=== PATIENT | female | born 1985 | race American Indian/Alaskan Native ===

== ENCOUNTER 2017-06-24 08:49 | Emergency (ER) | payer MEDICARE, MEDICAID ==
[2017-06-24 08:53] VITALS: TEMP 98; BMI 29.2
[2017-06-24] MEDS ORDERED: Labetalol 5 mg/ml Inj 20ML IVP STA (09:21)
--- NOTE | 2017-06-24 09:26 | ED PDOC ---
HPI: Hypertension/Hypotension Time Seen by Provider: 06/24/17 09:12 Chief Complaint (Nursing): Headache History Per: Patient History/Exam Limitations: no limitations Onset/Duration Of Symptoms: Gradual Current Symptoms Are (Timing): Still Present Associated Symptoms: Chest Pain Severity: Mild Exacerbating Factor(s): Pos: None Additional History Per: Patient Additional Complaint(s): referred by dialysis center pt for high blood pressure . was given clonidine 0.1mg po BP was 200/130. hx of htn,dm,chf ,crf/ pt has npo sx did not ytake medications today. had full dialysis Past Medical History Reviewed: Historical Data, Nursing Documentation Vital Signs: Last Vital Signs Temp 98.0 F 06/24/17 08:52 Pulse 98 H 06/24/17 08:52 Resp 16 06/24/17 08:52 BP 200/119 H 06/24/17 08:52 Pulse Ox 98 06/24/17 08:55 - Medical History PMH: Anemia, Anxiety, Asthma, Bronchitis, CHF, COPD, Depression, Diabetes (type I), HTN, Hypercholesterolemia, Kidney Stones, Pneumonia, End Stage Renal Disease , Chronic Kidney Disease (CRF HD T-TH-,ESRD) Denies: HIV, Sickle Cell Disease - Family History Family History: States: Unknown Family Hx - Living Arrangements Living Arrangements: With Family - Social History Current smoker - smoking cessation education provided: No - Home Medications Home Medications: Ambulatory Orders Medication Instructions Recorded ARIPiprazole [Abilify] 5 mg PO HS #0 tab 01/16/16 Aspirin [Aspirin EC] 81 mg PO DAILY #0 tablet. 01/16/16 Atorvastatin [Lipitor] 10 mg PO HS 07/01/16 Carvedilol [Coreg] 3.125 mg PO Q12H 07/01/16 Furosemide [Lasix] 20 mg PO DAILY 07/01/16 Insulin Human NPH/Reg [HumuLIN 10 unit SC BID 07/01/16 70/30 (NPH/Reg)] Lisinopril [Zestril] 2.5 mg PO DAILY 07/01/16 Sevelamer Carbonate [Renvela] 800 mg PO TID 07/01/16 - Allergies Allergies/Adverse Reactions: Allergies Allergy/AdvReac Type Severity Reaction Status Date / Time FISH Allergy SWELLING Verified 06/24/17 08:55 Fish Containing Products Allergy SWELLING Verified 06/24/17 08:55 seafood Allergy Mild SWELLING Uncoded 06/24/17 08:55 Review of Systems ROS Statement: Except As Marked, All Systems Reviewed And Found Negative Constitutional: Negative for: Fever, Chills Cardiovascular: Negative for: Chest Pain, Palpitations Respiratory: Negative for: Cough, Shortness of Breath Gastrointestinal: Negative for: Nausea, Vomiting, Abdominal Pain Neurological: Positive for: Dizziness. Negative for: Weakness, Numbness, Headache Physical Exam - Reviewed Nursing Documentation Reviewed: Yes Vital Signs Reviewed: Yes - Physical Exam Appears: Positive for: No Acute Distress, Uncomfortable Head Exam: Positive for: ATRAUMATIC, NORMAL INSPECTION, NORMOCEPHALIC Eye Exam: Positive for: Normal appearance, EOMI, PERRL Neck: Positive for: Normal, Painless ROM, Supple Cardiovascular/Chest: Positive for: Regular Rate, Rhythm. Negative for: Edema Respiratory: Positive for: Normal Breath Sounds Gastrointestinal/Abdominal: Positive for: Normal Exam, Bowel Sounds, Soft. Negative for: Tenderness Back: Positive for: Normal Inspection. Negative for: L CVA Tenderness, R CVA Tenderness Extremity: Positive for: Normal ROM. Negative for: Tenderness, Pedal Edema Neurologic/Psych: Positive for: Alert, wheelman II-XII, Oriented, Mood/Affect ( anxious). Negative for: Motor/Sensory Deficits, Aphasia, Facial Droop - Laboratory Results Result Diagrams: 06/24/17 09:55 06/24/17 09:55 - ECG ECG: Positive for: Interpreted By Id ECG Rhythm: Positive for: Normal QRS, Normal ST Segment, Sinus Rhythm (rate of 90). Negative for: ST/T Changes O2 Sat by Pulse Oximetry: 98 Pulse Ox Interpretation: Normal - Radiology X-Ray: Interpreted by Id X-Ray Interpretation: No Acute Disease - Progress Re-evaluation Time: 10:30 Condition: Improved Disposition - Clinical Impression Clinical Impression: Hypertensive emergency - Patient ED Disposition Is Patient to be Admitted: No Counseled Patient/Family Regarding: Studies Performed, Diagnosis, Need For Followup - Disposition Referrals: [facility] [Outside] (or pmd in 2 days) Disposition: Routine/Home Disposition Time: 10:30 Condition: FAIR Additional Instructions: continue your medications. Instructions: Hypertensive Crisis (ED) Forms: [facility] ([place])
[2017-06-24 10:21] LABS: BASO # 0.1 K/uL (0.0-0.2); BASO % 0.8 % (0.0-2.0); EOS # 0.2 K/uL (0.0-0.7); EOS % 2.5 % (0.0-4.0); HEMATOCRIT 38.3 % (34.0-47.0); LYMPH # 0.9 K/uL (1.0-4.3); MEAN CELL VOLUME 90.1 fl (81.0-99.0); MEAN CORPUSCULAR HEMOGLOBIN 28.5 pg (27.0-31.0); MEAN CORPUSCULAR HGB CONC 31.6 g/dL (33.0-37.0); MEAN PLATELET VOLUME 7.9 fl (7.2-11.7); MONO # 0.4 K/uL (0.0-0.8); NEUT # 6.3 K/uL (1.8-7.0); NEUT % 79.7 % (50.0-75.0); NRBC % 0.1 % (0.0-0.0); RED CELL DISTRIBUTION WIDTH 20.4 % (11.5-14.5); WHITE BLOOD COUNT 7.9 K/uL (4.8-10.8)
[2017-06-24 10:23] LABS: ALB/GLOB RATIO 1.2 (1.0-2.1); BILIRUBIN,TOTAL 0.6 mg/dl (0.2-1.3); CALCIUM 8.3 mg/dL (8.4-10.2); MAGNESIUM 1.9 MG/DL (1.6-2.3); POTASSIUM 3.7 MMOL/L (3.6-5.0); TOTAL PROTEIN 7.3 G/DL (6.3-8.2)
[2017-06-24 10:31] LABS: PARTIAL THROMBOPLASTIN TIME 31.4 Seconds (25.6-37.1)
--- NOTE | 2017-06-24 10:33 | RAD ---
PROCEDURE: CHEST RADIOGRAPH, 1 VIEW HISTORY: Hypertension COMPARISON: None available. FINDINGS: LUNGS: The lungs are well inflated and clear. PLEURA: No pneumothorax or pleural fluid seen. CARDIOVASCULAR: Normal. OSSEOUS STRUCTURES: No significant abnormalities. VISUALIZED UPPER ABDOMEN: Normal. OTHER FINDINGS: None. IMPRESSION: No active pulmonary disease.
[2017-06-24 10:35] LABS: TROPONIN I 0.021 ng/mL (0.00-0.120)
[2017-06-24 10:51] VITALS: RESP 15
[2017-06-24 11:00] VITALS: BP 163/92; PULSE 82
[2017-06-24 11:18] VITALS: O2SAT 98
--- NOTE | 2017-06-25 16:43 | CARD ---
APPROVED REPORT EKG Measurement Heart [id number] <Conclusion> Normal sinus rhythm Possible Left atrial enlargement Prolonged QT Abnormal ECG
== END 2017-06-24 12:01 | disposition home or self-care (01) ==
LOC: H.ER 08:49
DX: I12.0 Hypertensive chronic kidney disease with stage 5 chronic kidney disease or end stage renal disease (principal); Z79.4 Long term (current) use of insulin; J44.9 Chronic obstructive pulmonary disease, unspecified; F41.9 Anxiety disorder, unspecified; F32.9 Major depressive disorder, single episode, unspecified; E78.00 Pure hypercholesterolemia, unspecified; Z79.82 Long term (current) use of aspirin; Z87.442 Personal history of urinary calculi

== ENCOUNTER 2017-08-08 11:40 | Emergency (ER) | payer MEDICARE, MEDICAID ==
[2017-08-08 11:40] VITALS: BMI 29.2
[2017-08-08 14:28] LABS: BASO # 0.1 K/uL (0.0-0.2); BASO % 0.9 % (0.0-2.0); EOS % 0.4 % (0.0-4.0); HEMOGLOBIN 9.5 g/dL (12.0-16.0); LYMPH # 1.3 K/uL (1.0-4.3); LYMPH % 13.8 % (20.0-40.0); MEAN CELL VOLUME 89.8 fl (81.0-99.0); MEAN CORPUSCULAR HEMOGLOBIN 28.5 pg (27.0-31.0); MEAN CORPUSCULAR HGB CONC 31.7 g/dL (33.0-37.0); MEAN PLATELET VOLUME 9.1 fl (7.2-11.7); MONO # 0.7 K/uL (0.0-0.8); MONO % 6.9 % (0.0-10.0); NEUT # 7.4 K/uL (1.8-7.0); NRBC % 0.1 % (0.0-0.0); RBC 3.33 Mil/uL (3.80-5.20); RED CELL DISTRIBUTION WIDTH 20.7 % (11.5-14.5); WHITE BLOOD COUNT 9.5 K/uL (4.8-10.8)
[2017-08-08 14:49] LABS: ALB/GLOB RATIO 1.1 (1.0-2.1); ALBUMIN 3.6 g/dL (3.5-5.0)
[2017-08-08] MEDS ORDERED: Dextrose 50% SYRINGE Inj (50 ml) IVP ONE (14:55)
[2017-08-08] MEDS ORDERED: Sod Polystyrene Sulf 15 gm/60 ml Susp PO STA (14:56)
[2017-08-08] MEDS ORDERED: Insulin Regular 100 units/ml IV STA (14:56)
[2017-08-08] MEDS ORDERED: Albuterol 0.083% Inhal Sol (2.5 mg/3 mL) UD INH STA (14:56)
[2017-08-08] MEDS ORDERED: Albuterol 0.083% Inhal Sol (2.5 mg/3 mL) UD ONE (15:17)
[2017-08-08] MEDS ORDERED: Insulin Regular 100 units/ml ONE (15:18)
[2017-08-08] MEDS ORDERED: Dextrose 50% SYRINGE Inj (50 ml) ONE (15:18)
[2017-08-08] MEDS ORDERED: Sod Polystyrene Sulf 15 gm/60 ml Susp ONE (15:19)
--- NOTE | 2017-08-08 16:31 | ED PDOC ---
HPI: General Adult Time Seen by Provider: 08/08/17 12:00 Chief Complaint (Nursing): Dizziness/Lightheaded Chief Complaint (Provider): Generalized weakness, missed dialysis x 1 week History Per: Patient History/Exam Limitations: no limitations Onset/Duration Of Symptoms: Days Have you had recent travel within the past 21 days to any of the following countries: [place], [place], [place] or [place]?: No Current Symptoms Are (Timing): Still Present Additional Complaint(s): 32 yo female with HTN, DM and CKD presents with generalized weakness. Pt states she was on vacation and did not go to dialysis for 8 days. Pt denies fever/ chills. Reports still producing some urine. Past Medical History Reviewed: Historical Data, Nursing Documentation, Vital Signs Vital Signs: Last Vital Signs Temp 97.9 F 08/08/17 21:00 Pulse 98 H 08/08/17 21:00 Resp 17 08/08/17 21:00 BP 145/81 08/08/17 21:00 Pulse Ox 98 08/26/17 14:49 - Medical History PMH: Anemia, Anxiety, Asthma, Bronchitis, CHF, COPD, Depression, Diabetes (type I), HTN, Hypercholesterolemia, Kidney Stones, Pneumonia, End Stage Renal Disease , Chronic Kidney Disease (CRF HD T-TH-S,ESRD) Denies: HIV, Sickle Cell Disease - Surgical History Surgical History: No Surg Hx - Family History Family History: States: Unknown Family Hx - Living Arrangements Living Arrangements: With Family - Social History Current smoker - smoking cessation education provided: No Alcohol: None Drugs: Denies - Home Medications Home Medications: Ambulatory Orders Medication Instructions Recorded Aspirin [Aspirin EC] 81 mg PO DAILY #0 rachel. 01/16/16 Atorvastatin [Lipitor] 10 mg PO DAILY 07/01/16 Furosemide [Lasix] 20 mg PO DAILY 07/01/16 Insulin Human (NPH)/Regular 15 unit SC BID 07/06/17 [Novolin 70/30 (70/30 units/ml) 10 ml] Carvedilol [Coreg] 6.25 mg PO Q12 #60 tab 07/07/17 Lisinopril [Zestril] 10 mg PO DAILY #30 tab 07/07/17 - Allergies Allergies/Adverse Reactions: Allergies Allergy/AdvReac Type Severity Reaction Status Date / Time FISH Allergy SWELLING Verified 06/24/17 08:55 Fish Containing Products Allergy SWELLING Verified 06/24/17 08:55 seafood Allergy Mild SWELLING Uncoded 06/24/17 08:55 Review of Systems ROS Statement: Except As Marked, All Systems Reviewed And Found Negative Constitutional: Positive for: Weakness. Negative for: Fever, Chills Cardiovascular: Negative for: Chest Pain Respiratory: Negative for: Shortness of Breath Gastrointestinal: Positive for: Nausea (Intermittent, none now ) Skin: Negative for: Rash Physical Exam - Reviewed Nursing Documentation Reviewed: Yes Vital Signs Reviewed: Yes - Physical Exam Appears: Positive for: Well, Non-toxic, No Acute Distress Head Exam: Positive for: ATRAUMATIC, NORMAL INSPECTION, NORMOCEPHALIC Skin: Positive for: Normal Color, Warm, DRY Eye Exam: Positive for: Normal appearance ENT: Positive for: Normal ENT Inspection Neck: Positive for: Normal, Painless ROM Cardiovascular/Chest: Positive for: Regular Rate, Rhythm Respiratory: Positive for: CNT, Normal Breath Sounds Gastrointestinal/Abdominal: Positive for: Normal Exam, Bowel Sounds, Soft. Negative for: Tenderness Back: Positive for: Normal Inspection Extremity: Positive for: Normal ROM Neurologic/Psych: Positive for: Alert, Oriented - Laboratory Results Result Diagrams: 08/08/17 14:19 08/08/17 14:19 - ECG O2 Sat by Pulse Oximetry: 98 Medical Decision Making Medical Decision Making: Time: 1347 Initial impression: Initial plan: Time: 1643 --Admit to hospital routine: As inpatient in telemetry for renal failure and hyperkalemia under the care of Dr. Thaddeus Rangel MD Scribe Attestation: Documented by Mckenzie Luna, acting as a scribe for Annalisa Senior PA-C Provider Scribe Attestation: All medical record entries made by the Scribe were at my direction and personally dictated by me. I have reviewed the chart and agree that the record accurately reflects my personal performance of the history, physical exam, medical decision making, and the department course for this patient. I have also personally directed, reviewed, and agree with the discharge instructions and disposition. Disposition - Clinical Impression Clinical Impression: Renal failure, Hyperkalemia - Patient ED Disposition Is Patient to be Admitted: Yes (As inpatient in telemetry) - Disposition Disposition Time: 16:43 Condition: FAIR
[2017-08-08 21:44] VITALS: BP 145/81; PULSE 98; RESP 17; TEMP 97.9
--- NOTE | 2017-08-10 19:33 | CARD ---
APPROVED REPORT EKG Measurement Heart [id number] <Conclusion> Sinus tachycardia Septal infarct, age undetermined Abnormal ECG
[2017-08-26 14:49] VITALS: O2SAT 98
== END 2017-08-08 22:17 | disposition home or self-care (01) ==
LOC: H.ER 11:40 → UNDOADMIN 16:43 → H.ERHOLD 16:43 → UNDODISIN 22:17
DX: I13.2 Hypertensive heart and chronic kidney disease with heart failure and with stage 5 chronic kidney disease, or end stage renal disease (principal); E10.22 Type 1 diabetes mellitus with diabetic chronic kidney disease; N18.6 End stage renal disease; I50.9 Heart failure, unspecified; Z99.2 Dependence on renal dialysis; E87.5 Hyperkalemia; E78.00 Pure hypercholesterolemia, unspecified

== ENCOUNTER 2017-08-28 03:47 | Inpatient (IN) | payer MEDICARE, MEDICAID ==
[2017-08-28 03:47] VITALS: BMI 29.2
[2017-08-28 04:15] LABS: BASO # 0.1 K/uL (0.0-0.2); BASO % 1.2 % (0.0-2.0); EOS # 0.1 K/uL (0.0-0.7); EOS % 1.4 % (0.0-4.0); HEMOGLOBIN 7.3 g/dL (12.0-16.0); LYMPH # 0.8 K/uL (1.0-4.3); LYMPH % 10.4 % (20.0-40.0); MEAN CELL VOLUME 89.9 fl (81.0-99.0); MEAN CORPUSCULAR HEMOGLOBIN 28.7 pg (27.0-31.0); MEAN CORPUSCULAR HGB CONC 31.9 g/dL (33.0-37.0); MEAN PLATELET VOLUME 9.4 fl (7.2-11.7); MONO # 0.4 K/uL (0.0-0.8); MONO % 4.9 % (0.0-10.0); NEUT # 6.6 K/uL (1.8-7.0); NEUT % 82.1 % (50.0-75.0); NRBC % 0.1 % (0.0-0.0); RBC 2.56 Mil/uL (3.80-5.20); RED CELL DISTRIBUTION WIDTH 18.2 % (11.5-14.5); WHITE BLOOD COUNT 8.1 K/uL (4.8-10.8)
[2017-08-28 04:59] LABS: ALBUMIN 3.8 g/dL (3.5-5.0)
[2017-08-28] MEDS ORDERED: Insulin Regular 100 units/ml SC STA (05:06)
[2017-08-28] MEDS ORDERED: Dextrose 50% SYRINGE Inj (50 ml) IVP ONE ×2 (05:07→16:15)
[2017-08-28] MEDS ORDERED: Sodium Bicarbonate 4.2% Inj (Infant) IVP ONE (05:07)
--- NOTE | 2017-08-28 05:19 | ED PDOC ---
HPI:Nausea, Vomiting, Diarrhea Time Seen by Provider: 08/28/17 03:50 Chief Complaint (Nursing): Abdominal Pain Chief Complaint (Provider): weakness History Per: Patient History/Exam Limitations: no limitations Additional Complaint(s): 32 yo f with history of ESRD (and see full list below of full med history) here for generalized weakness, has not gotten dialysis for 3 weeks. no fever. did vomit athome. no abd or chest pain or short of breath. Past Medical History Vital Signs: Last Vital Signs Temp 97.9 F 08/28/17 03:48 Pulse 84 08/28/17 03:48 Resp 16 08/28/17 03:48 BP 148/81 08/28/17 03:48 Pulse Ox 100 08/28/17 03:48 - Medical History PMH: Anemia, Anxiety, Asthma, Bronchitis, CHF, COPD, Depression, Diabetes (type I), HTN, Hypercholesterolemia, Kidney Stones, Pneumonia, End Stage Renal Disease , Chronic Kidney Disease (CRF HD T-TH-S,ESRD) Denies: HIV, Sickle Cell Disease - Surgical History Surgical History: No Surg Hx - Family History Family History: States: Unknown Family Hx - Social History Current smoker - smoking cessation education provided: No Ex-Smoker (has not smoked in the last 12 months): No Alcohol: None - Home Medications Home Medications: Ambulatory Orders Medication Instructions Recorded Aspirin [Aspirin EC] 81 mg PO DAILY #0 tablet. 01/16/16 Atorvastatin [Lipitor] 10 mg PO DAILY 07/01/16 Furosemide [Lasix] 20 mg PO DAILY 07/01/16 Insulin Human (NPH)/Regular 15 unit SC BID 07/06/17 [Novolin 70/30 (70/30 units/ml) 10 ml] Carvedilol [Coreg] 6.25 mg PO Q12 #60 tab 07/07/17 Lisinopril [Zestril] 10 mg PO DAILY #30 tab 07/07/17 - Allergies Allergies/Adverse Reactions: Allergies Allergy/AdvReac Type Severity Reaction Status Date / Time FISH Allergy SWELLING Verified 08/28/17 06:06 Fish Containing Products Allergy SWELLING Verified 08/28/17 06:06 seafood Allergy Mild SWELLING Uncoded 06/24/17 08:55 Physical Exam - Reviewed Nursing Documentation Reviewed: Yes - Physical Exam Appears: Positive for: Well, Non-toxic, No Acute Distress Head Exam: Positive for: ATRAUMATIC, NORMAL INSPECTION Skin: Positive for: Normal Color, Warm, Dry Neck: Positive for: Normal Cardiovascular/Chest: Positive for: Regular Rate, Rhythm Respiratory: Positive for: Normal Breath Sounds Gastrointestinal/Abdominal: Positive for: Normal Exam Extremity: Positive for: Normal ROM Neurologic/Psych: Positive for: Alert, Oriented. Negative for: Motor/Sensory Deficits - Laboratory Results Result Diagrams: 08/28/17 04:05 08/28/17 04:05 - ECG O2 Sat by Pulse Oximetry: 100 Medical Decision Making Medical Decision Makin yo F with ESRD off dialysis for 3 weeks rule out hyperkalemia rule out infection vs dehydration labs ,imaging K elevated BUN CR elevated will hold off on iv fluids given lack of recent dialysis rule out infection pt will need admission hospitalist aware Dr Garnett aware Disposition - Clinical Impression Clinical Impression: CKD (chronic kidney disease) - Patient ED Disposition Is Patient to be Admitted: Yes - Disposition Disposition Time: 05:00 Condition: STABLE
--- NOTE | 2017-08-28 05:20 | CP.PCM.HP ---
History of Present Illness - History of Present Illness History of Present Illness: CC: Malaise, SOB HPI: This is a 32 y/o female with MHx significant for ESRD on / HD, CHF ( EF 30% on echo 03/11), valvular heart disease, HTN, and DM1 (?unclear), who has had multiple admissions for non-compliance with her HD; She comes in today, again symptomatic, after skipping HD for past 3 weeks (??). She has had SOB and malaise. Unclear exactly why she has been non-compliant with HD, she states because she was 'not feeling well'. Electric Power Machine Operator: Dr. Garnett, will be arranging for hemodialysis. ROS: 14 point ROS, negative other than HPI MHx: ESRD on HD as above, CHF/Cardiomyopathy EF 30%, valvular heart disease, HTN , DM1 (?) SHx: Toe amputation, HD graft placement in RUE Allergies: Fish/Seafood Medications: As per med rec Family Hx: Reviewed, no relevant findings Social Hx: Lives with family, no EtOH, no current tobacco, but smoked for 1 year in past/1 ppd Present on Admission - Present on Admission Any Indicators Present on Admission: No Past Patient History - Infectious Disease Hx of Infectious Diseases: None - Tetanus Immunizations Tetanus Immunization: Unknown - Past Medical History & Family History Past Medical History?: Yes - Past Social History Smoking Status: Former Smoker - CARDIAC Hx Congestive Heart Failure: Yes Hx Hypercholesterolemia: Yes Hx Hypertension: Yes - PULMONARY Hx Asthma: Yes Hx Bronchitis: Yes Hx Chronic Obstructive Pulmonary Disease (COPD): Yes Hx Pneumonia: Yes - NEUROLOGICAL Hx Neurological Disorder: No - HEENT Hx HEENT Problems: Yes - RENAL Hx Chronic Kidney Disease: Yes (CRF HD ,ESRD) Hx Kidney Stones: Yes - ENDOCRINE/METABOLIC Hx Endocrine Disorders: Yes (DM1) Hx Diabetes Mellitus Type 1: Yes - HEMATOLOGICAL/ONCOLOGICAL Hx Anemia: Yes Hx Human Immunodeficiency Virus (HIV): No Hx Sickle Cell Disease: No - INTEGUMENTARY Hx Dermatological Problems: No - MUSCULOSKELETAL/RHEUMATOLOGICAL Hx Musculoskeletal Disorders: Yes (BACKPAIN) Hx Falls: No - GASTROINTESTINAL Hx Gastrointestinal Disorders: No - GENITOURINARY/GYNECOLOGICAL Hx Genitourinary Disorders: Yes (KIDNEY STONES) - PSYCHIATRIC Hx Anxiety: Yes Hx Depression: Yes - SURGICAL HISTORY Hx Surgeries: Yes Hx Amputation: Yes (left 5th toe) Hx Vascular Access Device: Yes (AV fistula R arm) - ANESTHESIA Hx Anesthesia: Yes Hx Anesthesia Reactions: No Meds Allergies/Adverse Reactions: Allergies Allergy/AdvReac Type Severity Reaction Status Date / Time FISH Allergy SWELLING Verified 08/28/17 06:06 Fish Containing Products Allergy SWELLING Verified 08/28/17 06:06 seafood Allergy Mild SWELLING Uncoded 06/24/17 08:55 Physical Exam - Constitutional Appears: No Acute Distress, Chronically Ill - Head Exam Head Exam: ATRAUMATIC, NORMOCEPHALIC - Eye Exam Eye Exam: EOMI, PERRL - ENT Exam ENT Exam: Mucous Membranes Dry - Neck Exam Neck exam: Positive for: Full Rom - Respiratory Exam Respiratory Exam: Clear to Auscultation Bilateral, NORMAL BREATHING PATTERN - Cardiovascular Exam Cardiovascular Exam: REGULAR RHYTHM, +S1, +S2 - GI/Abdominal Exam GI & Abdominal Exam: Normal Bowel Sounds, Soft - Extremities Exam Extremities exam: Positive for: full ROM, normal inspection Additional comments: RUE graft in place - Neurological Exam Neurological exam: Alert, CN II-XII Intact, Oriented x3 - Psychiatric Exam Psychiatric exam: Normal Affect, Normal Mood - Skin Skin Exam: Dry, Warm Results - Vital Signs Recent Vital Signs: Last Vital Signs Temp 97.9 F 08/28/17 03:48 Pulse 84 08/28/17 03:48 Resp 16 08/28/17 03:48 BP 148/81 08/28/17 03:48 Pulse Ox 100 08/28/17 05:19 - Labs Result Diagrams: 08/28/17 04:05 08/28/17 04:05 Labs: Laboratory Results - last 24 hr 08/28/17 08/28/17 04:05 04:05 WBC 8.1 RBC 2.56 L Hgb 7.3 L D Hct 23.0 L MCV 89.9 MCH 28.7 MCHC 31.9 L RDW 18.2 H Plt Count 111 L D MPV 9.4 Neut % (Auto) 82.1 H Lymph % (Auto) 10.4 L [place] % (Auto) 4.9 Eos % (Auto) 1.4 Baso % (Auto) 1.2 Neut # 6.6 Lymph # 0.8 L [place] # 0.4 Eos # 0.1 Baso # 0.1 Sodium 144 Potassium 5.9 H Chloride 111 H Carbon Dioxide 9 L* D Anion Gap 30 H BUN 131 H* D Creatinine 17.8 H* D Est GFR ( Amer) 3 Est GFR (Non-Af Amer) 2 Random Glucose 101 Calcium 7.0 L Total Bilirubin 0.5 AST 16 ALT 41 Alkaline Phosphatase 48 Total Protein 7.1 Albumin 3.8 Globulin 3.3 Albumin/Globulin Ratio 1.2 - Imaging and Cardiology Chest x-ray Status: Pending Assessment & Plan (1) ESRD on hemodialysis Assessment and Plan: 32 y/o female with generalize symptoms and volume o/l and electrolyte derangement in setting of non-compliance with ESRD. 1) ESRD on HD, vol o/l, elec derangement -admit to tele -Garnett on consult for HD -Continue ESRD medications -Possibly vol depleted and may need some IVF, but will wait for HD -Zofran IV for nausea 2) DM1 -DM/Renal diet -ACHS accucheck -Home dose LA insulint with SSI 3) HTN -- continue home medications 4) DVT PPx -- SCDs for now Status: Acute (2) CHF exacerbation Status: Acute (3) Diabetes mellitus type 2 with complications, uncontrolled Status: Acute (4) HTN (hypertension) Status: Chronic (5) DVT prophylaxis Status: Acute
[2017-08-28] MEDS ORDERED: Insulin Regular 100 units/ml ONE (05:46)
[2017-08-28] MEDS ORDERED: Sod Polystyrene Sulf 15 gm/60 ml Susp ONE (05:46)
[2017-08-28] MEDS ORDERED: Dextrose 50% SYRINGE Inj (50 ml) ONE (05:46)
[2017-08-28] MEDS: Sod Polystyrene Sulf 15 gm/60 ml Susp PO ONE ×2 (06:01→06:30)
[2017-08-28 06:07] LABS: ALB/GLOB RATIO 1.1 (1.0-2.1)
--- NOTE | 2017-08-28 08:09 | RAD ---
HISTORY: chest COMPARISON: Chest x-ray performed 07/06/17 TECHNIQUE: Chest, one view. FINDINGS: Spinal artifact obscures evaluation of the underlying right LUNGS: Mild pulmonary venous congestion. Please note that chest x-ray has limited sensitivity for the detection of pulmonary masses. PLEURA: No significant pleural effusion identified. No definite pneumothorax . CARDIOVASCULAR: Heart size appears top normal. OSSEOUS STRUCTURES: No acute osseous abnormality identified. VISUALIZED UPPER ABDOMEN: Unremarkable. OTHER FINDINGS: None. IMPRESSION: Mild pulmonary venous congestion.
[2017-08-28] MEDS ORDERED: Epoetin Alfa 20000 UNIT/ML (RENAL DOSE) SC SCH (09:00)
[2017-08-28] MEDS ORDERED: Insulin Lispro Mix 75/25 100 units/ml (HumaLog) 10ml SC SCH (09:00)
[2017-08-28] MEDS: Insulin Lispro (humaLOG) 100 Units/ml Inj SC SCH ×2 (09:40→11:48)
--- NOTE | 2017-08-28 10:15 | CARD ---
APPROVED REPORT EKG Measurement Heart [id number] <Conclusion> Normal sinus rhythm Low voltage QRS Septal infarct, age undetermined Abnormal ECG
--- NOTE | 2017-08-28 14:40 | CP.PCM.CON ---
History of Present Illness - History of Present Illness History of Present Illness: Nephrology Consult Consult for ESRD 32 y/o female with pmh of ESRD, CHF, htn, dm that presented w/ multiple missed hd. She was unable to tell me how many dialysis treatments she missed nor when her last hd treatment was. Per chart has missed last 2-3 weeks. SHe endorses sob. SHe denies any fever or chills. She endorses some naussea. She denies vomitting. She feels generalized weakness. She could not tell me why she is skipping her dialysis treatments. ROS: a ful detailed ros is negative except as in my hpi pmh: esrd, chf, htn, dm Allergies: Fish/Seafood Medications: As per med rec Family Hx: + htn in family Social Hx: denies active smoking, etoh, ivdu pe: vs reviewed gen: nad sclera anicteric op: poor dentition neck supple cv: +s1+s2 lungs dec bs at bases abd soft ext: 1+ edema neuro: a+ox3 psych: flat skin no rash Past Patient History - Infectious Disease Hx of Infectious Diseases: None - Tetanus Immunizations Tetanus Immunization: Unknown - Past Medical History & Family History Past Medical History?: Yes - Past Social History Smoking Status: Former Smoker - CARDIAC Hx Congestive Heart Failure: Yes Hx Hypercholesterolemia: Yes Hx Hypertension: Yes - PULMONARY Hx Asthma: Yes Hx Bronchitis: Yes Hx Chronic Obstructive Pulmonary Disease (COPD): Yes Hx Pneumonia: Yes - NEUROLOGICAL Hx Neurological Disorder: No - HEENT Hx HEENT Problems: Yes - RENAL Hx Chronic Kidney Disease: Yes (CRF HD T--,ESRD) - ENDOCRINE/METABOLIC Hx Endocrine Disorders: Yes (DM1) - HEMATOLOGICAL/ONCOLOGICAL Hx Anemia: Yes Hx Human Immunodeficiency Virus (HIV): No Hx Sickle Cell Disease: No - INTEGUMENTARY Hx Dermatological Problems: No - MUSCULOSKELETAL/RHEUMATOLOGICAL Hx Musculoskeletal Disorders: Yes (BACKPAIN) - GASTROINTESTINAL Hx Gastrointestinal Disorders: No - GENITOURINARY/GYNECOLOGICAL Hx Genitourinary Disorders: Yes (KIDNEY STONES) - PSYCHIATRIC Hx Anxiety: Yes Hx Depression: Yes - SURGICAL HISTORY Hx Surgeries: Yes Hx Amputation: Yes (left 5th toe) Hx Vascular Access Device: Yes (AV fistula R arm) - ANESTHESIA Hx Anesthesia: Yes Hx Anesthesia Reactions: No Meds Allergies/Adverse Reactions: Allergies Allergy/AdvReac Type Severity Reaction Status Date / Time FISH Allergy SWELLING Verified 08/28/17 06:06 Fish Containing Products Allergy SWELLING Verified 08/28/17 06:06 seafood Allergy Mild SWELLING Uncoded 06/24/17 08:55 - Medications Medications: Current Medications Acetaminophen (Tylenol 325mg Tab) 650 mg PO Q6 PRN PRN Reason: Pain, Mild (1-3) Aspirin (Ecotrin) 81 mg PO DAILY [facility] Last Admin: 08/28/17 13:47 Dose: 81 mg Atorvastatin Calcium (Lipitor) 10 mg PO DAILY [facility] Last Admin: 08/28/17 13:47 Dose: 10 mg Carvedilol (Coreg) 6.25 mg PO Q12 [facility] Last Admin: 08/28/17 13:46 Dose: 6.25 mg Epoetin Jose (Procrit) 20,000 unit SC MWF [facility] Last Admin: 08/28/17 13:23 Dose: 20,000 unit Insulin Human Lispro (Humalog) 0 units SC ACHS [facility] PRN Reason: Protocol Last Admin: 08/28/17 11:48 Dose: Not Given Insulin Lispro Protam/Lispro Human (Humalog Mix 75/25) 15 units SC BID [facility] Last Admin: 08/28/17 09:41 Dose: Not Given Ondansetron HCl (Zofran Inj) 4 mg IVP Q6 PRN PRN Reason: Nausea/Vomiting Results - Vital Signs Recent Vital Signs: Last Vital Signs Temp 98.6 F 08/28/17 12:00 Pulse 88 08/28/17 13:46 Resp 20 08/28/17 12:00 BP 170/100 H 08/28/17 13:46 Pulse Ox 95 08/28/17 12:00 - Labs Result Diagrams: 08/28/17 04:05 08/28/17 04:05 Labs: Laboratory Results - last 24 hr 08/28/17 08/28/17 08/28/17 04:05 04:05 08:42 WBC 8.1 RBC 2.56 L Hgb 7.3 L D Hct 23.0 L MCV 89.9 MCH 28.7 MCHC 31.9 L RDW 18.2 H Plt Count 111 L D MPV 9.4 Neut % (Auto) 82.1 H Lymph % (Auto) 10.4 L [place] % (Auto) 4.9 Eos % (Auto) 1.4 Baso % (Auto) 1.2 Neut # 6.6 Lymph # 0.8 L [place] # 0.4 Eos # 0.1 Baso # 0.1 Sodium 144 Potassium 5.9 H Chloride 111 H Carbon Dioxide 9 L* D Anion Gap 30 H BUN 131 H* D Creatinine 17.8 H* D Est GFR ( Amer) 3 Est GFR (Non-Af Amer) 2 Random Glucose 101 Calcium 7.0 L Total Bilirubin 0.5 AST 16 ALT 41 Alkaline Phosphatase 48 Total Protein 7.1 Albumin 3.8 Globulin 3.3 Albumin/Globulin Ratio 1.1 Blood Type A POSITIVE Antibody Screen Negative Crossmatch See Detail BBK History Checked Patient has bt Assessment & Plan - Assessment and Plan (Free Text) Assessment: ESRD / Acidosis/ Hyperkalemia / CHF / Secondary hyperparathyroidism / Hypertensive kidney disease/ Anemia of renal disease plan: seen on hd acidosis should improve w/ hd k should improve p hd volume status should be improved will check phos and ipth level resume home bp medications, can add norvasc to regimen will start nephrocap started on procrit. check iron profile and ferritin plan on hd again tomorrow consider psych eval not clear how much insight she has on her disease processes
--- NOTE | 2017-08-28 14:44 | CP.PCM.PN ---
Subjective - Date & Time of Evaluation Date of Evaluation: 08/28/17 Time of Evaluation: 13:30 - Subjective Subjective: DIALYSIS NOTE seen on dialysis uf goal 2 kg 2 k bath tolerating tx Objective - Vital Signs/Intake and Output Vital Signs (last 24 hours): Temp Pulse Resp BP Pulse Ox 98.6 F 88 20 170/100 H 95 08/28/17 12:00 08/28/17 13:46 08/28/17 12:00 08/28/17 13:46 08/28/17 12:00 - Medications Medications: Current Medications Acetaminophen (Tylenol 325mg Tab) 650 mg PO Q6 PRN PRN Reason: Pain, Mild (1-3) Aspirin (Ecotrin) 81 mg PO DAILY [facility] Last Admin: 08/28/17 13:47 Dose: 81 mg Atorvastatin Calcium (Lipitor) 10 mg PO DAILY [facility] Last Admin: 08/28/17 13:47 Dose: 10 mg Carvedilol (Coreg) 6.25 mg PO Q12 [facility] Last Admin: 08/28/17 13:46 Dose: 6.25 mg Epoetin Jose (Procrit) 20,000 unit SC MWF [facility] Last Admin: 08/28/17 13:23 Dose: 20,000 unit Insulin Human Lispro (Humalog) 0 units SC ACHS [facility] PRN Reason: Protocol Last Admin: 08/28/17 11:48 Dose: Not Given Insulin Lispro Protam/Lispro Human (Humalog Mix 75/25) 15 units SC BID [facility] Last Admin: 08/28/17 09:41 Dose: Not Given Ondansetron HCl (Zofran Inj) 4 mg IVP Q6 PRN PRN Reason: Nausea/Vomiting Vitamin B Complex/Vit C/Folic Acid (Nephro-Shae) 1 tab PO DAILY [facility] - Labs Labs: 08/28/17 04:05 08/28/17 04:05
[2017-08-29 05:13] VITALS: O2SAT 95
[2017-08-29 05:43] LABS: BASO # 0.1 K/uL (0.0-0.2); EOS # 0.1 K/uL (0.0-0.7); EOS % 1.9 % (0.0-4.0); HEMOGLOBIN 8.3 g/dL (12.0-16.0); LYMPH # 1.1 K/uL (1.0-4.3); LYMPH % 14.8 % (20.0-40.0); MEAN CELL VOLUME 84.1 fl (81.0-99.0); MEAN CORPUSCULAR HEMOGLOBIN 28.1 pg (27.0-31.0); MEAN CORPUSCULAR HGB CONC 33.4 g/dL (33.0-37.0); MEAN PLATELET VOLUME 9.2 fl (7.2-11.7); MONO # 0.5 K/uL (0.0-0.8); MONO % 6.8 % (0.0-10.0); NEUT # 5.6 K/uL (1.8-7.0); NEUT % 75.5 % (50.0-75.0); NRBC % 0.1 % (0.0-0.0); RBC 2.95 Mil/uL (3.80-5.20); RED CELL DISTRIBUTION WIDTH 19.2 % (11.5-14.5); WHITE BLOOD COUNT 7.4 K/uL (4.8-10.8)
[2017-08-29 06:26] LABS: IRON 128 ug/dL (37-170)
[2017-08-29 06:35] LABS: TOTAL IRON BINDING CAPACITY 172 ug/dL (250-450)
[2017-08-29 06:37] LABS: CALCIUM 6.9 mg/dL (8.4-10.2)
[2017-08-29 06:39] LABS: % IRON SATURATION 74 % (20-55)
[2017-08-29 08:13] VITALS: RESP 20
[2017-08-29] MEDS ORDERED: Multivitamin Vitamin B Complex (Nephro-Vite) Tab PO SCH (09:00)
[2017-08-29 09:44] LABS: IRON 134 ug/dL (37-170)
[2017-08-29 09:53] LABS: TOTAL IRON BINDING CAPACITY 168 ug/dL (250-450)
--- NOTE | 2017-08-29 09:53 | PQF GENQUE ---
This form is a permanent part of the medical record 08/29/17 Dr. Taylor, After workup would you please clarify if the patient has DM I or DM II. H&P with the following documentation: DM I (? unclear) and DM II with complications uncontrolled. Addendum to H&P: Hypoglycemia in DM. [email or web address] [id number]. Clarification of your documentation is requested to better reflect the severity of illness and intensity of treatment of your patient. Indicators present [] Specify: [] [] Specify: [] [] Specify: [] [] Specify: [] Location in the medical record that reflects the above clinical findings: [] Treatment Provided: [] PHYSICIAN'S RESPONSE DM Type II with hypoglycemia Based on your medical judgment of the clinical indicators outlined above please clarify the following: [] Practitioner response [] If unable to determine, please check the box, sign and date. Present On Admission (POA) Indicator: [] Present at the time of admission [] Not present at the time of admission [] Clinically Undetermined In responding to this query, please exercise your independent professional judgment. The fact that a question is asked does not imply that any particular answer is desired or expected. Thank you for your clarification on this documentation. If you have any questions please call:extension [phone] * Thank you, Bonnie Cameron RN [facility]
[2017-08-29 09:56] LABS: % IRON SATURATION 80 % (20-55)
--- NOTE | 2017-08-29 09:58 | PQF GENQUE ---
This form is a permanent part of the medical record 08/29/17 Dr. Taylor, Please specify the type and acuity of heart failure in your progress notes after workup. Admitted with SOB and malaise. Has been non compliant with hemodialysis. History of CHF EF 30%, cardiomyopathy. H&P: ESRD on HD, vol o/l, elec derangement , CHF exacerbation. Clarification of your documentation is requested to better reflect the severity of illness and intensity of treatment of your patient. Indicators present [] Specify: [] [] Specify: [] [] Specify: [] [] Specify: [] Location in the medical record that reflects the above clinical findings: [] Treatment Provided: [] PHYSICIAN'S RESPONSE Based on your medical judgment of the clinical indicators outlined above please clarify the following: [] Practitioner response [] If unable to determine, please check the box, sign and date. Present On Admission (POA) Indicator: [] Present at the time of admission [] Not present at the time of admission [] Clinically Undetermined In responding to this query, please exercise your independent professional judgment. The fact that a question is asked does not imply that any particular answer is desired or expected. Thank you for your clarification on this documentation. If you have any questions please call:ext [phone] * Thank you, Bonnie Cameron RN [facility]
--- NOTE | 2017-08-29 11:03 | CP.PCM.PN ---
Subjective - Date & Time of Evaluation Date of Evaluation: 08/29/17 Time of Evaluation: 11:00 - Subjective Subjective: Patient and bed completed hemodialysis yesterday. No vomiting reported this morning No chest pain Objective - Vital Signs/Intake and Output Vital Signs (last 24 hours): Temp Pulse Resp BP Pulse Ox 98.9 F 95 H 20 137/75 95 08/29/17 08:00 08/29/17 09:55 08/29/17 08:00 08/29/17 09:55 08/29/17 08:00 - Medications Medications: Current Medications Acetaminophen (Tylenol 325mg Tab) 650 mg PO Q6 PRN PRN Reason: Pain, Mild (1-3) Amlodipine Besylate (Norvasc) 10 mg PO DAILY [facility] Last Admin: 08/29/17 09:54 Dose: 10 mg Aspirin (Ecotrin) 81 mg PO DAILY [facility] Last Admin: 08/29/17 09:55 Dose: 81 mg Atorvastatin Calcium (Lipitor) 10 mg PO DAILY [facility] Last Admin: 08/29/17 09:54 Dose: 10 mg Carvedilol (Coreg) 6.25 mg PO Q12 [facility] Last Admin: 08/29/17 09:54 Dose: 6.25 mg Epoetin Jose (Procrit) 20,000 unit SC MWF [facility] Last Admin: 08/28/17 13:23 Dose: 20,000 unit Hydralazine HCl (Apresoline) 10 mg PO Q8 [facility] Last Admin: 08/29/17 09:55 Dose: 10 mg Ondansetron HCl (Zofran Inj) 4 mg IVP Q6 PRN PRN Reason: Nausea/Vomiting Last Admin: 08/28/17 18:45 Dose: 4 mg Tramadol HCl (Ultram) 50 mg PO Q12 PRN PRN Reason: Pain, moderate (4-7) Last Admin: 08/29/17 02:27 Dose: 50 mg Vitamin B Complex/Vit C/Folic Acid (Nephro-Shae) 1 tab PO DAILY [facility] Last Admin: 08/29/17 09:55 Dose: 1 tab - Labs Labs: 08/29/17 04:20 08/29/17 04:20 - Constitutional Appears: No Acute Distress - ENT Exam ENT Exam: Mucous Membranes Moist - Respiratory Exam Respiratory Exam: Rhonchi, NORMAL BREATHING PATTERN. absent: Chest Wall Tenderness - Cardiovascular Exam Cardiovascular Exam: REGULAR RHYTHM. absent: Gallop, Rubs - GI/Abdominal Exam GI & Abdominal Exam: Soft, Normal Bowel Sounds - Extremities Exam Extremities Exam: absent: Calf Tenderness - Back Exam Back Exam: absent: CVA tenderness (L), CVA tenderness (R) - Neurological Exam Neurological Exam: Altered - Psychiatric Exam Psychiatric exam: Depressed - Skin Skin Exam: absent: Cyanosis Assessment and Plan (1) ESRD (end stage renal disease) on dialysis Assessment & Plan: End stage renal disease. Patient keep missing dialysis she did not show up for dialysis for the past almost 3 weeks Patient had dialysis yesterday and scheduled to have one shortly Patient remains somewhat uremic Anemia patient to receive EPO on dialysis Hyperphosphatemia patient to receive binders Secondary hyperparathyroidism Patient is depressed , suggest psych evaluation. Patient has not compliance with treatment and medication and dialysis Status: Acute
--- NOTE | 2017-08-29 19:12 | CP.PCM.DIS ---
Provider - Provider Date of Admission: 08/28/17 05:15 Attending physician: Carolyn Avendaño MD Primary care physician: Dr Cody Wiley Consults: Nephrology : Dr Garnett Time Spent in preparation of Discharge (in minutes): 45 Diagnosis - Discharge Diagnosis (1) Noncompliance of patient with renal dialysis Status: Acute (2) ESRD (end stage renal disease) on dialysis Status: Chronic (3) Hyperkalemia Status: Acute Priority: Low (4) Type 2 diabetes mellitus with hypoglycemia Status: Chronic (5) Anemia in end-stage renal disease Status: Chronic (6) Cardiomyopathy due to hypertension, with heart failure Status: Chronic Hospital Course - Lab Results Lab Results: Most Recent Lab Values WBC 7.4 K/uL (4.8-10.8) 08/29/17 04:20 RBC 2.95 Mil/uL (3.80-5.20) L 08/29/17 04:20 Hgb 8.3 g/dL (12.0-16.0) L 08/29/17 04:20 Hct 24.8 % (34.0-47.0) L 08/29/17 04:20 MCV 84.1 fl (81.0-99.0) D 08/29/17 04:20 MCH 28.1 pg (27.0-31.0) 08/29/17 04:20 MCHC 33.4 g/dL (33.0-37.0) 08/29/17 04:20 RDW 19.2 % (11.5-14.5) H 08/29/17 04:20 Plt Count 118 K/uL (130-400) L 08/29/17 04:20 MPV 9.2 fl (7.2-11.7) 08/29/17 04:20 Neut % (Auto) 75.5 % (50.0-75.0) H 08/29/17 04:20 Lymph % (Auto) 14.8 % (20.0-40.0) L 08/29/17 04:20 [place] % (Auto) 6.8 % (0.0-10.0) 08/29/17 04:20 Eos % (Auto) 1.9 % (0.0-4.0) 08/29/17 04:20 Baso % (Auto) 1.0 % (0.0-2.0) 08/29/17 04:20 Neut # 5.6 K/uL (1.8-7.0) 08/29/17 04:20 Lymph # 1.1 K/uL (1.0-4.3) 08/29/17 04:20 [place] # 0.5 K/uL (0.0-0.8) 08/29/17 04:20 Eos # 0.1 K/uL (0.0-0.7) 08/29/17 04:20 Baso # 0.1 K/uL (0.0-0.2) 08/29/17 04:20 Sodium 137 mmol/l (132-148) 08/29/17 04:20 Potassium 3.7 MMOL/L (3.6-5.0) 08/29/17 04:20 Chloride 99 mmol/L (98-107) 08/29/17 04:20 Carbon Dioxide 24 mmol/L (22-30) 08/29/17 04:20 Anion Gap 18 (10-20) 08/29/17 04:20 BUN 64 mg/dl (7-17) H 08/29/17 04:20 Creatinine 10.5 mg/dl (0.7-1.2) H* D 08/29/17 04:20 Est GFR ( Amer) 5 08/29/17 04:20 Est GFR (Non-Af Amer) 4 08/29/17 04:20 POC Glucose (mg/dL) 97 mg/dL (65-110) 08/29/17 11:22 Random Glucose 101 mg/dL (65-105) 08/29/17 04:20 Hemoglobin A1c 7.1 % (4.2-6.5) H D 08/29/17 04:20 Calcium 6.9 mg/dL (8.4-10.2) L 08/29/17 04:20 Phosphorus 6.6 mg/dl (2.5-4.5) H 08/29/17 04:20 Iron 134 ug/dL (37-170) 08/29/17 09:02 TIBC 168 ug/dL (250-450) L 08/29/17 09:02 % Saturation 80 % (20-55) H 08/29/17 09:02 Ferritin 484.0 ng/Ml (6.24-137.0) H 08/28/17 17:39 Total Bilirubin 0.5 mg/dl (0.2-1.3) 08/28/17 04:05 AST 16 U/L (14-36) 08/28/17 04:05 ALT 41 U/L (9-52) 08/28/17 04:05 Alkaline Phosphatase 48 U/L (38-126) 08/28/17 04:05 Total Protein 7.1 G/DL (6.3-8.2) 08/28/17 04:05 Albumin 3.8 g/dL (3.5-5.0) 08/28/17 04:05 Globulin 3.3 gm/dL (2.2-3.9) 08/28/17 04:05 Albumin/Globulin Ratio 1.1 (1.0-2.1) 08/28/17 04:05 PTH Intact Whole Molec 933 pg/mL (14-64) H 08/28/17 17:30 Blood Type A POSITIVE 08/28/17 08:42 Antibody Screen Negative 08/28/17 08:42 Crossmatch See Detail 08/28/17 08:42 BBK History Checked Patient has bt 08/28/17 08:42 - Hospital Course Hospital Course: 32 y/o lady with hx of ESRD on hemodialysis, DM Type II, HTN, CHF, Hx of Noncompliance with meds , dialysis and ff up came because of SOB , generalized weakness and not feeling well. 1. Hyperkalemia sec to ESRD - received Bicarb -refused kayexalate - Emergent HD 2. Noncompliance -t not compliant with her meds and dialysis skipped HD x 3 wks also not taking insulin for weeks and her BP meds (3) ESRD on hemodialysis - Hemodialysis restarted pt had HD x 2 days back to back -Garnett on consult for HD -Continue ESRD medications (4) CHF exacerbation systolic and diastolic dysfunction Hemodialysis done 2 days in a row cont Lasix , Hydralazine, Coreg no MOO due to hyperkalemia (5) Diabetes mellitus type 2 with complications, hypoglycemia Status: Acute pt states she was diadgnosed to have DM 10 yrs ago, no history of DKA, has been off Insulin for weeks had episodes of hypoglycemia while in the hospital will hols off on any meds for now (6) HTN (hypertension) uncontrolled Status: Chronic cont Coreg , Lasix, add Hydralazine and Norvasc 7. Anemia chronic due to ESRD transfuse 1 unit PRBC started Epogen (8) DVT prophylaxis Status: Acute SCD Patient's condition unexpectedly improved after 2 days of back to back Hemodialysis . Patient wants to go home refused to stay to be further monitored overnight . BP and glucose needs further monitoring however pt insistent on being discharged after HD despite explanation of benefits/risk. Pt is alert, oriented x 3 and has capacity to make her own decision . Discharge Exam - Head Exam Head Exam: ATRAUMATIC, NORMAL INSPECTION - Eye Exam Eye Exam: EOMI, Normal appearance Pupil Exam: NORMAL ACCOMODATION - ENT Exam ENT Exam: Mucous Membranes Moist, Normal External Ear Exam - Neck Exam Neck exam: Full Rom - Respiratory Exam Respiratory Exam: Rales, NORMAL BREATHING PATTERN. absent: Respiratory Distress - Cardiovascular Exam Cardiovascular Exam: REGULAR RHYTHM, +S1, +S2 - GI/Abdominal Exam GI & Abdominal Exam: Normal Bowel Sounds, Soft. absent: Tenderness - Extremities Exam Extremities exam: full ROM, normal capillary refill, pedal pulses present Additional comments: no edema - Back Exam Back exam: FULL ROM. absent: CVA tenderness (L), CVA tenderness (R) - Neurological Exam Neurological exam: Alert, CN II-XII Intact, Oriented x3, Reflexes Normal - Psychiatric Exam Psychiatric exam: Flat Affect, Normal Mood - Skin Skin Exam: Dry, Normal Color, Warm Discharge Plan - Discharge Medications Prescriptions: amLODIPine [Norvasc] 10 mg PO DAILY #30 tab hydrALAZINE [Apresoline] 10 mg PO Q8 #90 tab Vitamin B Complex/Vit C/Folic [Nephro-Shae] 1 tab PO DAILY #30 tab - Follow Up Plan Condition: IMPROVED Disposition: HOME/ ROUTINE Additional Instructions: stressed need for HD and med compliance ff up with PMD micky Referrals: Cody Wiley [Family Provider] -
--- NOTE | 2017-08-29 19:12 | CP.PCM.PN ---
Objective - Vital Signs/Intake and Output Vital Signs (last 24 hours): Temp Pulse Resp BP Pulse Ox 98.6 F 90 20 124/73 95 08/29/17 16:00 08/29/17 17:18 08/29/17 16:00 08/29/17 17:18 08/29/17 16:00 - Medications Medications: Current Medications Acetaminophen (Tylenol 325mg Tab) 650 mg PO Q6 PRN PRN Reason: Pain, Mild (1-3) Amlodipine Besylate (Norvasc) 10 mg PO DAILY [facility] Last Admin: 08/29/17 09:54 Dose: 10 mg Aspirin (Ecotrin) 81 mg PO DAILY [facility] Last Admin: 08/29/17 09:55 Dose: 81 mg Atorvastatin Calcium (Lipitor) 10 mg PO DAILY [facility] Last Admin: 08/29/17 09:54 Dose: 10 mg Carvedilol (Coreg) 6.25 mg PO Q12 [facility] Last Admin: 08/29/17 09:54 Dose: 6.25 mg Epoetin Jose (Procrit) 20,000 unit SC MWF [facility] Last Admin: 08/28/17 13:23 Dose: 20,000 unit Hydralazine HCl (Apresoline) 10 mg PO Q8 [facility] Last Admin: 08/29/17 17:18 Dose: Not Given Ondansetron HCl (Zofran Inj) 4 mg IVP Q6 PRN PRN Reason: Nausea/Vomiting Last Admin: 08/29/17 11:56 Dose: 4 mg Tramadol HCl (Ultram) 50 mg PO Q12 PRN PRN Reason: Pain, moderate (4-7) Last Admin: 08/29/17 02:27 Dose: 50 mg Vitamin B Complex/Vit C/Folic Acid (Nephro-Shae) 1 tab PO DAILY [facility] Last Admin: 08/29/17 09:55 Dose: 1 tab - Labs Labs: 08/29/17 04:20 08/29/17 04:20
[2017-08-29 20:11] VITALS: TEMP 98.2
[2017-08-29 20:48] VITALS: BP 145/82
[2017-08-29 20:54] VITALS: PULSE 91
== END 2017-08-29 22:15 | disposition home or self-care (01) | DRG 640 ==
LOC: H.ER 03:47 → H.ERHOLD 05:15 → H.TEL 07:09
PROVIDERS: ADMIT Internal Medicine; ATTEND Internal Medicine
PROC: 5A1D70Z Performance of Urinary Filtration, Intermittent, Less than 6 Hours Per Day (ICD-10-PCS; principal; 2017-08-28)
PROC: 30233N1 Transfusion of Nonautologous Red Blood Cells into Peripheral Vein, Percutaneous Approach (ICD-10-PCS; 2017-08-28)
DX: E87.5 Hyperkalemia (principal); N18.6 End stage renal disease; I13.2 Hypertensive heart and chronic kidney disease with heart failure and with stage 5 chronic kidney disease, or end stage renal disease; E11.22 Type 2 diabetes mellitus with diabetic chronic kidney disease; E11.649 Type 2 diabetes mellitus with hypoglycemia without coma; I50.43 Acute on chronic combined systolic (congestive) and diastolic (congestive) heart failure; N25.81 Secondary hyperparathyroidism of renal origin; E11.65 Type 2 diabetes mellitus with hyperglycemia; E83.39 Other disorders of phosphorus metabolism; D63.1 Anemia in chronic kidney disease; Z91.15 Patient's noncompliance with renal dialysis; Z91.19 Patient's noncompliance with other medical treatment and regimen; Z91.14 Patient's other noncompliance with medication regimen; Z99.2 Dependence on renal dialysis; Z91.013 Allergy to seafood; J45.909 Unspecified asthma, uncomplicated; J44.9 Chronic obstructive pulmonary disease, unspecified; F32.9 Major depressive disorder, single episode, unspecified; E78.00 Pure hypercholesterolemia, unspecified

== ENCOUNTER 2017-11-04 09:46 | Inpatient (IN) | payer MEDICARE, MEDICAID ==
[2017-11-04 09:46] VITALS: BMI 29.2
--- NOTE | 2017-11-04 10:01 | ED PDOC ---
HPI: Chest Pain Time Seen by Provider: 11/04/17 09:47 Chief Complaint (Nursing): Chest Pain Chief Complaint (Provider): Chest Pain, Shortness of Breath and Cough History Per: Patient History/Exam Limitations: no limitations Onset/Duration Of Symptoms: Days (x2) Current Symptoms Are (Timing): Still Present Severity: None Pain Scale Rating Of: 5 Quality: "Pain" Modifying Factors: None Exacerbating Factors: None Alleviating Factors: None Additional Complaint(s): 32 year old female with a past medical history of end stae renal disease, congestive heart failure and hypertension presents to the emergency department complaining of chest pain, shortness of breath and cough. As per patient, her last dialysis treatment was on Monday. Denies leg swelling, fever and palpitations. Of note: Patient states that she is still urinating PMD: Cody Wiley - Risk Factors PE Risk Factors: Pos: CHF TAD Risk Factors: Pos: Hypertension Past Medical History Reviewed: Historical Data, Nursing Documentation, Vital Signs Vital Signs: Last Vital Signs Temp 98.3 F 11/04/17 09:50 Pulse 91 H 11/04/17 09:50 Resp 16 11/04/17 09:50 BP 171/102 H 11/04/17 11:54 Pulse Ox 98 11/04/17 11:51 - Medical History PMH: Anemia, Anxiety, Asthma, Bronchitis, CHF, COPD, Depression, Diabetes (type I), HTN, Hypercholesterolemia, Kidney Stones, Pneumonia, End Stage Renal Disease , Chronic Kidney Disease (CRF HD T-TH-S,ESRD) Denies: HIV, Sickle Cell Disease - Surgical History Surgical History: No Surg Hx - Family History Family History: States: Unknown Family Hx - Social History Current smoker - smoking cessation education provided: No (formr smoker) Ex-Smoker (has not smoked in the last 12 months): No Alcohol: None Drugs: Denies - Home Medications Home Medications: Ambulatory Orders Medication Instructions Recorded Aspirin [Aspirin EC] 81 mg PO DAILY #0 tablet. 01/16/16 Atorvastatin [Lipitor] 10 mg PO DAILY 07/01/16 Epoetin Jose [Procrit] 20,000 unit SC MWF ml 08/29/17 amLODIPine [Norvasc] 10 mg PO DAILY #30 tab 08/29/17 hydrALAZINE [Apresoline] 10 mg PO Q8 #90 tab 08/29/17 Carvedilol [Coreg] 12.5 mg PO BID 11/04/17 - Allergies Allergies/Adverse Reactions: Allergies Allergy/AdvReac Type Severity Reaction Status Date / Time FISH Allergy SWELLING Verified 08/28/17 06:06 Fish Containing Products Allergy SWELLING Verified 08/28/17 06:06 seafood Allergy Mild SWELLING Uncoded 06/24/17 08:55 Review of Systems ROS Statement: Except As Marked, All Systems Reviewed And Found Negative Constitutional: Negative for: Fever Cardiovascular: Positive for: Chest Pain. Negative for: Palpitations Respiratory: Positive for: Cough, Shortness of Breath Musculoskeletal: Positive for: Other (Denies leg swelling) Physical Exam - Reviewed Nursing Documentation Reviewed: Yes Vital Signs Reviewed: Yes - Physical Exam Appears: Positive for: Non-toxic, No Acute Distress Head Exam: Positive for: ATRAUMATIC, NORMAL INSPECTION, NORMOCEPHALIC Skin: Positive for: Normal Color, Warm, Dry. Negative for: Rash Eye Exam: Positive for: Normal appearance, EOMI, PERRL. Negative for: Nystagmus ENT: Positive for: Normal ENT Inspection. Negative for: Nasal Congestion, Tonsillar Exudate, Tonsillar Swelling Neck: Positive for: Normal, Painless ROM, Supple Cardiovascular/Chest: Positive for: Regular Rate, Rhythm, Chest Non Tender. Negative for: Tachycardia Respiratory: Positive for: Crackles (fine bibasalar crackles). Negative for: Rales, Rhonchi, Stridor, Wheezing, Respiratory Distress Gastrointestinal/Abdominal: Positive for: Normal Exam, Bowel Sounds, Soft. Negative for: Tenderness, Mass, Guarding, Rebound Back: Negative for: L CVA Tenderness, R CVA Tenderness Extremity: Positive for: Normal ROM, Other (no pitting edema). Negative for: Tenderness, Calf Tenderness, Deformity, Swelling Neurologic/Psych: Positive for: Alert, Oriented, Gait - Laboratory Results Result Diagrams: 11/04/17 10:29 11/04/17 10:29 - ECG Interpretation Of ECG: NS @ 92, prolonged QT. O2 Sat by Pulse Oximetry: 98 (RA) Pulse Ox Interpretation: Normal Medical Decision Making Medical Decision Makin Initial Impression 32 year old female presenting with missed dialysis, chest pain and congestive heart failure Initial Plan: * EKG * CMP * Troponin * Upreg * Udip * CBC * PTT * Prothrombin Time * CXR * Blood Culture * Accucheck * Urinalysis * Revaluation Accession No. : [id number] Patient Name / ID : LORE VALENCIA / [id number] Exam Date : 11/04/2017 10:49:32 ( Approved ) Study Comment : Sex / Age : F / 32Y Creator : Aristeo Rosas MD Dictator : Aristeo Rosas MD Billet Checker : Policy Writer Sales : Aristeo Rosas MD Approver2 : Report Date : 11/04/2017 11:46:28 My Comment : HISTORY: SOB COMPARISON: 08/28/2017. FINDINGS: LUNGS: Pulmonary vascular congestion/ pulmonary edema. PLEURA: No significant pleural effusion identified, no pneumothorax apparent. CARDIOVASCULAR: No radiographic findings to suggest acute or significant cardiovascular disease. OSSEOUS STRUCTURES: No significant abnormalities. VISUALIZED UPPER ABDOMEN: Normal. OTHER FINDINGS: None. IMPRESSION: Mild, presumed noncardiogenic pulmonary edema. 12:00PM Case discussed with Dr. Wagner (covering for Dr. Garnett), advises Mobile Dialysis Unit, will give verbal orders. Documented by Trice Luther acting as a scribe for Dorys Lozoya MD. All medical record entries made by the Scribe were at my direction and personally dictated by me. I have reviewed the chart and agree that the record accurately reflects my personal performance of the history, physical exam, medical decision making, and the department course for this patient. I have also personally directed, reviewed, and agree with the discharge instructions and disposition. Disposition - Clinical Impression Clinical Impression: Missed dialysis, Chest pain, Uremia - Patient ED Disposition Is Patient to be Admitted: Yes - Disposition Disposition Time: 12:10 Condition: STABLE Forms: [employer] ([place]) - Pt Status Changed To: Hospital Disposition Of: Inpatient - Admit Certification Admit to Inpatient:: After my assessment, the patient will require hospitalization for at least two midnights. This is because of the severity of symptoms shown, intensity of services needed, and/or the medical risk in this patient being treated as an outpatient. - POA Present On Arrival: Poor Glycemic Control
[2017-11-04 10:39] LABS: BASO # 0.1 K/uL (0.0-0.2); BASO % 0.6 % (0.0-2.0); EOS # 0.2 K/uL (0.0-0.7); EOS % 1.7 % (0.0-4.0); HEMOGLOBIN 8.5 g/dL (12.0-16.0); LYMPH # 1.1 K/uL (1.0-4.3); LYMPH % 10.4 % (20.0-40.0); MEAN CELL VOLUME 90.1 fl (81.0-99.0); MEAN CORPUSCULAR HEMOGLOBIN 28.3 pg (27.0-31.0); MEAN CORPUSCULAR HGB CONC 31.4 g/dL (33.0-37.0); MEAN PLATELET VOLUME 8.7 fl (7.2-11.7); MONO # 0.3 K/uL (0.0-0.8); MONO % 2.9 % (0.0-10.0); NEUT # 9.2 K/uL (1.8-7.0); NEUT % 84.4 % (50.0-75.0); RBC 3.02 Mil/uL (3.80-5.20); RED CELL DISTRIBUTION WIDTH 21.5 % (11.5-14.5); WHITE BLOOD COUNT 10.9 K/uL (4.8-10.8)
[2017-11-04 11:08] LABS: TROPONIN I 0.013 ng/mL (0.00-0.120)
[2017-11-04 11:09] LABS: ALB/GLOB RATIO 1.1 (1.0-2.1); ALBUMIN 3.5 g/dL (3.5-5.0); CALCIUM 8.4 mg/dL (8.4-10.2)
[2017-11-04 11:23] LABS: INR 1.1 (0.9-1.2); PARTIAL THROMBOPLASTIN TIME 32.9 Seconds (25.6-37.1); PROTHROMBIN TIME 12.3 Seconds (9.8-13.1)
[2017-11-04] MEDS ORDERED: Albuterol 0.083% Inhal Sol (2.5 mg/3 mL) UD INH STA (11:38)
--- NOTE | 2017-11-04 11:48 | RAD ---
HISTORY: SOB COMPARISON: 08/28/2017. FINDINGS: LUNGS: Pulmonary vascular congestion/ pulmonary edema. PLEURA: No significant pleural effusion identified, no pneumothorax apparent. CARDIOVASCULAR: No radiographic findings to suggest acute or significant cardiovascular disease. OSSEOUS STRUCTURES: No significant abnormalities. VISUALIZED UPPER ABDOMEN: Normal. OTHER FINDINGS: None. IMPRESSION: Mild, presumed noncardiogenic pulmonary edema.
[2017-11-04] MEDS ORDERED: Insulin Regular 100 units/ml IV STA (11:50)
[2017-11-04] MEDS ORDERED: Albuterol 0.083% Inhal Sol (2.5 mg/3 mL) UD ONE (11:52)
[2017-11-04] MEDS ORDERED: Sod Polystyrene Sulf 15 gm/60 ml Susp ONE (11:53)
[2017-11-04] MEDS: Sod Polystyrene Sulf 15 gm/60 ml Susp PO STA ×2 (11:54→12:10)
[2017-11-04] MEDS ORDERED: Insulin Regular 100 units/ml ONE (12:02)
[2017-11-04] MEDS ORDERED: Epoetin Alfa 4000 UNIT/ML Inj IV SCH (16:00)
--- NOTE | 2017-11-04 16:26 | CARD ---
APPROVED REPORT EKG Measurement Heart [id number] <Conclusion> Normal sinus rhythm Prolonged QT Abnormal ECG
[2017-11-04] MEDS: Insulin Lispro (humaLOG) 100 Units/ml Inj SC SCH ×2 (16:55→19:10)
[2017-11-04] MEDS: Sevelamer Carb 0.8 gm/Packet PO SCH (16:56)
--- NOTE | 2017-11-04 17:33 | CP.PCM.CON ---
History of Present Illness - History of Present Illness History of Present Illness: Nephrology Consultation Note: Assessment: Stable Missed dialysis and fluid overload, hyperkalemia Diabetic chronic Kidney Disease (E11.22) Hypertensive Chronic Kidney Disease (I12.0) End stage renal disease (N18.6) dependence on hemodialysis (Z99.2) (TTS) via AVF Anemia (D64.9), Hyperphosphatemia (E83.39), Secondary Hyperparathyroidism (E21.1 ), HTN (I12.0) Plan: Will plan for HD today as ordered. Continue with Nephrovite 1 tab/day. PRBC as needed for anemia. On MAYELIN as Epogen with dialysis last Hb 8.5 Continue with phos binders home dose BP control with meds as ordered. Patient not on RAAS airam, Consider if blood pressure stays high Glycemic control, Dialysis consistent diet Further work up/management as per primary team Dose meds/antibiotics (if needed) for ESRD status. Avoid fleets enema/magnesium based laxatives. Thanks for allowing me to participate in care of your patient. Will follow patient with you. Please call if any Qs Dr Dannie Chung Office: [phone] Chief Complaint;Shortness of breath HPI: Pt is a 32 Female with hx of ESRD on hemodialysis (TTS) via AVF, last dialysis Mon, chronic anemia, hyperphosphatemia, secondary hyperparathyroidism, Diabetes Mellitus, hypertension presented with complaints of SOB x 1 day. Patient states she missed dialysis because of Storm on . She felt shortness of breath today hence she came to the emergency room for further evaluation. Denies leg swelling. Denies cough or phlegm. Says make urine Patient dialysis for many years. ROS: Cardiovascular: No chest pain. Pulmonary: c/o shortness of breath Gastrointestinal: denies abdominal pain No nausea. No vomiting. Genitourinary: No pain while urinating. Denies blood in urine. All other negative except as mentioned in HPI Physical Examination: General Appearance: Comfortable, in no acute respiratory distress, co-operative . Vitals reviewed and noted as below Head; Atraumatic, normocephalic ENT: no ulcers no thrush. Tongue is midline. Oropharynx: no rash or ulcers. EYES: Pupils are equal, round and reactive to light accommodation. Eye muscles and extraocular movement intact. Sclera is anicteric. Neck; supple no lymphadenopathy, no thyromegaly or bruit Lungs: Normal respiratory rate/effort. Breath sounds bilateral equal and few basal rales Heart: Normal rate. s1s2 normal. No rub or gallop. Extremities: no edema. No varicose veins Neurological: Patient is alert, awake and oriented to person, place and time. No focal deficit. Strength bilateral appropriate and equal Skin: Warm and dry. Normal turgor. No rash. Palpitation: Normal elasticity for age Abdomen: Abdomen is soft. Bowel sounds +. There is no abdominal tenderness, no guarding/rigidity or organomegaly Psych: normal insight and normal affect/mood MSK: no joint tenderness or swelling. Digits and nails normal, no deformity : kidney or bladder not palpable Access: AVF Labs/imaging reviewed. Past medical history, past surgical history, family history, social history, allergy reviewed and noted as below Family Hx: no hx of CKD. Non contributory Chest x-ray showing moderate pulmonary congestion Past Patient History - Infectious Disease Hx of Infectious Diseases: None - Tetanus Immunizations Tetanus Immunization: Unknown - Past Medical History & Family History Past Medical History?: Yes - Past Social History Smoking Status: Former Smoker - CARDIAC Hx Cardiac Disorders: Yes (HTN, CHF, HTN,) - PULMONARY Hx Respiratory Disorders: Yes (COPD, PNEUMONIA, ASTHMA, BRONCHITIS) - NEUROLOGICAL Hx Neurological Disorder: No - HEENT Hx HEENT Problems: Yes - RENAL Hx Chronic Kidney Disease: Yes (CRF HD T--,ESRD) - ENDOCRINE/METABOLIC Hx Endocrine Disorders: Yes (DM) - HEMATOLOGICAL/ONCOLOGICAL Hx Blood Disorders: Yes (ANEMIA) - INTEGUMENTARY Hx Dermatological Problems: No - MUSCULOSKELETAL/RHEUMATOLOGICAL Hx Musculoskeletal Disorders: Yes (BACKPAIN) Hx Falls: No - GASTROINTESTINAL Hx Gastrointestinal Disorders: No - GENITOURINARY/GYNECOLOGICAL Hx Genitourinary Disorders: Yes (KIDNEY STONES) - PSYCHIATRIC Hx Psychophysiologic Disorder: Yes (DEPRESSION, ANXIETY) Hx Substance Use: No - SURGICAL HISTORY Hx Surgeries: Yes Hx Amputation: Yes (left 5th toe) Hx Vascular Access Device: Yes (AV fistula R arm) - ANESTHESIA Hx Anesthesia: Yes Hx Anesthesia Reactions: No Hx Malignant Hyperthermia: No Has any member of the family had a problem w/ anesthesia?: No Meds Allergies/Adverse Reactions: Allergies Allergy/AdvReac Type Severity Reaction Status Date / Time FISH Allergy SWELLING Verified 08/28/17 06:06 Fish Containing Products Allergy SWELLING Verified 08/28/17 06:06 seafood Allergy Mild SWELLING Uncoded 06/24/17 08:55 - Medications Medications: Current Medications Acetaminophen (Tylenol 325mg Tab) 650 mg PO Q6 PRN PRN Reason: Pain, Mild (1-3) Amlodipine Besylate (Norvasc) 10 mg PO DAILY [facility] Last Admin: 11/04/17 16:56 Dose: 10 mg Aspirin (Ecotrin) 81 mg PO DAILY [facility] Carvedilol (Coreg) 12.5 mg PO Q12 [facility] Epoetin Jose (Procrit) 4,000 unit IV TTS [facility] Hydralazine HCl (Apresoline) 10 mg PO Q8 [facility] Last Admin: 11/04/17 16:54 Dose: 10 mg Insulin Human Lispro (Humalog) 15 units SC BIDWM [facility] Last Admin: 11/04/17 16:55 Dose: 15 units Lidocaine (Lidoderm) 1 ea TD DAILY [facility] Sevelamer Carbonate (Renvela) 0.8 gm PO TIDWM [facility] Last Admin: 11/04/17 16:56 Dose: 0.8 gm Tramadol HCl (Ultram) 50 mg PO Q12 PRN PRN Reason: Pain, moderate (4-7) Last Admin: 11/04/17 17:02 Dose: 50 mg Vitamin B Complex/Vit C/Folic Acid (Nephro-Shae) 1 tab PO DAILY [facility] Results - Vital Signs Recent Vital Signs: Last Vital Signs Temp 97.5 F L 11/04/17 16:04 Pulse 90 11/04/17 16:04 Resp 18 11/04/17 16:04 BP 179/123 H 11/04/17 16:54 Pulse Ox 100 11/04/17 16:04 - Labs Result Diagrams: 11/04/17 10:29 11/04/17 10:29 Labs: Laboratory Results - last 24 hr 11/04/17 11/04/17 11/04/17 10:11 10:29 10:29 WBC 10.9 H RBC 3.02 L Hgb 8.5 L Hct 27.2 L MCV 90.1 D MCH 28.3 MCHC 31.4 L RDW 21.5 H Plt Count 195 MPV 8.7 Neut % (Auto) 84.4 H Lymph % (Auto) 10.4 L [place] % (Auto) 2.9 Eos % (Auto) 1.7 Baso % (Auto) 0.6 Neut # (Auto) 9.2 H Lymph # (Auto) 1.1 [place] # (Auto) 0.3 Eos # (Auto) 0.2 Baso # (Auto) 0.1 PT INR APTT Sodium 139 Potassium 5.9 H Chloride 98 Carbon Dioxide 22 Anion Gap 25 H BUN 77 H Creatinine 12.3 H* Est GFR ( Amer) 4 Est GFR (Non-Af Amer) 4 POC Glucose (mg/dL) 227 H Random Glucose 211 H Calcium 8.4 Total Bilirubin 0.7 AST 17 ALT 30 Alkaline Phosphatase 49 Troponin I 0.0130 Total Protein 6.8 Albumin 3.5 Globulin 3.3 Albumin/Globulin Ratio 1.1 Serum HCG, Qual 11/04/17 11/04/17 10:29 10:35 WBC RBC Hgb Hct MCV MCH MCHC RDW Plt Count MPV Neut % (Auto) Lymph % (Auto) [place] % (Auto) Eos % (Auto) Baso % (Auto) Neut # (Auto) Lymph # (Auto) [place] # (Auto) Eos # (Auto) Baso # (Auto) PT 12.3 INR 1.1 APTT 32.9 Sodium Potassium Chloride Carbon Dioxide Anion Gap BUN Creatinine Est GFR ( Amer) Est GFR (Non-Af Amer) POC Glucose (mg/dL) Random Glucose Calcium Total Bilirubin AST ALT Alkaline Phosphatase Troponin I Total Protein Albumin Globulin Albumin/Globulin Ratio Serum HCG, Qual Negative
[2017-11-04 19:51] LABS: SQUAMOUS EPITHIAL < 1 /hpf (0-5); URINE BILIRUBIN NEGATIVE (NEGATIVE); URINE BLOOD NEGATIVE (NEGATIVE); URINE CLARITY CLEAR (Clear); URINE COLOR STRAW (YELLOW); URINE GLUCOSE (UA) 150 mg/dL (Normal); URINE LEUKOCYTE ESTERASE NEG Leu/uL (Negative); URINE PROTEIN >=500 mg/dL (NEGATIVE); URINE UROBILINOGEN 0.2-1.0 mg/dL (0.2-1.0)
[2017-11-05] MEDS ORDERED: Lidocaine 5% Patch TD SCH (09:00)
[2017-11-05] MEDS ORDERED: Multivitamin Vitamin B Complex (Nephro-Vite) Tab PO SCH (09:00)
[2017-11-05] MEDS: Insulin Lispro (humaLOG) 100 Units/ml Inj SC SCH (09:26)
[2017-11-05] MEDS: Sevelamer Carb 0.8 gm/Packet PO SCH ×3 (09:27→12:31)
[2017-11-05 16:02] VITALS: BP 139/87; PULSE 84; RESP 18; TEMP 98.2; O2SAT 95
--- NOTE | 2017-11-05 23:14 | CP.PCM.HP ---
History of Present Illness - History of Present Illness History of Present Illness: This is a 32 y/o female with hx of CKD had missed her dialysis and has been feeling congested and complained of chest pain hence [facility] Er eval and admitted. Past Patient History - Infectious Disease Hx of Infectious Diseases: None - Tetanus Immunizations Tetanus Immunization: Unknown - Past Medical History & Family History Past Medical History?: Yes - Past Social History Smoking Status: Former Smoker - CARDIAC Hx Cardiac Disorders: Yes (HTN, CHF, HTN,) - PULMONARY Hx Respiratory Disorders: Yes (COPD, PNEUMONIA, ASTHMA, BRONCHITIS) - NEUROLOGICAL Hx Neurological Disorder: No - HEENT Hx HEENT Problems: Yes - RENAL Hx Chronic Kidney Disease: Yes (CRF HD T-TH-S,ESRD) - ENDOCRINE/METABOLIC Hx Endocrine Disorders: Yes (DM) - HEMATOLOGICAL/ONCOLOGICAL Hx Blood Disorders: Yes (ANEMIA) - INTEGUMENTARY Hx Dermatological Problems: No - MUSCULOSKELETAL/RHEUMATOLOGICAL Hx Musculoskeletal Disorders: Yes (BACKPAIN) Hx Falls: No - GASTROINTESTINAL Hx Gastrointestinal Disorders: No - GENITOURINARY/GYNECOLOGICAL Hx Genitourinary Disorders: Yes (KIDNEY STONES) - PSYCHIATRIC Hx Psychophysiologic Disorder: Yes (DEPRESSION, ANXIETY) Hx Substance Use: No - SURGICAL HISTORY Hx Surgeries: Yes Hx Amputation: Yes (left 5th toe) Hx Vascular Access Device: Yes (AV fistula R arm) - ANESTHESIA Hx Anesthesia: Yes Hx Anesthesia Reactions: No Hx Malignant Hyperthermia: No Has any member of the family had a problem w/ anesthesia?: No Meds Allergies/Adverse Reactions: Allergies Allergy/AdvReac Type Severity Reaction Status Date / Time FISH Allergy SWELLING Verified 08/28/17 06:06 Fish Containing Products Allergy SWELLING Verified 08/28/17 06:06 seafood Allergy Mild SWELLING Uncoded 06/24/17 08:55 Results - Vital Signs Recent Vital Signs: Last Vital Signs Temp 98.2 F 11/05/17 16:00 Pulse 84 11/05/17 16:00 Resp 18 11/05/17 16:00 BP 139/87 11/05/17 16:00 Pulse Ox 95 11/05/17 16:00 - Labs Result Diagrams: 11/04/17 10:29 11/04/17 10:29 Labs: Laboratory Results - last 24 hr 11/05/17 11/05/17 11/05/17 05:59 11:39 13:19 POC Glucose (mg/dL) 106 110 Troponin I 0.0140
--- NOTE | 2017-11-06 09:12 | PQF GENQUE ---
Dr. Rangel, Please specify the type and acuity of heart failure in your progress notes:if known 1. TYPE: Combined systolic and diastolic Heart failure with reduced ejection fraction and diastolic dysfunction Diastolic HFpEF Systolic HFrEF Left heart failure Right heart failure Right heart failure due to left heart failure High Output failure End stage heart failure Other (please specify) Clinically unable to determine Unknown 2. ACUITY: Acute Chronic Acute on chronic Other (please specify) Clinically unable to determine Unknown 3. CAUSE: Due to presence of cardiac prosthesis Following cardiac surgery Following non cardiac surgery Hypertensive Other cause (please specify) Clinically unable to determine Unknown CXR: Impression: Mild, presumed noncardiogenic pulmonary edema. ER, H and P and Renal design consultant documentation includes: hx. CHF ER note: Clinical Impression : Missed dialysis, Chest pain, Uremia POA:Poor Glycemic Control ER, H and P,and Renal design consultant: hx. CHF :coreg daily, Lasix IV stat in ER H and P; hx. of CKD had missed her dialysis and has been feeling congested and complained of chest pain [facility]. Renal consult : Missed dialysis and fluid overload, hyperkalemia Diabetic chronic Kidney Disease (E11.22) Hypertensive Chronic Kidney Disease (I12.0) End stage renal disease (N18.6) dependence on hemodialysis (Z99.2) (TTS) via AVF Anemia (D64.9), Hyperphosphatemia (E83.39), Secondary Hyperparathyroidism (E21.1 ), HTN (I12.0) -PRBC as needed for anemia. On MAYELIN as Epogen with dialysis last Hb 8.5 ; Patient states she missed dialysis because of Storm on Lasix IV stat in ER, coreg indra This form is a permanent part of the medical record Clarification of your documentation is requested to better reflect the severity of illness and intensity of treatment of your patient. Indicators present [] Specify: [] [] Specify: [] [] Specify: [] [] Specify: [] Location in the medical record that reflects the above clinical findings: [] Treatment Provided: [] PHYSICIAN'S RESPONSE Based on your medical judgment of the clinical indicators outlined above please clarify the following: [] Practitioner response [] If unable to determine, please check the box, sign and date. Present On Admission (POA) Indicator: [] Present at the time of admission [] Not present at the time of admission [] Clinically Undetermined In responding to this query, please exercise your independent professional judgment. The fact that a question is asked does not imply that any particular answer is desired or expected. Thank you for your clarification on this documentation. If you have any questions please call. * Thank you, Holly Murguia RN ext. #[phone] MTDD
--- NOTE | 2017-11-06 09:26 | PQF GENQUE ---
Dr. Rangel, Please provide the underlying diagnosis causing the patient's documented symptom.Patient admitted with Chest Pain. ER; Clinical Impression: Missed dialysis, Chest pain, Uremia ;POA:Poor Glycemic Control H and P; hx of CKD had missed her dialysis and has been feeling congested and complained of chest pain hence [facility] Er eval and admitted. Renal:HPI: chronic anemia Imp.: Missed dialysis and fluid overload, hyperkalemia Diabetic chronic Kidney Disease (E11.22) Hypertensive Chronic Kidney Disease (I12.0) End stage renal disease (N18.6) dependence on hemodialysis (Z99.2) (TTS) via AVF Anemia (D64.9), Hyperphosphatemia (E83.39), Secondary Hyperparathyroidism (E21.1 ), HTN (I12.0) -PRBC as needed for anemia. On MAYELIN as Epogen with dialysis last Hb 8.5 ; Patient states she missed dialysis because of Storm on This form is a permanent part of the medical record Clarification of your documentation is requested to better reflect the severity of illness and intensity of treatment of your patient. Indicators present [] Specify: [] [] Specify: [] [] Specify: [] [] Specify: [] Location in the medical record that reflects the above clinical findings: [] Treatment Provided: [] PHYSICIAN'S RESPONSE Based on your medical judgment of the clinical indicators outlined above please clarify the following: [] Practitioner response [] If unable to determine, please check the box, sign and date. Present On Admission (POA) Indicator: [] Present at the time of admission [] Not present at the time of admission [] Clinically Undetermined In responding to this query, please exercise your independent professional judgment. The fact that a question is asked does not imply that any particular answer is desired or expected. Thank you for your clarification on this documentation. If you have any questions please call. * Thank you, Holly Murguia RN ext. #[phone] MTDD
== END 2017-11-05 16:30 | disposition home or self-care (01) | DRG 640 ==
LOC: H.ER 09:46 → H.ERHOLD 12:08 → H.TEL 13:52
PROVIDERS: ADMIT Family Medicine; ATTEND Family Medicine
PROC: 5A1D70Z Performance of Urinary Filtration, Intermittent, Less than 6 Hours Per Day (ICD-10-PCS; principal; 2017-11-04)
DX: E87.5 Hyperkalemia (principal); N18.6 End stage renal disease; I13.2 Hypertensive heart and chronic kidney disease with heart failure and with stage 5 chronic kidney disease, or end stage renal disease; E11.22 Type 2 diabetes mellitus with diabetic chronic kidney disease; N25.81 Secondary hyperparathyroidism of renal origin; I50.9 Heart failure, unspecified; Z99.2 Dependence on renal dialysis; E78.00 Pure hypercholesterolemia, unspecified; Z91.013 Allergy to seafood; F41.9 Anxiety disorder, unspecified; J44.9 Chronic obstructive pulmonary disease, unspecified; F32.9 Major depressive disorder, single episode, unspecified; E87.70 Fluid overload, unspecified; D64.9 Anemia, unspecified; Z91.15 Patient's noncompliance with renal dialysis

== ENCOUNTER 2018-01-26 14:30 | Emergency (ER) | payer MEDICARE, MEDICAID ==
[2018-01-26 14:31] VITALS: BMI 29.2
[2018-01-26 15:13] VITALS: TEMP 100; O2SAT 100
--- NOTE | 2018-01-26 15:39 | ED PDOC ---
Upper Extremity Pain/Injury Time Seen by Provider: 01/26/18 15:33 Chief Complaint (Nursing): Weakness/Neurological Deficit Chief Complaint (Provider): Upper Extremity Pain History Per: Patient History/Exam Limitations: no limitations Onset/Duration Of Symptoms: Days (x1) Current Symptoms Are (Timing): Still Present Quality: "Pain" Additional Complaint(s): 32 y/o female with a history of insulin dependent diabetes and HTN presents to the ED for right upper extremity pain. Patient reports having pain to the right side of her neck, shoulder, and arm. She states the pain woke her up while she was sleeping last night. Patient complains that the pain worsens with movement. Denies any recent trauma, chest pain, or focal motor weakness. Of note, patient has chronic renal failure and receives dialysis on Monday, , and Monday weekly. PMD: none provided Past Medical History Reviewed: Historical Data, Nursing Documentation, Vital Signs Vital Signs: Last Vital Signs Temp 100 F H 01/26/18 14:31 Pulse 98 H 01/26/18 14:31 Resp 16 01/26/18 14:31 BP 191/103 H 01/26/18 14:31 Pulse Ox 100 01/26/18 14:31 - Medical History PMH: Anemia, Anxiety, Asthma, Bronchitis, CHF, COPD, Depression, Diabetes (type I), HTN, Hypercholesterolemia, Kidney Stones, Pneumonia, End Stage Renal Disease , Chronic Kidney Disease (CRF HD -,ESRD) Denies: HIV, Sickle Cell Disease - Surgical History Surgical History: No Surg Hx - Family History Family History: States: Unknown Family Hx - Social History Current smoker - smoking cessation education provided: No Ex-Smoker (has not smoked in the last 12 months): No Alcohol: None Drugs: Denies - Home Medications Home Medications: Ambulatory Orders Medication Instructions Recorded Aspirin [Aspirin EC] 81 mg PO DAILY #0 tablet. 01/16/16 amLODIPine [Norvasc] 10 mg PO DAILY #30 tab 08/29/17 Carvedilol [Coreg] 12.5 mg PO Q12 11/04/17 Sevelamer Carbonate [Renvela] 2,400 mg PO TID 11/04/17 Diazepam [Valium] 2 mg PO TID PRN #12 tablet 01/26/18 Insulin Human (NPH)/Regular 15 unit SC BID 01/26/18 [Novolin 70/30 (70/30 units/ml) 10 ml] Lisinopril [Zestril] 10 mg PO DAILY 01/26/18 hydrALAZINE [Apresoline] 10 mg PO Q12 01/26/18 - Allergies Allergies/Adverse Reactions: Allergies Allergy/AdvReac Type Severity Reaction Status Date / Time FISH Allergy SWELLING Verified 08/28/17 06:06 Fish Containing Products Allergy SWELLING Verified 08/28/17 06:06 seafood Allergy Mild SWELLING Uncoded 06/24/17 08:55 Review of Systems ROS Statement: Except As Marked, All Systems Reviewed And Found Negative Constitutional: Negative for: Other (recent trauma) Cardiovascular: Negative for: Chest Pain Musculoskeletal: Positive for: Neck Pain (localized to right side), Shoulder Pain (right), Arm Pain (right) Neurological: Negative for: Weakness (focal motor) Physical Exam - Reviewed Nursing Documentation Reviewed: Yes Vital Signs Reviewed: Yes - Physical Exam Appears: Positive for: Non-toxic, No Acute Distress Head Exam: Positive for: ATRAUMATIC, NORMAL INSPECTION, NORMOCEPHALIC Skin: Positive for: Normal Color, Warm, DRY Eye Exam: Positive for: EOMI, Normal appearance, PERRL Neck: Positive for: Normal, Painless ROM, Supple Cardiovascular/Chest: Positive for: Murmur (diastolic murmur in the mitral area) . Negative for: Regular Rate, Rhythm Respiratory: Positive for: Normal Breath Sounds. Negative for: Respiratory Distress Gastrointestinal/Abdominal: Positive for: Normal Exam, Soft. Negative for: Tenderness Back: Positive for: Normal Inspection Extremity: Positive for: Other (AV fistula right arm upper arm with thrill, palpitation paracervical muscular reproduces the pain, marked pain over right trapezius muscle produces pain in the right hand of her right index finger ) Neurologic/Psych: Positive for: Alert, guide II-XII (intact), Oriented, Motor/ Sensory Deficits (gross), Other (5/5 motor strength) - ECG O2 Sat by Pulse Oximetry: 100 (RA) Pulse Ox Interpretation: Normal Medical Decision Making Medical Decision Making: Time: 14:31 Impression: cervical radiculopathy Initial Plan: * Valium 5 mg PO once * Toradol 30 mg IM once Patient was seen by provider at 15:20. Scribe Attestation: Documented by Romero Rausch acting as a scribe for Swapnil Bernarod MD. Scribe Attestation: All medical record entries made by the Scribe were at my direction and personally dictated by me. I have reviewed the chart and agree that the record accurately reflects my personal performance of the history, physical exam, medical decision making, and the department course for this patient. I have also personally directed, reviewed, and agree with the discharge instructions and disposition. Disposition - Clinical Impression Clinical Impression: Cervical radiculopathy - Disposition Referrals: [facility] [Outside] Disposition: Discharged to Home Care Disposition Time: 20:11 Condition: IMPROVED Prescriptions: Diazepam [Valium] 2 mg PO TID PRN #12 tablet PRN Reason: Pain, Severe (8-10) Instructions: Radiculopathy Forms: [employer] (Chinese)
[2018-01-26 17:08] VITALS: RESP 18
[2018-01-26 17:38] VITALS: BP 175/85; PULSE 87
== END 2018-01-26 17:41 | disposition home or self-care (01) ==
LOC: H.ER 14:30
DX: M54.12 Radiculopathy, cervical region (principal); N18.6 End stage renal disease; Z79.4 Long term (current) use of insulin; Z79.82 Long term (current) use of aspirin; E78.00 Pure hypercholesterolemia, unspecified; I13.2 Hypertensive heart and chronic kidney disease with heart failure and with stage 5 chronic kidney disease, or end stage renal disease
CPT/HCPCS: 96372; 99284; J1885

== ENCOUNTER 2018-01-31 15:53 | Emergency (ER) | payer MEDICARE, MEDICAID ==
[2018-01-31 15:53] VITALS: BMI 29.2
--- NOTE | 2018-01-31 16:07 | ED PDOC ---
Upper Extremity Pain/Injury Time Seen by Provider: 01/31/18 16:01 Chief Complaint (Nursing): Upper Extremity Problem/Injury Chief Complaint (Provider): right shoulder pain History Per: Patient Additional Complaint(s): 32-year-old female presents with persistent pain to right shoulder. Patient was seen last week for same symptoms and was given prescription for Valium which has not helped the pain. Patient states right shoulder pain has been going on for several weeks. She presents today via ambulance for further evaluation secondary to persistent pain. Patient took Valium at 1:00 today but this did not help. No other medications were taken for pain relief. Patient denies any chest pain, SOB or CARTER. Past Medical History Reviewed: Historical Data, Nursing Documentation, Vital Signs Vital Signs: Last Vital Signs Temp 99.7 F H 01/31/18 15:58 Pulse 103 H 01/31/18 15:58 Resp 16 01/31/18 15:58 BP 165/105 H 01/31/18 15:58 Pulse Ox 96 01/31/18 15:58 - Medical History PMH: Anemia, Anxiety, Asthma, Bronchitis, CHF, COPD, Depression, Diabetes (type I), HTN, Hypercholesterolemia, Kidney Stones, Pneumonia, End Stage Renal Disease , Chronic Kidney Disease (CRF HD T-TH-S,ESRD) - Family History Family History: States: No Known Family Hx - Living Arrangements Living Arrangements: With Family - Social History Current smoker - smoking cessation education provided: No Alcohol: None Drugs: Denies - Home Medications Home Medications: Ambulatory Orders Medication Instructions Recorded Aspirin [Aspirin EC] 81 mg PO DAILY #0 tablet. 01/16/16 amLODIPine [Norvasc] 10 mg PO DAILY #30 tab 08/29/17 Carvedilol [Coreg] 12.5 mg PO Q12 11/04/17 Sevelamer Carbonate [Renvela] 2,400 mg PO TID 11/04/17 Diazepam [Valium] 2 mg PO TID PRN #12 tablet 01/26/18 Insulin Human (NPH)/Regular 15 unit SC BID 01/26/18 [Novolin 70/30 (70/30 units/ml) 10 ml] Lisinopril [Zestril] 10 mg PO DAILY 01/26/18 hydrALAZINE [Apresoline] 10 mg PO Q12 01/26/18 Cyclobenzaprine [Cyclobenzaprine 10 mg PO TID PRN #20 tab 01/31/18 HCl] Lidocaine 5% [Lidoderm] 1 ea TD DAILY #30 patch 01/31/18 - Allergies Allergies/Adverse Reactions: Allergies Allergy/AdvReac Type Severity Reaction Status Date / Time FISH Allergy SWELLING Verified 01/31/18 15:57 Fish Containing Products Allergy SWELLING Verified 01/31/18 15:57 seafood Allergy Mild SWELLING Uncoded 01/31/18 15:57 Review of Systems ROS Statement: Except As Marked, All Systems Reviewed And Found Negative Musculoskeletal: Positive for: Shoulder Pain (right) Physical Exam - Reviewed Nursing Documentation Reviewed: Yes Vital Signs Reviewed: Yes - Physical Exam Appears: Positive for: Well, Non-toxic, No Acute Distress Skin: Positive for: Normal Color. Negative for: Rash Eye Exam: Positive for: Normal appearance Neck: Positive for: Painless ROM Cardiovascular/Chest: Positive for: Regular Rate, Rhythm Respiratory: Positive for: Normal Breath Sounds. Negative for: Wheezing, Respiratory Distress Extremity: Positive for: Other (Diffuse tenderness to right shoulder region with decreased range of motion, no obvious bony deformity, strong right handgrip ) Neurologic/Psych: Positive for: Alert, Oriented - ECG O2 Sat by Pulse Oximetry: 96 Pulse Ox Interpretation: Normal - Other Rad Right shoulder x-ray X-Ray: Interpreted by Me, Viewed By Me X-Ray Interpretation: no fx, no dis Medical Decision Making Medical Decision Makin32 y/o F with ongoing right shoulder pain Plan: X-ray right shoulder PO tylenol IM toradol Patient reports improvement to pain after meds given. Sling declined. Rx for lidoderm patch and flexeril given. Advised PMD follow up in 2-3 days. Repeat vitals prior to d/c are improved. Disposition - Clinical Impression Clinical Impression: Shoulder pain - Patient ED Disposition Is Patient to be Admitted: No Counseled Patient/Family Regarding: Studies Performed, Diagnosis, Need For Followup, Rx Given - Disposition Referrals: [facility] [Outside] Disposition: Routine/Home Disposition Time: 17:12 Condition: STABLE Additional Instructions: Take rx meds as directed. Follow up with primary care doctor. Prescriptions: Cyclobenzaprine [Cyclobenzaprine HCl] 10 mg PO TID PRN #20 tab PRN Reason: Muscle Spasm Lidocaine 5% [Lidoderm] 1 ea TD DAILY #30 patch Instructions: Shoulder Pain (DC) Forms: [employer] (Syri[place])
[2018-01-31 17:38] VITALS: BP 138/82; PULSE 89; RESP 15; TEMP 98.5
[2018-01-31 17:39] VITALS: O2SAT 96
--- NOTE | 2018-02-01 09:05 | RAD ---
PROCEDURE: Radiographs of the Right Shoulder HISTORY: pain COMPARISON: No prior. FINDINGS: BONES: No acute fracture. JOINTS: Unremarkable. SOFT TISSUES: Normal. OTHER FINDINGS: None. IMPRESSION: No demonstrated fracture or dislocation.
== END 2018-01-31 17:38 | disposition home or self-care (01) ==
LOC: H.ER 15:53
DX: E78.00 Pure hypercholesterolemia, unspecified (principal); I13.2 Hypertensive heart and chronic kidney disease with heart failure and with stage 5 chronic kidney disease, or end stage renal disease; N18.6 End stage renal disease; E11.9 Type 2 diabetes mellitus without complications; Z79.4 Long term (current) use of insulin; Z87.442 Personal history of urinary calculi; J44.9 Chronic obstructive pulmonary disease, unspecified

== ENCOUNTER 2018-02-01 04:12 | Inpatient (IN) | payer MEDICARE, MEDICAID ==
[2018-02-01 04:13] VITALS: BMI 29.2
--- NOTE | 2018-02-01 04:54 | ED PDOC ---
Upper Extremity Pain/Injury Chief Complaint (Provider): right shoulder pain History Per: Patient History/Exam Limitations: no limitations Onset/Duration Of Symptoms: Days (5) Current Symptoms Are (Timing): Still Present Exacerbating Factor(s): Movement Additional Complaint(s): 32 y/o female brought in by EMS for evaluation of right shoulder pain x 5 days. Patient states she was seen twice in ED for same, had normal xray's and was prescribed valium and pain patch without improvement. Pain worse with movement. Denies injury, numbness/weakness of upper extremities. Patient is ESRD on HS Tues, Th, Sat; states she missed Tu session because she had to work <Rosalie Hancock - Last Filed: 02/01/18 05:47> <Jorge Geronimo - Last Filed: 02/01/18 06:03> Time Seen by Provider: 02/01/18 04:24 Chief Complaint (Nursing): Upper Extremity Problem/Injury Past Medical History Reviewed: Historical Data, Nursing Documentation, Vital Signs Vital Signs: Last Vital Signs Temp 103 F H 02/01/18 04:51 Pulse 100 H 02/01/18 04:17 Resp 02/01/18 04:17 BP 173/98 H 02/01/18 04:17 Pulse Ox 98 02/01/18 04:17 - Medical History PMH: Anemia, Anxiety, Asthma, Bronchitis, CHF, COPD, Depression, Diabetes (type I), HTN, Hypercholesterolemia, Kidney Stones, Pneumonia, End Stage Renal Disease , Chronic Kidney Disease (CRF HD T--,ESRD) Denies: HIV, Sickle Cell Disease - Family History Family History: States: Unknown Family Hx <Rosalie Hancock - Last Filed: 02/01/18 05:47> Vital Signs: Last Vital Signs Temp 103 F H 02/01/18 04:51 Pulse 100 H 02/01/18 04:17 Resp 02/01/18 04:17 BP 173/98 H 02/01/18 04:17 Pulse Ox 98 02/01/18 05:53 <Jorge Geronimo - Last Filed: 02/01/18 06:03> - Home Medications Home Medications: Ambulatory Orders Medication Instructions Recorded Aspirin [Aspirin EC] 81 mg PO DAILY #0 tablet. 01/16/16 amLODIPine [Norvasc] 10 mg PO DAILY #30 tab 08/29/17 Carvedilol [Coreg] 12.5 mg PO Q12 11/04/17 Sevelamer Carbonate [Renvela] 2,400 mg PO TID 11/04/17 Diazepam [Valium] 2 mg PO TID PRN #12 tablet 01/26/18 Insulin Human (NPH)/Regular 15 unit SC BID 01/26/18 [Novolin 70/30 (70/30 units/ml) 10 ml] Lisinopril [Zestril] 10 mg PO DAILY 01/26/18 hydrALAZINE [Apresoline] 10 mg PO Q12 01/26/18 Cyclobenzaprine [Cyclobenzaprine 10 mg PO TID PRN #20 tab 01/31/18 HCl] Lidocaine 5% [Lidoderm] 1 ea TD DAILY #30 patch 01/31/18 - Allergies Allergies/Adverse Reactions: Allergies Allergy/AdvReac Type Severity Reaction Status Date / Time FISH Allergy SWELLING Verified 01/31/18 15:57 Fish Containing Products Allergy SWELLING Verified 01/31/18 15:57 seafood Allergy Mild SWELLING Uncoded 01/31/18 15:57 Review of Systems ROS Statement: Except As Marked, All Systems Reviewed And Found Negative Musculoskeletal: Positive for: Shoulder Pain <Rosalie Hancock - Last Filed: 02/01/18 05:47> Physical Exam - Reviewed Nursing Documentation Reviewed: Yes Vital Signs Reviewed: Yes - Physical Exam Appears: Positive for: Well, Non-toxic, Uncomfortable Head Exam: Positive for: ATRAUMATIC, NORMAL INSPECTION, NORMOCEPHALIC Skin: Positive for: Normal Color Eye Exam: Positive for: Normal appearance ENT: Positive for: Normal ENT Inspection Cardiovascular/Chest: Positive for: Regular Rate, Rhythm Respiratory: Positive for: Normal Breath Sounds Back: Positive for: Muscle Spasm (right cspine paraspinal, right trapezius) Extremity: Positive for: Tenderness (diffuse right shoulder with limited range of motion secondary to pain), Capillary Refill (<2 sec b/l UE). Negative for: Normal ROM Neurologic/Psych: Positive for: Alert, Oriented <Rosalie Hancock - Last Filed: 02/01/18 05:47> - Laboratory Results Result Diagrams: 02/01/18 05:10 - ECG ECG: Positive for: Viewed By Me (reviewed by ED attending) ECG Rhythm: Positive for: Sinus Tachycardia O2 Sat by Pulse Oximetry: 98 - Progress ED Course And Treament: Patient febrile upon arrival; labs, urine, chest xray, venous duplex RUE, IV morphine, PO tylenol, cxr, flu ordered <Rosalie Hancock - Last Filed: 02/01/18 05:47> - Laboratory Results Result Diagrams: 02/01/18 05:10 02/01/18 05:10 <Jorge Geronimo - Last Filed: 02/01/18 06:03> Medical Decision Making Medical Decision Making: Time: 7:00 --Patient signed over to Dr. Lozoya by this provider, pending US and reevaluation. Scribe Attestation: Documented by Nannette Jensen, acting as a scribe for Jorge Geronimo MD Provider Scribe Attestation: All medical record entries made by the Scribe were at my direction and personally dictated by me. I have reviewed the chart and agree that the record accurately reflects my personal performance of the history, physical exam, medical decision making, and the department course for this patient. I have also personally directed, reviewed, and agree with the discharge instructions and disposition. <Jorge Geronimo - Last Filed: 02/01/18 06:03> Disposition - Disposition Disposition Time: 06:00 Patient Signed Over To: Jorge Geronimo Handoff Comments: pending labs, u/s, xray, re-eval <Rosalie Hancock - Last Filed: 02/01/18 05:47> <Jorge Geronimo - Last Filed: 02/01/18 06:03> - Clinical Impression Clinical Impression: Shoulder pain, Fever - Disposition Condition: FAIR Forms: esolidar ([place])
[2018-02-01 05:32] LABS: BASO # 0.1 K/uL (0.0-0.2); BASO % 0.4 % (0.0-2.0); EOS # 0.1 K/uL (0.0-0.7); EOS % 0.7 % (0.0-4.0); HEMOGLOBIN 9.6 g/dL (12.0-16.0); LYMPH # 0.7 K/uL (1.0-4.3); LYMPH % 4.8 % (20.0-40.0); MEAN CELL VOLUME 90.5 fl (81.0-99.0); MEAN CORPUSCULAR HEMOGLOBIN 28.4 pg (27.0-31.0); MEAN CORPUSCULAR HGB CONC 31.4 g/dL (33.0-37.0); MEAN PLATELET VOLUME 8.7 fl (7.2-11.7); MONO # 0.8 K/uL (0.0-0.8); MONO % 5.7 % (0.0-10.0); NEUT # 12.5 K/uL (1.8-7.0); NEUT % 88.4 % (50.0-75.0); PLATELET COUNT 208 K/uL (130-400); RBC 3.39 Mil/uL (3.80-5.20); RED CELL DISTRIBUTION WIDTH 19.6 % (11.5-14.5); WHITE BLOOD COUNT 14.1 K/uL (4.8-10.8)
[2018-02-01 05:52] LABS: ALBUMIN 3.7 g/dL (3.5-5.0); ALT/SGPT < 6 U/L (9-52); AST/SGOT 13 U/L (14-36); BLOOD UREA NITROGEN 57 mg/dl (7-17); CALCIUM 8.9 mg/dL (8.4-10.2); GFR AFRICAN-AMERICAN 5; GFR NON-AFRICAN AMERICAN 4
--- NOTE | 2018-02-01 07:09 | ED PDOC ---
- Laboratory Results Result Diagrams: 02/02/18 14:52 02/02/18 04:30 - ECG O2 Sat by Pulse Oximetry: 95 Medical Decision Making Medical Decision Makin:00 Patient endorsed to me from Dr. Geronimo. Pending ultrasound, labs, and reevaluation. 12:[address] Caro Garnett. Will set up emergent dialysis. Scribe Attestation: Documented by Asa Jensen acting as a scribe for Dorys Lozoya MD. Provider Scribe Attestation: All medical record entries made by the Scribe were at my direction and personally dictated by me. I have reviewed the chart and agree that the record accurately reflects my personal performance of the history, physical exam, medical decision making, and the department course for this patient. I have also personally directed, reviewed, and agree with the discharge instructions and disposition. Disposition - Clinical Impression Clinical Impression: Fever, ESRD (end stage renal disease), Shoulder pain - POA Present On Arrival: None - Disposition Disposition: Admitted as In-Patient Disposition Time: 12:13 Condition: STABLE
[2018-02-01 07:15] LABS: ANISOCYTOSIS SLIGHT; EOSINOPHIL 1 % (0-7); LYMPHOCYTE 6 % (20-50); MONOCYTE 1 % (0-10); NEUTROPHIL 92 % (42-75); PLATELET ESTIMATE NORMAL (NORMAL); TOTAL CELLS COUNTED 100
[2018-02-01 07:21] LABS: HYPOCHROMIC MODERATE
--- NOTE | 2018-02-01 09:41 | RAD ---
HISTORY: fever COMPARISON: Chest radiograph dated 11/04/2017 FINDINGS: LUNGS: Pulmonary vascular congestion. No focal consolidation. PLEURA: No significant pleural effusion identified, no pneumothorax apparent. CARDIOVASCULAR: Cardiomediastinal silhouette appears stably prominent. OSSEOUS STRUCTURES: No significant abnormalities. VISUALIZED UPPER ABDOMEN: Normal. OTHER FINDINGS: None. IMPRESSION: Pulmonary vascular congestion. No focal consolidation or pleural effusion.
--- NOTE | 2018-02-01 11:13 | US ---
PROCEDURE: Right upper extremity av shunt evaluation HISTORY: Right shoulder pain. History of right AV graft COMPARISON: None. TECHNIQUE: Grayscale, color Doppler and spectral evaluation of the right upper extremity arteries and veins FINDINGS: Patent brachial artery with normal velocities. Patent arterial anastomosis with normal velocity. Varying degrees of intragraft stenosis with severe stenosis noted within the portion of the graft closest to shoulder. IMPRESSION: Right upper extremity AV graft. Varying degrees of intra graft stenosis with severe stenosis noted within the portion of the graft closest to the shoulder.
[2018-02-01] MEDS ORDERED: Glucagon Recombinant 1 mg Inj IM PRN (14:47)
[2018-02-01] MEDS ORDERED: Dextrose 50% SYRINGE Inj (50 ml) IV PRN (14:47)
--- NOTE | 2018-02-01 14:56 | CP.PCM.HP ---
History of Present Illness - History of Present Illness History of Present Illness: CC: Right arm pain HPI: 32 y/o woman w/ pmh of ESRD on HD //Mon, CHF (EF 30% on echo 03/11) , valvular heart disease, HTN, and IDDM2, who has had multiple admissions for non-compliance with her HD presents to the ED w/ right upper arm pain. Patient denies traum, injury, or fall. Patient missed HD 2 days ago because of work. Patient reports fever, poor PO intake as well as nausea and vomiting. Patient denies headaches, chest pain, SOB, diarrhea, or dysuria. PMD: none Terminal Superintendent: Dr. Garnett PMH: ESRD on HD as above, CHF/Cardiomyopathy EF 30%, valvular heart disease, HTN , IDDM2 meds: see med list allergies: fish, and fish products PSH: Left Toe amputation, HD graft placement in RUE Fam: HTN and DM2 on mother's father's side of the family SCO: Lives with family, no EtOH, no current tobacco, but smoked for 1 year in past/1 ppd ROS: 12 points assessed and negative unless otherwise reported in HPI Present on Admission - Present on Admission Any Indicators Present on Admission: No History of DVT/PE: No History of Uncontrolled Diabetes: Yes Urinary Catheter: No Decubitus Ulcer Present: No Review of Systems - Review of Systems All systems: reviewed and no additional remarkable complaints except - Constitutional Constitutional: Fever, Malaise. absent: Headache - EENT Eyes: absent: Change in Vision - Cardiovascular Cardiovascular: absent: Chest Pain - Respiratory Respiratory: absent: Dyspnea - Gastrointestinal Gastrointestinal: Nausea, Vomiting. absent: Abdominal Pain - Genitourinary Genitourinary: absent: Dysuria - Integumentary Integumentary: absent: Rash - Neurological Neurological: absent: Dizziness, Headaches Past Patient History - Infectious Disease Hx of Infectious Diseases: None - Tetanus Immunizations Tetanus Immunization: Unknown - Past Medical History & Family History Past Medical History?: Yes - Past Social History Smoking Status: Former Smoker - CARDIAC Hx Congestive Heart Failure: Yes Hx Hypercholesterolemia: Yes Hx Hypertension: Yes - PULMONARY Hx Asthma: Yes Hx Bronchitis: Yes Hx Chronic Obstructive Pulmonary Disease (COPD): Yes Hx Pneumonia: Yes - NEUROLOGICAL Hx Neurological Disorder: No - HEENT Hx HEENT Problems: Yes - RENAL Hx Chronic Kidney Disease: Yes (CRF HD --S,ESRD) - ENDOCRINE/METABOLIC Hx Endocrine Disorders: Yes (DM) Hx Diabetes Mellitus Type 2: Yes - HEMATOLOGICAL/ONCOLOGICAL Hx Anemia: Yes Hx Human Immunodeficiency Virus (HIV): No Hx Sickle Cell Disease: No - INTEGUMENTARY Hx Dermatological Problems: No - MUSCULOSKELETAL/RHEUMATOLOGICAL Hx Musculoskeletal Disorders: Yes (BACKPAIN) Hx Falls: No - GASTROINTESTINAL Hx Gastrointestinal Disorders: No - GENITOURINARY/GYNECOLOGICAL Hx Genitourinary Disorders: Yes (KIDNEY STONES) - PSYCHIATRIC Hx Anxiety: Yes Hx Depression: Yes - SURGICAL HISTORY Hx Surgeries: Yes Hx Amputation: Yes (left 5th toe) Hx Vascular Access Device: Yes (AV fistula R arm) - ANESTHESIA Hx Anesthesia: Yes Hx Anesthesia Reactions: No Hx Malignant Hyperthermia: No Meds Allergies/Adverse Reactions: Allergies Allergy/AdvReac Type Severity Reaction Status Date / Time FISH Allergy SWELLING Verified 01/31/18 15:57 Fish Containing Products Allergy SWELLING Verified 01/31/18 15:57 seafood Allergy Mild SWELLING Uncoded 01/31/18 15:57 Physical Exam - Constitutional Appears: Non-toxic, No Acute Distress - Head Exam Head Exam: ATRAUMATIC, NORMAL INSPECTION, NORMOCEPHALIC - Eye Exam Eye Exam: Normal appearance - ENT Exam ENT Exam: Mucous Membranes Moist - Respiratory Exam Respiratory Exam: Clear to Auscultation Bilateral. absent: Accessory Muscle Use , Decreased Breath Sounds, Rales, Rhonchi, Wheezes, Respiratory Distress - Cardiovascular Exam Cardiovascular Exam: REGULAR RHYTHM. absent: Tachycardia - GI/Abdominal Exam GI & Abdominal Exam: Normal Bowel Sounds, Soft. absent: Distended, Tenderness - Extremities Exam Extremities exam: Positive for: tenderness (at RUE as well as fistula site). Negative for: calf tenderness - Neurological Exam Neurological exam: Alert, Oriented x3 - Skin Skin Exam: Dry, Intact, Normal Color, Warm Results - Vital Signs Recent Vital Signs: Last Vital Signs Temp 102.4 F H 02/01/18 13:15 Pulse 98 H 02/01/18 12:55 Resp 17 02/01/18 12:55 BP 178/94 H 02/01/18 13:15 Pulse Ox 97 02/01/18 12:55 - Labs Result Diagrams: 02/01/18 05:10 02/01/18 05:10 Labs: Laboratory Results - last 24 hr 02/01/18 02/01/1802/01/18 05:09 05:10 05:10 WBC 14.1 H RBC 3.39 L Hgb 9.6 L Hct 30.7 L MCV 90.5 MCH 28.4 MCHC 31.4 L RDW 19.6 H Plt Count 208 MPV 8.7 Neut % (Auto) 88.4 H Lymph % (Auto) 4.8 L [place] % (Auto) 5.7 Eos % (Auto) 0.7 Baso % (Auto) 0.4 Neut # (Auto) 12.5 H Lymph # (Auto) 0.7 L [place] # (Auto) 0.8 Eos # (Auto) 0.1 Baso # (Auto) 0.1 Neutrophils % (Manual) 92 H Lymphocytes % (Manual) 6 L Monocytes % (Manual) 1 Eosinophils % (Manual) 1 Platelet Estimate Normal Hypochromasia (manual) Moderate Anisocytosis (manual) Slight Sodium 135 Potassium 4.6 Chloride 96 L Carbon Dioxide 20 L Anion Gap 24 H BUN 57 H Creatinine 11.8 H* Est GFR ( Amer) 5 Est GFR (Non-Af Amer) 4 POC Glucose (mg/dL) 278 H Random Glucose 305 H Lactic Acid Calcium 8.9 Total Bilirubin 0.9 AST 13 L D ALT < 6 L D Alkaline Phosphatase 48 Total Protein 7.4 Albumin 3.7 Globulin 3.8 Albumin/Globulin Ratio 1.0 Serum HCG, Qual Influenza Typ A,B (EIA) 02/01/18 02/01/18 02/01/18 05:10 05:35 05:53 WBC RBC Hgb Hct MCV MCH MCHC RDW Plt Count MPV Neut % (Auto) Lymph % (Auto) [place] % (Auto) Eos % (Auto) Baso % (Auto) Neut # (Auto) Lymph # (Auto) [place] # (Auto) Eos # (Auto) Baso # (Auto) Neutrophils % (Manual) Lymphocytes % (Manual) Monocytes % (Manual) Eosinophils % (Manual) Platelet Estimate Hypochromasia (manual) Anisocytosis (manual) Sodium Potassium Chloride Carbon Dioxide Anion Gap BUN Creatinine Est GFR ( Amer) Est GFR (Non-Af Amer) POC Glucose (mg/dL) Random Glucose Lactic Acid 1.0 Calcium Total Bilirubin AST ALT Alkaline Phosphatase Total Protein Albumin Globulin Albumin/Globulin Ratio Serum HCG, Qual Negative Influenza Typ A,B (EIA) Negative for flu a/b Assessment & Plan (1) Missed dialysis Status: Acute (2) Shoulder pain Status: Acute (3) Chronic kidney disease with end stage renal failure on dialysis Status: Chronic (4) Diabetes mellitus type 2 with complications, uncontrolled Status: Chronic (5) HTN (hypertension) Status: Chronic - Assessment and Plan (Free Text) Plan: febrile, non-tachycardic, BP elevated Nephrology consult ordered Infectious Disease consult ordered XR shoulder: no fracture or dislocation US upper extremity: right graft stenosis towards shoulder CXR: pulmonary vascular congestion but no pleural effusion EKG: sinus tachycardia, no ST segment elevation/depression given vancomycin and zosyn in ED c/w home medication HD today f/u CBC, CMP, and HbA1c in AM prophylactic measures: Heparin 5,000 units SC Q12h monitor for acute changes admit to Telemetry
--- NOTE | 2018-02-01 15:59 | CP.PCM.CON ---
History of Present Illness - History of Present Illness History of Present Illness: patient is a 32 years of age female known to me with end stage renal disease on Maintenance hemodialysis 3 times a week. Patient keep missing hemodialysis . And she came to the emergency room complaining of feve and pain in shunt area. Patient known to be noncompliance. 32 y/o woman w/ pmh of ESRD on HD //Mon, CHF (EF 30% on echo 03/11), valvular heart disease, HTN, and IDDM2, who has had multiple admissions for non- compliance with her HD presents to the ED w/ right upper arm pain. PMH: ESRD on HD as above, CHF/Cardiomyopathy EF 30%, valvular heart disease, HTN , IDDM2 meds: see med list allergies: fish, and fish products PSH: Left Toe amputation, HD graft placement in RUE Fam: HTN and DM2 on mother's father's side of the family SCO: Lives with family, no EtOH, no current tobacco, but smoked for 1 year in past/1 ppd Review of Systems - Review of Systems Systems not reviewed;Unavailable: Respiratory Distress - EENT Eyes: As Per HPI - Cardiovascular Cardiovascular: Dyspnea, Leg Edema, Orthopnea, Pedal Edema. absent: Chest Pain - Respiratory Respiratory: Cough, Dyspnea. absent: Hemoptysis - Musculoskeletal Musculoskeletal: Back Pain, Muscle Weakness - Integumentary Integumentary: Dry Skin - Neurological Neurological: absent: Confusion, Dizziness, Focal Weakness - Psychiatric Psychiatric: Mood Swings - Endocrine Endocrine: Fatigue - Hematologic/Lymphatic Hematologic: absent: Easy Bleeding Past Patient History - Infectious Disease Hx of Infectious Diseases: None - Tetanus Immunizations Tetanus Immunization: Unknown - Past Medical History & Family History Past Medical History?: Yes - Past Social History Smoking Status: Former Smoker - CARDIAC Hx Congestive Heart Failure: Yes Hx Hypercholesterolemia: Yes Hx Hypertension: Yes - PULMONARY Hx Asthma: Yes Hx Bronchitis: Yes Hx Chronic Obstructive Pulmonary Disease (COPD): Yes Hx Pneumonia: Yes - NEUROLOGICAL Hx Neurological Disorder: No - HEENT Hx HEENT Problems: Yes - RENAL Hx Chronic Kidney Disease: Yes (CRF HD -,ESRD) - ENDOCRINE/METABOLIC Hx Endocrine Disorders: Yes (DM) Hx Diabetes Mellitus Type 2: Yes - HEMATOLOGICAL/ONCOLOGICAL Hx Anemia: Yes Hx Human Immunodeficiency Virus (HIV): No Hx Sickle Cell Disease: No - INTEGUMENTARY Hx Dermatological Problems: No - MUSCULOSKELETAL/RHEUMATOLOGICAL Hx Musculoskeletal Disorders: Yes (BACKPAIN) Hx Falls: No - GASTROINTESTINAL Hx Gastrointestinal Disorders: No - GENITOURINARY/GYNECOLOGICAL Hx Genitourinary Disorders: Yes (KIDNEY STONES) - PSYCHIATRIC Hx Anxiety: Yes Hx Depression: Yes - SURGICAL HISTORY Hx Surgeries: Yes Hx Amputation: Yes (left 5th toe) Hx Vascular Access Device: Yes (AV fistula R arm) - ANESTHESIA Hx Anesthesia: Yes Hx Anesthesia Reactions: No Hx Malignant Hyperthermia: No Meds Allergies/Adverse Reactions: Allergies Allergy/AdvReac Type Severity Reaction Status Date / Time FISH Allergy SWELLING Verified 01/31/18 15:57 Fish Containing Products Allergy SWELLING Verified 01/31/18 15:57 seafood Allergy Mild SWELLING Uncoded 01/31/18 15:57 - Medications Medications: Current Medications Amlodipine Besylate (Norvasc) 10 mg PO DAILY [facility] Last Admin: 02/01/18 15:01 Dose: 10 mg Aspirin (Ecotrin) 81 mg PO DAILY [facility] Last Admin: 02/01/18 15:01 Dose: 81 mg Carvedilol (Coreg) 12.5 mg PO Q12 [facility] Dextrose (Dextrose 50% Inj) 0 ml IV STAT PRN; Protocol PRN Reason: Hypoglycemia Protocol Dextrose (Glutose 15) 0 gm PO ONCE PRN; Protocol PRN Reason: Hypoglycemia Protocol Glucagon (Glucagen Diagnostic Kit) 0 mg IM STAT PRN; Protocol PRN Reason: Hypoglycemia Protocol Heparin Sodium (Porcine) (Heparin) 5,000 units SC Q12 [facility] PRN Reason: Protocol Hydralazine HCl (Apresoline) 10 mg PO Q12 [facility] Insulin Human Lispro (Humalog) 0 units SC ACHS [facility] PRN Reason: Protocol Insulin Lispro Protam/Lispro Human (Humalog Mix 75/25) 15 units SC BID [facility] Lidocaine (Lidoderm) 1 ea TD DAILY [facility] Lisinopril (Zestril) 10 mg PO DAILY [facility] Last Admin: 02/01/18 15:02 Dose: 10 mg Ondansetron HCl (Zofran Inj) 4 mg IVP Q4 PRN PRN Reason: Nausea/Vomiting Sevelamer HCl (Renagel) 2,400 mg PO TID [facility] Physical Exam - Constitutional Appears: In Acute Distress - ENT Exam ENT Exam: Mucous Membranes Moist - Neck Exam Neck exam: Negative for: Lymphadenopathy - Respiratory Exam Respiratory Exam: Rales, Rhonchi, Wheezes, NORMAL BREATHING PATTERN. absent: Chest Wall Tenderness - Cardiovascular Exam Cardiovascular Exam: REGULAR RHYTHM, JVD. absent: Gallop, Rubs - GI/Abdominal Exam GI & Abdominal Exam: Normal Bowel Sounds. absent: Guarding - Extremities Exam Extremities exam: Positive for: pedal edema. Negative for: calf tenderness - Back Exam Back exam: absent: CVA tenderness (L), CVA tenderness (R) - Neurological Exam Neurological exam: Alert - Psychiatric Exam Psychiatric exam: Normal Affect Results - Vital Signs Recent Vital Signs: Last Vital Signs Temp 102.4 F H 02/01/18 13:15 Pulse 114 H 02/01/18 15:02 Resp 12 02/01/18 14:47 BP 160/96 H 02/01/18 15:02 Pulse Ox 97 02/01/18 12:55 - Labs Result Diagrams: 02/02/18 04:40 02/02/18 04:30 Labs: Laboratory Results - last 24 hr 02/01/18 02/01/18 02/01/18 05:09 05:10 05:10 WBC 14.1 H RBC 3.39 L Hgb 9.6 L Hct 30.7 L MCV 90.5 MCH 28.4 MCHC 31.4 L RDW 19.6 H Plt Count 208 MPV 8.7 Neut % (Auto) 88.4 H Lymph % (Auto) 4.8 L [place] % (Auto) 5.7 Eos % (Auto) 0.7 Baso % (Auto) 0.4 Neut # (Auto) 12.5 H Lymph # (Auto) 0.7 L [place] # (Auto) 0.8 Eos # (Auto) 0.1 Baso # (Auto) 0.1 Neutrophils % (Manual) 92 H Lymphocytes % (Manual) 6 L Monocytes % (Manual) 1 Eosinophils % (Manual) 1 Platelet Estimate Normal Hypochromasia (manual) Moderate Anisocytosis (manual) Slight Sodium 135 Potassium 4.6 Chloride 96 L Carbon Dioxide 20 L Anion Gap 24 H BUN 57 H Creatinine 11.8 H* Est GFR ( Amer) 5 Est GFR (Non-Af Amer) 4 POC Glucose (mg/dL) 278 H Random Glucose 305 H Lactic Acid Calcium 8.9 Total Bilirubin 0.9 AST 13 L D ALT < 6 L D Alkaline Phosphatase 48 Total Protein 7.4 Albumin 3.7 Globulin 3.8 Albumin/Globulin Ratio 1.0 Serum HCG, Qual Influenza Typ A,B (EIA) 02/01/18 02/01/18 02/01/18 05:10 05:35 05:53 WBC RBC Hgb Hct MCV MCH MCHC RDW Plt Count MPV Neut % (Auto) Lymph % (Auto) [place] % (Auto) Eos % (Auto) Baso % (Auto) Neut # (Auto) Lymph # (Auto) [place] # (Auto) Eos # (Auto) Baso # (Auto) Neutrophils % (Manual) Lymphocytes % (Manual) Monocytes % (Manual) Eosinophils % (Manual) Platelet Estimate Hypochromasia (manual) Anisocytosis (manual) Sodium Potassium Chloride Carbon Dioxide Anion Gap BUN Creatinine Est GFR ( Amer) Est GFR (Non-Af Amer) POC Glucose (mg/dL) Random Glucose Lactic Acid 1.0 Calcium Total Bilirubin AST ALT Alkaline Phosphatase Total Protein Albumin Globulin Albumin/Globulin Ratio Serum HCG, Qual Negative Influenza Typ A,B (EIA) Negative for flu a/b Assessment & Plan (1) End stage renal disease Assessment and Plan: End stage renal disease Patient admitted with fever she missed her dialysis and volume overloaded and leg edema. Rule out sepsis as well as pain in the right upper arm. Emergency hemodialysis called in Patient noncompliance and she keep missing dialysis days. Other medical problem In addition to end stage renal disease Hyperphosphatemia Secondary hyperparathyroidism Rule out sepsis Depression Noncompliance Status: Acute (2) Fever Status: Acute
[2018-02-01] MEDS ORDERED: Epoetin Alfa 4000 UNIT/ML Inj IV ONE (16:02)
--- NOTE | 2018-02-01 17:07 | CARD ---
APPROVED REPORT EKG Measurement Heart [id number] <Conclusion> Sinus tachycardia Septal infarct, age undetermined Abnormal ECG
[2018-02-01] MEDS: Insulin Lispro Mix 75/25 100 units/ml (HumaLog) 10ml SC SCH (20:30)
[2018-02-01 21:36] LABS: HEPATITIS B SURFACE AG Negative (NEGATIVE)
[2018-02-01 21:41] LABS: HEPATITIS B CORE AB NEGATIVE (NEGATIVE)
[2018-02-01] MEDS: Insulin Lispro (humaLOG) 100 Units/ml Inj SC SCH (21:53)
[2018-02-01] MEDS: Sevelamer Carb 0.8 gm/Packet PO SCH ×2 (21:56→22:00)
[2018-02-02 05:14] LABS: BASO % 0.2 % (0.0-2.0); EOS # 0.2 K/uL (0.0-0.7); HEMOGLOBIN 8.9 g/dL (12.0-16.0); LYMPH # 0.6 K/uL (1.0-4.3); LYMPH % 3.3 % (20.0-40.0); MEAN CELL VOLUME 89.7 fl (81.0-99.0); MEAN CORPUSCULAR HEMOGLOBIN 28.5 pg (27.0-31.0); MEAN CORPUSCULAR HGB CONC 31.7 g/dL (33.0-37.0); MEAN PLATELET VOLUME 8.8 fl (7.2-11.7); MONO % 5.7 % (0.0-10.0); NEUT # 15.6 K/uL (1.8-7.0); NEUT % 89.8 % (50.0-75.0); RBC 3.13 Mil/uL (3.80-5.20); RED CELL DISTRIBUTION WIDTH 19.3 % (11.5-14.5); WHITE BLOOD COUNT 17.4 K/uL (4.8-10.8)
[2018-02-02 05:44] LABS: ALB/GLOB RATIO 0.9 (1.0-2.1); ALBUMIN 3.1 g/dL (3.5-5.0); CALCIUM 8.6 mg/dL (8.4-10.2)
[2018-02-02] MEDS: Insulin Lispro (humaLOG) 100 Units/ml Inj SC SCH ×4 (06:37→22:30)
--- NOTE | 2018-02-02 08:10 | PQF GENQUE ---
This form is a permanent part of the medical record 02/02/18 Dr. Sears, Documentation of a history of CHF ( EF 30% on echo 03/11) and ESRD on Hemodialysis. Medication includes: Coreg and Zestril. Please clarify the acuity of CHF: Acute Chronic Acute on chronic Other (please specify) Clinically unable to determine Unknown Clarification of your documentation is requested to better reflect the severity of illness and intensity of treatment of your patient. Indicators present PHYSICIAN'S RESPONSE Based on your medical judgment of the clinical indicators outlined above please clarify the following: [] Practitioner response [] If unable to determine, please check the box, sign and date. Present On Admission (POA) Indicator: [] Present at the time of admission [] Not present at the time of admission [] Clinically Undetermined In responding to this query, please exercise your independent professional judgment. The fact that a question is asked does not imply that any particular answer is desired or expected. Thank you for your clarification on this documentation. If you have any questions please call:[phone] * Thank you, Bonnie Cameron RN CDMP MTDD
[2018-02-02] MEDS: Insulin Lispro Mix 75/25 100 units/ml (HumaLog) 10ml SC SCH ×2 (08:41→19:23)
[2018-02-02] MEDS: Lidocaine 5% Patch TD SCH (08:42)
[2018-02-02] MEDS: Sevelamer Carb 0.8 gm/Packet PO SCH ×3 (08:43→18:34)
--- NOTE | 2018-02-02 10:41 | CP.PCM.PN ---
Subjective - Date & Time of Evaluation Date of Evaluation: 02/02/18 Time of Evaluation: 09:00 - Subjective Subjective: Patient seen and examined this morning at bedside. There are no acute events overnight, NAD. Patient tolerated HD yesterday. Patient reports feeling a little better. Patient denies arm pain but reports RUQ pain w/ nausea but no vomit. Patient denies headaches, chest pain, SOB, diarrhea, dysuria, or fever. Objective - Vital Signs/Intake and Output Vital Signs (last 24 hours): Temp Pulse Resp BP Pulse Ox 98.5 F 97 H 16 135/75 100 02/02/18 08:00 02/02/18 09:00 02/02/18 09:00 02/02/18 09:00 02/02/18 09:00 Intake and Output: 02/02/18 02/02/18 06:59 18:59 Intake Total 550 Output Total 3150 Balance -2600 - Medications Medications: Current Medications Acetaminophen (Tylenol 325mg Tab) 650 mg PO Q6 PRN PRN Reason: Pain, moderate (4-7) Last Admin: 02/01/18 17:50 Dose: 650 mg Acetaminophen (Tylenol 325mg Tab) 650 mg PO Q4 PRN PRN Reason: Fever >100.4 F Last Admin: 02/01/18 23:40 Dose: 650 mg Amlodipine Besylate (Norvasc) 10 mg PO DAILY [facility] Last Admin: 02/02/18 08:43 Dose: 10 mg Aspirin (Ecotrin) 81 mg PO DAILY [facility] Last Admin: 02/02/18 08:40 Dose: 81 mg Carvedilol (Coreg) 12.5 mg PO Q12 [facility] Last Admin: 02/01/18 21:51 Dose: 12.5 mg Dextrose (Dextrose 50% Inj) 0 ml IV STAT PRN; Protocol PRN Reason: Hypoglycemia Protocol Dextrose (Glutose 15) 0 gm PO ONCE PRN; Protocol PRN Reason: Hypoglycemia Protocol Epoetin Jose (Procrit) 4,000 unit IV TTS ONE Stop: 02/03/18 09:01 Glucagon (Glucagen Diagnostic Kit) 0 mg IM STAT PRN; Protocol PRN Reason: Hypoglycemia Protocol Heparin Sodium (Porcine) (Heparin) 5,000 units SC Q12 [facility] PRN Reason: Protocol Last Admin: 02/02/18 08:40 Dose: 5,000 units Hydralazine HCl (Apresoline) 10 mg PO Q12 [facility] Last Admin: 02/02/18 08:39 Dose: 10 mg Piperacillin Sod/Tazobactam (Sod 2.25 gm/ Sodium Chloride) 100 mls @ 100 mls/ hr IVPB Q8 [facility] PRN Reason: Protocol Last Admin: 02/02/18 08:45 Dose: 100 mls/hr Vancomycin HCl 1 gm/ Sodium (Chloride) 250 mls @ 166.667 mls/hr IVPB TUTHSA [facility] PRN Reason: Protocol Last Admin: 02/01/18 22:08 Dose: 166.667 mls/hr Insulin Human Lispro (Humalog) 0 units SC ACHS [facility] PRN Reason: Protocol Last Admin: 02/02/18 06:37 Dose: 3 units Insulin Lispro Protam/Lispro Human (Humalog Mix 75/25) 15 units SC BID [facility] Last Admin: 02/02/18 08:41 Dose: 15 units Lidocaine (Lidoderm) 1 ea TD DAILY [facility] Last Admin: 02/02/18 08:42 Dose: 1 ea Lisinopril (Zestril) 10 mg PO DAILY [facility] Last Admin: 02/01/18 15:02 Dose: 10 mg Ondansetron HCl (Zofran Inj) 4 mg IVP Q4 PRN PRN Reason: Nausea/Vomiting Last Admin: 02/02/18 06:15 Dose: 4 mg Sevelamer Carbonate (Renvela) 2.4 gm PO TIDWM [facility] Last Admin: 02/02/18 09:04 Dose: Not Given Tramadol HCl (Ultram) 50 mg PO Q6 PRN PRN Reason: Pain, severe (8-10) Last Admin: 02/02/18 08:34 Dose: 50 mg - Labs Labs: 02/02/18 04:40 02/02/18 04:30 - Constitutional Appears: Non-toxic, No Acute Distress - Head Exam Head Exam: ATRAUMATIC, NORMAL INSPECTION, NORMOCEPHALIC - Eye Exam Eye Exam: Normal appearance - ENT Exam ENT Exam: Mucous Membranes Moist - Neck Exam Neck Exam: Full ROM. absent: Tenderness - Respiratory Exam Respiratory Exam: absent: Accessory Muscle Use, Decreased Breath Sounds, Rales, Rhonchi, Wheezes, Respiratory Distress - Cardiovascular Exam Cardiovascular Exam: REGULAR RHYTHM, RRR. absent: Tachycardia - GI/Abdominal Exam GI & Abdominal Exam: Soft, Tenderness (RUQ, Sandhu's negative), Normal Bowel Sounds. 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 Status: Chronic (4) Diabetes mellitus type 2 with complications, uncontrolled Status: Chronic (5) HTN (hypertension) Status: Chronic - Assessment and Plan (Free Text) Plan: febrile, non-tachycardic, BP elevated Nephrology consult ordered Infectious Disease recommendations appreciated XR shoulder: no fracture or dislocation US upper extremity: right graft stenosis towards shoulder CXR: pulmonary vascular congestion but no pleural effusion EKG: sinus tachycardia, no ST segment elevation/depression zosyn 2.25 gm IV Q8h day 2 vancomycin 1 gm IV Tues/Thurs/Sat c/w home medication f/u U/S abdomen prophylactic measures: Heparin 5,000 units SC Q12h monitor for acute changes
--- NOTE | 2018-02-02 12:41 | CP.PCM.CON ---
History of Present Illness - History of Present Illness History of Present Illness: 32 y/o woman w/ pmh of ESRD on HD //Mon, CHF (EF 30% on echo 03/11), valvular heart disease, HTN, and IDDM2, who has had multiple admissions for non- compliance with her HD presents to the ED with fever Patient denies traum , injury, or fall. Patient missed HD 2 days ago because of work. Patient reports fever, poor PO intake as well as nausea and vomiting. RUQ TEND AND ARM PAIN Patient denies headaches, chest pain, SOB, diarrhea, or dysuria. PMH: ESRD on HD as above, CHF/Cardiomyopathy EF 30%, valvular heart disease, HTN , IDDM2 meds: see med list allergies: fish, and fish products PSH: Left Toe amputation, HD graft placement in RUE Fam: HTN and DM2 on mother's father's side of the family SCO: Lives with family, no EtOH, no current tobacco, but smoked for 1 year in past/1 ppd ROS: 12 points assessed and negative unless otherwise reported in HPI Review of Systems - Review of Systems All systems: reviewed and no additional remarkable complaints except - Constitutional Constitutional: As Per HPI, Anorexia, Malaise - EENT Eyes: absent: As Per HPI, Blind Spots, Blurred Vision, Change in Vision, Decreased Night Vision, Diplopia, Discharge, Dry Eye, Exophthalmos, Floaters, Irritation, Itchy Eyes, Loss of Peripheral Vision, Pain, Photophobia, Requires Corrective Lenses, Sees Flashes, Spots in Vision, Tunnel Vision, Other Visual Disturbances, Loss of Vision, Other Ears: absent: As Per HPI, Decreased Hearing, Ear Discharge, Ear Pain, Tinnitus, Abnormal Hearing, Disequilibrium, Dizziness, Other Nose/Mouth/Throat: absent: As Per HPI, Epistaxis, Nasal Congestion, Nasal Discharge, Nasal Obstruction, Nasal Trauma, Nose Pain, Post Nasal Drip, Sinus Pain, Sinus Pressure, Bleeding Gums, Change in Voice, Dental Pain, Dry Mouth, Dysphagia, Halitosis, Hoarsness, Lip Swelling, Mouth Lesions, Mouth Pain, Odynophagia, Sore Throat, Throat Swelling, Tongue Swelling, Facial Pain, Neck Pain, Neck Mass, Other - Breasts Breasts: absent: As Per HPI, Change in Shape, Mass, Pain, Nipple Discharge, Nipple Inversion, Skin Changes, Swelling, Other - Cardiovascular Cardiovascular: absent: As Per HPI, Acrocyanosis, Chest Pain, Chest Pain at Rest , Chest Pain with Activity, Claudication, Diaphoresis, Dyspnea, Dyspnea on Exertion, Edema, Irregular Heart Rhythm, Pain Radiating to Arm/Neck/Jaw, Leg Edema, Leg Ulcers, Lightheadedness, Orthopnea, Palpitations, Paroxysmal Nocturnal Dyspnea, Pedal Edema, Radiating Pain, Rapid Heart Rate, Slow Heart Rate, Syncope, Other - Respiratory Respiratory: absent: As Per HPI, Cough, Dyspnea, Hemoptysis, Dyspnea on Exertion , Wheezing, Snoring, Stridor, Pain on Inspiration, Chest Congestion, Excessive Mucous Production, Change in Mucous Color, Pain with Coughing, Other - Gastrointestinal Gastrointestinal: As Per HPI - Genitourinary Genitourinary: absent: As Per HPI, Change in Urinary Stream, Difficulty Urinating, Dysuria, Flank Pain, Hematuria, Pyuria, Nocturia, Urinary Incontinence, Urinary Frequency, Urinary Hesitance, Urinary Urgency, Voiding Freq/Small Amts, Freq UTI, Hx Renal/Bladder Calculi, Hx /Renal Surgery, Bladder Distension, Other - Reproductive: Female Reproductive:Female: absent: As Per HPI, Amenorrhea, Amenorrhea/ Control, Currently Menstual, Cycle <21 Days, Cycle >35 Days, Cycle Variable, Menses 1-7 Days, Menses >/= 8 Days, Menses Variable, Cycle > 4 Weeks Between, No Menses for 6 Months, Heavy Menses, Light Menses, Normal Menses, Spotting Between Cycles , S/P Hysterectomy, Menopausal, Post Menopausal, Premenarche, Abnormal Vaginal Bleeding, Dysmenorrhea, Dyspareunia, Genital Lesions, Genital Pruritis, Pelvic Pain, Prolapse Symptoms, Sexual Dysfunction, Vaginal Discharge, Vaginal Dryness , Vaginal Odor, Vaginal Pruritis, Other - Menstruation Menstruation: absent: As Per HPI, Amenorrhea, Amenorrhea/ Control, Currently Menstual, Cycle <21 Days, Cycle >35 Days, Cycle Variable, Menses 1-7 Days, Menses >/= 8 Days, Menses Variable, Cycle > 4 Weeks Between, No Menses for 6 Months, Heavy Menses, Light Menses, Normal Menses, Spotting Between Cycles , S/P Hysterectomy, Menopausal, Post Menopausal, Premenarche, Abnormal Vaginal Bleeding, Dysmenorrhea, Other - Musculoskeletal Musculoskeletal: absent: As Per HPI, Abnormal Gait, Arthralgias, Atrophy, Back Pain, Deformity, Joint Swelling, Limited Range of Motion, Loss of Height, Muscle Cramps, Muscle Weakness, Myalgias, Neck Pain, Numbness, Radiating Pain into Limb, Stiffness, Tingling, Other - Integumentary Integumentary: absent: As Per HPI, Acne, Alopecia, Bleeding Lesions, Change in Hair, Change in Nails, Change in Pigmentation, Changing Lesions, Dry Skin, Erythema, Furuncle, Hirsutism, Lesions, New Lesions, Non-Healing Lesions, Photosensitivity, Pruritus, Rash, Skin Pain, Skin Ulcer, Sores, Striae, Swelling , Unusual Bruising, Wounds, Jaundice, Other - Neurological Neurological: absent: As Per HPI, Abnormal Gait, Abnormal Hearing, Abnormal Movements, Abnormal Speech, Behavioral Changes, Burning Sensations, Confusion, Convulsions, Disequilibrium, Dizziness, Numbness, Focal Weakness, Frequent Falls , Headaches, Lack of Coordination, Loss of Vision, Memory Loss, Paresthesias, Radicular Pain, Restless Legs, Sensory Deficit, Syncope, Tingling, Tremor, Vertigo, Weakness, Other Visual Disturbances, Other - Psychiatric Psychiatric: absent: As Per HPI, Abnormal Sleep Pattern, Anhedonia, Anxiety, Auditory Hallucinations, Behavioral Changes, Change in Appetite, Change in Libido, Confusion, Depression, Difficulty Concentrating, Hallucinations, Homicidal Ideation, Hopelessness, Irritability, Memory Loss, Mood Swings, Panic Attacks, Paranoia, Suicidal Ideation, Visual Hallucinations, Tactile Hallucinations, Other - Endocrine Endocrine: absent: As Per HPI, Change in Body Appearance, Change in Libido, Cold Intolorance, Deepening of Voice, Excessive Sweating, Fatigue, Flushing, Heat Intolorance, Increase in Ring/Shoe/Hat Size, Palpitations, Polydipsia, Polyphagia, Polyuria, Other - Hematologic/Lymphatic Hematologic: absent: As Per HPI, Easy Bleeding, Easy Bruising, Lymphadenopathy, Other Past Patient History - Infectious Disease Hx of Infectious Diseases: None - Tetanus Immunizations Tetanus Immunization: Unknown - Past Medical History & Family History Past Medical History?: Yes - Past Social History Smoking Status: Former Smoker - CARDIAC Hx Congestive Heart Failure: Yes Hx Hypercholesterolemia: Yes Hx Hypertension: Yes - PULMONARY Hx Asthma: Yes Hx Bronchitis: Yes Hx Chronic Obstructive Pulmonary Disease (COPD): Yes Hx Pneumonia: Yes - NEUROLOGICAL Hx Neurological Disorder: No - HEENT Hx HEENT Problems: Yes - RENAL Hx Chronic Kidney Disease: Yes (CRF HD T-TH-S,ESRD) - ENDOCRINE/METABOLIC Hx Endocrine Disorders: Yes (DM) Hx Diabetes Mellitus Type 2: Yes - HEMATOLOGICAL/ONCOLOGICAL Hx Anemia: Yes Hx Human Immunodeficiency Virus (HIV): No Hx Sickle Cell Disease: No - INTEGUMENTARY Hx Dermatological Problems: No - MUSCULOSKELETAL/RHEUMATOLOGICAL Hx Musculoskeletal Disorders: Yes (BACKPAIN) Hx Falls: No - GASTROINTESTINAL Hx Gastrointestinal Disorders: No - GENITOURINARY/GYNECOLOGICAL Hx Genitourinary Disorders: Yes (KIDNEY STONES) - PSYCHIATRIC Hx Anxiety: Yes Hx Depression: Yes - SURGICAL HISTORY Hx Surgeries: Yes Hx Amputation: Yes (left 5th toe) Hx Vascular Access Device: Yes (AV fistula R arm) - ANESTHESIA Hx Anesthesia: Yes Hx Anesthesia Reactions: No Hx Malignant Hyperthermia: No Meds Allergies/Adverse Reactions: Allergies Allergy/AdvReac Type Severity Reaction Status Date / Time FISH Allergy SWELLING Verified 01/31/18 15:57 Fish Containing Products Allergy SWELLING Verified 01/31/18 15:57 seafood Allergy Mild SWELLING Uncoded 01/31/18 15:57 - Medications Medications: Current Medications Acetaminophen (Tylenol 325mg Tab) 650 mg PO Q6 PRN PRN Reason: Pain, moderate (4-7) Last Admin: 02/01/18 17:50 Dose: 650 mg Acetaminophen (Tylenol 325mg Tab) 650 mg PO Q4 PRN PRN Reason: Fever >100.4 F Last Admin: 02/01/18 23:40 Dose: 650 mg Amlodipine Besylate (Norvasc) 10 mg PO DAILY [facility] Last Admin: 02/02/18 08:43 Dose: 10 mg Aspirin (Ecotrin) 81 mg PO DAILY [facility] Last Admin: 02/02/18 08:40 Dose: 81 mg Carvedilol (Coreg) 12.5 mg PO Q12 [facility] Last Admin: 02/02/18 10:53 Dose: 12.5 mg Dextrose (Dextrose 50% Inj) 0 ml IV STAT PRN; Protocol PRN Reason: Hypoglycemia Protocol Dextrose (Glutose 15) 0 gm PO ONCE PRN; Protocol PRN Reason: Hypoglycemia Protocol Epoetin Jose (Procrit) 4,000 unit IV TTS ONE Stop: 02/03/18 09:01 Glucagon (Glucagen Diagnostic Kit) 0 mg IM STAT PRN; Protocol PRN Reason: Hypoglycemia Protocol Heparin Sodium (Porcine) (Heparin) 5,000 units SC Q12 [facility] PRN Reason: Protocol Last Admin: 02/02/18 08:40 Dose: 5,000 units Hydralazine HCl (Apresoline) 10 mg PO Q12 [facility] Last Admin: 02/02/18 08:39 Dose: 10 mg Piperacillin Sod/Tazobactam (Sod 2.25 gm/ Sodium Chloride) 100 mls @ 100 mls/ hr IVPB Q8 [facility] PRN Reason: Protocol Last Admin: 02/02/18 08:45 Dose: 100 mls/hr Vancomycin HCl 1 gm/ Sodium (Chloride) 250 mls @ 166.667 mls/hr IVPB TUTHSA [facility] PRN Reason: Protocol Last Admin: 02/01/18 22:08 Dose: 166.667 mls/hr Insulin Human Lispro (Humalog) 0 units SC ACHS [facility] PRN Reason: Protocol Last Admin: 02/02/18 11:53 Dose: Not Given Insulin Lispro Protam/Lispro Human (Humalog Mix 75/25) 15 units SC BID [facility] Last Admin: 02/02/18 08:41 Dose: 15 units Lidocaine (Lidoderm) 1 ea TD DAILY [facility] Last Admin: 02/02/18 08:42 Dose: 1 ea Lisinopril (Zestril) 10 mg PO DAILY [facility] Last Admin: 02/02/18 10:55 Dose: 10 mg Ondansetron HCl (Zofran Inj) 4 mg IVP Q4 PRN PRN Reason: Nausea/Vomiting Last Admin: 02/02/18 10:52 Dose: 4 mg Sevelamer Carbonate (Renvela) 2.4 gm PO TIDWM [facility] Last Admin: 02/02/18 09:04 Dose: Not Given Tramadol HCl (Ultram) 50 mg PO Q6 PRN PRN Reason: Pain, severe (8-10) Last Admin: 02/02/18 08:34 Dose: 50 mg Physical Exam - Constitutional Appears: Non-toxic, Chronically Ill - Head Exam Head Exam: NORMOCEPHALIC - Eye Exam Eye Exam: PERRL. absent: Scleral icterus - ENT Exam ENT Exam: Mucous Membranes Dry, Normal External Ear Exam - Neck Exam Neck exam: Negative for: Lymphadenopathy - Respiratory Exam Respiratory Exam: Decreased Breath Sounds, Clear to Auscultation Bilateral - Cardiovascular Exam Cardiovascular Exam: REGULAR RHYTHM, +S1, +S2 - GI/Abdominal Exam GI & Abdominal Exam: Diminished Bowel Sounds, Distended, Guarding, Soft, Tenderness. absent: Rebound, Rigid - Rectal Exam Rectal Exam: Deferred - Exam Exam: NORMAL INSPECTION - Extremities Exam Extremities exam: Positive for: pedal pulses present. Negative for: calf tenderness, pedal edema, tenderness - Back Exam Back exam: absent: CVA tenderness (L), CVA tenderness (R), paraspinal tenderness - Neurological Exam Neurological exam: Alert, CN II-XII Intact, Oriented x3, Reflexes Normal - Psychiatric Exam Psychiatric exam: Normal Mood - Skin Skin Exam: Dry Results - Vital Signs Recent Vital Signs: Last Vital Signs Temp 99.5 F 02/02/18 12:00 Pulse 93 H 02/02/18 12:00 Resp 10 L 02/02/18 12:00 BP 110/56 L 02/02/18 12:00 Pulse Ox 100 02/02/18 12:00 - Labs Result Diagrams: 02/02/18 04:40 02/02/18 04:30 Labs: Laboratory Results - last 24 hr 02/01/18 02/01/18 02/01/18 16:23 16:42 17:20 WBC RBC Hgb Hct MCV MCH MCHC RDW Plt Count MPV Neut % (Auto) Lymph % (Auto) [place] % (Auto) Eos % (Auto) Baso % (Auto) Neut # (Auto) Lymph # (Auto) [place] # (Auto) Eos # (Auto) Baso # (Auto) Sodium Potassium Chloride Carbon Dioxide Anion Gap BUN Creatinine Est GFR ( Amer) Est GFR (Non-Af Amer) POC Glucose (mg/dL) 261 H Random Glucose Hemoglobin A1c Calcium Phosphorus 7.3 H Total Bilirubin AST ALT Alkaline Phosphatase Total Protein Albumin Globulin Albumin/Globulin Ratio Hep Bs Antigen Negative Hep Bs Antibody Hep B Core IgM Ab Negative 02/01/18 02/01/18 02/01/18 17:20 20:21 23:18 WBC RBC Hgb Hct MCV MCH MCHC RDW Plt Count MPV Neut % (Auto) Lymph % (Auto) [place] % (Auto) Eos % (Auto) Baso % (Auto) Neut # (Auto) Lymph # (Auto) [place] # (Auto) Eos # (Auto) Baso # (Auto) Sodium Potassium Chloride Carbon Dioxide Anion Gap BUN Creatinine Est GFR ( Amer) Est GFR (Non-Af Amer) POC Glucose (mg/dL) 179 H 188 H Random Glucose Hemoglobin A1c Calcium Phosphorus Total Bilirubin AST ALT Alkaline Phosphatase Total Protein Albumin Globulin Albumin/Globulin Ratio Hep Bs Antigen Hep Bs Antibody Positive Hep B Core IgM Ab 02/02/18 02/02/18 02/02/18 04:30 04:30 04:40 WBC 17.4 H RBC 3.13 L Hgb 8.9 L Hct 28.0 L MCV 89.7 MCH 28.5 MCHC 31.7 L RDW 19.3 H Plt Count 183 MPV 8.8 Neut % (Auto) 89.8 H Lymph % (Auto) 3.3 L [place] % (Auto) 5.7 Eos % (Auto) 1.0 Baso % (Auto) 0.2 Neut # (Auto) 15.6 H Lymph # (Auto) 0.6 L [place] # (Auto) 1.0 H Eos # (Auto) 0.2 Baso # (Auto) 0.0 Sodium 137 Potassium 4.1 Chloride 96 L Carbon Dioxide 30 Anion Gap 15 BUN 30 H Creatinine 7.7 H* D Est GFR ( Amer) 7 Est GFR (Non-Af Amer) 6 POC Glucose (mg/dL) Random Glucose 229 H Hemoglobin A1c 8.4 H Calcium 8.6 Phosphorus Total Bilirubin 0.9 AST 8 L D ALT 14 Alkaline Phosphatase 48 Total Protein 6.6 Albumin 3.1 L Globulin 3.5 Albumin/Globulin Ratio 0.9 L Hep Bs Antigen Hep Bs Antibody Hep B Core IgM Ab 02/02/18 02/02/18 05:27 11:39 WBC RBC Hgb Hct MCV MCH MCHC RDW Plt Count MPV Neut % (Auto) Lymph % (Auto) [place] % (Auto) Eos % (Auto) Baso % (Auto) Neut # (Auto) Lymph # (Auto) [place] # (Auto) Eos # (Auto) Baso # (Auto) Sodium Potassium Chloride Carbon Dioxide Anion Gap BUN Creatinine Est GFR ( Amer) Est GFR (Non-Af Amer) POC Glucose (mg/dL) 223 H 174 H Random Glucose Hemoglobin A1c Calcium Phosphorus Total Bilirubin AST ALT Alkaline Phosphatase Total Protein Albumin Globulin Albumin/Globulin Ratio Hep Bs Antigen Hep Bs Antibody Hep B Core IgM Ab Assessment & Plan (1) Abdominal pain Status: Acute (2) End stage renal disease Status: Acute (3) Fever Status: Acute - Assessment and Plan (Free Text) Assessment: R/O CHOLECYSTITIS R/O SEPSIS AWAIT CULTURES CONSIDER CT ABD
--- NOTE | 2018-02-02 13:05 | CP.PCM.PN ---
Subjective - Date & Time of Evaluation Date of Evaluation: 02/02/18 Time of Evaluation: 13:02 - Subjective Subjective: Patient and bed awake and conscious. Complain also less shortness of breath Complaining of weakness No nausea or vomiting Also complaining heavy bleeding from the vagina Objective - Vital Signs/Intake and Output Vital Signs (last 24 hours): Temp Pulse Resp BP Pulse Ox 99.5 F 93 H 10 L 110/56 L 100 02/02/18 12:00 02/02/18 12:00 02/02/18 12:00 02/02/18 12:00 02/02/18 12:00 Intake and Output: 02/02/18 02/02/18 06:59 18:59 Intake Total 550 Output Total 3150 Balance -2600 - Medications Medications: Current Medications Acetaminophen (Tylenol 325mg Tab) 650 mg PO Q6 PRN PRN Reason: Pain, moderate (4-7) Last Admin: 02/01/18 17:50 Dose: 650 mg Acetaminophen (Tylenol 325mg Tab) 650 mg PO Q4 PRN PRN Reason: Fever >100.4 F Last Admin: 02/01/18 23:40 Dose: 650 mg Amlodipine Besylate (Norvasc) 10 mg PO DAILY [facility] Last Admin: 02/02/18 08:43 Dose: 10 mg Aspirin (Ecotrin) 81 mg PO DAILY [facility] Last Admin: 02/02/18 08:40 Dose: 81 mg Carvedilol (Coreg) 12.5 mg PO Q12 [facility] Last Admin: 02/02/18 10:53 Dose: 12.5 mg Dextrose (Dextrose 50% Inj) 0 ml IV STAT PRN; Protocol PRN Reason: Hypoglycemia Protocol Dextrose (Glutose 15) 0 gm PO ONCE PRN; Protocol PRN Reason: Hypoglycemia Protocol Epoetin Jose (Procrit) 4,000 unit IV TTS ONE Stop: 02/03/18 09:01 Glucagon (Glucagen Diagnostic Kit) 0 mg IM STAT PRN; Protocol PRN Reason: Hypoglycemia Protocol Heparin Sodium (Porcine) (Heparin) 5,000 units SC Q12 [facility] PRN Reason: Protocol Last Admin: 02/02/18 08:40 Dose: 5,000 units Hydralazine HCl (Apresoline) 10 mg PO Q12 [facility] Last Admin: 02/02/18 08:39 Dose: 10 mg Piperacillin Sod/Tazobactam (Sod 2.25 gm/ Sodium Chloride) 100 mls @ 100 mls/ hr IVPB Q8 [facility] PRN Reason: Protocol Last Admin: 02/02/18 08:45 Dose: 100 mls/hr Vancomycin HCl 1 gm/ Sodium (Chloride) 250 mls @ 166.667 mls/hr IVPB TUTHSA [facility] PRN Reason: Protocol Last Admin: 02/01/18 22:08 Dose: 166.667 mls/hr Insulin Human Lispro (Humalog) 0 units SC ACHS [facility] PRN Reason: Protocol Last Admin: 02/02/18 11:53 Dose: Not Given Insulin Lispro Protam/Lispro Human (Humalog Mix 75/25) 15 units SC BID [facility] Last Admin: 02/02/18 08:41 Dose: 15 units Lidocaine (Lidoderm) 1 ea TD DAILY [facility] Last Admin: 02/02/18 08:42 Dose: 1 ea Lisinopril (Zestril) 10 mg PO DAILY [facility] Last Admin: 02/02/18 10:55 Dose: 10 mg Ondansetron HCl (Zofran Inj) 4 mg IVP Q4 PRN PRN Reason: Nausea/Vomiting Last Admin: 02/02/18 10:52 Dose: 4 mg Sevelamer Carbonate (Renvela) 2.4 gm PO TIDWM [facility] Last Admin: 02/02/18 09:04 Dose: Not Given Tramadol HCl (Ultram) 50 mg PO Q6 PRN PRN Reason: Pain, severe (8-10) Last Admin: 02/02/18 08:34 Dose: 50 mg - Labs Labs: 02/02/18 04:40 02/02/18 04:30 - Constitutional Appears: No Acute Distress - Eye Exam Eye Exam: Conjunctival injection - ENT Exam ENT Exam: Mucous Membranes Moist - Neck Exam Neck Exam: absent: Lymphadenopathy - Respiratory Exam Respiratory Exam: Rhonchi, NORMAL BREATHING PATTERN. absent: Chest Wall Tenderness - Cardiovascular Exam Cardiovascular Exam: JVD. absent: Gallop, Rubs - GI/Abdominal Exam GI & Abdominal Exam: Soft, Normal Bowel Sounds - Extremities Exam Extremities Exam: absent: Calf Tenderness - Back Exam Back Exam: absent: CVA tenderness (L), CVA tenderness (R) - Neurological Exam Neurological Exam: Alert - Psychiatric Exam Psychiatric exam: Normal Affect - Skin Skin Exam: absent: Cyanosis Assessment and Plan (1) End stage renal disease Assessment & Plan: ESRD volume overloaded legs edema congestion Plan extra HD now, because she missed dialysis Monday., Hemodialysis about to start shortly. I discussed the dialysis order with the dialysis nurse Anemia Hbg 8.9 increase EPO to 6000 unit monitoring vaginal bleeding fever with leukocytosis rule out sepsis. Although blood culture negative so far urine culture pending Hyperphosphatemia patient receiving binders Secondary hyperparathyroidism patient was taken Sensipar waiting to get PTH. Status: Acute (2) Fever Status: Acute
[2018-02-02 14:43] LABS: SQUAMOUS EPITHIAL 7 /hpf (0-5); URINE BACTERIA RARE (<OCC); URINE BILIRUBIN NEGATIVE (NEGATIVE); URINE BLOOD LARGE (NEGATIVE); URINE CLARITY CLOUDY (Clear); URINE COLOR YELLOW (YELLOW); URINE GLUCOSE (UA) >=500 mg/dL (Normal); URINE LEUKOCYTE ESTERASE NEG Leu/uL (Negative); URINE PROTEIN >=500 mg/dL (NEGATIVE); URINE UROBILINOGEN 0.2-1.0 mg/dL (0.2-1.0)
[2018-02-02 14:58] LABS: HEMOGLOBIN 8.4 g/dL (12.0-16.0); MEAN CELL VOLUME 89.7 fl (81.0-99.0); MEAN CORPUSCULAR HEMOGLOBIN 28.8 pg (27.0-31.0); RBC 2.92 Mil/uL (3.80-5.20); RED CELL DISTRIBUTION WIDTH 19.9 % (11.5-14.5); WHITE BLOOD COUNT 19.9 K/uL (4.8-10.8)
[2018-02-02 17:46] LABS: INR 1.4 (0.9-1.2); PARTIAL THROMBOPLASTIN TIME 28.6 Seconds (25.6-37.1); PROTHROMBIN TIME 15.7 Seconds (9.8-13.1)
[2018-02-02] MEDS: Oxycodone/Acetaminophen 5/325 mg Tab PO PRN (21:16)
[2018-02-03 06:20] LABS: HEMOGLOBIN 8.5 g/dL (12.0-16.0); MEAN CELL VOLUME 89.5 fl (81.0-99.0); MEAN CORPUSCULAR HEMOGLOBIN 28.7 pg (27.0-31.0); RBC 2.98 Mil/uL (3.80-5.20); RED CELL DISTRIBUTION WIDTH 19.9 % (11.5-14.5); WHITE BLOOD COUNT 18.5 K/uL (4.8-10.8)
[2018-02-03 06:32] LABS: CALCIUM 8.7 mg/dL (8.4-10.2)
[2018-02-03] MEDS: Insulin Lispro (humaLOG) 100 Units/ml Inj SC SCH ×4 (08:45→22:01)
[2018-02-03] MEDS: Insulin Lispro Mix 75/25 100 units/ml (HumaLog) 10ml SC SCH ×2 (08:46→19:02)
[2018-02-03] MEDS: Lidocaine 5% Patch TD SCH (08:46)
[2018-02-03] MEDS: Sevelamer Carb 0.8 gm/Packet PO SCH ×4 (08:49→19:05)
[2018-02-03] MEDS ORDERED: Epoetin Alfa 4000 UNIT/ML Inj IV ONE (09:00)
--- NOTE | 2018-02-03 09:13 | CP.PCM.CON ---
History of Present Illness - History of Present Illness History of Present Illness: Surgery Consult note- Dr. Avila Reason for Consult: Right upper back pain 32F w/ pmhx significant for ESRD on HD (TTS), CHF, valvular heart disease, presents to [facility] with decreased oral intake, nausea, non-bloody, nonbilious vomiting for 2 days. Of note she has been non-complaint with her HD. Surgery was consulted for Right scapular pain and generalized abdominal pain with leukocytosis, to rule out Cholecystitis. Currently states nausea, no vomiting this morning, fevers Tm 100.7, limited range of motion of right shoulder Denies: diarrhea, sudden changes in vision, rashes or skin changes, joint or bone pain. PMH: stated above PSH: left toe amputation, HD graft in RUE at [facility] ALL: Fish SocialHx: denies tobacco, etoh, recreational drug use FH: non-contributory 12 pt ROS conducted, negative otherwise stated above Review of Systems - Review of Systems All systems: reviewed and no additional remarkable complaints except - Constitutional Constitutional: As Per HPI Past Patient History - Infectious Disease Hx of Infectious Diseases: None - Tetanus Immunizations Tetanus Immunization: Unknown - Past Medical History & Family History Past Medical History?: Yes - Past Social History Smoking Status: Former Smoker - CARDIAC Hx Congestive Heart Failure: Yes Hx Hypercholesterolemia: Yes Hx Hypertension: Yes - PULMONARY Hx Asthma: Yes Hx Bronchitis: Yes Hx Chronic Obstructive Pulmonary Disease (COPD): Yes Hx Pneumonia: Yes - NEUROLOGICAL Hx Neurological Disorder: No - HEENT Hx HEENT Problems: Yes - RENAL Hx Chronic Kidney Disease: Yes (CRF HD -,ESRD) - ENDOCRINE/METABOLIC Hx Endocrine Disorders: Yes (DM) Hx Diabetes Mellitus Type 2: Yes - HEMATOLOGICAL/ONCOLOGICAL Hx Anemia: Yes Hx Human Immunodeficiency Virus (HIV): No Hx Sickle Cell Disease: No - INTEGUMENTARY Hx Dermatological Problems: No - MUSCULOSKELETAL/RHEUMATOLOGICAL Hx Musculoskeletal Disorders: Yes (BACKPAIN) Hx Falls: No - GASTROINTESTINAL Hx Gastrointestinal Disorders: No - GENITOURINARY/GYNECOLOGICAL Hx Genitourinary Disorders: Yes (KIDNEY STONES) - PSYCHIATRIC Hx Anxiety: Yes Hx Depression: Yes - SURGICAL HISTORY Hx Surgeries: Yes Hx Amputation: Yes (left 5th toe) Hx Vascular Access Device: Yes (AV fistula R arm) - ANESTHESIA Hx Anesthesia: Yes Hx Anesthesia Reactions: No Hx Malignant Hyperthermia: No Meds Allergies/Adverse Reactions: Allergies Allergy/AdvReac Type Severity Reaction Status Date / Time FISH Allergy SWELLING Verified 01/31/18 15:57 Fish Containing Products Allergy SWELLING Verified 01/31/18 15:57 seafood Allergy Mild SWELLING Uncoded 01/31/18 15:57 - Medications Medications: Current Medications Acetaminophen (Tylenol 325mg Tab) 650 mg PO Q6 PRN PRN Reason: Pain, moderate (4-7) Last Admin: 02/01/18 17:50 Dose: 650 mg Acetaminophen (Tylenol 325mg Tab) 650 mg PO Q4 PRN PRN Reason: Fever >100.4 F Last Admin: 02/02/18 20:43 Dose: 650 mg Amlodipine Besylate (Norvasc) 10 mg PO DAILY [facility] Last Admin: 02/03/18 08:48 Dose: 10 mg Aspirin (Ecotrin) 81 mg PO DAILY [facility] Last Admin: 02/03/18 08:42 Dose: 81 mg Carvedilol (Coreg) 12.5 mg PO Q12 [facility] Last Admin: 02/03/18 08:41 Dose: 12.5 mg Dextrose (Dextrose 50% Inj) 0 ml IV STAT PRN; Protocol PRN Reason: Hypoglycemia Protocol Dextrose (Glutose 15) 0 gm PO ONCE PRN; Protocol PRN Reason: Hypoglycemia Protocol Glucagon (Glucagen Diagnostic Kit) 0 mg IM STAT PRN; Protocol PRN Reason: Hypoglycemia Protocol Heparin Sodium (Porcine) (Heparin) 5,000 units SC Q12 [facility] PRN Reason: Protocol Last Admin: 02/03/18 08:42 Dose: 5,000 units Hydralazine HCl (Apresoline) 10 mg PO Q12 [facility] Last Admin: 02/03/18 08:40 Dose: 10 mg Vancomycin HCl 1 gm/ Sodium (Chloride) 250 mls @ 166.667 mls/hr IVPB TUTHSA [facility] PRN Reason: Protocol Last Admin: 02/01/18 22:08 Dose: 166.667 mls/hr Piperacillin Sod/Tazobactam (Sod 2.25 gm/ Sodium Chloride) 100 mls @ 100 mls/ hr IVPB Q8H [facility] PRN Reason: Protocol Insulin Human Lispro (Humalog) 0 units SC ACHS [facility] PRN Reason: Protocol Last Admin: 02/03/18 08:45 Dose: Not Given Insulin Lispro Protam/Lispro Human (Humalog Mix 75/25) 15 units SC BID [facility] Last Admin: 02/03/18 08:46 Dose: Not Given Lidocaine (Lidoderm) 1 ea TD DAILY [facility] Last Admin: 02/03/18 08:46 Dose: 1 ea Lisinopril (Zestril) 10 mg PO DAILY [facility] Last Admin: 02/03/18 08:50 Dose: 10 mg Ondansetron HCl (Zofran Inj) 4 mg IVP Q4 PRN PRN Reason: Nausea/Vomiting Last Admin: 02/02/18 10:52 Dose: 4 mg Oxycodone/Acetaminophen (Percocet 5/325 Mg Tab) 1 tab PO Q6 PRN PRN Reason: Pain, severe (8-10) Stop: 02/05/18 21:10 Last Admin: 02/02/18 21:16 Dose: 1 tab Sevelamer Carbonate (Renvela) 2.4 gm PO TIDWM [facility] Last Admin: 02/03/18 08:49 Dose: 2.4 gm Tramadol HCl (Ultram) 50 mg PO Q6 PRN PRN Reason: Pain, severe (8-10) Last Admin: 02/02/18 08:34 Dose: 50 mg Physical Exam - Constitutional Appears: Non-toxic, No Acute Distress - Head Exam Head Exam: ATRAUMATIC - Eye Exam Eye Exam: EOMI. absent: Scleral icterus - ENT Exam ENT Exam: Mucous Membranes Moist - Respiratory Exam Respiratory Exam: NORMAL BREATHING PATTERN. absent: Accessory Muscle Use, Respiratory Distress - Cardiovascular Exam Cardiovascular Exam: Tachycardia, +S1, +S2. absent: Bradycardia - GI/Abdominal Exam GI & Abdominal Exam: Soft, Tenderness (diffuse tenderness, not localized anywhere). absent: Distended, Firm, Guarding, Hernia, Pulsatile Mass, Rebound - Extremities Exam Additional comments: Tenderness to palpation medial scapula. limited range of motion tight paraspinal muscles Hand strength 5/5 no signs of fracture - Back Exam Back exam: paraspinal tenderness. absent: FULL ROM - Neurological Exam Neurological exam: Alert, Oriented x3 - Psychiatric Exam Psychiatric exam: Normal Affect - Skin Skin Exam: Intact, Warm Results - Vital Signs Recent Vital Signs: Last Vital Signs Temp 100.7 F H 02/03/18 08:00 Pulse 102 H 02/03/18 08:50 Resp 16 02/03/18 08:00 BP 129/66 02/03/18 08:50 Pulse Ox 98 02/03/18 08:00 - Labs Result Diagrams: 02/03/18 05:30 02/03/18 05:30 Labs: Laboratory Results - last 24 hr 02/01/18 02/01/18 02/02/18 04:31 16:23 04:30 WBC RBC Hgb Hct MCV MCH MCHC RDW Plt Count PT INR APTT Sodium Potassium Chloride Carbon Dioxide Anion Gap BUN Creatinine Est GFR ( Amer) Est GFR (Non-Af Amer) POC Glucose (mg/dL) Random Glucose Hemoglobin A1c 8.4 H Calcium PTH Intact Whole Molec 254 H Urine Color Yellow Urine Clarity Cloudy Urine pH 7.0 Ur Specific [place] 1.013 Urine Protein >=500 Urine Glucose (UA) >=500 Urine Ketones Negative Urine Blood Large Urine Nitrate Negative Urine Bilirubin Negative Urine Urobilinogen 0.2-1.0 Ur Leukocyte Esterase Neg Urine RBC (Auto) 482 H Urine Microscopic WBC 34 H Ur Squamous Epith Cells 7 H Urine Bacteria Rare Hyaline Casts 3-5 H 02/02/18 02/02/18 02/02/18 11:39 14:52 16:36 WBC 19.9 H RBC 2.92 L Hgb 8.4 L Hct 26.2 L MCV 89.7 MCH 28.8 MCHC 32.0 L RDW 19.9 H Plt Count 212 PT INR APTT Sodium Potassium Chloride Carbon Dioxide Anion Gap BUN Creatinine Est GFR ( Amer) Est GFR (Non-Af Amer) POC Glucose (mg/dL) 174 H 88 Random Glucose Hemoglobin A1c Calcium PTH Intact Whole Molec Urine Color Urine Clarity Urine pH Ur Specific [place] Urine Protein Urine Glucose (UA) Urine Ketones Urine Blood Urine Nitrate Urine Bilirubin Urine Urobilinogen Ur Leukocyte Esterase Urine RBC (Auto) Urine Microscopic WBC Ur Squamous Epith Cells Urine Bacteria Hyaline Casts 02/02/18 02/02/18 02/03/18 17:03 22:48 04:57 WBC RBC Hgb Hct MCV MCH MCHC RDW Plt Count PT 15.7 H INR 1.4 H APTT 28.6 Sodium Potassium Chloride Carbon Dioxide Anion Gap BUN Creatinine Est GFR ( Amer) Est GFR (Non-Af Amer) POC Glucose (mg/dL) 157 H 152 H Random Glucose Hemoglobin A1c Calcium PTH Intact Whole Molec Urine Color Urine Clarity Urine pH Ur Specific [place] Urine Protein Urine Glucose (UA) Urine Ketones Urine Blood Urine Nitrate Urine Bilirubin Urine Urobilinogen Ur Leukocyte Esterase Urine RBC (Auto) Urine Microscopic WBC Ur Squamous Epith Cells Urine Bacteria Hyaline Casts 02/03/18 02/03/18 05:30 05:30 WBC 18.5 H RBC 2.98 L Hgb 8.5 L Hct 26.7 L MCV 89.5 MCH 28.7 MCHC 32.0 L RDW 19.9 H Plt Count 244 PT INR APTT Sodium 137 Potassium 4.2 Chloride 95 L Carbon Dioxide 33 H Anion Gap 13 BUN 23 H Creatinine 5.9 H Est GFR ( Amer) 10 Est GFR (Non-Af Amer) 8 POC Glucose (mg/dL) Random Glucose 137 H Hemoglobin A1c Calcium 8.7 PTH Intact Whole Molec Urine Color Urine Clarity Urine pH Ur Specific [place] Urine Protein Urine Glucose (UA) Urine Ketones Urine Blood Urine Nitrate Urine Bilirubin Urine Urobilinogen Ur Leukocyte Esterase Urine RBC (Auto) Urine Microscopic WBC Ur Squamous Epith Cells Urine Bacteria Hyaline Casts Assessment & Plan - Assessment and Plan (Free Text) Assessment: 32F w/ fevers, leukocytosis, Right sided back pain; no evidence of cholecystitis US reviewed: no stones in GB. No GBW thickening, pericholecystic fluid, CBD 4mm T.bili normal at 0.9 Plan: - no evidence of cholecystitis - cannot rule out pyleonephritis - recommend further work up by primary team - no acute surgical intervention indicated at this time - thank you for allowing us to partake in this patients care - reconsult as needed discussed w/ Dr. Avila surgical attending PGY1
--- NOTE | 2018-02-03 12:43 | US ---
HISTORY: RUQ pain COMPARISON: Noncontrast abdomen and pelvis CT 06/01/2015. TECHNIQUE: Sonographic evaluation of the abdomen. FINDINGS: LIVER: Measures 15.8 cm. Normal echogenicity of the liver parenchyma. A Mg's lobe is seen extending below the lower pole right kidney off the right lobe liver with remainder liver appearing unremarkable. GALLBLADDER: Unremarkable. No gallstones. COMMON BILE DUCT: Measures 4.0 mm. No stones. No dilatation. PANCREAS: Unremarkable as visualized. No mass. No ductal dilatation. RIGHT KIDNEY: Measures 8.5cm. The renal cortex appears somewhat echogenic which may indicate an element of intrinsic medical renal disease. No obstructive uropathy, urolithiasis or cystic or solid mass appreciated. No perinephric fluid collection identified. LEFT KIDNEY: Measures 9.9cm. The renal cortex appears somewhat echogenic which may indicate an element of intrinsic medical renal disease. No obstructive uropathy, urolithiasis or cystic or solid mass appreciated. No perinephric fluid collection identified. SPLEEN: Normal in size and contour, measuring 10.9 cm. No mass. AORTA: No aneurysmal dilatation. IVC: Unremarkable. OTHER FINDINGS: None. IMPRESSION: Potential intrinsic medical disease based on increased cortical echogenicity bilaterally. No obstructive uropathy, urolithiasis or cyst or solid renal parenchymal mass bilaterally. The remainder the examination appears unremarkable.
[2018-02-03] MEDS ORDERED: Iohexol 240 (50 ml) PO ONE (12:55)
[2018-02-03] MEDS ORDERED: Sodium Chloride 0.9% 50 ML IV ONE (15:37)
[2018-02-03] MEDS ORDERED: Iodixanol 320 MG/ML 100 ML BOTTLE IV ONE (15:37)
[2018-02-03] MEDS: Oxycodone/Acetaminophen 5/325 mg Tab PO PRN (16:25)
--- NOTE | 2018-02-03 17:07 | CP.PCM.PN ---
Subjective - Date & Time of Evaluation Date of Evaluation: 02/03/18 Time of Evaluation: 17:05 - Subjective Subjective: renal follow up note complains of weakness vitals reviewed awake, lethargic heent normal op moist no jvd [id number] resent no resp distress abd soft, tender all ovre skin normal cooperative no fnd A&P: esrd/htn/ams/anemia/volume overload hd today again to remove fluid bp stable anemia monitor epo with hd as needed lytes reviewed monitor phos levels Objective - Vital Signs/Intake and Output Vital Signs (last 24 hours): Temp Pulse Resp BP Pulse Ox 102.1 F H 90 16 109/55 L 98 02/03/18 14:16 02/03/18 12:24 02/03/18 12:24 02/03/18 12:24 02/03/18 12:24 Intake and Output: 02/03/18 02/03/18 06:59 18:59 Intake Total 250 270 Balance 250 270 - Medications Medications: Current Medications Acetaminophen (Tylenol 325mg Tab) 650 mg PO Q6 PRN PRN Reason: Pain, moderate (4-7) Last Admin: 02/03/18 14:16 Dose: 650 mg Acetaminophen (Tylenol 325mg Tab) 650 mg PO Q4 PRN PRN Reason: Fever >100.4 F Last Admin: 02/03/18 09:22 Dose: 650 mg Amlodipine Besylate (Norvasc) 10 mg PO DAILY [facility] Last Admin: 02/03/18 08:48 Dose: 10 mg Aspirin (Ecotrin) 81 mg PO DAILY [facility] Last Admin: 02/03/18 08:42 Dose: 81 mg Carvedilol (Coreg) 12.5 mg PO Q12 [facility] Last Admin: 02/03/18 08:41 Dose: 12.5 mg Dextrose (Dextrose 50% Inj) 0 ml IV STAT PRN; Protocol PRN Reason: Hypoglycemia Protocol Dextrose (Glutose 15) 0 gm PO ONCE PRN; Protocol PRN Reason: Hypoglycemia Protocol Glucagon (Glucagen Diagnostic Kit) 0 mg IM STAT PRN; Protocol PRN Reason: Hypoglycemia Protocol Heparin Sodium (Porcine) (Heparin) 5,000 units SC Q12 [facility] PRN Reason: Protocol Last Admin: 02/03/18 08:42 Dose: 5,000 units Hydralazine HCl (Apresoline) 10 mg PO Q12 [facility] Last Admin: 02/03/18 08:40 Dose: 10 mg Vancomycin HCl 1 gm/ Sodium (Chloride) 250 mls @ 166.667 mls/hr IVPB TUTHSA [facility] PRN Reason: Protocol Last Admin: 02/01/18 22:08 Dose: 166.667 mls/hr Piperacillin Sod/Tazobactam (Sod 2.25 gm/ Sodium Chloride) 100 mls @ 100 mls/ hr IVPB Q8H [facility] PRN Reason: Protocol Last Admin: 02/03/18 14:16 Dose: 100 mls/hr Insulin Human Lispro (Humalog) 0 units SC ACHS [facility] PRN Reason: Protocol Last Admin: 02/03/18 11:49 Dose: Not Given Insulin Lispro Protam/Lispro Human (Humalog Mix 75/25) 15 units SC BID [facility] Last Admin: 02/03/18 08:46 Dose: Not Given Lidocaine (Lidoderm) 1 ea TD DAILY [facility] Last Admin: 02/03/18 08:46 Dose: 1 ea Lisinopril (Zestril) 10 mg PO DAILY [facility] Last Admin: 02/03/18 08:50 Dose: 10 mg Ondansetron HCl (Zofran Inj) 4 mg IVP Q4 PRN PRN Reason: Nausea/Vomiting Last Admin: 02/02/18 10:52 Dose: 4 mg Oxycodone/Acetaminophen (Percocet 5/325 Mg Tab) 1 tab PO Q6 PRN PRN Reason: Pain, severe (8-10) Stop: 02/05/18 21:10 Last Admin: 02/03/18 16:25 Dose: 1 tab Sevelamer Carbonate (Renvela) 0.8 gm PO TIDWM [facility] Last Admin: 02/03/18 14:21 Dose: Not Given Tramadol HCl (Ultram) 50 mg PO Q6 PRN PRN Reason: Pain, severe (8-10) Last Admin: 02/02/18 08:34 Dose: 50 mg - Labs Labs: 02/03/18 05:30 02/03/18 05:30 PT 15.7 Seconds (9.8-13.1) H 02/02/18 17:03 INR 1.4 (0.9-1.2) H 02/02/18 17:03 APTT 28.6 Seconds (25.6-37.1) 02/02/18 17:03
--- NOTE | 2018-02-03 17:13 | RAD ---
HISTORY: fever COMPARISON: Frontal chest radiograph 02/01/2018. FINDINGS: LUNGS: Interval mild right pleural effusion is appreciate with fluid in the minor fissure. No pneumothorax bilaterally. Underlying airspace disease not excluded the right middle or lower lobes. PLEURA: As above. CARDIOVASCULAR: Cardiomegaly is suggested with increased pulmonary vascular congestion. OSSEOUS STRUCTURES: No significant abnormalities. VISUALIZED UPPER ABDOMEN: Normal. OTHER FINDINGS: None. IMPRESSION: Increased pulmonary vascular congestion. Right pleural effusions identified in the interval. Underlying airspace disease not excluded at the right base.
--- NOTE | 2018-02-03 17:34 | CT ---
PROCEDURE: CT Abdomen and Pelvis with contrast HISTORY: right shoulder pain, fever COMPARISON: Abdomen pelvis CT 06/01/2015 and abdomen ultrasound 02/02/2018. TECHNIQUE: Following oral and intravenous contrast administration, a CT examination of the abdomen and pelvis performed from the domes of the diaphragms to the symphysis pubis with reformatted datasets provided not only axial but also sagittal and coronal series. Patient is apparently getting hemodialysis immediately following this CT examination Contrast dose: Visipaque 320, 90 cc Radiation dose: Total exam DLP = 1095.99 mGy-cm. This CT exam was performed using one or more of the following dose reduction techniques: Automated exposure control, adjustment of the mA and/or kV according to patient size, and/or use of iterative reconstruction technique. FINDINGS: LOWER THORAX: Cardiac size appears prominent but without definite pulmonary vascular congestion. There is a moderate, loculated right pleural effusion exerting compression atelectasis in the right lower lobe. Infiltrate is not excluded the right middle and lower lobe bases with linear atelectasis identified at left lower lobe. LIVER: Liver appears upper limits normal size. . No gross lesion or ductal dilatation. GALLBLADDER AND BILE DUCTS: Unremarkable. PANCREAS: Unremarkable. No gross lesion or ductal dilatation. SPLEEN: Unremarkable. ADRENALS: Unremarkable. No mass. KIDNEYS AND URETERS: Unremarkable. No hydronephrosis. No solid mass. VASCULATURE: Unremarkable. No aortic aneurysm. BOWEL: Stomach appears unremarkable. There is no bowel obstruction appreciated. Moderate fecal loading is seen throughout the majority colon. The small bowel is unremarkable, largely collapsed. APPENDIX: Normal appendix. PERITONEUM: No free intraperitoneal gas. Trace fluid is seen in the right pelvis inferiorly potentially from adnexal cyst rupture. Etiology is ultimately on clear. LYMPH NODES: Unremarkable. No enlarged lymph nodes. BLADDER: Bladder is poorly evaluated due to decompression but not simply changed in the interval. Mural thickening not completely excluded. REPRODUCTIVE: Unremarkable. BONES: No acute fracture. OTHER FINDINGS: None. IMPRESSION: Prior left adnexal cyst has resolved with trace fluid in the right adnexal compartment potentially from recent cyst rupture. Etiology of fluid otherwise unclear. Liver appears upper limits normal size. Mild but loculated right pleural effusion with compression atelectasis in the right lower lobe. Limited evaluation of the urinary bladder due to decompression.
[2018-02-04 06:46] LABS: HEMOGLOBIN 8.1 g/dL (12.0-16.0); MEAN CELL VOLUME 89.2 fl (81.0-99.0); MEAN CORPUSCULAR HEMOGLOBIN 28.2 pg (27.0-31.0); MEAN CORPUSCULAR HGB CONC 31.6 g/dL (33.0-37.0); RBC 2.88 Mil/uL (3.80-5.20); RED CELL DISTRIBUTION WIDTH 20.5 % (11.5-14.5); WHITE BLOOD COUNT 17.9 K/uL (4.8-10.8)
[2018-02-04] MEDS: Insulin Lispro (humaLOG) 100 Units/ml Inj SC SCH ×4 (06:47→22:00)
[2018-02-04 06:54] LABS: ALB/GLOB RATIO 0.8 (1.0-2.1); ALBUMIN 3.2 g/dL (3.5-5.0); CALCIUM 8.5 mg/dL (8.4-10.2)
[2018-02-04] MEDS: Lidocaine 5% Patch TD SCH (09:39)
[2018-02-04] MEDS: Insulin Lispro Mix 75/25 100 units/ml (HumaLog) 10ml SC SCH ×2 (09:39→17:30)
[2018-02-04] MEDS: Sevelamer Carb 0.8 gm/Packet PO SCH ×3 (09:42→17:30)
--- NOTE | 2018-02-04 12:27 | PN ---
DATE: 02/04/2018 SUBJECTIVE: The patient is seen and examined. Interim events noted. Consults noted and appreciated. Surgical followup and interventions noted and appreciated. The patient remains in physical intensive care unit and telemetry also. The patient still complains of right upper quadrant pain. No chest pain. No shortness of breath. PHYSICAL EXAMINATION: GENERAL: The patient is no acute distress. VITAL SIGNS: Stable. HEART EXAM: S1 and S2, normal and regular. LUNGS: Good bilateral air exchange. ABDOMEN: Soft and nontender. EXTREMITIES EXAM: No edema. No calf swelling. No tenderness. No acute ischemia. HR DIRECTOR: Exam is essentially unchanged. DIAGNOSTIC DATA: Available diagnostic data reviewed. Telemetry monitoring does not reveal significant arrhythmia. Abdominal sonogram is not consistent with nephrolithiasis or cholecystitis as it was suspected. CAT scan of the abdomen reveals right lower lobe pneumonia and right pleural effusion with fluid infusion. The patient did have most likely from pneumonia and has . Discussed the situation. The patient is medically and hemodynamically stable. Romeo Sears MD
--- NOTE | 2018-02-04 12:52 | CP.PCM.CON ---
History of Present Illness - History of Present Illness History of Present Illness: 32YR OLD FEMALE WHO IS WELL KNOWN TO ME FROM PREVIOUS ADMISSIONS.SHE IS REFERRED BY DR ARREAGA FOR PULMONARY EVALUATION BECAUSE OF R PLEURAL EFFUSION AND SHORTNESS OF BREATH X SEVERAL DAYS.SHE INDICATES THAT SHE WAS ADMITTED WITH ABDOMINAL PAINS AND FEVER ORIGINALLY AND HX OF END STAGE RENAL DISEASE. THE PT UNDERSTANDS HER ILLNESS AND PRESENTLY REFUSES THORACENTESE OR CHEST TUBE PLACEMENT FOR DRAINAGE OF PLEURAL FLUID--DIAGNOSTIC AND THERAPEUTIC Past Patient History - Infectious Disease Hx of Infectious Diseases: None - Tetanus Immunizations Tetanus Immunization: Unknown - Past Medical History & Family History Past Medical History?: Yes - Past Social History Smoking Status: Former Smoker - CARDIAC Hx Congestive Heart Failure: Yes Hx Hypercholesterolemia: Yes Hx Hypertension: Yes - PULMONARY Hx Asthma: Yes Hx Bronchitis: Yes Hx Chronic Obstructive Pulmonary Disease (COPD): Yes Hx Pneumonia: Yes - NEUROLOGICAL Hx Neurological Disorder: No - HEENT Hx HEENT Problems: Yes - RENAL Hx Chronic Kidney Disease: Yes (CRF HD T-TH-[id number],ESRD) - ENDOCRINE/METABOLIC Hx Endocrine Disorders: Yes (DM) Hx Diabetes Mellitus Type 2: Yes - HEMATOLOGICAL/ONCOLOGICAL Hx Anemia: Yes Hx Human Immunodeficiency Virus (HIV): No Hx Sickle Cell Disease: No - INTEGUMENTARY Hx Dermatological Problems: No - MUSCULOSKELETAL/RHEUMATOLOGICAL Hx Musculoskeletal Disorders: Yes (BACKPAIN) Hx Falls: No - GASTROINTESTINAL Hx Gastrointestinal Disorders: No - GENITOURINARY/GYNECOLOGICAL Hx Genitourinary Disorders: Yes (KIDNEY STONES) - PSYCHIATRIC Hx Anxiety: Yes Hx Depression: Yes - SURGICAL HISTORY Hx Surgeries: Yes Hx Amputation: Yes (left 5th toe) Hx Vascular Access Device: Yes (AV fistula R arm) - ANESTHESIA Hx Anesthesia: Yes Hx Anesthesia Reactions: No Hx Malignant Hyperthermia: No Meds Allergies/Adverse Reactions: Allergies Allergy/AdvReac Type Severity Reaction Status Date / Time FISH Allergy SWELLING Verified 01/31/18 15:57 Fish Containing Products Allergy SWELLING Verified 01/31/18 15:57 seafood Allergy Mild SWELLING Uncoded 01/31/18 15:57 - Medications Medications: Current Medications Acetaminophen (Tylenol 325mg Tab) 650 mg PO Q6 PRN PRN Reason: Pain, moderate (4-7) Last Admin: 02/03/18 14:16 Dose: 650 mg Acetaminophen (Tylenol 325mg Tab) 650 mg PO Q4 PRN PRN Reason: Fever >100.4 F Last Admin: 02/03/18 23:10 Dose: 650 mg Amlodipine Besylate (Norvasc) 10 mg PO DAILY [facility] Last Admin: 02/04/18 09:41 Dose: 10 mg Aspirin (Ecotrin) 81 mg PO DAILY [facility] Last Admin: 02/04/18 09:44 Dose: 81 mg Carvedilol (Coreg) 12.5 mg PO Q12 [facility] Last Admin: 02/04/18 09:07 Dose: 12.5 mg Dextrose (Dextrose 50% Inj) 0 ml IV STAT PRN; Protocol PRN Reason: Hypoglycemia Protocol Dextrose (Glutose 15) 0 gm PO ONCE PRN; Protocol PRN Reason: Hypoglycemia Protocol Glucagon (Glucagen Diagnostic Kit) 0 mg IM STAT PRN; Protocol PRN Reason: Hypoglycemia Protocol Heparin Sodium (Porcine) (Heparin) 5,000 units SC Q12 [facility] PRN Reason: Protocol Last Admin: 02/04/18 09:37 Dose: 5,000 units Hydralazine HCl (Apresoline) 10 mg PO Q12 [facility] Last Admin: 02/04/18 09:07 Dose: 10 mg Vancomycin HCl 1 gm/ Sodium (Chloride) 250 mls @ 166.667 mls/hr IVPB TUTHSA [facility] PRN Reason: Protocol Last Admin: 02/03/18 17:30 Dose: 166.667 mls/hr Piperacillin Sod/Tazobactam (Sod 2.25 gm/ Sodium Chloride) 100 mls @ 100 mls/ hr IVPB Q8H [facility] PRN Reason: Protocol Last Admin: 02/04/18 05:25 Dose: 100 mls/hr Insulin Human Lispro (Humalog) 0 units SC ACHS [facility] PRN Reason: Protocol Last Admin: 02/04/18 12:02 Dose: 3 units Insulin Lispro Protam/Lispro Human (Humalog Mix 75/25) 15 units SC BID [facility] Last Admin: 02/04/18 09:39 Dose: Not Given Lidocaine (Lidoderm) 1 ea TD DAILY [facility] Last Admin: 02/04/18 09:39 Dose: 1 ea Lisinopril (Zestril) 10 mg PO DAILY [facility] Last Admin: 02/04/18 09:43 Dose: 10 mg Ondansetron HCl (Zofran Inj) 4 mg IVP Q4 PRN PRN Reason: Nausea/Vomiting Last Admin: 02/02/18 10:52 Dose: 4 mg Oxycodone/Acetaminophen (Percocet 5/325 Mg Tab) 1 tab PO Q6 PRN PRN Reason: Pain, severe (8-10) Stop: 02/05/18 21:10 Last Admin: 02/03/18 16:25 Dose: 1 tab Sevelamer Carbonate (Renvela) 0.8 gm PO TIDWM [facility] Last Admin: 02/04/18 12:03 Dose: Not Given Tramadol HCl (Ultram) 50 mg PO Q6 PRN PRN Reason: Pain, severe (8-10) Last Admin: 02/04/18 00:13 Dose: 50 mg Physical Exam - Constitutional Appears: Cachectic, Chronically Ill - Head Exam Head Exam: ATRAUMATIC, NORMAL INSPECTION, NORMOCEPHALIC - Eye Exam Eye Exam: EOMI, Normal appearance, PERRL Pupil Exam: NORMAL ACCOMODATION, PERRL - ENT Exam ENT Exam: Mucous Membranes Moist, Normal Exam - Neck Exam Neck exam: Positive for: Normal Inspection - Respiratory Exam Respiratory Exam: Decreased Breath Sounds, Prolonged Expiratory Phase, Rales, NORMAL BREATHING PATTERN - Cardiovascular Exam Cardiovascular Exam: REGULAR RHYTHM - GI/Abdominal Exam GI & Abdominal Exam: Normal Bowel Sounds, Soft, Tenderness - Rectal Exam Rectal Exam: NORMAL INSPECTION - Back Exam Back exam: NORMAL INSPECTION - Neurological Exam Neurological exam: Alert, CN II-XII Intact, Oriented x3, Reflexes Normal - Psychiatric Exam Psychiatric exam: Normal Affect, Normal Mood - Skin Skin Exam: Dry, Intact, Normal Color, Warm Results - Vital Signs Recent Vital Signs: Last Vital Signs Temp 100.6 F H 02/04/18 12:00 Pulse 96 H 02/04/18 12:00 Resp 16 02/04/18 12:00 BP 120/70 02/04/18 12:00 Pulse Ox 96 02/04/18 12:00 - Labs Result Diagrams: 02/04/18 05:30 02/04/18 05:30 Labs: Laboratory Results - last 24 hr 02/03/18 02/03/18 02/03/18 17:20 19:00 21:49 WBC RBC Hgb Hct MCV MCH MCHC RDW Plt Count Sodium Potassium Chloride Carbon Dioxide Anion Gap BUN Creatinine Est GFR ( Amer) Est GFR (Non-Af Amer) POC Glucose (mg/dL) 120 H 185 H Random Glucose Calcium Total Bilirubin AST ALT Alkaline Phosphatase Total Protein Albumin Globulin Albumin/Globulin Ratio Influenza Typ A,B (EIA) Negative for flu a/b 02/04/18 02/04/18 02/04/18 05:30 05:30 06:06 WBC 17.9 H RBC 2.88 L Hgb 8.1 L Hct 25.7 L MCV 89.2 MCH 28.2 MCHC 31.6 L RDW 20.5 H Plt Count 270 Sodium 135 Potassium 4.2 Chloride 94 L Carbon Dioxide 29 Anion Gap 16 BUN 19 H Creatinine 4.8 H Est GFR ( Amer) 13 Est GFR (Non-Af Amer) 11 POC Glucose (mg/dL) 163 H Random Glucose 163 H Calcium 8.5 Total Bilirubin 1.0 AST 15 ALT 21 Alkaline Phosphatase 82 Total Protein 7.1 Albumin 3.2 L Globulin 3.9 Albumin/Globulin Ratio 0.8 L Influenza Typ A,B (EIA) 02/04/18 11:25 WBC RBC Hgb Hct MCV MCH MCHC RDW Plt Count Sodium Potassium Chloride Carbon Dioxide Anion Gap BUN Creatinine Est GFR ( Amer) Est GFR (Non-Af Amer) POC Glucose (mg/dL) 210 H Random Glucose Calcium Total Bilirubin AST ALT Alkaline Phosphatase Total Protein Albumin Globulin Albumin/Globulin Ratio Influenza Typ A,B (EIA) Assessment & Plan - Assessment and Plan (Free Text) Assessment: R PLEURAL EFFUSION[LOCULATED]--?PARAPNEUMONIC/RENAL FAILURE RELATED ESRD ABDOMINAL PAIN CARDIOMEGALY R/O PERICARDIAL EFFUSION Plan: REPEAT CXR IN AM SUGGEST THORACENTESES/CHEST TUBE DRAINAGE VIA THORACIC SURGERY IF LOCULATED EFFUSION WORSENS/PERSIST MAY NEED ECHO/CARDIOLOGY EVAL TO R/O PERICARDIAL EFFUSION AGREE WITH ANTIBIOTIC AND O2 RX WILL FOLLOW WITH YOU - Date & Time Date: 02/04/18 Time: 12:58
--- NOTE | 2018-02-04 13:16 | CP.PCM.PN ---
Subjective - Date & Time of Evaluation Date of Evaluation: 02/04/18 Time of Evaluation: 07:00 - Subjective Subjective: fever persists refusing thoracentesis/ chest tube Objective - Vital Signs/Intake and Output Vital Signs (last 24 hours): Temp Pulse Resp BP Pulse Ox 100.6 F H 96 H 16 120/70 96 02/04/18 12:00 02/04/18 12:00 02/04/18 12:00 02/04/18 12:00 02/04/18 12:00 Intake and Output: 02/04/18 02/04/18 06:59 18:59 Intake Total 500 240 Balance 500 240 - Medications Medications: Current Medications Acetaminophen (Tylenol 325mg Tab) 650 mg PO Q6 PRN PRN Reason: Pain, moderate (4-7) Last Admin: 02/03/18 14:16 Dose: 650 mg Acetaminophen (Tylenol 325mg Tab) 650 mg PO Q4 PRN PRN Reason: Fever >100.4 F Last Admin: 02/03/18 23:10 Dose: 650 mg Amlodipine Besylate (Norvasc) 10 mg PO DAILY [facility] Last Admin: 02/04/18 09:41 Dose: 10 mg Aspirin (Ecotrin) 81 mg PO DAILY [facility] Last Admin: 02/04/18 09:44 Dose: 81 mg Carvedilol (Coreg) 12.5 mg PO Q12 [facility] Last Admin: 02/04/18 09:07 Dose: 12.5 mg Dextrose (Dextrose 50% Inj) 0 ml IV STAT PRN; Protocol PRN Reason: Hypoglycemia Protocol Dextrose (Glutose 15) 0 gm PO ONCE PRN; Protocol PRN Reason: Hypoglycemia Protocol Glucagon (Glucagen Diagnostic Kit) 0 mg IM STAT PRN; Protocol PRN Reason: Hypoglycemia Protocol Heparin Sodium (Porcine) (Heparin) 5,000 units SC Q12 [facility] PRN Reason: Protocol Last Admin: 02/04/18 09:37 Dose: 5,000 units Hydralazine HCl (Apresoline) 10 mg PO Q12 [facility] Last Admin: 02/04/18 09:07 Dose: 10 mg Vancomycin HCl 1 gm/ Sodium (Chloride) 250 mls @ 166.667 mls/hr IVPB TUTHSA [facility] PRN Reason: Protocol Last Admin: 02/03/18 17:30 Dose: 166.667 mls/hr Piperacillin Sod/Tazobactam (Sod 2.25 gm/ Sodium Chloride) 100 mls @ 100 mls/ hr IVPB Q8H [facility] PRN Reason: Protocol Last Admin: 02/04/18 05:25 Dose: 100 mls/hr Insulin Human Lispro (Humalog) 0 units SC ACHS [facility] PRN Reason: Protocol Last Admin: 02/04/18 12:02 Dose: 3 units Insulin Lispro Protam/Lispro Human (Humalog Mix 75/25) 15 units SC BID [facility] Last Admin: 02/04/18 09:39 Dose: Not Given Lidocaine (Lidoderm) 1 ea TD DAILY [facility] Last Admin: 02/04/18 09:39 Dose: 1 ea Lisinopril (Zestril) 10 mg PO DAILY [facility] Last Admin: 02/04/18 09:43 Dose: 10 mg Ondansetron HCl (Zofran Inj) 4 mg IVP Q4 PRN PRN Reason: Nausea/Vomiting Last Admin: 02/02/18 10:52 Dose: 4 mg Oxycodone/Acetaminophen (Percocet 5/325 Mg Tab) 1 tab PO Q6 PRN PRN Reason: Pain, severe (8-10) Stop: 02/05/18 21:10 Last Admin: 02/03/18 16:25 Dose: 1 tab Sevelamer Carbonate (Renvela) 0.8 gm PO TIDWM [facility] Last Admin: 02/04/18 12:03 Dose: Not Given Tramadol HCl (Ultram) 50 mg PO Q6 PRN PRN Reason: Pain, severe (8-10) Last Admin: 02/04/18 00:13 Dose: 50 mg - Labs Labs: 02/04/18 05:30 02/04/18 05:30 PT 15.7 Seconds (9.8-13.1) H 02/02/18 17:03 INR 1.4 (0.9-1.2) H 02/02/18 17:03 APTT 28.6 Seconds (25.6-37.1) 02/02/18 17:03 - Constitutional Appears: Non-toxic, Chronically Ill - Head Exam Head Exam: NORMOCEPHALIC - Eye Exam Eye Exam: PERRL - ENT Exam ENT Exam: Mucous Membranes Dry - Neck Exam Neck Exam: absent: Lymphadenopathy - Respiratory Exam Respiratory Exam: Decreased Breath Sounds - GI/Abdominal Exam GI & Abdominal Exam: Distended - Rectal Exam Rectal Exam: Deferred - Exam Exam: NORMAL INSPECTION - Extremities Exam Extremities Exam: absent: Pedal Edema - Back Exam Back Exam: absent: CVA tenderness (L), CVA tenderness (R) - Neurological Exam Neurological Exam: Alert, Awake, Oriented x3 - Psychiatric Exam Psychiatric exam: Normal Mood - Skin Skin Exam: Dry Assessment and Plan (1) Abdominal pain Status: Acute (2) End stage renal disease Status: Acute (3) Fever Status: Acute - Assessment and Plan (Free Text) Assessment: agree with echo may need YUSRA needs thoracentesis - refusing cont iv rx
[2018-02-04] MEDS: Oxycodone/Acetaminophen 5/325 mg Tab PO PRN (22:42)
[2018-02-05 06:02] LABS: HEMOGLOBIN 8.2 g/dL (12.0-16.0); MEAN CELL VOLUME 90.1 fl (81.0-99.0); MEAN CORPUSCULAR HEMOGLOBIN 28.3 pg (27.0-31.0); MEAN CORPUSCULAR HGB CONC 31.4 g/dL (33.0-37.0); RBC 2.9 Mil/uL (3.80-5.20); RED CELL DISTRIBUTION WIDTH 21.2 % (11.5-14.5); WHITE BLOOD COUNT 15.9 K/uL (4.8-10.8)
[2018-02-05 06:17] LABS: ALB/GLOB RATIO 0.8 (1.0-2.1); ALBUMIN 3.2 g/dL (3.5-5.0); CALCIUM 8.7 mg/dL (8.4-10.2)
[2018-02-05] MEDS: Insulin Lispro (humaLOG) 100 Units/ml Inj SC SCH ×3 (06:40→18:58)
--- NOTE | 2018-02-05 07:08 | PQF GENQUE ---
This form is a permanent part of the medical record 02/02/18 Dr. Sears, Would you please clarify if there is an associated diagnosis or not to go along with the following findings: Admitted with R arm pain and missed hemodialysis. + Fistula R arm. + Fever. Culture spending. Treated with dual IVAB. TEMP 103 X2, 101.3, 100.7, 102.6, 102.4 X3, 101.6, 99.3, 101, 99 HR: 100, 110, 98, 114, 114, 113, 105, 111 x3, 93, 97 BP:173/98, 155/86, 178/94, 160/96, 153/100, 132/89, 110/60, 133/70 R: 17-29 WBC 14.1-> 17.4 L shift . Lactic acid 1.0, Clarification of your documentation is requested to better reflect the severity of illness and intensity of treatment of your patient. Indicators present PHYSICIAN'S RESPONSE Based on your medical judgment of the clinical indicators outlined above please clarify the following: [] Practitioner response [] If unable to determine, please check the box, sign and date. Present On Admission (POA) Indicator: [] Present at the time of admission [] Not present at the time of admission [] Clinically Undetermined In responding to this query, please exercise your independent professional judgment. The fact that a question is asked does not imply that any particular answer is desired or expected. Thank you for your clarification on this documentation. If you have any questions please call:ext [phone] * Thank you, Bonnie Cameron RN [facility]
--- NOTE | 2018-02-05 07:14 | PQF GENQUE ---
This form is a permanent part of the medical record 02/04/18 Dr. Sears, Please provide the underlying diagnosis causing the patient's documented symptom. Patient admitted with Right Upper Arm Pain(symptom). Admitted with right upper arm pain. Patient has AV fistula in the R arm. Duplex Right Upper Extremity: Varying degrees of intra graft stenosis with severe stenosis noted within the portion of the graft closest to the shoulder. Clarification of your documentation is requested to better reflect the severity of illness and intensity of treatment of your patient. Indicators present PHYSICIAN'S RESPONSE Based on your medical judgment of the clinical indicators outlined above please clarify the following: [] Practitioner response [] If unable to determine, please check the box, sign and date. Present On Admission (POA) Indicator: [] Present at the time of admission [] Not present at the time of admission [] Clinically Undetermined In responding to this query, please exercise your independent professional judgment. The fact that a question is asked does not imply that any particular answer is desired or expected. Thank you for your clarification on this documentation. If you have any questions please call:ext [phone] * Thank you, Bonnie Cameron RN [facility]
--- NOTE | 2018-02-05 08:05 | CP.PCM.PN ---
Subjective - Date & Time of Evaluation Date of Evaluation: 02/05/18 Time of Evaluation: 08:05 - Subjective Subjective: Patient in bed. Not in acute distress. Complaining of some pain in the right lower lung and right upper quadrant. Vital sign noted Lab reviewed Objective - Vital Signs/Intake and Output Vital Signs (last 24 hours): Temp Pulse Resp BP Pulse Ox 99.5 F 87 14 127/62 100 02/05/18 05:00 02/05/18 05:00 02/05/18 05:00 02/05/18 05:00 02/05/18 05:00 Intake and Output: 02/05/18 02/05/18 06:59 18:59 Intake Total 250 Balance 250 - Medications Medications: Current Medications Acetaminophen (Tylenol 325mg Tab) 650 mg PO Q6 PRN PRN Reason: Pain, moderate (4-7) Last Admin: 02/03/18 14:16 Dose: 650 mg Acetaminophen (Tylenol 325mg Tab) 650 mg PO Q4 PRN PRN Reason: Fever >100.4 F Last Admin: 02/04/18 13:49 Dose: 650 mg Amlodipine Besylate (Norvasc) 10 mg PO DAILY [facility] Last Admin: 02/04/18 09:41 Dose: 10 mg Aspirin (Ecotrin) 81 mg PO DAILY [facility] Last Admin: 02/04/18 09:44 Dose: 81 mg Carvedilol (Coreg) 12.5 mg PO Q12 [facility] Last Admin: 02/04/18 21:05 Dose: 12.5 mg Dextrose (Dextrose 50% Inj) 0 ml IV STAT PRN; Protocol PRN Reason: Hypoglycemia Protocol Dextrose (Glutose 15) 0 gm PO ONCE PRN; Protocol PRN Reason: Hypoglycemia Protocol Glucagon (Glucagen Diagnostic Kit) 0 mg IM STAT PRN; Protocol PRN Reason: Hypoglycemia Protocol Heparin Sodium (Porcine) (Heparin) 5,000 units SC Q12 [facility] PRN Reason: Protocol Last Admin: 02/04/18 09:37 Dose: 5,000 units Hydralazine HCl (Apresoline) 10 mg PO Q12 [facility] Last Admin: 02/04/18 21:05 Dose: 10 mg Vancomycin HCl 1 gm/ Sodium (Chloride) 250 mls @ 166.667 mls/hr IVPB TUTHSA [facility] PRN Reason: Protocol Last Admin: 02/03/18 17:30 Dose: 166.667 mls/hr Piperacillin Sod/Tazobactam (Sod 2.25 gm/ Sodium Chloride) 100 mls @ 100 mls/ hr IVPB Q8H [facility] PRN Reason: Protocol Last Admin: 02/05/18 06:10 Dose: 100 mls/hr Insulin Human Lispro (Humalog) 0 units SC ACHS [facility] PRN Reason: Protocol Last Admin: 02/05/18 06:40 Dose: Not Given Insulin Lispro Protam/Lispro Human (Humalog Mix 75/25) 15 units SC BID [facility] Last Admin: 02/04/18 17:30 Dose: Not Given Lidocaine (Lidoderm) 1 ea TD DAILY [facility] Last Admin: 02/04/18 09:39 Dose: 1 ea Lisinopril (Zestril) 10 mg PO DAILY [facility] Last Admin: 02/04/18 09:43 Dose: 10 mg Ondansetron HCl (Zofran Inj) 4 mg IVP Q4 PRN PRN Reason: Nausea/Vomiting Last Admin: 02/02/18 10:52 Dose: 4 mg Oxycodone/Acetaminophen (Percocet 5/325 Mg Tab) 1 tab PO Q6 PRN PRN Reason: Pain, severe (8-10) Stop: 02/05/18 21:10 Last Admin: 02/04/18 22:42 Dose: 1 tab Sevelamer Carbonate (Renvela) 0.8 gm PO TIDWM [facility] Last Admin: 02/04/18 17:30 Dose: Not Given - Labs Labs: 02/05/18 04:40 02/05/18 04:40 PT 15.7 Seconds (9.8-13.1) H 02/02/18 17:03 INR 1.4 (0.9-1.2) H 02/02/18 17:03 APTT 28.6 Seconds (25.6-37.1) 02/02/18 17:03 - Constitutional Appears: No Acute Distress - ENT Exam ENT Exam: Mucous Membranes Moist - Neck Exam Neck Exam: absent: Lymphadenopathy - Respiratory Exam Respiratory Exam: Rhonchi, NORMAL BREATHING PATTERN. absent: Chest Wall Tenderness - Cardiovascular Exam Cardiovascular Exam: absent: Gallop, JVD, Rubs - GI/Abdominal Exam GI & Abdominal Exam: Soft, Normal Bowel Sounds - Extremities Exam Extremities Exam: absent: Calf Tenderness - Back Exam Back Exam: absent: CVA tenderness (L), CVA tenderness (R) - Neurological Exam Neurological Exam: Alert - Psychiatric Exam Psychiatric exam: Normal Affect - Skin Skin Exam: absent: Cyanosis Assessment and Plan (1) End stage renal disease Assessment & Plan: ESRD volume overloaded legs edema right pleural effusionconsolidation congestion Plan hemodialysis as scheduled TTS Anemia Hbg 8.2 increase EPO to 6000 unit monitoring vaginal bleeding as noted per pulmonary . fever with leukocytosis rule out sepsis. Although blood culture negative so far urine culture pending Patient is still having low-grade fever 99.5 as per infectious disease with antibiotics and the pulmonary recommendation. suggest to do echocardiogram to rule out pericardial effusion as well. Hyperphosphatemia patient receiving binders Secondary hyperparathyroidism patient was taken Sensipar waiting to get PTH. Status: Acute (2) Fever Status: Acute
--- NOTE | 2018-02-05 08:55 | CP.PCM.PN ---
Subjective - Date & Time of Evaluation Date of Evaluation: 02/05/18 Time of Evaluation: 08:58 - Subjective Subjective: AWAKE/ALERT AMND ORIENTED STATES THAT SHE FEELS BETTER AND LESS SHORT OF BREATH TODAY CASE DISCUSSED WITH PT'S MOTHER PT STILL REFUSES THORACENTESES/CHEST TUBE DRAINAGE OF PLEURAL EFFUSION Objective - Vital Signs/Intake and Output Vital Signs (last 24 hours): Temp Pulse Resp BP Pulse Ox 99.5 F 87 14 127/62 100 02/05/18 05:00 02/05/18 05:00 02/05/18 05:00 02/05/18 05:00 02/05/18 05:00 Intake and Output: 02/05/18 02/05/18 06:59 18:59 Intake Total 250 Balance 250 - Medications Medications: Current Medications Acetaminophen (Tylenol 325mg Tab) 650 mg PO Q6 PRN PRN Reason: Pain, moderate (4-7) Last Admin: 02/03/18 14:16 Dose: 650 mg Acetaminophen (Tylenol 325mg Tab) 650 mg PO Q4 PRN PRN Reason: Fever >100.4 F Last Admin: 02/04/18 13:49 Dose: 650 mg Amlodipine Besylate (Norvasc) 10 mg PO DAILY [facility] Last Admin: 02/04/18 09:41 Dose: 10 mg Aspirin (Ecotrin) 81 mg PO DAILY [facility] Last Admin: 02/04/18 09:44 Dose: 81 mg Carvedilol (Coreg) 12.5 mg PO Q12 [facility] Last Admin: 02/04/18 21:05 Dose: 12.5 mg Dextrose (Dextrose 50% Inj) 0 ml IV STAT PRN; Protocol PRN Reason: Hypoglycemia Protocol Dextrose (Glutose 15) 0 gm PO ONCE PRN; Protocol PRN Reason: Hypoglycemia Protocol Epoetin Jose (Procrit) 10,000 unit IV TTS [facility] Glucagon (Glucagen Diagnostic Kit) 0 mg IM STAT PRN; Protocol PRN Reason: Hypoglycemia Protocol Heparin Sodium (Porcine) (Heparin) 5,000 units SC Q12 [facility] PRN Reason: Protocol Last Admin: 02/04/18 09:37 Dose: 5,000 units Hydralazine HCl (Apresoline) 10 mg PO Q12 [facility] Last Admin: 02/04/18 21:05 Dose: 10 mg Vancomycin HCl 1 gm/ Sodium (Chloride) 250 mls @ 166.667 mls/hr IVPB TUTHSA [facility] PRN Reason: Protocol Last Admin: 02/03/18 17:30 Dose: 166.667 mls/hr Piperacillin Sod/Tazobactam (Sod 2.25 gm/ Sodium Chloride) 100 mls @ 100 mls/ hr IVPB Q8H [facility] PRN Reason: Protocol Last Admin: 02/05/18 06:10 Dose: 100 mls/hr Insulin Human Lispro (Humalog) 0 units SC ACHS [facility] PRN Reason: Protocol Last Admin: 02/05/18 06:40 Dose: Not Given Insulin Lispro Protam/Lispro Human (Humalog Mix 75/25) 15 units SC BID [facility] Last Admin: 02/04/18 17:30 Dose: Not Given Lidocaine (Lidoderm) 1 ea TD DAILY [facility] Last Admin: 02/04/18 09:39 Dose: 1 ea Lisinopril (Zestril) 10 mg PO DAILY [facility] Last Admin: 02/04/18 09:43 Dose: 10 mg Ondansetron HCl (Zofran Inj) 4 mg IVP Q4 PRN PRN Reason: Nausea/Vomiting Last Admin: 02/02/18 10:52 Dose: 4 mg Oxycodone/Acetaminophen (Percocet 5/325 Mg Tab) 1 tab PO Q6 PRN PRN Reason: Pain, severe (8-10) Stop: 02/05/18 21:10 Last Admin: 02/04/18 22:42 Dose: 1 tab Sevelamer Carbonate (Renvela) 0.8 gm PO TIDWM [facility] Last Admin: 02/04/18 17:30 Dose: Not Given - Labs Labs: 02/05/18 04:40 02/05/18 04:40 PT 15.7 Seconds (9.8-13.1) H 02/02/18 17:03 INR 1.4 (0.9-1.2) H 02/02/18 17:03 APTT 28.6 Seconds (25.6-37.1) 02/02/18 17:03 - Constitutional Appears: Chronically Ill - Head Exam Head Exam: ATRAUMATIC, NORMAL INSPECTION, NORMOCEPHALIC - Eye Exam Eye Exam: EOMI, Normal appearance, PERRL Pupil Exam: NORMAL ACCOMODATION, PERRL - ENT Exam ENT Exam: Mucous Membranes Moist, Normal Exam - Neck Exam Neck Exam: Full ROM, Normal Inspection. absent: Lymphadenopathy - Respiratory Exam Respiratory Exam: Decreased Breath Sounds, Prolonged Expiratory Phase, Rales, NORMAL BREATHING PATTERN - Cardiovascular Exam Cardiovascular Exam: REGULAR RHYTHM, +S1, +S2. absent: Murmur - GI/Abdominal Exam GI & Abdominal Exam: Soft, Normal Bowel Sounds. absent: Tenderness - Rectal Exam Rectal Exam: NORMAL INSPECTION - Extremities Exam Extremities Exam: Full ROM, Normal Capillary Refill, Normal Inspection. absent : Joint Swelling, Pedal Edema - Back Exam Back Exam: NORMAL INSPECTION - Neurological Exam Neurological Exam: Alert, Awake, CN II-XII Intact, Oriented x3 - Psychiatric Exam Psychiatric exam: Normal Affect, Normal Mood - Skin Skin Exam: Dry, Intact, Normal Color, Warm Assessment and Plan - Assessment and Plan (Free Text) Assessment: PLEURAL EFFUSION PROBABLY DUE TO ESRD--R/O SUPERIMPOSED INFECTION CARDIOMEGALY-R/O PERICARDIAL EFFUSION Plan: PT REFUSES THORACENTESES SUGGEST--CONTINUE CURRENT RX
--- NOTE | 2018-02-05 08:59 | RAD ---
PROCEDURE: CHEST RADIOGRAPH, 1 VIEW HISTORY: PLEURAL EFFUSION COMPARISON: Portable chest 02/03/2018. FINDINGS: LUNGS: Diagnosis an interval change in right hemidiaphragm elevation and mild partially loculated right pleural effusion involving the lateral basilar pleural space and minimally involving the minor fissure. No left pleural effusion. Underlying airspace disease not excluded the right base with none on the left chest. No pneumothorax bilaterally. PLEURA: As above. CARDIOVASCULAR: No pulmonary vascular congestion. Cardiac silhouette appears stable. OSSEOUS STRUCTURES: No significant abnormalities. VISUALIZED UPPER ABDOMEN: Normal. OTHER FINDINGS: None. IMPRESSION: Stable partially loculated right pleural effusions remain mild with limited underlying medial basilar airspace disease not excluded. Left chest remains clear.
[2018-02-05] MEDS: Lidocaine 5% Patch TD SCH (09:30)
--- NOTE | 2018-02-05 10:22 | CP.PCM.PN ---
Subjective - Date & Time of Evaluation Date of Evaluation: 02/05/18 Time of Evaluation: 09:00 - Subjective Subjective: t max down weak less sob shuntogram awaited blood c/s neg consider YUSRA Objective - Vital Signs/Intake and Output Vital Signs (last 24 hours): Temp Pulse Resp BP Pulse Ox 98.4 F 87 14 131/82 100 02/05/18 08:00 02/05/18 09:34 02/05/18 08:00 02/05/18 09:34 02/05/18 08:00 Intake and Output: 02/05/18 02/05/18 06:59 18:59 Intake Total 250 Balance 250 - Medications Medications: Current Medications Acetaminophen (Tylenol 325mg Tab) 650 mg PO Q6 PRN PRN Reason: Pain, moderate (4-7) Last Admin: 02/03/18 14:16 Dose: 650 mg Acetaminophen (Tylenol 325mg Tab) 650 mg PO Q4 PRN PRN Reason: Fever >100.4 F Last Admin: 02/04/18 13:49 Dose: 650 mg Amlodipine Besylate (Norvasc) 10 mg PO DAILY [facility] 234 BEDS AT [facility] Last Admin: 02/05/18 09:31 Dose: 10 mg Aspirin (Ecotrin) 81 mg PO DAILY [facility]S INCLUDE 234 BEDS AT THE [facility] Last Admin: 02/05/18 09:34 Dose: Not Given Carvedilol (Coreg) 12.5 mg PO Q12 COUNTS INCLUDE 234 BEDS AT THE [facility] Last Admin: 02/05/18 09:33 Dose: 12.5 mg Dextrose (Dextrose 50% Inj) 0 ml IV STAT PRN; Protocol PRN Reason: Hypoglycemia Protocol Dextrose (Glutose 15) 0 gm PO ONCE PRN; Protocol PRN Reason: Hypoglycemia Protocol Epoetin Jose (Procrit) 10,000 unit IV TTS COUNTS INCLUDE 234 BEDS AT THE [facility] Glucagon (Glucagen Diagnostic Kit) 0 mg IM STAT PRN; Protocol PRN Reason: Hypoglycemia Protocol Heparin Sodium (Porcine) (Heparin) 5,000 units SC Q12 [facility] PRN Reason: Protocol Last Admin: 02/04/18 09:37 Dose: 5,000 units Hydralazine HCl (Apresoline) 10 mg PO Q12 [facility]S [facility]CLUDE 234 BEDS AT THE [facility] Last Admin: 02/05/18 09:32 Dose: 10 mg Vancomycin HCl 1 gm/ Sodium (Chloride) 250 mls @ 166.667 mls/hr IVPB TUTHSA COUNTS INCLUDE 234 BEDS AT THE [facility] PRN Reason: Protocol Last Admin: 02/03/18 17:30 Dose: 166.667 mls/hr Piperacillin Sod/Tazobactam (Sod 2.25 gm/ Sodium Chloride) 100 mls @ 100 mls/ hr IVPB Q8H COUNTS INCLUDE 234 BEDS AT THE [facility] PRN Reason: Protocol Last Admin: 02/05/18 06:10 Dose: 100 mls/hr Insulin Human Lispro (Humalog) 0 units SC ACHS COUNTS INCLUDE 234 BEDS AT THE [facility] PRN Reason: Protocol Last Admin: 02/05/18 06:40 Dose: Not Given Insulin Lispro Protam/Lispro Human (Humalog Mix 75/25) 15 units SC BID [facility]S INCLUDE 234 BEDS AT THE [facility] Last Admin: 02/04/18 17:30 Dose: Not Given Lidocaine (Lidoderm) 1 ea TD DAILY COUNTS INCLUDE 234 BEDS AT THE [facility] Last Admin: 02/05/18 09:30 Dose: Not Given Lisinopril (Zestril) 10 mg PO DAILY [facility]S INCLUDE 234 BEDS AT THE [facility] Last Admin: 02/05/18 09:34 Dose: 10 mg Ondansetron HCl (Zofran Inj) 4 mg IVP Q4 PRN PRN Reason: Nausea/Vomiting Last Admin: 02/02/18 10:52 Dose: 4 mg Oxycodone/Acetaminophen (Percocet 5/325 Mg Tab) 1 tab PO Q6 PRN PRN Reason: Pain, severe (8-10) Stop: 02/05/18 21:10 Last Admin: 02/04/18 22:42 Dose: 1 tab Sevelamer Carbonate (Renvela) 0.8 gm PO TIDWM COUNTS INCLUDE 234 BEDS AT THE [facility] Last Admin: 02/04/18 17:30 Dose: Not Given - Labs Labs: 02/05/18 04:40 02/05/18 04:40 PT 15.7 Seconds (9.8-13.1) H 02/02/18 17:03 INR 1.4 (0.9-1.2) H 02/02/18 17:03 APTT 28.6 Seconds (25.6-37.1) 02/02/18 17:03 - Constitutional Appears: Cachectic, Chronically Ill - Head Exam Head Exam: NORMOCEPHALIC - Eye Exam Eye Exam: PERRL - ENT Exam ENT Exam: Mucous Membranes Dry - Neck Exam Neck Exam: absent: Lymphadenopathy - Respiratory Exam Respiratory Exam: Decreased Breath Sounds - Cardiovascular Exam Cardiovascular Exam: REGULAR RHYTHM - GI/Abdominal Exam GI & Abdominal Exam: Distended, Soft - Rectal Exam Rectal Exam: Deferred - Exam Exam: NORMAL INSPECTION Assessment and Plan (1) Abdominal pain Status: Acute (2) End stage renal disease Status: Acute (3) Fever Status: Acute - Assessment and Plan (Free Text) Assessment: cont iv rx dr sauceda on board refusing thoracentesis
[2018-02-05] MEDS: Insulin Lispro Mix 75/25 100 units/ml (HumaLog) 10ml SC SCH ×2 (11:32→17:30)
[2018-02-05] MEDS: Sevelamer Carb 0.8 gm/Packet PO SCH ×3 (11:32→19:09)
[2018-02-05] MEDS ORDERED: Lidocaine 1% Inj (20ml) ONE (13:03)
[2018-02-05] MEDS ORDERED: Iodixanol 320 MG/ML 100 ML BOTTLE IV ONE (13:07)
[2018-02-05] MEDS ORDERED: Midazolam 2 MG/2 ML VIAL ONE (13:19)
--- NOTE | 2018-02-05 13:39 | PCM.SURG1 ---
Surgeon's Initial Post Op Note - Surgeon's Notes Surgeon: Helder Ruano MD Pediatric Orthodontist: NONE Type of Anesthesia: IV Sedation Pre-Operative Diagnosis: ESRD, increase bleeding at HD from AVF, severe stenosis AVF on ultrasound Operative Findings: right arm AV fistulagram showed areas of 30-40% stenosis in outflow vein, 60% stenosis of axillary vein, normal central venogram, normal arterial anastomosis. Post-Operative Diagnosis: ESRD, increase bleeding at HD from AVF, severe stenosis AVF on ultrasound Operation Performed: Right arm AV fistulagram, HAIR SPINNER outflow vein stenosis with 8 mm x 4 cm balloon. Specimen/Specimens Removed: none Estimated Blood Loss: EBL {In ML}: 3 Blood Products Given: N/A Drains Used: No Drains Post-Op Condition: Fair Date of Surgery/Procedure: 02/05/18 Time of Surgery/Procedure: 13:35
[2018-02-05] MEDS: Oxycodone/Acetaminophen 5/325 mg Tab PO PRN (19:08)
[2018-02-06] MEDS: Oxycodone/Acetaminophen 5/325 mg Tab PO PRN (03:49)
[2018-02-06] MEDS: Insulin Lispro (humaLOG) 100 Units/ml Inj SC SCH ×5 (05:02→21:47)
[2018-02-06 05:28] LABS: HEMOGLOBIN 8.7 g/dL (12.0-16.0); MEAN CELL VOLUME 89.4 fl (81.0-99.0); MEAN CORPUSCULAR HGB CONC 31.4 g/dL (33.0-37.0); RBC 3.09 Mil/uL (3.80-5.20); RED CELL DISTRIBUTION WIDTH 20.7 % (11.5-14.5); WHITE BLOOD COUNT 19.4 K/uL (4.8-10.8)
[2018-02-06 05:56] LABS: ALB/GLOB RATIO 0.8 (1.0-2.1); ALBUMIN 3.5 g/dL (3.5-5.0); CALCIUM 8.9 mg/dL (8.4-10.2)
--- NOTE | 2018-02-06 07:45 | CP.PCM.PN ---
<Beau Shah - Last Filed: 02/06/18 11:21> Subjective - Date & Time of Evaluation Date of Evaluation: 02/06/18 Time of Evaluation: 07:15 - Subjective Subjective: Patient seen and examined this morning at bedside. There are no acute events overnight, NAD. Patient reports hives on arms legs and torso. Patient voiding freely and independently. Patient denies headaches, chest pain, SOB, diarrhea, dysuria, or fever. Objective - Vital Signs/Intake and Output Vital Signs (last 24 hours): Temp Pulse Resp BP Pulse Ox 98.8 F 90 20 133/70 93 L 02/06/18 05:00 02/06/18 05:00 02/06/18 05:00 02/06/18 05:00 02/06/18 05:00 - Medications Medications: Current Medications Acetaminophen (Tylenol 325mg Tab) 650 mg PO Q6 PRN PRN Reason: Pain, moderate (4-7) Last Admin: 02/06/18 03:50 Dose: 650 mg Acetaminophen (Tylenol 325mg Tab) 650 mg PO Q4 PRN PRN Reason: Fever >100.4 F Last Admin: 02/04/18 13:49 Dose: 650 mg Acetaminophen (Tylenol 325mg Tab) 650 mg PO Q6 PRN PRN Reason: for pain Stop: 02/10/18 23:15 Amlodipine Besylate (Norvasc) 10 mg PO DAILY [facility] Last Admin: 02/05/18 09:31 Dose: 10 mg Aspirin (Ecotrin) 81 mg PO DAILY [facility] Last Admin: 02/05/18 09:34 Dose: Not Given Carvedilol (Coreg) 12.5 mg PO Q12 [facility] Last Admin: 02/05/18 21:02 Dose: 12.5 mg Dextrose (Dextrose 50% Inj) 0 ml IV STAT PRN; Protocol PRN Reason: Hypoglycemia Protocol Dextrose (Glutose 15) 0 gm PO ONCE PRN; Protocol PRN Reason: Hypoglycemia Protocol Diphenhydramine HCl (Benadryl) 25 mg PO Q6 PRN PRN Reason: Itching / Pruritus Last Admin: 02/06/18 03:50 Dose: 25 mg Epoetin Jose (Procrit) 10,000 unit IV TTS [facility] Glucagon (Glucagen Diagnostic Kit) 0 mg IM STAT PRN; Protocol PRN Reason: Hypoglycemia Protocol Heparin Sodium (Porcine) (Heparin) 5,000 units SC Q12 [facility] PRN Reason: Protocol Last Admin: 02/04/18 09:37 Dose: 5,000 units Hydralazine HCl (Apresoline) 10 mg PO Q12 [facility] Last Admin: 02/05/18 20:50 Dose: 10 mg Vancomycin HCl 1 gm/ Sodium (Chloride) 250 mls @ 166.667 mls/hr IVPB TUTHSA [facility] PRN Reason: Protocol Last Admin: 02/03/18 17:30 Dose: 166.667 mls/hr Levofloxacin/Dextrose (Levaquin 500mg) 500 mg in 100 mls @ 100 mls/hr IVPB DAILY [facility] PRN Reason: Protocol Insulin Human Lispro (Humalog) 0 units SC ACHS [facility] PRN Reason: Protocol Last Admin: 02/06/18 05:02 Dose: Not Given Insulin Lispro Protam/Lispro Human (Humalog Mix 75/25) 15 units SC BID [facility] Last Admin: 02/05/18 17:30 Dose: Not Given Lidocaine (Lidoderm) 1 ea TD DAILY [facility] Last Admin: 02/05/18 09:30 Dose: Not Given Lisinopril (Zestril) 10 mg PO DAILY [facility] Last Admin: 02/05/18 09:34 Dose: 10 mg Ondansetron HCl (Zofran Inj) 4 mg IVP Q4 PRN PRN Reason: Nausea/Vomiting Last Admin: 02/02/18 10:52 Dose: 4 mg Sevelamer Carbonate (Renvela) 0.8 gm PO TIDWM [facility] Last Admin: 02/05/18 19:09 Dose: Not Given - Labs Labs: 02/06/18 04:50 02/06/18 04:50 PT 15.7 Seconds (9.8-13.1) H 02/02/18 17:03 INR 1.4 (0.9-1.2) H 02/02/18 17:03 APTT 28.6 Seconds (25.6-37.1) 02/02/18 17:03 - Constitutional Appears: Non-toxic, No Acute Distress, Chronically Ill - Head Exam Head Exam: ATRAUMATIC, NORMAL INSPECTION, NORMOCEPHALIC - Eye Exam Eye Exam: Normal appearance - ENT Exam ENT Exam: Mucous Membranes Moist - Neck Exam Neck Exam: Full ROM. absent: Tenderness - Respiratory Exam Respiratory Exam: Decreased Breath Sounds. absent: Accessory Muscle Use, Respiratory Distress - Cardiovascular Exam Cardiovascular Exam: REGULAR RHYTHM. absent: Tachycardia - GI/Abdominal Exam GI & Abdominal Exam: Soft, Normal Bowel Sounds. absent: Distended, Tenderness - Extremities Exam Extremities Exam: absent: Calf Tenderness - Neurological Exam Neurological Exam: Alert, Awake, Normal Gait, Oriented x3 - Skin Skin Exam: Dry, Urticaria, Warm Assessment and Plan (1) Loculated pleural effusion Status: Acute (2) Chronic kidney disease with end stage renal failure on dialysis Status: Chronic (3) Diabetes mellitus type 2 with complications, uncontrolled Status: Chronic (4) HTN (hypertension) Status: Chronic (5) Shoulder pain Status: Resolved - Assessment and Plan (Free Text) Plan: afebrile, non-tachycardic, normotensive Nephrology recommendations appreciated Infectious Disease recommendations appreciated Pulmonology recommendations appreciated General surgery recommendations appreciated cardiology consult ordered for possible YUSRA CXR: stable loculated right pleural effusion, left side clear XR shoulder: no fracture or dislocation US upper extremity: right graft stenosis towards shoulder blood culture: no growth stop zosyn due to urticaria start levofloxacin 500 mg IV daily day 1 vancomycin 1 gm IV Tues/Th/Sat c/w home medication f/u echocardiogram prophylactic measures: DVT Heparin 5,000 units SC Q12h monitor for acute changes patient currently declining drainage of right pleural effusion but will talk to mother regarding drainage of pleural effusion <Carolyn Avendaño - Last Filed: 02/06/18 22:55> Subjective - Subjective Subjective: Patient had worsening of hives this evening, unclear if worse after IV LVQ; hold LVQ for now Objective - Vital Signs/Intake and Output Vital Signs (last 24 hours): Temp Pulse Resp BP Pulse Ox 98.9 F 102 H 21 122/62 95 02/06/18 16:00 02/06/18 21:46 02/06/18 16:00 02/06/18 21:46 02/06/18 12:00 Intake and Output: 02/06/18 02/07/18 18:59 06:59 Output Total 3000 Balance -3000 - Medications Medications: Current Medications Acetaminophen (Tylenol 325mg Tab) 650 mg PO Q6 PRN PRN Reason: Pain, moderate (4-7) Last Admin: 02/06/18 03:50 Dose: 650 mg Acetaminophen (Tylenol 325mg Tab) 650 mg PO Q4 PRN PRN Reason: Fever >100.4 F Last Admin: 02/04/18 13:49 Dose: 650 mg Amlodipine Besylate (Norvasc) 10 mg PO DAILY [facility] Last Admin: 02/06/18 12:23 Dose: Not Given Aspirin (Ecotrin) 81 mg PO DAILY [facility] Last Admin: 02/06/18 11:51 Dose: 81 mg Carvedilol (Coreg) 12.5 mg PO Q12 [facility] Last Admin: 02/06/18 21:46 Dose: 12.5 mg Dextrose (Dextrose 50% Inj) 0 ml IV STAT PRN; Protocol PRN Reason: Hypoglycemia Protocol Dextrose (Glutose 15) 0 gm PO ONCE PRN; Protocol PRN Reason: Hypoglycemia Protocol Diphenhydramine HCl (Benadryl) 25 mg PO Q6 PRN PRN Reason: Itching / Pruritus Last Admin: 02/06/18 21:50 Dose: 25 mg Diphenhydramine HCl (Benadryl) 25 mg IVP STAT STA Stop: 02/06/18 22:53 Epoetin Jose (Procrit) 10,000 unit IV TTS [facility] Last Admin: 02/06/18 08:24 Dose: 10,000 unit Glucagon (Glucagen Diagnostic Kit) 0 mg IM STAT PRN; Protocol PRN Reason: Hypoglycemia Protocol Heparin Sodium (Porcine) (Heparin) 5,000 units SC Q12 [facility] PRN Reason: Protocol Last Admin: 02/06/18 21:50 Dose: 5,000 units Hydralazine HCl (Apresoline) 10 mg PO Q12 [facility] Last Admin: 02/06/18 21:46 Dose: 10 mg Hydrocortisone (Cortizone 1% Cream) 1 applic TOP BID [facility] Last Admin: 02/06/18 18:11 Dose: 1 applic Hydrocortisone (Cortizone 1% Cream) 1 applic TOP Q6H PRN PRN Reason: Itching / Pruritus Vancomycin HCl 1 gm/ Sodium (Chloride) 250 mls @ 166.667 mls/hr IVPB TUTHSA [facility] PRN Reason: Protocol Last Admin: 02/06/18 18:09 Dose: 166.667 mls/hr Levofloxacin/Dextrose (Levaquin 500mg) 500 mg in 100 mls @ 100 mls/hr IVPB DAILY [facility] PRN Reason: Protocol Last Admin: 02/06/18 13:20 Dose: 100 mls/hr Insulin Human Lispro (Humalog) 0 units SC ACHS [facility] PRN Reason: Protocol Last Admin: 02/06/18 21:47 Dose: Not Given Insulin Lispro Protam/Lispro Human (Humalog Mix 75/25) 15 units SC BID [facility] Last Admin: 02/06/18 18:12 Dose: Not Given Lactic Acid (Lac-Hydrin 12% Lotion (225 G)) 1 applic TOP TID [facility] Last Admin: 02/06/18 18:11 Dose: 1 applic Lidocaine (Lidoderm) 1 ea TD DAILY [facility] Last Admin: 02/06/18 08:33 Dose: Not Given Lisinopril (Zestril) 10 mg PO DAILY [facility] Last Admin: 02/06/18 12:23 Dose: Not Given Ondansetron HCl (Zofran Inj) 4 mg IVP Q4 PRN PRN Reason: Nausea/Vomiting Last Admin: 02/02/18 10:52 Dose: 4 mg Sevelamer Carbonate (Renvela) 2.4 gm PO TIDWM [facility] Last Admin: 02/06/18 18:17 Dose: Not Given - Labs Labs: 02/06/18 04:50 02/06/18 04:50 PT 15.7 Seconds (9.8-13.1) H 02/02/18 17:03 INR 1.4 (0.9-1.2) H 02/02/18 17:03 APTT 28.6 Seconds (25.6-37.1) 02/02/18 17:03
[2018-02-06] MEDS: EPOETIN ALFA 10,000 UNIT/ML ML IV SCH (08:24)
[2018-02-06] MEDS: Insulin Lispro Mix 75/25 100 units/ml (HumaLog) 10ml SC SCH ×2 (08:31→18:12)
[2018-02-06] MEDS: Lidocaine 5% Patch TD SCH (08:33)
[2018-02-06] MEDS: Sevelamer Carb 0.8 gm/Packet PO SCH ×3 (08:33→18:17)
--- NOTE | 2018-02-06 08:54 | PN ---
DATE: 02/03/2018 SUBJECTIVE: The patient seen and examined. Interim events noted. Consults noted and appreciated. The patient remains in intensive care unit, on telemetry also. Denies any chest pain or shortness of breath but does have abdominal pain and tiredness. Medications helped. No nausea, vomiting, or diarrhea. PHYSICAL EXAMINATION: GENERAL: The patient is in no acute distress. VITAL SIGNS: Stable. HEART: S1 and S2, normal and regular. LUNGS: Good bilateral air exchange. ABDOMEN: The patient having right upper quadrant tenderness. No sign of acute abdomen, no guarding, rigidity, or rebound. Bowel sounds are plus. EXTREMITIES: No edema. No calf swelling. No tenderness. No acute ischemia. CLEANING SPECIALIST: Essentially unchanged. DIAGNOSTIC DATA: Available diagnostic data reviewed. Telemetry monitoring does not reveal significant arrhythmia. ASSESSMENT AND PLAN: Overall, the patient's general medical condition is stable. Ultrasound result is still pending. Plan as ordered. Romeo Sears MD
--- NOTE | 2018-02-06 09:32 | CP.PCM.PN ---
Subjective - Date & Time of Evaluation Date of Evaluation: 02/06/18 Time of Evaluation: 09:32 - Subjective Subjective: STATES THAT SOB HAS IMPROVED C/O DIFFUSE SKIN RASH Objective - Vital Signs/Intake and Output Vital Signs (last 24 hours): Temp Pulse Resp BP Pulse Ox 98.8 F 90 20 133/70 93 L 02/06/18 05:00 02/06/18 05:00 02/06/18 05:00 02/06/18 05:00 02/06/18 05:00 - Medications Medications: Current Medications Acetaminophen (Tylenol 325mg Tab) 650 mg PO Q6 PRN PRN Reason: Pain, moderate (4-7) Last Admin: 02/06/18 03:50 Dose: 650 mg Acetaminophen (Tylenol 325mg Tab) 650 mg PO Q4 PRN PRN Reason: Fever >100.4 F Last Admin: 02/04/18 13:49 Dose: 650 mg Amlodipine Besylate (Norvasc) 10 mg PO DAILY [facility] Last Admin: 02/05/18 09:31 Dose: 10 mg Aspirin (Ecotrin) 81 mg PO DAILY [facility] Last Admin: 02/05/18 09:34 Dose: Not Given Carvedilol (Coreg) 12.5 mg PO Q12 [facility] Last Admin: 02/05/18 21:02 Dose: 12.5 mg Dextrose (Dextrose 50% Inj) 0 ml IV STAT PRN; Protocol PRN Reason: Hypoglycemia Protocol Dextrose (Glutose 15) 0 gm PO ONCE PRN; Protocol PRN Reason: Hypoglycemia Protocol Diphenhydramine HCl (Benadryl) 25 mg PO Q6 PRN PRN Reason: Itching / Pruritus Last Admin: 02/06/18 03:50 Dose: 25 mg Epoetin Jose (Procrit) 10,000 unit IV TTS [facility] Last Admin: 02/06/18 08:24 Dose: 10,000 unit Glucagon (Glucagen Diagnostic Kit) 0 mg IM STAT PRN; Protocol PRN Reason: Hypoglycemia Protocol Heparin Sodium (Porcine) (Heparin) 5,000 units SC Q12 [facility] PRN Reason: Protocol Last Admin: 02/04/18 09:37 Dose: 5,000 units Hydralazine HCl (Apresoline) 10 mg PO Q12 [facility] Last Admin: 02/05/18 20:50 Dose: 10 mg Hydrocortisone (Cortizone 1% Cream) 1 applic TOP BID [facility] Vancomycin HCl 1 gm/ Sodium (Chloride) 250 mls @ 166.667 mls/hr IVPB TUTHSA [facility] PRN Reason: Protocol Last Admin: 02/03/18 17:30 Dose: 166.667 mls/hr Levofloxacin/Dextrose (Levaquin 500mg) 500 mg in 100 mls @ 100 mls/hr IVPB DAILY [facility] PRN Reason: Protocol Insulin Human Lispro (Humalog) 0 units SC ACHS [facility] PRN Reason: Protocol Last Admin: 02/06/18 08:30 Dose: 3 units Insulin Lispro Protam/Lispro Human (Humalog Mix 75/25) 15 units SC BID [facility] Last Admin: 02/06/18 08:31 Dose: Not Given Lactic Acid (Lac-Hydrin 12% Lotion (225 G)) 1 applic TOP TID [facility] Lidocaine (Lidoderm) 1 ea TD DAILY [facility] Last Admin: 02/06/18 08:33 Dose: Not Given Lisinopril (Zestril) 10 mg PO DAILY [facility] Last Admin: 02/05/18 09:34 Dose: 10 mg Ondansetron HCl (Zofran Inj) 4 mg IVP Q4 PRN PRN Reason: Nausea/Vomiting Last Admin: 02/02/18 10:52 Dose: 4 mg Sevelamer Carbonate (Renvela) 0.8 gm PO TIDWM [facility] Last Admin: 02/06/18 08:33 Dose: Not Given - Labs Labs: 02/06/18 04:50 02/06/18 04:50 PT 15.7 Seconds (9.8-13.1) H 02/02/18 17:03 INR 1.4 (0.9-1.2) H 02/02/18 17:03 APTT 28.6 Seconds (25.6-37.1) 02/02/18 17:03 - Constitutional Appears: Chronically Ill - Head Exam Head Exam: ATRAUMATIC, NORMAL INSPECTION, NORMOCEPHALIC - Eye Exam Eye Exam: EOMI, Normal appearance, PERRL Pupil Exam: NORMAL ACCOMODATION, PERRL - ENT Exam ENT Exam: Mucous Membranes Moist, Normal Exam - Neck Exam Neck Exam: Full ROM, Normal Inspection. absent: Lymphadenopathy - Respiratory Exam Respiratory Exam: Decreased Breath Sounds, Rales, NORMAL BREATHING PATTERN - Cardiovascular Exam Cardiovascular Exam: REGULAR RHYTHM, +S1, +S2. absent: Murmur - GI/Abdominal Exam GI & Abdominal Exam: Soft, Normal Bowel Sounds. absent: Tenderness - Rectal Exam Rectal Exam: NORMAL INSPECTION - Extremities Exam Extremities Exam: Full ROM, Normal Capillary Refill, Normal Inspection. absent : Joint Swelling, Pedal Edema - Back Exam Back Exam: NORMAL INSPECTION - Neurological Exam Neurological Exam: Alert, Awake, CN II-XII Intact, Oriented x3 - Psychiatric Exam Psychiatric exam: Normal Affect, Normal Mood - Skin Skin Exam: Dry, Intact, Normal Color, Rash, Warm Assessment and Plan - Assessment and Plan (Free Text) Assessment: PLEURAL EFFUSION ESRD SKIN RASH--?ALLERGIC Plan: CONTINUE CURRENT RX
--- NOTE | 2018-02-06 10:12 | CP.PCM.PN ---
Subjective - Date & Time of Evaluation Date of Evaluation: 02/06/18 Time of Evaluation: 10:10 - Subjective Subjective: dialysis note She was seen on hemodialysis now. I discussed the dialysis order with the dialysis nurse at the bedside. Patient appeared to be comfortable and sleepy Vital signs stable. Objective - Vital Signs/Intake and Output Vital Signs (last 24 hours): Temp Pulse Resp BP Pulse Ox 98.9 F 91 H 16 113/56 L 95 02/06/18 08:00 02/06/18 08:00 02/06/18 08:00 02/06/18 08:00 02/06/18 08:00 - Medications Medications: Current Medications Acetaminophen (Tylenol 325mg Tab) 650 mg PO Q6 PRN PRN Reason: Pain, moderate (4-7) Last Admin: 02/06/18 03:50 Dose: 650 mg Acetaminophen (Tylenol 325mg Tab) 650 mg PO Q4 PRN PRN Reason: Fever >100.4 F Last Admin: 02/04/18 13:49 Dose: 650 mg Amlodipine Besylate (Norvasc) 10 mg PO DAILY [facility] Last Admin: 02/05/18 09:31 Dose: 10 mg Aspirin (Ecotrin) 81 mg PO DAILY [facility] Last Admin: 02/05/18 09:34 Dose: Not Given Carvedilol (Coreg) 12.5 mg PO Q12 [facility] Last Admin: 02/05/18 21:02 Dose: 12.5 mg Dextrose (Dextrose 50% Inj) 0 ml IV STAT PRN; Protocol PRN Reason: Hypoglycemia Protocol Dextrose (Glutose 15) 0 gm PO ONCE PRN; Protocol PRN Reason: Hypoglycemia Protocol Diphenhydramine HCl (Benadryl) 25 mg PO Q6 PRN PRN Reason: Itching / Pruritus Last Admin: 02/06/18 03:50 Dose: 25 mg Epoetin Jose (Procrit) 10,000 unit IV TTS [facility] Last Admin: 02/06/18 08:24 Dose: 10,000 unit Glucagon (Glucagen Diagnostic Kit) 0 mg IM STAT PRN; Protocol PRN Reason: Hypoglycemia Protocol Heparin Sodium (Porcine) (Heparin) 5,000 units SC Q12 [facility] PRN Reason: Protocol Last Admin: 02/04/18 09:37 Dose: 5,000 units Hydralazine HCl (Apresoline) 10 mg PO Q12 [facility] Last Admin: 02/05/18 20:50 Dose: 10 mg Hydrocortisone (Cortizone 1% Cream) 1 applic TOP BID [facility] Vancomycin HCl 1 gm/ Sodium (Chloride) 250 mls @ 166.667 mls/hr IVPB TUTHSA [facility] PRN Reason: Protocol Last Admin: 02/03/18 17:30 Dose: 166.667 mls/hr Levofloxacin/Dextrose (Levaquin 500mg) 500 mg in 100 mls @ 100 mls/hr IVPB DAILY [facility] PRN Reason: Protocol Insulin Human Lispro (Humalog) 0 units SC ACHS [facility] PRN Reason: Protocol Last Admin: 02/06/18 08:30 Dose: 3 units Insulin Lispro Protam/Lispro Human (Humalog Mix 75/25) 15 units SC BID [facility] Last Admin: 02/06/18 08:31 Dose: Not Given Lactic Acid (Lac-Hydrin 12% Lotion (225 G)) 1 applic TOP TID [facility] Lidocaine (Lidoderm) 1 ea TD DAILY [facility] Last Admin: 02/06/18 08:33 Dose: Not Given Lisinopril (Zestril) 10 mg PO DAILY [facility] Last Admin: 02/05/18 09:34 Dose: 10 mg Ondansetron HCl (Zofran Inj) 4 mg IVP Q4 PRN PRN Reason: Nausea/Vomiting Last Admin: 02/02/18 10:52 Dose: 4 mg Sevelamer Carbonate (Renvela) 0.8 gm PO TIDWM [facility] Last Admin: 02/06/18 08:33 Dose: Not Given - Labs Labs: 02/06/18 04:50 02/06/18 04:50 PT 15.7 Seconds (9.8-13.1) H 02/02/18 17:03 INR 1.4 (0.9-1.2) H 02/02/18 17:03 APTT 28.6 Seconds (25.6-37.1) 02/02/18 17:03 - Constitutional Appears: No Acute Distress - ENT Exam ENT Exam: Mucous Membranes Moist - Neck Exam Neck Exam: absent: Lymphadenopathy - Respiratory Exam Respiratory Exam: absent: Chest Wall Tenderness - Cardiovascular Exam Cardiovascular Exam: REGULAR RHYTHM. absent: JVD, Rubs - GI/Abdominal Exam GI & Abdominal Exam: Soft, Normal Bowel Sounds - Extremities Exam Extremities Exam: absent: Calf Tenderness - Back Exam Back Exam: absent: CVA tenderness (L), CVA tenderness (R) - Neurological Exam Neurological Exam: Alert - Psychiatric Exam Psychiatric exam: Normal Affect - Skin Skin Exam: absent: Cyanosis Assessment and Plan (1) End stage renal disease Assessment & Plan: ESRD receiving hemodialysis now with ultrafiltration approximately 3000 mL as tolerated. Sodium bath 137 Bicarbonate bath 34 Sodium bath 2 mEq volume overloaded legs edema right pleural effusionconsolidation congestion Plan Anemia Hbg 8.7 increase EPO to 6000 unit monitoring vaginal bleeding as noted per pulmonary fever with leukocytosis rule out sepsis. Although blood culture negative so far urine culture pending as per infectious disease with antibiotics and the pulmonary recommendation. echocardiogram to rule out pericardial effusion as well.report pending Hyperphosphatemia patient receiving binders Secondary hyperparathyroidism patient was taken Sensipar waiting to get PTH. Status: Acute (2) Fever Status: Acute
--- NOTE | 2018-02-06 10:13 | CARD ---
APPROVED REPORT EXAM: Two-dimensional and M-mode echocardiogram with Doppler and color Doppler. Other Information Quality : GoodRhythm : NSR INDICATION Pericardial Effusion 2D DIMENSIONS IVSd1.33 (0.7-1.1cm)LVDd4.67 (3.9-5.9cm) LVOT Diameter2.30 (1.8-2.4cm)PWd1.15 (0.7-1.1cm) IVSs1.61 (0.8-1.2cm)LVDs3.46 (2.5-4.0cm) FS (%) 25.8 %PWs1.52 (0.8-1.2cm) M-Mode DIMENSIONS Left Atrium (MM)4.35 (2.5-4.0cm)IVSd0.80 (0.7-1.1cm) Aortic Root2.55 (2.2-3.7cm)LVDd5.82 (4.0-5.6cm) Aortic Cusp Exc.1.93 (1.5-2.0cm)PWd1.00 (0.7-1.1cm) IVSs1.34 cmFS (%) 35 % LVDs3.78 (2.0-3.8cm)PWs1.31 cm Mitral Valve MV E Vprosqqz719.5cm/sMV DECEL [id number] A Uxncsztg24.7cm/s MV KXH31hqI/A ratio1.4MVA (PHT)5.09cm2 TDI Lateral E' Peak V13.93cm/sMedial E' Peak V9.45cm/sE/Lateral E'7.4 E/Medial E'11.0 Pulmonary Valve PV Peak Vunwdgun382.7cm/s Tricuspid Valve TR Peak Jcikdeto033ce/sRAP [id number] Peak Gr.38mmHg [id number] LEFT VENTRICLE The left ventricle is normal size. There is mild to moderate concentric left ventricular hypertrophy. The left ventricular function is normal. The left ventricular ejection fraction is 50-55% There is normal LV segmental wall motion. Transmitral Doppler flow pattern is Grade IV-fixed restrictive diastolic dysfunction. No left ventricle thrombus noted on this study. There is no ventricular septal defect visualized. There is no left ventricular aneurysm. There is no mass noted in the left ventricle. RIGHT VENTRICLE The right ventricle is normal size. There is normal right ventricular wall thickness. The right ventricular systolic function is normal. ATRIA The left atrium is mildly dilated. The right atrium size is normal. The interatrial septum is intact with no evidence for an atrial septal defect. AORTIC VALVE The aortic valve is normal in structure. No aortic regurgitation is present. There is no aortic valvular stenosis. There is no aortic valvular vegetation. MITRAL VALVE The mitral valve is normal in structure. There is no evidence of mitral valve prolapse. There is no mitral valve stenosis. Mitral regurgitation is trace. TRICUSPID VALVE The tricuspid valve is normal in structure. There is moderate tricuspid regurgitation. Right ventricular systolic pressure is estimated at 30-40 mmHg. There is no tricuspid valve prolapse or vegetation. There is no tricuspid valve stenosis. PULMONIC VALVE The pulmonary valve is normal in structure. There is no pulmonic valvular regurgitation. There is no pulmonic valvular stenosis. GREAT VESSELS The aortic root is normal in size. The ascending aorta is normal in size. The IVC is normal in size and collapses >50% with inspiration. PERICARDIAL EFFUSION The pericardium appears normal. There is no pleural effusion. <Conclusion> Normal LV systolic function Concentric LVH Trace Mitral Regurgitation Restrictive Diastolic Filling
--- NOTE | 2018-02-06 10:19 | CP.PCM.PN ---
Subjective - Date & Time of Evaluation Date of Evaluation: 02/06/18 Time of Evaluation: 07:00 - Subjective Subjective: + rash zosyn d/c'd on Vanco/levaquin Objective - Vital Signs/Intake and Output Vital Signs (last 24 hours): Temp Pulse Resp BP Pulse Ox 98.9 F 91 H 16 113/56 L 95 02/06/18 08:00 02/06/18 08:00 02/06/18 08:00 02/06/18 08:00 02/06/18 08:00 - Medications Medications: Current Medications Acetaminophen (Tylenol 325mg Tab) 650 mg PO Q6 PRN PRN Reason: Pain, moderate (4-7) Last Admin: 02/06/18 03:50 Dose: 650 mg Acetaminophen (Tylenol 325mg Tab) 650 mg PO Q4 PRN PRN Reason: Fever >100.4 F Last Admin: 02/04/18 13:49 Dose: 650 mg Amlodipine Besylate (Norvasc) 10 mg PO DAILY [facility] Last Admin: 02/05/18 09:31 Dose: 10 mg Aspirin (Ecotrin) 81 mg PO DAILY [facility] Last Admin: 02/05/18 09:34 Dose: Not Given Carvedilol (Coreg) 12.5 mg PO Q12 [facility] Last Admin: 02/05/18 21:02 Dose: 12.5 mg Dextrose (Dextrose 50% Inj) 0 ml IV STAT PRN; Protocol PRN Reason: Hypoglycemia Protocol Dextrose (Glutose 15) 0 gm PO ONCE PRN; Protocol PRN Reason: Hypoglycemia Protocol Diphenhydramine HCl (Benadryl) 25 mg PO Q6 PRN PRN Reason: Itching / Pruritus Last Admin: 02/06/18 03:50 Dose: 25 mg Epoetin Jose (Procrit) 10,000 unit IV TTS [facility] Last Admin: 02/06/18 08:24 Dose: 10,000 unit Glucagon (Glucagen Diagnostic Kit) 0 mg IM STAT PRN; Protocol PRN Reason: Hypoglycemia Protocol Heparin Sodium (Porcine) (Heparin) 5,000 units SC Q12 [facility] PRN Reason: Protocol Last Admin: 02/04/18 09:37 Dose: 5,000 units Hydralazine HCl (Apresoline) 10 mg PO Q12 [facility] Last Admin: 02/05/18 20:50 Dose: 10 mg Hydrocortisone (Cortizone 1% Cream) 1 applic TOP BID [facility] Vancomycin HCl 1 gm/ Sodium (Chloride) 250 mls @ 166.667 mls/hr IVPB TUTHSA [facility] PRN Reason: Protocol Last Admin: 02/03/18 17:30 Dose: 166.667 mls/hr Levofloxacin/Dextrose (Levaquin 500mg) 500 mg in 100 mls @ 100 mls/hr IVPB DAILY [facility] PRN Reason: Protocol Insulin Human Lispro (Humalog) 0 units SC ACHS [facility] PRN Reason: Protocol Last Admin: 02/06/18 08:30 Dose: 3 units Insulin Lispro Protam/Lispro Human (Humalog Mix 75/25) 15 units SC BID [facility] Last Admin: 02/06/18 08:31 Dose: Not Given Lactic Acid (Lac-Hydrin 12% Lotion (225 G)) 1 applic TOP TID [facility] Lidocaine (Lidoderm) 1 ea TD DAILY [facility] Last Admin: 02/06/18 08:33 Dose: Not Given Lisinopril (Zestril) 10 mg PO DAILY [facility] Last Admin: 02/05/18 09:34 Dose: 10 mg Ondansetron HCl (Zofran Inj) 4 mg IVP Q4 PRN PRN Reason: Nausea/Vomiting Last Admin: 02/02/18 10:52 Dose: 4 mg Sevelamer Carbonate (Renvela) 0.8 gm PO TIDWM [facility] Last Admin: 02/06/18 08:33 Dose: Not Given - Labs Labs: 02/06/18 04:50 02/06/18 04:50 PT 15.7 Seconds (9.8-13.1) H 02/02/18 17:03 INR 1.4 (0.9-1.2) H 02/02/18 17:03 APTT 28.6 Seconds (25.6-37.1) 02/02/18 17:03 - Constitutional Appears: Non-toxic, Chronically Ill - Head Exam Head Exam: NORMOCEPHALIC - Eye Exam Eye Exam: PERRL - ENT Exam ENT Exam: Mucous Membranes Dry - Neck Exam Neck Exam: absent: Lymphadenopathy - Respiratory Exam Respiratory Exam: Decreased Breath Sounds - Cardiovascular Exam Cardiovascular Exam: REGULAR RHYTHM - GI/Abdominal Exam GI & Abdominal Exam: Distended, Soft - Rectal Exam Rectal Exam: Deferred - Exam Exam: NORMAL INSPECTION Assessment and Plan (1) Abdominal pain Status: Acute (2) End stage renal disease Status: Acute (3) Fever Status: Acute - Assessment and Plan (Free Text) Assessment: cont vanco / levaquin\ await fistulogram consider YUSRA refuses thoracentesis
[2018-02-06] MEDS: levoFLOXacin 500 mg in D5W 500 MG/100 ML BAG IVPB SCH (13:20)
[2018-02-06] MEDS ORDERED: Oxycodone/Acetaminophen 5/325 mg Tab PO ONE (22:35)
[2018-02-06] MEDS ORDERED: DiphenhydrAMINE 50 mg/ml Inj IVP STA (22:52)
[2018-02-07 05:23] LABS: BASO % 0.1 % (0.0-2.0); EOS # 0.1 K/uL (0.0-0.7); EOS % 0.7 % (0.0-4.0); HEMOGLOBIN 8.6 g/dL (12.0-16.0); LYMPH # 1.2 K/uL (1.0-4.3); LYMPH % 7.6 % (20.0-40.0); MEAN CELL VOLUME 89.4 fl (81.0-99.0); MEAN CORPUSCULAR HEMOGLOBIN 28.4 pg (27.0-31.0); MEAN CORPUSCULAR HGB CONC 31.8 g/dL (33.0-37.0); MEAN PLATELET VOLUME 8.9 fl (7.2-11.7); MONO # 0.6 K/uL (0.0-0.8); MONO % 3.6 % (0.0-10.0); NEUT # 13.5 K/uL (1.8-7.0); PLATELET COUNT 360 K/uL (130-400); RBC 3.04 Mil/uL (3.80-5.20); RED CELL DISTRIBUTION WIDTH 21.6 % (11.5-14.5); WHITE BLOOD COUNT 15.4 K/uL (4.8-10.8)
[2018-02-07 05:29] LABS: ALB/GLOB RATIO 0.8 (1.0-2.1); CALCIUM 8.5 mg/dL (8.4-10.2)
[2018-02-07 08:13] LABS: ANISOCYTOSIS SLIGHT; BANDS 2 % (0-2); EOSINOPHIL 1 % (0-7); GIANT PLATELETS PRESENT; HYPOCHROMIC MODERATE; LARGE PLATELETS PRESENT; LYMPHOCYTE 9 % (20-50); METAMYELOCYTE 1 % (0-0); MONOCYTE 4 % (0-10); MYELOCYTE 1 % (0-0); NEUTROPHIL 82 % (42-75); OVALOCYTES SLIGHT; PLATELET ESTIMATE NORMAL (NORMAL); POIKILOCYTOSIS SLIGHT; TOTAL CELLS COUNTED 100
--- NOTE | 2018-02-07 09:05 | PN ---
DATE: 02/05/2018 SUBJECTIVE: The patient is seen and examined. Interim events noted. Consults noted and appreciated. Infectious Diseases and Pulmonology consult and interventions noted and appreciated. Case discussed with field merchandiser. The patient remains in Progressive Care Unit on telemetry monitoring. Feels little better, but improved than yesterday. No more shortness of breath at rest. The patient has poor appetite and reported by nursing staff. PHYSICAL EXAMINATION: GENERAL: The patient is in no acute distress. VITAL SIGNS: Stable. HEART: S1 and S2, normal and regular. LUNGS: Good bilateral air exchange and crepitation on right base. ABDOMEN: Soft and nontender. No organomegaly. No fluids. Bowel sounds are plus and normal. EXTREMITIES: No edema. No calf swelling. No tenderness. No acute ischemia. CENTRAL NERVOUS SYSTEM: Exam is essentially unchanged. DIAGNOSTIC DATA: Available diagnostic data reviewed. Telemetry monitoring does not reveal significant arrhythmias. ASSESSMENT AND PLAN: Overall, the patient's general medical condition is stable. Plan as ordered. Romeo Sears MD
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
--- NOTE | 2018-02-07 09:22 | CP.PCM.PN ---
Subjective - Date & Time of Evaluation Date of Evaluation: 02/07/18 Time of Evaluation: 09:15 - Subjective Subjective: Patient seen and examined this morning at bedside w/ Dr. Rangel. There are no acute events overnight, NAD. Patient reports hives on arms legs and torso. Patient reported relief w/ IV benadryl. Patient reports right sided pain is decreased. Patient still declines thoracocentesis because of cardiac arrest [place] [facility] [place] Patient voiding freely and independently. Patient denies headaches, chest pain, SOB, diarrhea, dysuria, or fever. Objective - Vital Signs/Intake and Output Vital Signs (last 24 hours): Temp Pulse Resp BP Pulse Ox 99.5 F 90 15 90/47 L 82 L 02/07/18 08:00 02/07/18 08:00 02/07/18 08:00 02/07/18 05:00 02/07/18 08:00 - Medications Medications: Current Medications Acetaminophen (Tylenol 325mg Tab) 650 mg PO Q6 PRN PRN Reason: Pain, moderate (4-7) Last Admin: 02/06/18 03:50 Dose: 650 mg Acetaminophen (Tylenol 325mg Tab) 650 mg PO Q4 PRN PRN Reason: Fever >100.4 F Last Admin: 02/04/18 13:49 Dose: 650 mg Amlodipine Besylate (Norvasc) 10 mg PO DAILY [facility] Last Admin: 02/06/18 12:23 Dose: Not Given Aspirin (Ecotrin) 81 mg PO DAILY [facility] Last Admin: 02/06/18 11:51 Dose: 81 mg Carvedilol (Coreg) 12.5 mg PO Q12 [facility] Last Admin: 02/06/18 21:46 Dose: 12.5 mg Dextrose (Dextrose 50% Inj) 0 ml IV STAT PRN; Protocol PRN Reason: Hypoglycemia Protocol Dextrose (Glutose 15) 0 gm PO ONCE PRN; Protocol PRN Reason: Hypoglycemia Protocol Diphenhydramine HCl (Benadryl) 25 mg PO Q6 PRN PRN Reason: Itching / Pruritus Last Admin: 02/06/18 21:50 Dose: 25 mg Diphenhydramine HCl (Benadryl) 25 mg IVP Q6 PRN PRN Reason: Itching / Pruritus Epoetin Jose (Procrit) 10,000 unit IV TTS [facility] Last Admin: 02/06/18 08:24 Dose: 10,000 unit Glucagon (Glucagen Diagnostic Kit) 0 mg IM STAT PRN; Protocol PRN Reason: Hypoglycemia Protocol Heparin Sodium (Porcine) (Heparin) 5,000 units SC Q12 [facility] PRN Reason: Protocol Last Admin: 02/06/18 21:50 Dose: 5,000 units Hydralazine HCl (Apresoline) 10 mg PO Q12 [facility] Last Admin: 02/06/18 21:46 Dose: 10 mg Hydrocortisone (Cortizone 1% Cream) 1 applic TOP BID [facility] Last Admin: 02/06/18 18:11 Dose: 1 applic Hydrocortisone (Cortizone 1% Cream) 1 applic TOP Q6H PRN PRN Reason: Itching / Pruritus Last Admin: 02/06/18 23:10 Dose: 1 applic Vancomycin HCl 1 gm/ Sodium (Chloride) 250 mls @ 166.667 mls/hr IVPB TUTHSA [facility] PRN Reason: Protocol Last Admin: 02/06/18 18:09 Dose: 166.667 mls/hr Levofloxacin/Dextrose (Levaquin 500mg) 500 mg in 100 mls @ 100 mls/hr IVPB DAILY [facility] PRN Reason: Protocol Last Admin: 02/06/18 13:20 Dose: 100 mls/hr Insulin Human Lispro (Humalog) 0 units SC ACHS [facility] PRN Reason: Protocol Last Admin: 02/06/18 21:47 Dose: Not Given Insulin Lispro Protam/Lispro Human (Humalog Mix 75/25) 15 units SC BID [facility] Last Admin: 02/06/18 18:12 Dose: Not Given Lactic Acid (Lac-Hydrin 12% Lotion (225 G)) 1 applic TOP TID [facility] Last Admin: 02/06/18 18:11 Dose: 1 applic Lidocaine (Lidoderm) 1 ea TD DAILY [facility] Last Admin: 02/06/18 08:33 Dose: Not Given Lisinopril (Zestril) 10 mg PO DAILY [facility] Last Admin: 02/06/18 12:23 Dose: Not Given Ondansetron HCl (Zofran Inj) 4 mg IVP Q4 PRN PRN Reason: Nausea/Vomiting Last Admin: 02/02/18 10:52 Dose: 4 mg Sevelamer Carbonate (Renvela) 2.4 gm PO TIDWM [facility] Last Admin: 02/06/18 18:17 Dose: Not Given - Labs Labs: 02/07/18 04:35 02/07/18 04:35 PT 15.7 Seconds (9.8-13.1) H 02/02/18 17:03 INR 1.4 (0.9-1.2) H 02/02/18 17:03 APTT 28.6 Seconds (25.6-37.1) 02/02/18 17:03 - Constitutional Appears: Non-toxic, No Acute Distress - Head Exam Head Exam: ATRAUMATIC, NORMAL INSPECTION, NORMOCEPHALIC - Eye Exam Eye Exam: Normal appearance - ENT Exam ENT Exam: Mucous Membranes Moist - Neck Exam Neck Exam: Full ROM. absent: Tenderness - Respiratory Exam Respiratory Exam: Decreased Breath Sounds. absent: Accessory Muscle Use, Rales , Rhonchi, Wheezes, Respiratory Distress - Cardiovascular Exam Cardiovascular Exam: REGULAR RHYTHM, RRR. absent: Tachycardia - GI/Abdominal Exam GI & Abdominal Exam: Soft, Normal Bowel Sounds. absent: Distended, Tenderness - Extremities Exam Extremities Exam: absent: Calf Tenderness - Neurological Exam Neurological Exam: Alert, Awake, Normal Gait, Oriented x3 - Skin Skin Exam: Dry, Intact, Normal Color, Urticaria, Warm Assessment and Plan (1) Loculated pleural effusion Status: Acute (2) Arteriovenous graft stenosis Status: Acute (3) Chronic kidney disease with end stage renal failure on dialysis Status: Chronic (4) Diabetes mellitus type 2 with complications, uncontrolled Status: Chronic (5) HTN (hypertension) Status: Chronic (6) Shoulder pain Status: Resolved (7) Acute on chronic systolic CHF (congestive heart failure) Status: Acute (8) SIRS without acute organ dysfunction due to non-infectious process Status: Acute - Assessment and Plan (Free Text) Plan: afebrile, non-tachycardic, normotensive right arm pain from stenosis of right arm graft resolved acute on chronic systolic CHF improved Patient on admission had SIRS of non-infectious etiology at this time Nephrology recommendations appreciated Infectious Disease recommendations appreciated Pulmonology recommendations appreciated General surgery recommendations appreciated cardiology consult ordered for possible YUSRA Echocardiogram: EF 50-55%, LV function normal, concentric LVH, restrictive diastolic filling CXR: stable loculated right pleural effusion, left side clear XR shoulder: no fracture or dislocation US upper extremity: right graft stenosis towards shoulder blood culture: no growth stop zosyn due to urticaria levofloxacin 500 mg IV daily held vancomycin 1 gm IV //Mon c/w home medication prophylactic measures: DVT Heparin 5,000 units SC Q12h monitor for acute changes Transfer to Med/Surg
[2018-02-07] MEDS: Insulin Lispro (humaLOG) 100 Units/ml Inj SC SCH ×4 (10:00→21:46)
[2018-02-07] MEDS: Insulin Lispro Mix 75/25 100 units/ml (HumaLog) 10ml SC SCH ×2 (10:01→16:05)
[2018-02-07] MEDS: Lidocaine 5% Patch TD SCH (10:02)
[2018-02-07] MEDS: Sevelamer Carb 0.8 gm/Packet PO SCH ×3 (10:03→16:05)
[2018-02-07] MEDS: DiphenhydrAMINE 50 mg/ml Inj IVP PRN ×3 (10:10→23:27)
--- NOTE | 2018-02-07 12:22 | CP.PCM.PN ---
Subjective - Date & Time of Evaluation Date of Evaluation: 02/07/18 Time of Evaluation: 08:00 - Subjective Subjective: DENIES CHEST PAINS/SOB SHE DOES NOT WANT THORACENTESES Objective - Vital Signs/Intake and Output Vital Signs (last 24 hours): Temp Pulse Resp BP Pulse Ox 99.5 F 90 15 91/51 L 82 L 02/07/18 08:00 02/07/18 10:03 02/07/18 08:00 02/07/18 10:03 02/07/18 08:00 - Medications Medications: Current Medications Acetaminophen (Tylenol 325mg Tab) 650 mg PO Q6 PRN PRN Reason: Pain, moderate (4-7) Last Admin: 02/06/18 03:50 Dose: 650 mg Acetaminophen (Tylenol 325mg Tab) 650 mg PO Q4 PRN PRN Reason: Fever >100.4 F Last Admin: 02/04/18 13:49 Dose: 650 mg Amlodipine Besylate (Norvasc) 10 mg PO DAILY [facility] Last Admin: 02/07/18 10:03 Dose: Not Given Aspirin (Ecotrin) 81 mg PO DAILY [facility] Last Admin: 02/07/18 09:59 Dose: 81 mg Carvedilol (Coreg) 12.5 mg PO Q12 [facility] Last Admin: 02/07/18 09:58 Dose: Not Given Dextrose (Dextrose 50% Inj) 0 ml IV STAT PRN; Protocol PRN Reason: Hypoglycemia Protocol Dextrose (Glutose 15) 0 gm PO ONCE PRN; Protocol PRN Reason: Hypoglycemia Protocol Diphenhydramine HCl (Benadryl) 25 mg PO Q6 PRN PRN Reason: Itching / Pruritus Last Admin: 02/06/18 21:50 Dose: 25 mg Diphenhydramine HCl (Benadryl) 25 mg IVP Q6 PRN PRN Reason: Itching / Pruritus Last Admin: 02/07/18 10:10 Dose: 25 mg Epoetin Jose (Procrit) 10,000 unit IV TTS [facility] Last Admin: 02/06/18 08:24 Dose: 10,000 unit Glucagon (Glucagen Diagnostic Kit) 0 mg IM STAT PRN; Protocol PRN Reason: Hypoglycemia Protocol Heparin Sodium (Porcine) (Heparin) 5,000 units SC Q12 [facility] PRN Reason: Protocol Last Admin: 02/07/18 09:59 Dose: 5,000 units Hydralazine HCl (Apresoline) 10 mg PO Q12 [facility] Last Admin: 02/07/18 09:57 Dose: Not Given Hydrocortisone (Cortizone 1% Cream) 1 applic TOP BID [facility] Last Admin: 02/07/18 09:59 Dose: 1 applic Hydrocortisone (Cortizone 1% Cream) 1 applic TOP Q6H PRN PRN Reason: Itching / Pruritus Last Admin: 02/06/18 23:10 Dose: 1 applic Vancomycin HCl 1 gm/ Sodium (Chloride) 250 mls @ 166.667 mls/hr IVPB [facility] PRN Reason: Protocol Last Admin: 02/06/18 18:09 Dose: 166.667 mls/hr Levofloxacin/Dextrose (Levaquin 500mg) 500 mg in 100 mls @ 100 mls/hr IVPB DAILY [facility] PRN Reason: Protocol Last Admin: 02/06/18 13:20 Dose: 100 mls/hr Insulin Human Lispro (Humalog) 0 units SC ACHS [facility] PRN Reason: Protocol Last Admin: 02/07/18 10:00 Dose: 3 units Insulin Lispro Protam/Lispro Human (Humalog Mix 75/25) 15 units SC BID [facility] Last Admin: 02/07/18 10:01 Dose: Not Given Lactic Acid (Lac-Hydrin 12% Lotion (225 G)) 1 applic TOP TID [facility] Last Admin: 02/07/18 10:01 Dose: 1 applic Lidocaine (Lidoderm) 1 ea TD DAILY [facility] Last Admin: 02/07/18 10:02 Dose: Not Given Lisinopril (Zestril) 10 mg PO DAILY [facility] Last Admin: 02/07/18 10:03 Dose: Not Given Ondansetron HCl (Zofran Inj) 4 mg IVP Q4 PRN PRN Reason: Nausea/Vomiting Last Admin: 02/02/18 10:52 Dose: 4 mg Sevelamer Carbonate (Renvela) 2.4 gm PO TIDWM [facility] Last Admin: 02/07/18 10:03 Dose: Not Given - Labs Labs: 02/07/18 04:35 02/07/18 04:35 PT 15.7 Seconds (9.8-13.1) H 02/02/18 17:03 INR 1.4 (0.9-1.2) H 02/02/18 17:03 APTT 28.6 Seconds (25.6-37.1) 02/02/18 17:03 - Constitutional Appears: Non-toxic, Chronically Ill - Head Exam Head Exam: NORMOCEPHALIC - Eye Exam Eye Exam: PERRL - ENT Exam ENT Exam: Mucous Membranes Dry - Neck Exam Neck Exam: absent: Lymphadenopathy - Respiratory Exam Respiratory Exam: Decreased Breath Sounds - Cardiovascular Exam Cardiovascular Exam: REGULAR RHYTHM - GI/Abdominal Exam GI & Abdominal Exam: Distended - Rectal Exam Rectal Exam: Deferred Assessment and Plan (1) Abdominal pain Status: Acute (2) End stage renal disease Status: Acute (3) Fever Status: Acute - Assessment and Plan (Free Text) Assessment: DENIES CHEST PAINS/SOB SHE DOES NOT WANT THORACENTESES
--- NOTE | 2018-02-07 14:55 | VASCULAR ---
PROCEDURE: Date of procedure: 02/05/2018 Procedure: 1. Right arm AVG fistulagram 2. Balloon angioplasty outflow 60 percent stenosis axillary Vein Medications: 3 cc 2 percent lidocaine, patient sedated by the anesthesiologist along with physiologic monitoring. HISTORY: End-stage renal disease right arm AV fistula prolonged bleeding and stenosis seen on ultrasound. . TECHNIQUE: History and physical was performed prior to procedure. Informed consent was obtained. Following informed consent and procedure time-out, the patient was placed supine on the interventional table and procedure time was called. The right arm was prepped and draped in the usual sterile fashion. The right AV fistula was accessed with micropuncture technique and hemodialysis fistulogram was then performed through a 5 Tu[place] dilator. Hemodialysis fistulogram demonstrated moderate, 30 percent, throughout the outflow vein. Additional moderate 60 percent stenosis is present in the axillary vein. Central venogram showed normal subclavian vein and superior vena cava. A reflux fistulogram showed a normal arterial anastomosis. The 5 [place] dilator was exchanged over a guidewire for a 6 [place] vascular sheath. Through the sheath, 8 millimeter balloon angioplasty was performed across the stenotic axillary vein segment. A post balloon angioplasty repeat fistulogram demonstrated no residual stenosis in the outflow vein. A guidewire vascular sheath were removed and hemostasis achieved with manual compression. A great as thrill was present throughout the fistula at completion of case. IMPRESSION: Right arm brachial basilic AV fistula with moderate 60% stenosis at the axillary vein successfully treated with 8 millimeter balloon angioplasty. Normal central venogram. Normal arterial anastomosis.
--- NOTE | 2018-02-07 15:18 | CP.PCM.PN ---
Subjective - Date & Time of Evaluation Date of Evaluation: 02/07/18 Time of Evaluation: 15:18 - Subjective Subjective: patient and bed no chest pain no shortness of breath Appetite is okay patient reported she is eating no nausea no vomiting Objective - Vital Signs/Intake and Output Vital Signs (last 24 hours): Temp Pulse Resp BP Pulse Ox 99.9 F H 95 H 17 105/59 L 95 02/07/18 12:00 02/07/18 12:59 02/07/18 12:59 02/07/18 12:59 02/07/18 12:00 Intake and Output: 02/07/18 02/07/18 06:59 18:59 Intake Total 120 Balance 120 - Medications Medications: Current Medications Acetaminophen (Tylenol 325mg Tab) 650 mg PO Q6 PRN PRN Reason: Pain, moderate (4-7) Last Admin: 02/06/18 03:50 Dose: 650 mg Acetaminophen (Tylenol 325mg Tab) 650 mg PO Q4 PRN PRN Reason: Fever >100.4 F Last Admin: 02/04/18 13:49 Dose: 650 mg Amlodipine Besylate (Norvasc) 10 mg PO DAILY [facility] Last Admin: 02/07/18 10:03 Dose: Not Given Aspirin (Ecotrin) 81 mg PO DAILY [facility] Last Admin: 02/07/18 09:59 Dose: 81 mg Carvedilol (Coreg) 12.5 mg PO Q12 [facility] Last Admin: 02/07/18 09:58 Dose: Not Given Dextrose (Dextrose 50% Inj) 0 ml IV STAT PRN; Protocol PRN Reason: Hypoglycemia Protocol Dextrose (Glutose 15) 0 gm PO ONCE PRN; Protocol PRN Reason: Hypoglycemia Protocol Diphenhydramine HCl (Benadryl) 25 mg PO Q6 PRN PRN Reason: Itching / Pruritus Last Admin: 02/06/18 21:50 Dose: 25 mg Diphenhydramine HCl (Benadryl) 25 mg IVP Q6 PRN PRN Reason: Itching / Pruritus Last Admin: 02/07/18 10:10 Dose: 25 mg Epoetin Jose (Procrit) 10,000 unit IV TTS [facility] Last Admin: 02/06/18 08:24 Dose: 10,000 unit Glucagon (Glucagen Diagnostic Kit) 0 mg IM STAT PRN; Protocol PRN Reason: Hypoglycemia Protocol Heparin Sodium (Porcine) (Heparin) 5,000 units SC Q12 [facility] PRN Reason: Protocol Last Admin: 02/07/18 09:59 Dose: 5,000 units Hydralazine HCl (Apresoline) 10 mg PO Q12 [facility] Last Admin: 02/07/18 09:57 Dose: Not Given Hydrocortisone (Cortizone 1% Cream) 1 applic TOP BID [facility] Last Admin: 02/07/18 09:59 Dose: 1 applic Hydrocortisone (Cortizone 1% Cream) 1 applic TOP Q6H PRN PRN Reason: Itching / Pruritus Last Admin: 02/06/18 23:10 Dose: 1 applic Levofloxacin/Dextrose (Levaquin 500mg) 500 mg in 100 mls @ 100 mls/hr IVPB DAILY [facility] PRN Reason: Protocol Last Admin: 02/06/18 13:20 Dose: 100 mls/hr Insulin Human Lispro (Humalog) 0 units SC ACHS [facility] PRN Reason: Protocol Last Admin: 02/07/18 12:38 Dose: Not Given Insulin Lispro Protam/Lispro Human (Humalog Mix 75/25) 15 units SC BID [facility] Last Admin: 02/07/18 10:01 Dose: Not Given Lactic Acid (Lac-Hydrin 12% Lotion (225 G)) 1 applic TOP TID [facility] Last Admin: 02/07/18 12:56 Dose: 1 applic Lidocaine (Lidoderm) 1 ea TD DAILY [facility] Last Admin: 02/07/18 10:02 Dose: Not Given Lisinopril (Zestril) 10 mg PO DAILY [facility] Last Admin: 02/07/18 10:03 Dose: Not Given Ondansetron HCl (Zofran Inj) 4 mg IVP Q4 PRN PRN Reason: Nausea/Vomiting Last Admin: 02/02/18 10:52 Dose: 4 mg Sevelamer Carbonate (Renvela) 2.4 gm PO TIDWM [facility] Last Admin: 02/07/18 12:41 Dose: Not Given - Labs Labs: 02/07/18 04:35 02/07/18 04:35 PT 15.7 Seconds (9.8-13.1) H 02/02/18 17:03 INR 1.4 (0.9-1.2) H 02/02/18 17:03 APTT 28.6 Seconds (25.6-37.1) 02/02/18 17:03 - Constitutional Appears: No Acute Distress - Eye Exam Eye Exam: Conjunctival injection - ENT Exam ENT Exam: Mucous Membranes Moist - Neck Exam Neck Exam: absent: Lymphadenopathy - Respiratory Exam Respiratory Exam: NORMAL BREATHING PATTERN. absent: Chest Wall Tenderness - Cardiovascular Exam Cardiovascular Exam: absent: Gallop, JVD, Rubs - GI/Abdominal Exam GI & Abdominal Exam: Soft, Normal Bowel Sounds - Extremities Exam Extremities Exam: absent: Calf Tenderness - Back Exam Back Exam: absent: CVA tenderness (L) - Neurological Exam Neurological Exam: Alert - Psychiatric Exam Psychiatric exam: Normal Affect - Skin Skin Exam: absent: Cyanosis Assessment and Plan (1) End stage renal disease Assessment & Plan: ESR receiving hemodialysis TTS volume overloaded,resolving with dialysis legs edema,resolving on dialysis and improving right pleural effusionconsolidation,refused thoracocentesis. congestion Anemia Hbg 8.7 increase EPO to 6000 unit monitoring vaginal bleeding as noted per pulmonary fever with leukocytosis rule out sepsis. Although blood culture negative so far urine culture pending as per infectious disease with antibiotics and the pulmonary recommendation. echocardiogram to rule out pericardial effusion as well.report pending Hyperphosphatemia patient receiving binders Secondary hyperparathyroidism patient was taken Sensipar waiting to get PTH. Status: Acute (2) Fever Status: Acute
[2018-02-08] MEDS: DiphenhydrAMINE 50 mg/ml Inj IVP PRN ×3 (06:09→20:42)
--- NOTE | 2018-02-08 08:55 | PQF ANEMIA ---
This form is a permanent part of the medical record 02/08/18 Dr. Garnett, Would you please clarify the possible etiology/type of Anemia. Patient with a history of ESRD on hemodialysis and Anemia. Treated with Procrit. HGB: rangin.1-9.6 HCT: ranging : 25.7-30.7 MCV and MCH Normal. MCHC Low, RDW: High Clarification of your documentation is requested to better reflect the severity of illness and intensity of treatment of your patient. Indicators present [X] Anemia [] Drop in H&H from []___ to []___ [] Hypotension [] GI Bleed [] Transfusion(s) [] Acute bleed other sites [] Tachycardia [] Surgical Procedure Blood Loss (expected not a complication) Other:[] Location in the medical record that reflects the above clinical findings: [] Treatment Provided: [] PHYSICIAN'S RESPONSE Based on your medical judgment of the clinical indicators outlined above, are you treating this patient for a known or suspected: [ ] Acute blood loss anemia [ ] Chronic blood loss anemia [ ] Acute on Chronic blood loss anemia [ ] Anemia due to CKD [ ] Anemia due to chemotherapy or radiation therapy [ ] Anemia of Chronic Disease, please specify the disease : [] [ ] Other, please indicate type of anemia []____ [ ] If Unable to Determine, please check the box, sign and date. Present On Admission (POA) Indicator: [] Present at the time of admission [] Not present at the time of admission [] Clinically Undetermined In responding to this query, please exercise your independent professional judgment. The fact that a question is asked does not imply that any particular answer is desired or expected. Thank you for your clarification on this documentation. If you have any questions please call:ext [phone] * Thank you, Bonnie Cameron RN CDMP MTDD
[2018-02-08] MEDS ORDERED: methylPREDNISolone 40 MG in Sodium Chloride 0.9% 50 ML IVPB SCH (09:00)
[2018-02-08 09:12] LABS: MEAN CELL VOLUME 87.6 fl (81.0-99.0); MEAN CORPUSCULAR HEMOGLOBIN 28.2 pg (27.0-31.0); MEAN CORPUSCULAR HGB CONC 32.2 g/dL (33.0-37.0); RBC 2.84 Mil/uL (3.80-5.20); RED CELL DISTRIBUTION WIDTH 21.2 % (11.5-14.5); WHITE BLOOD COUNT 11.2 K/uL (4.8-10.8)
[2018-02-08] MEDS: EPOETIN ALFA 10,000 UNIT/ML ML IV SCH (09:14)
[2018-02-08] MEDS: levoFLOXacin 500 mg in D5W 500 MG/100 ML BAG IVPB SCH (09:16)
--- NOTE | 2018-02-08 09:16 | CP.PCM.CON ---
History of Present Illness - History of Present Illness History of Present Illness: Consultation for YUSRA evaluation for febrile episodes HPI: 32 year old female ESRD on HD, CHF , admitted for evaluation for febrile episode with SIRS and being evaluated for possible endocarditis. Review of Systems - Review of Systems Systems not reviewed;Unavailable: Acuity of Condition - Constitutional Constitutional: As Per HPI - EENT Eyes: As Per HPI Ears: As Per HPI Nose/Mouth/Throat: As Per HPI - Breasts Breasts: As Per HPI - Cardiovascular Cardiovascular: As Per HPI - Respiratory Respiratory: As Per HPI - Gastrointestinal Gastrointestinal: As Per HPI - Genitourinary Genitourinary: As Per HPI - Reproductive: Female Reproductive:Female: As Per HPI - Menstruation Menstruation: As Per HPI - Musculoskeletal Musculoskeletal: As Per HPI - Integumentary Integumentary: As Per HPI - Neurological Neurological: As Per HPI - Psychiatric Psychiatric: As Per HPI - Endocrine Endocrine: As Per HPI - Hematologic/Lymphatic Hematologic: As Per HPI Past Patient History - Infectious Disease Hx of Infectious Diseases: None - Tetanus Immunizations Tetanus Immunization: Unknown - Past Medical History & Family History Past Medical History?: Yes - Past Social History Smoking Status: Former Smoker - CARDIAC Hx Congestive Heart Failure: Yes Hx Hypercholesterolemia: Yes Hx Hypertension: Yes - PULMONARY Hx Asthma: Yes Hx Bronchitis: Yes Hx Chronic Obstructive Pulmonary Disease (COPD): Yes Hx Pneumonia: Yes - NEUROLOGICAL Hx Neurological Disorder: No - HEENT Hx HEENT Problems: Yes - RENAL Hx Chronic Kidney Disease: Yes (CRF HD -,ESRD) - ENDOCRINE/METABOLIC Hx Endocrine Disorders: Yes (DM) Hx Diabetes Mellitus Type 2: Yes - HEMATOLOGICAL/ONCOLOGICAL Hx Anemia: Yes Hx Human Immunodeficiency Virus (HIV): No Hx Sickle Cell Disease: No - INTEGUMENTARY Hx Dermatological Problems: No - MUSCULOSKELETAL/RHEUMATOLOGICAL Hx Musculoskeletal Disorders: Yes (BACKPAIN) Hx Falls: No - GASTROINTESTINAL Hx Gastrointestinal Disorders: No - GENITOURINARY/GYNECOLOGICAL Hx Genitourinary Disorders: Yes (KIDNEY STONES) - PSYCHIATRIC Hx Anxiety: Yes Hx Depression: Yes - SURGICAL HISTORY Hx Surgeries: Yes Hx Amputation: Yes (left 5th toe) Hx Vascular Access Device: Yes (AV fistula R arm) - ANESTHESIA Hx Anesthesia: Yes Hx Anesthesia Reactions: No Hx Malignant Hyperthermia: No Meds Allergies/Adverse Reactions: Allergies Allergy/AdvReac Type Severity Reaction Status Date / Time FISH Allergy SWELLING Verified 01/31/18 15:57 Fish Containing Products Allergy SWELLING Verified 01/31/18 15:57 seafood Allergy Mild SWELLING Uncoded 01/31/18 15:57 - Medications Medications: Current Medications Acetaminophen (Tylenol 325mg Tab) 650 mg PO Q6 PRN PRN Reason: Pain, moderate (4-7) Last Admin: 02/07/18 23:34 Dose: 650 mg Acetaminophen (Tylenol 325mg Tab) 650 mg PO Q4 PRN PRN Reason: Fever >100.4 F Last Admin: 02/04/18 13:49 Dose: 650 mg Amlodipine Besylate (Norvasc) 10 mg PO DAILY [facility] Last Admin: 02/07/18 10:03 Dose: Not Given Aspirin (Ecotrin) 81 mg PO DAILY [facility] Last Admin: 02/07/18 09:59 Dose: 81 mg Carvedilol (Coreg) 12.5 mg PO Q12 [facility] Last Admin: 02/07/18 21:48 Dose: Not Given Dextrose (Dextrose 50% Inj) 0 ml IV STAT PRN; Protocol PRN Reason: Hypoglycemia Protocol Dextrose (Glutose 15) 0 gm PO ONCE PRN; Protocol PRN Reason: Hypoglycemia Protocol Diphenhydramine HCl (Benadryl) 25 mg PO Q6 PRN PRN Reason: Itching / Pruritus Last Admin: 02/08/18 01:01 Dose: 25 mg Diphenhydramine HCl (Benadryl) 25 mg IVP Q6 PRN PRN Reason: Itching / Pruritus Last Admin: 02/08/18 06:09 Dose: 25 mg Epoetin Jose (Procrit) 10,000 unit IV TTS [facility] Last Admin: 02/06/18 08:24 Dose: 10,000 unit Glucagon (Glucagen Diagnostic Kit) 0 mg IM STAT PRN; Protocol PRN Reason: Hypoglycemia Protocol Heparin Sodium (Porcine) (Heparin) 5,000 units SC Q12 [facility] PRN Reason: Protocol Last Admin: 02/07/18 21:47 Dose: Not Given Hydralazine HCl (Apresoline) 10 mg PO Q12 [facility] Last Admin: 02/07/18 21:47 Dose: Not Given Hydrocortisone (Cortizone 1% Cream) 1 applic TOP BID [facility] Last Admin: 02/07/18 16:04 Dose: 1 applic Hydrocortisone (Cortizone 1% Cream) 1 applic TOP Q6H PRN PRN Reason: Itching / Pruritus Last Admin: 02/06/18 23:10 Dose: 1 applic Levofloxacin/Dextrose (Levaquin 500mg) 500 mg in 100 mls @ 100 mls/hr IVPB DAILY [facility] PRN Reason: Protocol Last Admin: 02/06/18 13:20 Dose: 100 mls/hr Insulin Human Lispro (Humalog) 0 units SC ACHS [facility] PRN Reason: Protocol Last Admin: 02/07/18 21:46 Dose: Not Given Insulin Lispro Protam/Lispro Human (Humalog Mix 75/25) 15 units SC BID [facility] Last Admin: 02/07/18 16:05 Dose: Not Given Lactic Acid (Lac-Hydrin 12% Lotion (225 G)) 1 applic TOP TID [facility] Last Admin: 02/07/18 16:04 Dose: 1 applic Lidocaine (Lidoderm) 1 ea TD DAILY [facility] Last Admin: 02/07/18 10:02 Dose: Not Given Lisinopril (Zestril) 10 mg PO DAILY [facility] Last Admin: 02/07/18 10:03 Dose: Not Given Loratadine (Claritin) 10 mg PO DAILY [facility] Methylprednisolone (Solu-Medrol) 40 mg IVP DAILY [facility] Ondansetron HCl (Zofran Inj) 4 mg IVP Q4 PRN PRN Reason: Nausea/Vomiting Last Admin: 02/02/18 10:52 Dose: 4 mg Sevelamer Carbonate (Renvela) 2.4 gm PO TIDWM [facility] Last Admin: 02/07/18 16:05 Dose: Not Given Physical Exam - Constitutional Appears: Well - Head Exam Head Exam: ATRAUMATIC, NORMAL INSPECTION, NORMOCEPHALIC - Eye Exam Eye Exam: EOMI, Normal appearance, PERRL Pupil Exam: NORMAL ACCOMODATION, PERRL - ENT Exam ENT Exam: Mucous Membranes Moist, Normal Exam - Neck Exam Neck exam: Positive for: Normal Inspection - Respiratory Exam Respiratory Exam: Clear to Auscultation Bilateral, NORMAL BREATHING PATTERN - Cardiovascular Exam Cardiovascular Exam: REGULAR RHYTHM, RRR, +S1, +S2, Systolic Murmur - GI/Abdominal Exam GI & Abdominal Exam: absent: Tenderness - Extremities Exam Extremities exam: Positive for: normal inspection - Back Exam Back exam: NORMAL INSPECTION - Neurological Exam Neurological exam: Alert, CN II-XII Intact, Normal Gait, Oriented x3, Reflexes Normal - Psychiatric Exam Psychiatric exam: Normal Affect, Normal Mood - Skin Skin Exam: Dry, Intact, Normal Color, Warm Results - Vital Signs Recent Vital Signs: Last Vital Signs Temp 99.4 F 02/08/18 07:47 Pulse 96 H 02/08/18 07:47 Resp 19 02/08/18 07:47 BP 123/72 02/08/18 07:47 Pulse Ox 95 02/08/18 07:47 - Labs Result Diagrams: 02/09/18 06:00 02/09/18 06:00 Labs: Laboratory Results - last 24 hr 02/07/18 02/07/18 02/07/18 11:15 17:03 21:45 POC Glucose (mg/dL) 137 H 165 H 140 H Assessment & Plan (1) Endocarditis Assessment and Plan: pt refused consenting for any invasive procedure at this time indication for YUSRA is borderline Cx -ve so far Consider treatment of HACEK induced if clinically indicated which can cause culture -ve endocarditis and repeat echo if has bouts of fevers Status: Acute (2) CHF (congestive heart failure) Assessment and Plan: restrictive diastolic 2' to increased TBW remove fluid with HD Status: Acute Priority: High (3) Anemia, chronic renal failure Status: Chronic (4) Chronic kidney disease requiring chronic dialysis Status: Chronic (5) ESRD (end stage renal disease) on dialysis Status: Chronic (6) HTN (hypertension) Status: Chronic
[2018-02-08] MEDS: Insulin Lispro (humaLOG) 100 Units/ml Inj SC SCH ×5 (09:18→22:09)
[2018-02-08] MEDS: Insulin Lispro Mix 75/25 100 units/ml (HumaLog) 10ml SC SCH ×2 (09:19→17:19)
[2018-02-08] MEDS: Lidocaine 5% Patch TD SCH (09:20)
[2018-02-08] MEDS: Sevelamer Carb 0.8 gm/Packet PO SCH ×3 (09:21→16:44)
[2018-02-08 09:29] LABS: ALB/GLOB RATIO 0.8 (1.0-2.1); ALBUMIN 2.9 g/dL (3.5-5.0); CALCIUM 8.4 mg/dL (8.4-10.2)
--- NOTE | 2018-02-08 09:55 | CP.PCM.PN ---
Subjective - Date & Time of Evaluation Date of Evaluation: 02/08/18 Time of Evaluation: 09:52 - Subjective Subjective: Dialysis note She was seen on hemodialysis now Blood pressure slightly coming down on dialysis systolic around 100 approximately. Therefore cut down ultrafiltration to about 1000 mL from 1999. I discussed the dialysis order with the dialysis nurse at the bedside. Change potassium bath from 2 mEq to 3 mEq Objective - Vital Signs/Intake and Output Vital Signs (last 24 hours): Temp Pulse Resp BP Pulse Ox 99.4 F 96 H 19 123/72 95 02/08/18 07:47 02/08/18 07:47 02/08/18 07:47 02/08/18 07:47 02/08/18 07:47 - Medications Medications: Current Medications Acetaminophen (Tylenol 325mg Tab) 650 mg PO Q6 PRN PRN Reason: Pain, moderate (4-7) Last Admin: 02/07/18 23:34 Dose: 650 mg Acetaminophen (Tylenol 325mg Tab) 650 mg PO Q4 PRN PRN Reason: Fever >100.4 F Last Admin: 02/04/18 13:49 Dose: 650 mg Amlodipine Besylate (Norvasc) 10 mg PO DAILY [facility] Last Admin: 02/08/18 09:15 Dose: Not Given Aspirin (Ecotrin) 81 mg PO DAILY [facility] Last Admin: 02/08/18 09:17 Dose: 81 mg Carvedilol (Coreg) 12.5 mg PO Q12 [facility] Last Admin: 02/08/18 09:14 Dose: Not Given Dextrose (Dextrose 50% Inj) 0 ml IV STAT PRN; Protocol PRN Reason: Hypoglycemia Protocol Dextrose (Glutose 15) 0 gm PO ONCE PRN; Protocol PRN Reason: Hypoglycemia Protocol Diphenhydramine HCl (Benadryl) 25 mg PO Q6 PRN PRN Reason: Itching / Pruritus Last Admin: 02/08/18 01:01 Dose: 25 mg Diphenhydramine HCl (Benadryl) 25 mg IVP Q6 PRN PRN Reason: Itching / Pruritus Last Admin: 02/08/18 06:09 Dose: 25 mg Epoetin Jose (Procrit) 10,000 unit IV TTS [facility] Last Admin: 02/08/18 09:14 Dose: 10,000 unit Glucagon (Glucagen Diagnostic Kit) 0 mg IM STAT PRN; Protocol PRN Reason: Hypoglycemia Protocol Heparin Sodium (Porcine) (Heparin) 5,000 units SC Q12 [facility] PRN Reason: Protocol Last Admin: 02/08/18 09:18 Dose: 5,000 units Hydralazine HCl (Apresoline) 10 mg PO Q12 [facility] Last Admin: 02/08/18 09:14 Dose: Not Given Hydrocortisone (Cortizone 1% Cream) 1 applic TOP BID [facility] Last Admin: 02/08/18 09:16 Dose: 1 applic Hydrocortisone (Cortizone 1% Cream) 1 applic TOP Q6H PRN PRN Reason: Itching / Pruritus Last Admin: 02/06/18 23:10 Dose: 1 applic Levofloxacin/Dextrose (Levaquin 500mg) 500 mg in 100 mls @ 100 mls/hr IVPB DAILY [facility] PRN Reason: Protocol Last Admin: 02/08/18 09:16 Dose: 100 mls/hr Insulin Human Lispro (Humalog) 0 units SC ACHS [facility] PRN Reason: Protocol Last Admin: 02/08/18 09:18 Dose: 2 units Insulin Lispro Protam/Lispro Human (Humalog Mix 75/25) 15 units SC BID [facility] Last Admin: 02/08/18 09:19 Dose: 15 units Lactic Acid (Lac-Hydrin 12% Lotion (225 G)) 1 applic TOP TID [facility] Last Admin: 02/07/18 16:04 Dose: 1 applic Lidocaine (Lidoderm) 1 ea TD DAILY [facility] Last Admin: 02/08/18 09:20 Dose: Not Given Lisinopril (Zestril) 10 mg PO DAILY [facility] Last Admin: 02/08/18 09:21 Dose: Not Given Loratadine (Claritin) 10 mg PO DAILY [facility] Methylprednisolone (Solu-Medrol) 40 mg IVP DAILY [facility] Ondansetron HCl (Zofran Inj) 4 mg IVP Q4 PRN PRN Reason: Nausea/Vomiting Last Admin: 02/02/18 10:52 Dose: 4 mg Sevelamer Carbonate (Renvela) 2.4 gm PO TIDWM [facility] Last Admin: 02/08/18 09:21 Dose: Not Given - Labs Labs: 02/08/18 09:02 02/08/18 09:02 PT 15.7 Seconds (9.8-13.1) H 02/02/18 17:03 INR 1.4 (0.9-1.2) H 02/02/18 17:03 APTT 28.6 Seconds (25.6-37.1) 02/02/18 17:03 - Constitutional Appears: No Acute Distress - Eye Exam Eye Exam: Conjunctival injection - ENT Exam ENT Exam: Mucous Membranes Moist - Neck Exam Neck Exam: absent: Lymphadenopathy - Respiratory Exam Respiratory Exam: NORMAL BREATHING PATTERN. absent: Chest Wall Tenderness - Cardiovascular Exam Cardiovascular Exam: absent: Gallop, JVD, Rubs - GI/Abdominal Exam GI & Abdominal Exam: Soft, Normal Bowel Sounds - Extremities Exam Extremities Exam: absent: Calf Tenderness - Back Exam Back Exam: absent: CVA tenderness (L), CVA tenderness (R) - Neurological Exam Neurological Exam: Alert - Psychiatric Exam Psychiatric exam: Normal Affect - Skin Skin Exam: absent: Cyanosis Assessment and Plan (1) End stage renal disease Assessment & Plan: End stage renal disease Patient receiving dialysis now. Cut down ultrafiltration 2000 mL because of blood pressure coming down. Leukocytosis improving Anemia of chronic kidney disease patient receiving EPO. Hyperphosphatemia continue binders And history of secondary hyperparathyroidism right pleural consolidation. As per pulmonary and infectious disease. Patient tolerating hemodialysis echocardiogram noted no pericardial effusion Status: Acute (2) Fever Status: Acute
[2018-02-08] MEDS: MethylPREDNISolone 40 mg Vial IVP SCH (10:31)
--- NOTE | 2018-02-08 11:50 | CP.PCM.PN ---
Subjective - Date & Time of Evaluation Date of Evaluation: 02/08/18 Time of Evaluation: 07:20 - Subjective Subjective: Patient seen and examined this morning at bedside w/ Dr. Sears. There are no acute events overnight, NAD. Patient reports hives on arms legs and torso. Patient reported relief w/ IV benadryl. Patient reports right sided pain is decreased. Patient still declines thoracocentesis because of cardiac arrest the last time she had one done at [facility] [place]. Patient voiding freely and independently. Patient to have HD today. Patient denies headaches, chest pain , SOB, diarrhea, dysuria, or fever. Objective - Vital Signs/Intake and Output Vital Signs (last 24 hours): Temp Pulse Resp BP Pulse Ox 99.4 F 96 H 19 123/72 95 02/08/18 07:47 02/08/18 07:47 02/08/18 07:47 02/08/18 07:47 02/08/18 07:47 - Medications Medications: Current Medications Acetaminophen (Tylenol 325mg Tab) 650 mg PO Q6 PRN PRN Reason: Pain, moderate (4-7) Last Admin: 02/07/18 23:34 Dose: 650 mg Acetaminophen (Tylenol 325mg Tab) 650 mg PO Q4 PRN PRN Reason: Fever >100.4 F Last Admin: 02/04/18 13:49 Dose: 650 mg Amlodipine Besylate (Norvasc) 10 mg PO DAILY [facility] Last Admin: 02/08/18 09:15 Dose: Not Given Aspirin (Ecotrin) 81 mg PO DAILY [facility] Last Admin: 02/08/18 09:17 Dose: 81 mg Carvedilol (Coreg) 12.5 mg PO Q12 [facility] Last Admin: 02/08/18 09:14 Dose: Not Given Dextrose (Dextrose 50% Inj) 0 ml IV STAT PRN; Protocol PRN Reason: Hypoglycemia Protocol Dextrose (Glutose 15) 0 gm PO ONCE PRN; Protocol PRN Reason: Hypoglycemia Protocol Diphenhydramine HCl (Benadryl) 25 mg PO Q6 PRN PRN Reason: Itching / Pruritus Last Admin: 02/08/18 01:01 Dose: 25 mg Diphenhydramine HCl (Benadryl) 25 mg IVP Q6 PRN PRN Reason: Itching / Pruritus Last Admin: 02/08/18 06:09 Dose: 25 mg Epoetin Jose (Procrit) 10,000 unit IV TTS [facility] Last Admin: 02/08/18 09:14 Dose: 10,000 unit Glucagon (Glucagen Diagnostic Kit) 0 mg IM STAT PRN; Protocol PRN Reason: Hypoglycemia Protocol Heparin Sodium (Porcine) (Heparin) 5,000 units SC Q12 [facility] PRN Reason: Protocol Last Admin: 02/08/18 09:18 Dose: 5,000 units Hydralazine HCl (Apresoline) 10 mg PO Q12 [facility] Last Admin: 02/08/18 09:14 Dose: Not Given Hydrocortisone (Cortizone 1% Cream) 1 applic TOP BID [facility] Last Admin: 02/08/18 09:16 Dose: 1 applic Hydrocortisone (Cortizone 1% Cream) 1 applic TOP Q6H PRN PRN Reason: Itching / Pruritus Last Admin: 02/06/18 23:10 Dose: 1 applic Vancomycin HCl 1 gm/ Sodium (Chloride) 250 mls @ 125 mls/hr IVPB TTS [facility] PRN Reason: Protocol Piperacillin Sod/Tazobactam (Sod 2.25 gm/ Sodium Chloride) 100 mls @ 100 mls/ hr IVPB Q12 [facility] PRN Reason: Protocol Insulin Human Lispro (Humalog) 0 units SC ACHS [facility] PRN Reason: Protocol Last Admin: 02/08/18 09:18 Dose: 2 units Insulin Lispro Protam/Lispro Human (Humalog Mix 75/25) 15 units SC BID [facility] Last Admin: 02/08/18 09:19 Dose: 15 units Lactic Acid (Lac-Hydrin 12% Lotion (225 G)) 1 applic TOP TID [facility] Last Admin: 02/07/18 16:04 Dose: 1 applic Lidocaine (Lidoderm) 1 ea TD DAILY [facility] Last Admin: 02/08/18 09:20 Dose: Not Given Lisinopril (Zestril) 10 mg PO DAILY [facility] Last Admin: 02/08/18 09:21 Dose: Not Given Loratadine (Claritin) 10 mg PO DAILY [facility] Methylprednisolone (Solu-Medrol) 40 mg IVP DAILY [facility] Last Admin: 02/08/18 10:31 Dose: 40 mg Ondansetron HCl (Zofran Inj) 4 mg IVP Q4 PRN PRN Reason: Nausea/Vomiting Last Admin: 02/02/18 10:52 Dose: 4 mg Sevelamer Carbonate (Renvela) 2.4 gm PO TIDWM [facility] Last Admin: 02/08/18 09:21 Dose: Not Given - Labs Labs: 02/08/18 09:02 02/08/18 09:02 PT 15.7 Seconds (9.8-13.1) H 02/02/18 17:03 INR 1.4 (0.9-1.2) H 02/02/18 17:03 APTT 28.6 Seconds (25.6-37.1) 02/02/18 17:03 - Constitutional Appears: Non-toxic, No Acute Distress - Head Exam Head Exam: ATRAUMATIC, NORMAL INSPECTION, NORMOCEPHALIC - Eye Exam Eye Exam: Normal appearance - ENT Exam ENT Exam: Mucous Membranes Moist - Neck Exam Neck Exam: Full ROM. absent: Tenderness - Respiratory Exam Respiratory Exam: Decreased Breath Sounds. absent: Accessory Muscle Use, Rales , Rhonchi, Wheezes, Respiratory Distress - Cardiovascular Exam Cardiovascular Exam: REGULAR RHYTHM. absent: Tachycardia - GI/Abdominal Exam GI & Abdominal Exam: Soft, Normal Bowel Sounds. absent: Distended, Tenderness - Extremities Exam Extremities Exam: absent: Calf Tenderness - Neurological Exam Neurological Exam: Alert, Awake, Oriented x3 - Skin Skin Exam: Dry, Intact, Urticaria (improving), Warm Assessment and Plan (1) Loculated pleural effusion Status: Acute (2) Arteriovenous graft stenosis Status: Acute (3) Chronic kidney disease with end stage renal failure on dialysis Status: Chronic (4) Diabetes mellitus type 2 with complications, uncontrolled Status: Chronic (5) HTN (hypertension) Status: Chronic (6) Shoulder pain Status: Resolved (7) Acute on chronic systolic CHF (congestive heart failure) Status: Acute (8) SIRS without acute organ dysfunction due to non-infectious process Status: Acute - Assessment and Plan (Free Text) Plan: afebrile, non-tachycardic, normotensive right arm pain from stenosis of right arm graft resolved acute on chronic systolic CHF improved Patient on admission had SIRS of non-infectious etiology at this time Nephrology recommendations appreciated Infectious Disease recommendations appreciated Pulmonology recommendations appreciated General surgery recommendations appreciated cardiology recommendations appreciated for possible YUSRA Echocardiogram: EF 50-55%, LV function normal, concentric LVH, restrictive diastolic filling CXR: stable loculated right pleural effusion, left side clear XR shoulder: no fracture or dislocation US upper extremity: right graft stenosis towards shoulder blood culture: no growth zosyn 2.25 gm IV Q12h day 1 solumedrol 40 mg IV daily claritin 10 mg PO daily vancomycin 1 m IV //Mon c/w home medication f/u CBC and BMP in AM prophylactic measures: DVT Heparin 5,000 units SC Q12h monitor for acute changes
[2018-02-09] MEDS: DiphenhydrAMINE 50 mg/ml Inj IVP PRN ×4 (02:53→21:27)
[2018-02-09 06:48] LABS: HEMOGLOBIN 7.7 g/dL (12.0-16.0); MEAN CORPUSCULAR HEMOGLOBIN 28.1 pg (27.0-31.0); MEAN CORPUSCULAR HGB CONC 31.6 g/dL (33.0-37.0); RBC 2.74 Mil/uL (3.80-5.20); RED CELL DISTRIBUTION WIDTH 21.5 % (11.5-14.5); WHITE BLOOD COUNT 14.7 K/uL (4.8-10.8)
[2018-02-09 07:27] LABS: CALCIUM 8.5 mg/dL (8.4-10.2)
[2018-02-09] MEDS: MethylPREDNISolone 40 mg Vial IVP SCH (08:04)
[2018-02-09] MEDS: Lidocaine 5% Patch TD SCH (08:04)
[2018-02-09] MEDS: Insulin Lispro (humaLOG) 100 Units/ml Inj SC SCH ×4 (08:05→21:53)
[2018-02-09] MEDS: Sevelamer Carb 0.8 gm/Packet PO SCH ×3 (08:06→16:22)
[2018-02-09] MEDS: Insulin Lispro Mix 75/25 100 units/ml (HumaLog) 10ml SC SCH ×2 (08:14→17:02)
--- NOTE | 2018-02-09 09:19 | CP.PCM.PN ---
Subjective - Date & Time of Evaluation Date of Evaluation: 02/09/18 Time of Evaluation: 07:30 - Subjective Subjective: Patient seen and examined this morning at bedside w/ Dr. Sears. There are no acute events overnight, NAD. Patient reports itching is still present but better w/ increased dose of benadryl. Patient reports right sided pain is decreased. Patient still declines thoracocentesis because of cardiac arrest the last time she had one done at [facility] [place]. However will discuss w/ mother again. Patient voiding freely and independently. Patient tolerated HD yesterday w/o issue. Patient denies headaches, chest pain, SOB, diarrhea, dysuria, or fever. Objective - Vital Signs/Intake and Output Vital Signs (last 24 hours): Temp Pulse Resp BP Pulse Ox 97.7 F 91 H 20 130/61 95 02/09/18 07:59 02/09/18 08:03 02/09/18 07:59 02/09/18 08:03 02/09/18 07:59 - Medications Medications: Current Medications Acetaminophen (Tylenol 325mg Tab) 650 mg PO Q6 PRN PRN Reason: Pain, moderate (4-7) Last Admin: 02/09/18 09:05 Dose: 650 mg Acetaminophen (Tylenol 325mg Tab) 650 mg PO Q4 PRN PRN Reason: Fever >100.4 F Last Admin: 02/04/18 13:49 Dose: 650 mg Amlodipine Besylate (Norvasc) 10 mg PO DAILY [facility] Last Admin: 02/09/18 08:03 Dose: 10 mg Aspirin (Ecotrin) 81 mg PO DAILY [facility] Last Admin: 02/09/18 08:03 Dose: 81 mg Carvedilol (Coreg) 12.5 mg PO Q12 [facility] Last Admin: 02/09/18 08:03 Dose: 12.5 mg Dextrose (Dextrose 50% Inj) 0 ml IV STAT PRN; Protocol PRN Reason: Hypoglycemia Protocol Dextrose (Glutose 15) 0 gm PO ONCE PRN; Protocol PRN Reason: Hypoglycemia Protocol Diphenhydramine HCl (Benadryl) 25 mg PO Q6 PRN PRN Reason: Itching / Pruritus Last Admin: 02/08/18 01:01 Dose: 25 mg Diphenhydramine HCl (Benadryl) 50 mg IVP Q6 PRN PRN Reason: Itching / Pruritus Last Admin: 02/09/18 08:02 Dose: 50 mg Epoetin Jose (Procrit) 10,000 unit IV TTS [facility] Last Admin: 02/08/18 09:14 Dose: 10,000 unit Glucagon (Glucagen Diagnostic Kit) 0 mg IM STAT PRN; Protocol PRN Reason: Hypoglycemia Protocol Heparin Sodium (Porcine) (Heparin) 5,000 units SC Q12 [facility] PRN Reason: Protocol Last Admin: 02/09/18 08:05 Dose: 5,000 units Hydralazine HCl (Apresoline) 10 mg PO Q12 [facility] Last Admin: 02/09/18 08:03 Dose: 10 mg Hydrocortisone (Cortizone 1% Cream) 1 applic TOP BID [facility] Last Admin: 02/09/18 08:06 Dose: 1 applic Hydrocortisone (Cortizone 1% Cream) 1 applic TOP Q6H PRN PRN Reason: Itching / Pruritus Last Admin: 02/06/18 23:10 Dose: 1 applic Vancomycin HCl 1 gm/ Sodium (Chloride) 250 mls @ 125 mls/hr IVPB TTS [facility] PRN Reason: Protocol Piperacillin Sod/Tazobactam (Sod 2.25 gm/ Sodium Chloride) 100 mls @ 100 mls/ hr IVPB Q12 [facility] PRN Reason: Protocol Last Admin: 02/09/18 08:02 Dose: 100 mls/hr Insulin Human Lispro (Humalog) 0 units SC ACHS [facility] PRN Reason: Protocol Last Admin: 02/09/18 08:05 Dose: 8 units Insulin Lispro Protam/Lispro Human (Humalog Mix 75/25) 15 units SC BID [facility] Last Admin: 02/09/18 08:14 Dose: 15 units Lactic Acid (Lac-Hydrin 12% Lotion (225 G)) 1 applic TOP TID [facility] Last Admin: 02/09/18 08:02 Dose: 1 applic Lidocaine (Lidoderm) 1 ea TD DAILY [facility] Last Admin: 02/09/18 08:04 Dose: Not Given Lisinopril (Zestril) 10 mg PO DAILY [facility] Last Admin: 02/09/18 08:03 Dose: 10 mg Loratadine (Claritin) 10 mg PO DAILY [facility] Last Admin: 02/09/18 08:03 Dose: 10 mg Methylprednisolone (Solu-Medrol) 40 mg IVP DAILY [facility] Last Admin: 06/15/18 08:04 Dose: 40 mg Ondansetron HCl (Zofran Inj) 4 mg IVP Q4 PRN PRN Reason: Nausea/Vomiting Last Admin: 02/02/18 10:52 Dose: 4 mg Sevelamer Carbonate (Renvela) 2.4 gm PO TIDWM [facility] Last Admin: 02/09/18 08:06 Dose: Not Given - Labs Labs: 02/09/18 06:00 02/09/18 06:00 PT 15.7 Seconds (9.8-13.1) H 02/02/18 17:03 INR 1.4 (0.9-1.2) H 02/02/18 17:03 APTT 28.6 Seconds (25.6-37.1) 02/02/18 17:03 - Constitutional Appears: Non-toxic, No Acute Distress - Head Exam Head Exam: ATRAUMATIC, NORMAL INSPECTION, NORMOCEPHALIC - Eye Exam Eye Exam: Normal appearance - ENT Exam ENT Exam: Mucous Membranes Moist - Neck Exam Neck Exam: Full ROM. absent: Tenderness - Respiratory Exam Respiratory Exam: Decreased Breath Sounds. absent: Accessory Muscle Use, Rales , Rhonchi, Wheezes, Respiratory Distress - Cardiovascular Exam Cardiovascular Exam: REGULAR RHYTHM. absent: Tachycardia - GI/Abdominal Exam GI & Abdominal Exam: Soft, Normal Bowel Sounds. absent: Distended, Tenderness - Extremities Exam Extremities Exam: absent: Calf Tenderness - Neurological Exam Neurological Exam: Alert, Awake, Oriented x3 - Skin Skin Exam: Dry, Normal Color, Warm Additional comments: right arm AV fistula for HD access Assessment and Plan (1) Loculated pleural effusion Status: Acute (2) Arteriovenous graft stenosis Status: Acute (3) Chronic kidney disease with end stage renal failure on dialysis Status: Chronic (4) Diabetes mellitus type 2 with complications, uncontrolled Status: Chronic (5) HTN (hypertension) Status: Chronic (6) Shoulder pain Status: Resolved (7) Acute on chronic systolic CHF (congestive heart failure) Status: Acute (8) SIRS without acute organ dysfunction due to non-infectious process Status: Acute - Assessment and Plan (Free Text) Plan: afebrile, non-tachycardic, normotensive right arm pain from stenosis of right arm graft resolved acute on chronic systolic CHF improved Patient on admission had SIRS of non-infectious etiology at this time Nephrology recommendations appreciated Infectious Disease recommendations appreciated Pulmonology recommendations appreciated General surgery recommendations appreciated cardiology recommendations appreciated for possible YUSRA Echocardiogram: EF 50-55%, LV function normal, concentric LVH, restrictive diastolic filling CXR: stable loculated right pleural effusion, left side clear XR shoulder: no fracture or dislocation US upper extremity: right graft stenosis towards shoulder blood culture: no growth zosyn 2.25 gm IV Q12h day 2 benadryl 50 mg IV Q6h prn solumedrol 40 mg IV daily claritin 10 mg PO daily vancomycin 1 m IV Tues//Sat c/w home medication f/u CBC and BMP in AM prophylactic measures: DVT Heparin 5,000 units SC Q12h monitor for acute changes
--- NOTE | 2018-02-09 11:35 | CP.PCM.PN ---
Subjective - Date & Time of Evaluation Date of Evaluation: 02/09/18 Time of Evaluation: 11:37 - Subjective Subjective: Patient complaining of weakness no shortness of breath no difficulty breathing and no significant coughing reported No chills Objective - Vital Signs/Intake and Output Vital Signs (last 24 hours): Temp Pulse Resp BP Pulse Ox 97.7 F 91 H 20 130/61 95 02/09/18 07:59 02/09/18 08:03 02/09/18 07:59 02/09/18 08:03 02/09/18 07:59 - Medications Medications: Current Medications Acetaminophen (Tylenol 325mg Tab) 650 mg PO Q6 PRN PRN Reason: Pain, moderate (4-7) Last Admin: 02/09/18 09:05 Dose: 650 mg Acetaminophen (Tylenol 325mg Tab) 650 mg PO Q4 PRN PRN Reason: Fever >100.4 F Last Admin: 02/04/18 13:49 Dose: 650 mg Amlodipine Besylate (Norvasc) 10 mg PO DAILY [facility] Last Admin: 02/09/18 08:03 Dose: 10 mg Aspirin (Ecotrin) 81 mg PO DAILY [facility] [place] Last Admin: 02/09/18 08:03 Dose: 81 mg Carvedilol (Coreg) 12.5 mg PO Q12 [facility] Last Admin: 02/09/18 08:03 Dose: 12.5 mg Dextrose (Dextrose 50% Inj) 0 ml IV STAT PRN; Protocol PRN Reason: Hypoglycemia Protocol Dextrose (Glutose 15) 0 gm PO ONCE PRN; Protocol PRN Reason: Hypoglycemia Protocol Diphenhydramine HCl (Benadryl) 25 mg PO Q6 PRN PRN Reason: Itching / Pruritus Last Admin: 02/08/18 01:01 Dose: 25 mg Diphenhydramine HCl (Benadryl) 50 mg IVP Q6 PRN PRN Reason: Itching / Pruritus Last Admin: 02/09/18 08:02 Dose: 50 mg Epoetin Jose (Procrit) 10,000 unit IV TTS [facility] Last Admin: 02/08/18 09:14 Dose: 10,000 unit Glucagon (Glucagen Diagnostic Kit) 0 mg IM STAT PRN; Protocol PRN Reason: Hypoglycemia Protocol Heparin Sodium (Porcine) (Heparin) 5,000 units SC Q12 [facility] PRN Reason: Protocol Last Admin: 02/09/18 08:05 Dose: 5,000 units Hydralazine HCl (Apresoline) 10 mg PO Q12 [facility] Last Admin: 02/09/18 08:03 Dose: 10 mg Hydrocortisone (Cortizone 1% Cream) 1 applic TOP BID [facility] Last Admin: 02/09/18 08:06 Dose: 1 applic Hydrocortisone (Cortizone 1% Cream) 1 applic TOP Q6H PRN PRN Reason: Itching / Pruritus Last Admin: 02/06/18 23:10 Dose: 1 applic Vancomycin HCl 1 gm/ Sodium (Chloride) 250 mls @ 125 mls/hr IVPB TTS [facility] PRN Reason: Protocol Piperacillin Sod/Tazobactam (Sod 2.25 gm/ Sodium Chloride) 100 mls @ 100 mls/ hr IVPB Q12 [facility] PRN Reason: Protocol Last Admin: 02/09/18 08:02 Dose: 100 mls/hr Insulin Human Lispro (Humalog) 0 units SC ACHS [facility] PRN Reason: Protocol Last Admin: 02/09/18 08:05 Dose: 8 units Insulin Lispro Protam/Lispro Human (Humalog Mix 75/25) 15 units SC BID [facility] Last Admin: 02/09/18 08:14 Dose: 15 units Lactic Acid (Lac-Hydrin 12% Lotion (225 G)) 1 applic TOP TID [facility] Last Admin: 02/09/18 08:02 Dose: 1 applic Lidocaine (Lidoderm) 1 ea TD DAILY [facility] Last Admin: 02/09/18 08:04 Dose: Not Given Lisinopril (Zestril) 10 mg PO DAILY [facility] Last Admin: 02/09/18 08:03 Dose: 10 mg Loratadine (Claritin) 10 mg PO DAILY [facility] [place] Last Admin: 02/09/18 08:03 Dose: 10 mg Methylprednisolone (Solu-Medrol) 40 mg IVP DAILY [facility] [place] Last Admin: 02/09/18 08:04 Dose: 40 mg Ondansetron HCl (Zofran Inj) 4 mg IVP Q4 PRN PRN Reason: Nausea/Vomiting Last Admin: 02/02/18 10:52 Dose: 4 mg Sevelamer Carbonate (Renvela) 2.4 gm PO TIDWM [facility] Last Admin: 02/09/18 08:06 Dose: Not Given - Labs Labs: 02/09/18 06:00 02/09/18 06:00 PT 15.7 Seconds (9.8-13.1) H 02/02/18 17:03 INR 1.4 (0.9-1.2) H 02/02/18 17:03 APTT 28.6 Seconds (25.6-37.1) 02/02/18 17:03 - Constitutional Appears: No Acute Distress - ENT Exam ENT Exam: Mucous Membranes Moist - Neck Exam Neck Exam: absent: Lymphadenopathy - Respiratory Exam Respiratory Exam: NORMAL BREATHING PATTERN. absent: Chest Wall Tenderness - Cardiovascular Exam Cardiovascular Exam: absent: Gallop, JVD, Rubs - GI/Abdominal Exam GI & Abdominal Exam: Soft, Normal Bowel Sounds - Extremities Exam Extremities Exam: absent: Calf Tenderness - Back Exam Back Exam: absent: CVA tenderness (L), CVA tenderness (R) - Neurological Exam Neurological Exam: Alert - Psychiatric Exam Psychiatric exam: Normal Affect - Skin Skin Exam: absent: Cyanosis Assessment and Plan (1) End stage renal disease Assessment & Plan: ESRd receiving hemodialysis TTS volume overloaded,resolving with dialysis legs edema,resolving on dialysis and improving right pleural effusionconsolidation,refused thoracocentesis.patient is receiving antibiotics as noted. Anemia Hbg 7.8 keep dropping again going down,GI workup anemia workup needed and to be transfused tomorrow on dialysis.increase EPO 12,000 unit TTS no vaginal bleeding fever with leukocytosis rule out sepsis. Although blood culture negative worsening leukocytosis antibiotics has been changed from Cipro to Zosyn yesterday as per infectious disease with antibiotics and the pulmonary recommendation. echocardiogram showed no pericardial effusion Hyperphosphatemia patient receiving binders Secondary hyperparathyroidism patient was taken Sensipar waiting to get PTH. Status: Acute (2) Fever Status: Acute
--- NOTE | 2018-02-09 11:38 | RAD ---
HISTORY: f/u COMPARISON: Frontal chest radiograph 02/05/2018. FINDINGS: LUNGS: No definite acute infiltrate bilaterally. Linear atelectasis is identified at the inferior right lung zone with the left chest remaining clear. PLEURA: Diminishing right pleural effusion including minor fissure. CARDIOVASCULAR: Normal. OSSEOUS STRUCTURES: No significant abnormalities. VISUALIZED UPPER ABDOMEN: Normal. OTHER FINDINGS: None. IMPRESSION: Diminishing right pleural effusion with minimal residual. Linear atelectasis identified right base. No infiltrate bilaterally.
[2018-02-09 11:41] LABS: IRON 48 ug/dL (37-170)
[2018-02-09 11:51] LABS: % IRON SATURATION 31 % (20-55); TOTAL IRON BINDING CAPACITY 153 ug/dL (250-450)
--- NOTE | 2018-02-09 12:04 | CP.PCM.PN ---
Subjective - Date & Time of Evaluation Date of Evaluation: 02/09/18 Time of Evaluation: 09:00 - Subjective Subjective: seen on rounds iv rx will need to be continued for 6 weeks as pt refuses diagnostic tests to r/o endocarditis Objective - Vital Signs/Intake and Output Vital Signs (last 24 hours): Temp Pulse Resp BP Pulse Ox 97.7 F 91 H 20 130/61 95 02/09/18 07:59 02/09/18 08:03 02/09/18 07:59 02/09/18 08:03 02/09/18 07:59 - Medications Medications: Current Medications Acetaminophen (Tylenol 325mg Tab) 650 mg PO Q6 PRN PRN Reason: Pain, moderate (4-7) Last Admin: 02/09/18 09:05 Dose: 650 mg Acetaminophen (Tylenol 325mg Tab) 650 mg PO Q4 PRN PRN Reason: Fever >100.4 F Last Admin: 02/04/18 13:49 Dose: 650 mg Amlodipine Besylate (Norvasc) 10 mg PO DAILY [facility] Last Admin: 02/09/18 08:03 Dose: 10 mg Aspirin (Ecotrin) 81 mg PO DAILY [facility] Last Admin: 02/09/18 08:03 Dose: 81 mg Carvedilol (Coreg) 12.5 mg PO Q12 [facility] Last Admin: 02/09/18 08:03 Dose: 12.5 mg Dextrose (Dextrose 50% Inj) 0 ml IV STAT PRN; Protocol PRN Reason: Hypoglycemia Protocol Dextrose (Glutose 15) 0 gm PO ONCE PRN; Protocol PRN Reason: Hypoglycemia Protocol Diphenhydramine HCl (Benadryl) 25 mg PO Q6 PRN PRN Reason: Itching / Pruritus Last Admin: 02/08/18 01:01 Dose: 25 mg Diphenhydramine HCl (Benadryl) 50 mg IVP Q6 PRN PRN Reason: Itching / Pruritus Last Admin: 02/09/18 08:02 Dose: 50 mg Epoetin Jose (Procrit) 10,000 unit IV TTS [facility] Last Admin: 02/08/18 09:14 Dose: 10,000 unit Glucagon (Glucagen Diagnostic Kit) 0 mg IM STAT PRN; Protocol PRN Reason: Hypoglycemia Protocol Heparin Sodium (Porcine) (Heparin) 5,000 units SC Q12 [facility] PRN Reason: Protocol Last Admin: 02/09/18 08:05 Dose: 5,000 units Hydralazine HCl (Apresoline) 10 mg PO Q12 [facility] Last Admin: 02/09/18 08:03 Dose: 10 mg Hydrocortisone (Cortizone 1% Cream) 1 applic TOP BID [facility] Last Admin: 02/09/18 08:06 Dose: 1 applic Hydrocortisone (Cortizone 1% Cream) 1 applic TOP Q6H PRN PRN Reason: Itching / Pruritus Last Admin: 02/06/18 23:10 Dose: 1 applic Vancomycin HCl 1 gm/ Sodium (Chloride) 250 mls @ 125 mls/hr IVPB TTS [facility] PRN Reason: Protocol Piperacillin Sod/Tazobactam (Sod 2.25 gm/ Sodium Chloride) 100 mls @ 100 mls/ hr IVPB Q12 [facility] PRN Reason: Protocol Last Admin: 02/09/18 08:02 Dose: 100 mls/hr Insulin Human Lispro (Humalog) 0 units SC ACHS [facility] PRN Reason: Protocol Last Admin: 02/09/18 08:05 Dose: 8 units Insulin Lispro Protam/Lispro Human (Humalog Mix 75/25) 15 units SC BID [facility] Last Admin: 02/09/18 08:14 Dose: 15 units Lactic Acid (Lac-Hydrin 12% Lotion (225 G)) 1 applic TOP TID [facility] Last Admin: 02/09/18 08:02 Dose: 1 applic Lidocaine (Lidoderm) 1 ea TD DAILY [facility] Last Admin: 02/09/18 08:04 Dose: Not Given Lisinopril (Zestril) 10 mg PO DAILY [facility] Last Admin: 02/09/18 08:03 Dose: 10 mg Loratadine (Claritin) 10 mg PO DAILY [facility] Last Admin: 02/09/18 08:03 Dose: 10 mg Methylprednisolone (Solu-Medrol) 40 mg IVP DAILY [facility] Last Admin: 02/09/18 08:04 Dose: 40 mg Ondansetron HCl (Zofran Inj) 4 mg IVP Q4 PRN PRN Reason: Nausea/Vomiting Last Admin: 02/02/18 10:52 Dose: 4 mg Sevelamer Carbonate (Renvela) 2.4 gm PO TIDWM [facility] Last Admin: 02/09/18 08:06 Dose: Not Given - Labs Labs: 02/09/18 06:00 02/09/18 06:00 PT 15.7 Seconds (9.8-13.1) H 02/02/18 17:03 INR 1.4 (0.9-1.2) H 02/02/18 17:03 APTT 28.6 Seconds (25.6-37.1) 02/02/18 17:03 - Constitutional Appears: Non-toxic, Chronically Ill - Head Exam Head Exam: NORMOCEPHALIC - Eye Exam Eye Exam: absent: Scleral icterus - ENT Exam ENT Exam: Mucous Membranes Dry - Neck Exam Neck Exam: absent: Lymphadenopathy - Respiratory Exam Respiratory Exam: Decreased Breath Sounds - Cardiovascular Exam Cardiovascular Exam: REGULAR RHYTHM - GI/Abdominal Exam GI & Abdominal Exam: Distended - Rectal Exam Rectal Exam: Deferred - Exam Exam: NORMAL INSPECTION - Extremities Exam Extremities Exam: absent: Pedal Edema - Back Exam Back Exam: absent: CVA tenderness (L), CVA tenderness (R) Assessment and Plan (1) Abdominal pain Status: Acute (2) End stage renal disease Status: Acute (3) Fever Status: Acute - Assessment and Plan (Free Text) Assessment: cont iv rx for 6 weeks
--- NOTE | 2018-02-09 15:35 | CP.PCM.PN ---
Subjective - Date & Time of Evaluation Date of Evaluation: 02/09/18 Time of Evaluation: 15:35 Objective - Vital Signs/Intake and Output Vital Signs (last 24 hours): Temp Pulse Resp BP Pulse Ox 97.7 F 91 H 20 130/61 95 02/09/18 07:59 02/09/18 08:03 02/09/18 07:59 02/09/18 08:03 02/09/18 07:59 - Medications Medications: Current Medications Acetaminophen (Tylenol 325mg Tab) 650 mg PO Q6 PRN PRN Reason: Pain, moderate (4-7) Last Admin: 02/09/18 09:05 Dose: 650 mg Acetaminophen (Tylenol 325mg Tab) 650 mg PO Q4 PRN PRN Reason: Fever >100.4 F Last Admin: 02/04/18 13:49 Dose: 650 mg Amlodipine Besylate (Norvasc) 10 mg PO DAILY [facility] Last Admin: 02/09/18 08:03 Dose: 10 mg Aspirin (Ecotrin) 81 mg PO DAILY [facility] Last Admin: 02/09/18 08:03 Dose: 81 mg Carvedilol (Coreg) 12.5 mg PO Q12 [facility] Last Admin: 02/09/18 08:03 Dose: 12.5 mg Dextrose (Dextrose 50% Inj) 0 ml IV STAT PRN; Protocol PRN Reason: Hypoglycemia Protocol Dextrose (Glutose 15) 0 gm PO ONCE PRN; Protocol PRN Reason: Hypoglycemia Protocol Diphenhydramine HCl (Benadryl) 25 mg PO Q6 PRN PRN Reason: Itching / Pruritus Last Admin: 02/08/18 01:01 Dose: 25 mg Diphenhydramine HCl (Benadryl) 50 mg IVP Q6 PRN PRN Reason: Itching / Pruritus Last Admin: 02/09/18 15:24 Dose: 50 mg Epoetin Jose (Procrit) 10,000 unit IV TTS [facility] Last Admin: 02/08/18 09:14 Dose: 10,000 unit Glucagon (Glucagen Diagnostic Kit) 0 mg IM STAT PRN; Protocol PRN Reason: Hypoglycemia Protocol Heparin Sodium (Porcine) (Heparin) 5,000 units SC Q12 [facility] PRN Reason: Protocol Last Admin: 02/09/18 08:05 Dose: 5,000 units Hydralazine HCl (Apresoline) 10 mg PO Q12 [facility] Last Admin: 02/09/18 08:03 Dose: 10 mg Hydrocortisone (Cortizone 1% Cream) 1 applic TOP BID [facility] Last Admin: 02/09/18 08:06 Dose: 1 applic Hydrocortisone (Cortizone 1% Cream) 1 applic TOP Q6H PRN PRN Reason: Itching / Pruritus Last Admin: 02/06/18 23:10 Dose: 1 applic Vancomycin HCl 1 gm/ Sodium (Chloride) 250 mls @ 125 mls/hr IVPB TTS [facility] PRN Reason: Protocol Piperacillin Sod/Tazobactam (Sod 2.25 gm/ Sodium Chloride) 100 mls @ 100 mls/ hr IVPB Q12 [facility] PRN Reason: Protocol Last Admin: 02/09/18 08:02 Dose: 100 mls/hr Insulin Human Lispro (Humalog) 0 units SC ACHS [facility] PRN Reason: Protocol Last Admin: 02/09/18 13:20 Dose: Not Given Insulin Lispro Protam/Lispro Human (Humalog Mix 75/25) 15 units SC BID [facility] Last Admin: 02/09/18 08:14 Dose: 15 units Lactic Acid (Lac-Hydrin 12% Lotion (225 G)) 1 applic TOP TID [facility] Last Admin: 02/09/18 13:20 Dose: 1 applic Lidocaine (Lidoderm) 1 ea TD DAILY [facility] Last Admin: 02/09/18 08:04 Dose: Not Given Lisinopril (Zestril) 10 mg PO DAILY [facility] Last Admin: 02/09/18 08:03 Dose: 10 mg Loratadine (Claritin) 10 mg PO DAILY [facility] Last Admin: 02/09/18 08:03 Dose: 10 mg Methylprednisolone (Solu-Medrol) 40 mg IVP DAILY [facility] Last Admin: 02/09/18 08:04 Dose: 40 mg Ondansetron HCl (Zofran Inj) 4 mg IVP Q4 PRN PRN Reason: Nausea/Vomiting Last Admin: 02/02/18 10:52 Dose: 4 mg Sevelamer Carbonate (Renvela) 2.4 gm PO TIDWM [facility] Last Admin: 02/09/18 13:20 Dose: Not Given - Labs Labs: 02/09/18 06:00 02/09/18 06:00 PT 15.7 Seconds (9.8-13.1) H 02/02/18 17:03 INR 1.4 (0.9-1.2) H 02/02/18 17:03 APTT 28.6 Seconds (25.6-37.1) 02/02/18 17:03 - Constitutional Appears: Well - Head Exam Head Exam: ATRAUMATIC, NORMAL INSPECTION, NORMOCEPHALIC - Eye Exam Eye Exam: EOMI, Normal appearance, PERRL Pupil Exam: NORMAL ACCOMODATION, PERRL - ENT Exam ENT Exam: Mucous Membranes Moist, Normal Exam - Neck Exam Neck Exam: Full ROM, Normal Inspection. absent: Lymphadenopathy - Respiratory Exam Respiratory Exam: Clear to Ausculation Bilateral, NORMAL BREATHING PATTERN - Cardiovascular Exam Cardiovascular Exam: REGULAR RHYTHM, +S1, +S2, Murmur - GI/Abdominal Exam GI & Abdominal Exam: Soft, Normal Bowel Sounds. absent: Tenderness - Extremities Exam Extremities Exam: Full ROM, Normal Capillary Refill, Normal Inspection. absent : Joint Swelling, Pedal Edema - Back Exam Back Exam: NORMAL INSPECTION - Neurological Exam Neurological Exam: Alert, Awake, CN II-XII Intact, Oriented x3 - Psychiatric Exam Psychiatric exam: Normal Affect, Normal Mood - Skin Skin Exam: Dry, Intact, Normal Color, Warm Assessment and Plan (1) Endocarditis Status: Acute (2) CHF (congestive heart failure) Status: Acute (3) Anemia, chronic renal failure Status: Chronic (4) Chronic kidney disease requiring chronic dialysis Status: Chronic (5) ESRD (end stage renal disease) on dialysis Status: Chronic (6) HTN (hypertension) Status: Chronic
[2018-02-09 22:32] LABS: FOLATE 4.7 ng/mL
[2018-02-10] MEDS: DiphenhydrAMINE 50 mg/ml Inj IVP PRN ×3 (03:06→17:23)
[2018-02-10 07:49] LABS: HEMOGLOBIN 7.7 g/dL (12.0-16.0); MEAN CORPUSCULAR HEMOGLOBIN 27.7 pg (27.0-31.0); MEAN CORPUSCULAR HGB CONC 31.2 g/dL (33.0-37.0); RBC 2.79 Mil/uL (3.80-5.20); RED CELL DISTRIBUTION WIDTH 21.5 % (11.5-14.5); WHITE BLOOD COUNT 16.1 K/uL (4.8-10.8)
[2018-02-10] MEDS: Sevelamer Carb 0.8 gm/Packet PO SCH ×4 (10:25→16:58)
[2018-02-10] MEDS: Insulin Lispro Mix 75/25 100 units/ml (HumaLog) 10ml SC SCH ×2 (10:26→16:57)
[2018-02-10] MEDS: Insulin Lispro (humaLOG) 100 Units/ml Inj SC SCH ×4 (10:26→22:21)
[2018-02-10] MEDS: Lidocaine 5% Patch TD SCH (10:33)
[2018-02-10] MEDS: MethylPREDNISolone 40 mg Vial IVP SCH (10:42)
[2018-02-10] MEDS: EPOETIN ALFA 10,000 UNIT/ML ML IV SCH (15:31)
--- NOTE | 2018-02-10 22:28 | CP.PCM.PN ---
Subjective - Date & Time of Evaluation Date of Evaluation: 02/10/18 Time of Evaluation: 17:00 - Subjective Subjective: Nephrology Consultation Note Assessment: Stable Fever ? source Diabetic chronic Kidney Disease (E11.22) Hypertensive Chronic Kidney Disease (I12.0) End stage renal disease (N18.6) dependence on hemodialysis (Z99.2) (TTS/MWF) via __ Anemia (D64.9), Hyperphosphatemia (E83.39), Secondary Hyperparathyroidism (E21.1 ), HTN (I12.0) Plan: Will plan for HD today as ordered. Continue with Nephrovite 1 tab/day. PRBC as needed for anemia. on MAYELIN with dialysis as last Hb 7.7. Continue with phos binders, last phos level 6.4 Continue with calcitriol. BP control with meds as ordered. Patient on RAAS airam as lisinopril Glycemic control, Dialysis consistent diet Further work up/management as per primary team Dose meds/antibiotics for ESRD status. Avoid fleets enema/magnesium based laxatives. pt was encouraged to continue with treatment as recommended. Thanks for allowing me to participate in care of your patient. Will follow patient with you. Please call if any Qs Dr Dannie Chung Office: [phone] Subjective: Noted events overnight. Patients feels okay. Denies chest pain, palpitation, shortness of breath, leg swelling. All other negative. want to go home Physical Examination: seen on HD General Appearance: Comfortable, in no acute respiratory distress, co-operative . Vitals reviewed and noted as below Head; Atraumatic, normocephalic ENT: no ulcers no thrush. Tongue is midline. Oropharynx: no rash or ulcers. EYES: Pupils are equal, round and reactive to light accommodation. Eye muscles and extraocular movement intact. Sclera is anicteric. Neck; supple no lymphadenopathy, no thyromegaly or bruit Lungs: Normal respiratory rate/effort. Breath sounds bilateral equal and clear Heart: Normal rate. s1s2 normal. No rub or gallop. Extremities: no edema. No varicose veins Neurological: Patient is alert, awake and oriented to person, place and time. No focal deficit. Strength bilateral appropriate and equal Skin: Warm and dry. Normal turgor. No rash. Palpitation: Normal elasticity for age Abdomen: Abdomen is soft. Bowel sounds +. There is no abdominal tenderness, no guarding/rigidity or organomegaly Psych: normal insight and normal affect/mood MSK: no joint tenderness or swelling. Digits and nails normal, no deformity : kidney or bladder not palpable Access: AVF Labs/imaging reviewed. Past medical history, past surgical history, family history, social history, allergy reviewed and noted as below Family Hx: no hx of CKD. Non contributory Objective - Vital Signs/Intake and Output Vital Signs (last 24 hours): Temp Pulse Resp BP Pulse Ox 97.6 F 89 20 153/89 H 97 02/10/18 18:43 02/10/18 21:18 02/10/18 18:43 02/10/18 21:18 02/10/18 18:43 - Medications Medications: Current Medications Acetaminophen (Tylenol 325mg Tab) 650 mg PO Q6 PRN PRN Reason: Pain, moderate (4-7) Last Admin: 02/10/18 18:22 Dose: 650 mg Acetaminophen (Tylenol 325mg Tab) 650 mg PO Q4 PRN PRN Reason: Fever >100.4 F Last Admin: 02/04/18 13:49 Dose: 650 mg Amlodipine Besylate (Norvasc) 10 mg PO DAILY [facility] Last Admin: 02/10/18 10:25 Dose: Not Given Aspirin (Ecotrin) 81 mg PO DAILY [facility] Last Admin: 02/10/18 10:32 Dose: 81 mg Carvedilol (Coreg) 12.5 mg PO Q12 [facility] Last Admin: 02/10/18 21:18 Dose: 12.5 mg Dextrose (Dextrose 50% Inj) 0 ml IV STAT PRN; Protocol PRN Reason: Hypoglycemia Protocol Dextrose (Glutose 15) 0 gm PO ONCE PRN; Protocol PRN Reason: Hypoglycemia Protocol Diphenhydramine HCl (Benadryl) 25 mg PO Q6 PRN PRN Reason: Itching / Pruritus Last Admin: 02/08/18 01:01 Dose: 25 mg Diphenhydramine HCl (Benadryl) 50 mg IVP Q6 PRN PRN Reason: Itching / Pruritus Last Admin: 02/10/18 17:23 Dose: 50 mg Epoetin Jose (Procrit) 10,000 unit IV TTS [facility] Last Admin: 02/10/18 15:31 Dose: 10,000 unit Glucagon (Glucagen Diagnostic Kit) 0 mg IM STAT PRN; Protocol PRN Reason: Hypoglycemia Protocol Heparin Sodium (Porcine) (Heparin) 5,000 units SC Q12 [facility] PRN Reason: Protocol Last Admin: 02/10/18 21:24 Dose: 5,000 units Hydralazine HCl (Apresoline) 10 mg PO Q12 [facility] Last Admin: 02/10/18 21:17 Dose: 10 mg Hydrocortisone (Cortizone 1% Cream) 1 applic TOP BID [facility] Last Admin: 02/10/18 17:14 Dose: 1 applic Hydrocortisone (Cortizone 1% Cream) 1 applic TOP Q6H PRN PRN Reason: Itching / Pruritus Last Admin: 02/06/18 23:10 Dose: 1 applic Vancomycin HCl 1 gm/ Sodium (Chloride) 250 mls @ 125 mls/hr IVPB TTS [facility] PRN Reason: Protocol Last Admin: 02/10/18 15:32 Dose: 125 mls/hr Piperacillin Sod/Tazobactam (Sod 2.25 gm/ Sodium Chloride) 100 mls @ 100 mls/ hr IVPB Q12 [facility] PRN Reason: Protocol Last Admin: 02/10/18 21:16 Dose: 100 mls/hr Insulin Human Lispro (Humalog) 0 units SC ACHS [facility] PRN Reason: Protocol Last Admin: 02/10/18 22:21 Dose: 8 units Insulin Lispro Protam/Lispro Human (Humalog Mix 75/25) 15 units SC BID [facility] Last Admin: 02/10/18 16:57 Dose: 15 units Lactic Acid (Lac-Hydrin 12% Lotion (225 G)) 1 applic TOP TID [facility] Last Admin: 02/10/18 16:56 Dose: 1 applic Lidocaine (Lidoderm) 1 ea TD DAILY [facility] Last Admin: 02/10/18 10:33 Dose: 1 ea Lisinopril (Zestril) 10 mg PO DAILY [facility] Last Admin: 02/10/18 10:27 Dose: Not Given Loratadine (Claritin) 10 mg PO DAILY [facility] Last Admin: 02/10/18 10:28 Dose: 10 mg Methylprednisolone (Solu-Medrol) 40 mg IVP DAILY [facility] Last Admin: 02/10/18 10:42 Dose: 40 mg Morphine Sulfate (Morphine) 2 mg IVP Q8 PRN PRN Reason: Pain, severe (8-10) Last Admin: 02/10/18 20:14 Dose: 2 mg Ondansetron HCl (Zofran Inj) 4 mg IVP Q4 PRN PRN Reason: Nausea/Vomiting Last Admin: 02/02/18 10:52 Dose: 4 mg Sevelamer Carbonate (Renvela) 2.4 gm PO TIDWM [facility] Last Admin: 02/10/18 16:58 Dose: Not Given - Labs Labs: 02/10/18 06:30 02/10/18 06:30 PT 15.7 Seconds (9.8-13.1) H 02/02/18 17:03 INR 1.4 (0.9-1.2) H 02/02/18 17:03 APTT 28.6 Seconds (25.6-37.1) 02/02/18 17:03
[2018-02-11] MEDS: Insulin Lispro (humaLOG) 100 Units/ml Inj SC SCH ×4 (06:41→21:47)
[2018-02-11 07:02] LABS: HEMOGLOBIN 10.1 g/dL (12.0-16.0); MEAN CELL VOLUME 87.6 fl (81.0-99.0); MEAN CORPUSCULAR HEMOGLOBIN 28.4 pg (27.0-31.0); MEAN CORPUSCULAR HGB CONC 32.5 g/dL (33.0-37.0); RBC 3.56 Mil/uL (3.80-5.20); RED CELL DISTRIBUTION WIDTH 19.6 % (11.5-14.5); WHITE BLOOD COUNT 22.7 K/uL (4.8-10.8)
[2018-02-11 07:21] LABS: ALB/GLOB RATIO 0.7 (1.0-2.1); ALBUMIN 3.1 g/dL (3.5-5.0); CALCIUM 8.2 mg/dL (8.4-10.2)
[2018-02-11] MEDS: Sevelamer Carb 0.8 gm/Packet PO SCH ×3 (09:00→17:25)
[2018-02-11] MEDS: Insulin Lispro Mix 75/25 100 units/ml (HumaLog) 10ml SC SCH ×2 (09:05→17:13)
[2018-02-11] MEDS: Lidocaine 5% Patch TD SCH (09:06)
[2018-02-11] MEDS: MethylPREDNISolone 40 mg Vial IVP SCH (10:05)
--- NOTE | 2018-02-11 12:57 | CP.PCM.PN ---
Subjective - Date & Time of Evaluation Date of Evaluation: 02/11/18 Time of Evaluation: 08:00 - Subjective Subjective: wbc elevated on steroids for allergic reaction Vanco in progress all cultures negative had been on vanco and zosyn zosyn d/c'd for rash switched to cipro which was d/c by pharmacy refusing thoracentesis and [facility] Objective - Vital Signs/Intake and Output Vital Signs (last 24 hours): Temp Pulse Resp BP Pulse Ox 97.7 F 90 20 159/91 H 94 L 02/11/18 09:01 02/11/18 09:04 02/11/18 09:01 02/11/18 09:04 02/11/18 09:01 - Medications Medications: Current Medications Acetaminophen (Tylenol 325mg Tab) 650 mg PO Q6 PRN PRN Reason: Pain, moderate (4-7) Last Admin: 02/10/18 18:22 Dose: 650 mg Acetaminophen (Tylenol 325mg Tab) 650 mg PO Q4 PRN PRN Reason: Fever >100.4 F Last Admin: 02/04/18 13:49 Dose: 650 mg Amlodipine Besylate (Norvasc) 10 mg PO DAILY [facility] Last Admin: 02/11/18 09:04 Dose: 10 mg Aspirin (Ecotrin) 81 mg PO DAILY [facility] Last Admin: 02/11/18 09:04 Dose: 81 mg Carvedilol (Coreg) 12.5 mg PO Q12 [facility] Last Admin: 02/11/18 09:04 Dose: 12.5 mg Dextrose (Dextrose 50% Inj) 0 ml IV STAT PRN; Protocol PRN Reason: Hypoglycemia Protocol Dextrose (Glutose 15) 0 gm PO ONCE PRN; Protocol PRN Reason: Hypoglycemia Protocol Diphenhydramine HCl (Benadryl) 25 mg PO Q6 PRN PRN Reason: Itching / Pruritus Last Admin: 02/11/18 11:16 Dose: 25 mg Diphenhydramine HCl (Benadryl) 50 mg IVP Q6 PRN PRN Reason: Itching / Pruritus Last Admin: 02/10/18 17:23 Dose: 50 mg Epoetin Jose (Procrit) 10,000 unit IV TTS [facility] Last Admin: 02/10/18 15:31 Dose: 10,000 unit Glucagon (Glucagen Diagnostic Kit) 0 mg IM STAT PRN; Protocol PRN Reason: Hypoglycemia Protocol Hydralazine HCl (Apresoline) 10 mg PO Q12 [facility] Last Admin: 02/11/18 09:03 Dose: 10 mg Hydrocortisone (Cortizone 1% Cream) 1 applic TOP BID [facility] Last Admin: 02/11/18 11:05 Dose: Not Given Hydrocortisone (Cortizone 1% Cream) 1 applic TOP Q6H PRN PRN Reason: Itching / Pruritus Last Admin: 02/06/18 23:10 Dose: 1 applic Vancomycin HCl 1 gm/ Sodium (Chloride) 250 mls @ 125 mls/hr IVPB TTS [facility] PRN Reason: Protocol Last Admin: 02/10/18 15:32 Dose: 125 mls/hr Insulin Human Lispro (Humalog) 0 units SC ACHS [facility] PRN Reason: Protocol Last Admin: 02/11/18 06:41 Dose: Not Given Insulin Lispro Protam/Lispro Human (Humalog Mix 75/25) 15 units SC BID [facility] Last Admin: 02/11/18 09:05 Dose: 15 units Lactic Acid (Lac-Hydrin 12% Lotion (225 G)) 1 applic TOP TID [facility] Last Admin: 02/11/18 09:02 Dose: 1 applic Lidocaine (Lidoderm) 1 ea TD DAILY [facility] Last Admin: 02/11/18 09:06 Dose: Not Given Lisinopril (Zestril) 10 mg PO DAILY [facility] Last Admin: 02/10/18 10:27 Dose: Not Given Loratadine (Claritin) 10 mg PO DAILY [facility] Last Admin: 02/11/18 09:03 Dose: 10 mg Methylprednisolone (Solu-Medrol) 40 mg IVP DAILY [facility] Last Admin: 02/10/18 10:42 Dose: 40 mg Morphine Sulfate (Morphine) 2 mg IVP Q8 PRN PRN Reason: Pain, severe (8-10) Last Admin: 02/11/18 04:14 Dose: 2 mg Ondansetron HCl (Zofran Inj) 4 mg IVP Q4 PRN PRN Reason: Nausea/Vomiting Last Admin: 02/02/18 10:52 Dose: 4 mg Sevelamer Carbonate (Renvela) 2.4 gm PO TIDWM [facility] Last Admin: 02/11/18 09:00 Dose: 2.4 gm - Labs Labs: 02/11/18 05:20 02/11/18 05:20 PT 15.7 Seconds (9.8-13.1) H 02/02/18 17:03 INR 1.4 (0.9-1.2) H 02/02/18 17:03 APTT 28.6 Seconds (25.6-37.1) 02/02/18 17:03 - Constitutional Appears: Non-toxic - Head Exam Head Exam: NORMOCEPHALIC - Eye Exam Eye Exam: absent: Scleral icterus - ENT Exam ENT Exam: Normal External Ear Exam - Neck Exam Neck Exam: absent: Lymphadenopathy - Respiratory Exam Respiratory Exam: Decreased Breath Sounds - Cardiovascular Exam Cardiovascular Exam: REGULAR RHYTHM - GI/Abdominal Exam GI & Abdominal Exam: Distended, Soft - Rectal Exam Rectal Exam: NORMAL INSPECTION - Exam Exam: NORMAL INSPECTION Assessment and Plan (1) Abdominal pain Status: Acute (2) End stage renal disease Status: Acute (3) Fever Status: Acute - Assessment and Plan (Free Text) Assessment: afeb on IV antibiotics wbc likely from steroids all cultures neg to complete IV rx at HD
--- NOTE | 2018-02-11 13:16 | PN ---
DATE: 02/11/2018 SUBJECTIVE: The patient seen and examined. Interim events noted. Consults noted and appreciated. The patient remains in regular medical floor. The patient had episodes of pain yesterday requiring . The patient currently feels okay. Denies any chest pain. No shortness of breath. PHYSICAL EXAMINATION: GENERAL: The patient is in no acute distress. VITAL SIGNS: Stable. HEART: S1 and S2. Normal and regular. LUNGS: Good bilateral air exchange. ABDOMEN: Soft and nontender. EXTREMITIES: No edema. No calf swelling. No tenderness. No acute ischemia. TIG WELDER: Essentially unchanged. DIAGNOSTIC DATA: Available diagnostic data reviewed. ASSESSMENT AND PLAN: Overall, the patient's general medication condition is stable. Plan as ordered. Romeo Sears MD
--- NOTE | 2018-02-11 19:11 | CP.PCM.PN ---
Subjective - Date & Time of Evaluation Date of Evaluation: 02/11/18 Time of Evaluation: 19:09 - Subjective Subjective: Nephrology Consultation Note Assessment: Stable Fever ? source Diabetic chronic Kidney Disease (E11.22) Hypertensive Chronic Kidney Disease (I12.0) End stage renal disease (N18.6) dependence on hemodialysis (Z99.2) (TTS/MWF) via __ Anemia (D64.9), Hyperphosphatemia (E83.39), Secondary Hyperparathyroidism (E21.1 ), HTN (I12.0) Plan: Will plan for HD monday as ordered. Continue with Nephrovite 1 tab/day. PRBC as needed for anemia. on MAYELIN with dialysis as last Hb 7.7 now 10.1 s/p PRBC. Continue with phos binders, last phos level 6.4 Continue with calcitriol. BP control with meds as ordered. Patient on RAAS airam as lisinopril Glycemic control, Dialysis consistent diet Further work up/management as per primary team Dose meds/antibiotics for ESRD status. Avoid fleets enema/magnesium based laxatives. pt was encouraged to continue with treatment as recommended. Thanks for allowing me to participate in care of your patient. Will follow patient with you. Please call if any Qs Dr Dannie Chung Office: [phone] Subjective: Noted events overnight. Patients feels okay. Denies chest pain, palpitation, shortness of breath, leg swelling. All other negative. want to go home Physical Examination: General Appearance: Comfortable, in no acute respiratory distress, co-operative . Vitals reviewed and noted as below Head; Atraumatic, normocephalic ENT: no ulcers no thrush. Tongue is midline. Oropharynx: no rash or ulcers. EYES: Pupils are equal, round and reactive to light accommodation. Eye muscles and extraocular movement intact. Sclera is anicteric. Neck; supple no lymphadenopathy, no thyromegaly or bruit Lungs: Normal respiratory rate/effort. Breath sounds bilateral equal and clear Heart: Normal rate. s1s2 normal. No rub or gallop. Extremities: no edema. No varicose veins Neurological: Patient is alert, awake and oriented to person, place and time. No focal deficit. Strength bilateral appropriate and equal Skin: Warm and dry. Normal turgor. No rash. Palpitation: Normal elasticity for age Abdomen: Abdomen is soft. Bowel sounds +. There is no abdominal tenderness, no guarding/rigidity or organomegaly Psych: normal insight and normal affect/mood MSK: no joint tenderness or swelling. Digits and nails normal, no deformity : kidney or bladder not palpable Access: AVF Labs/imaging reviewed. Past medical history, past surgical history, family history, social history, allergy reviewed and noted as below Family Hx: no hx of CKD. Non contributory Objective - Vital Signs/Intake and Output Vital Signs (last 24 hours): Temp Pulse Resp BP Pulse Ox 98.2 F 86 20 114/74 97 02/11/18 16:38 02/11/18 16:38 02/11/18 16:38 02/11/18 16:38 02/11/18 16:38 - Medications Medications: Current Medications Acetaminophen (Tylenol 325mg Tab) 650 mg PO Q6 PRN PRN Reason: Pain, moderate (4-7) Last Admin: 02/10/18 18:22 Dose: 650 mg Acetaminophen (Tylenol 325mg Tab) 650 mg PO Q4 PRN PRN Reason: Fever >100.4 F Last Admin: 02/04/18 13:49 Dose: 650 mg Amlodipine Besylate (Norvasc) 10 mg PO DAILY [facility] Last Admin: 02/11/18 09:04 Dose: 10 mg Aspirin (Ecotrin) 81 mg PO DAILY [facility] Last Admin: 02/11/18 09:04 Dose: 81 mg Carvedilol (Coreg) 12.5 mg PO Q12 [facility] Last Admin: 02/11/18 09:04 Dose: 12.5 mg Dextrose (Dextrose 50% Inj) 0 ml IV STAT PRN; Protocol PRN Reason: Hypoglycemia Protocol Dextrose (Glutose 15) 0 gm PO ONCE PRN; Protocol PRN Reason: Hypoglycemia Protocol Diphenhydramine HCl (Benadryl) 25 mg PO Q6 PRN PRN Reason: Itching / Pruritus Last Admin: 02/11/18 11:16 Dose: 25 mg Diphenhydramine HCl (Benadryl) 50 mg IVP Q6 PRN PRN Reason: Itching / Pruritus Last Admin: 02/10/18 17:23 Dose: 50 mg Epoetin Jose (Procrit) 10,000 unit IV TTS [facility] Last Admin: 02/10/18 15:31 Dose: 10,000 unit Glucagon (Glucagen Diagnostic Kit) 0 mg IM STAT PRN; Protocol PRN Reason: Hypoglycemia Protocol Hydralazine HCl (Apresoline) 10 mg PO Q12 [facility] Last Admin: 02/11/18 09:03 Dose: 10 mg Hydrocortisone (Cortizone 1% Cream) 1 applic TOP BID [facility] Last Admin: 02/11/18 17:12 Dose: 1 applic Hydrocortisone (Cortizone 1% Cream) 1 applic TOP Q6H PRN PRN Reason: Itching / Pruritus Last Admin: 02/06/18 23:10 Dose: 1 applic Vancomycin HCl 1 gm/ Sodium (Chloride) 250 mls @ 125 mls/hr IVPB TTS [facility] PRN Reason: Protocol Last Admin: 02/10/18 15:32 Dose: 125 mls/hr Insulin Human Lispro (Humalog) 0 units SC ACHS [facility] PRN Reason: Protocol Last Admin: 02/11/18 17:12 Dose: 3 units Insulin Lispro Protam/Lispro Human (Humalog Mix 75/25) 15 units SC BID [facility] Last Admin: 02/11/18 17:13 Dose: 15 units Lactic Acid (Lac-Hydrin 12% Lotion (225 G)) 1 applic TOP TID [facility] Last Admin: 02/11/18 17:22 Dose: 1 applic Lidocaine (Lidoderm) 1 ea TD DAILY [facility] Last Admin: 02/11/18 09:06 Dose: Not Given Lisinopril (Zestril) 10 mg PO DAILY [facility] Last Admin: 02/11/18 10:14 Dose: 10 mg Loratadine (Claritin) 10 mg PO DAILY [facility] Last Admin: 02/11/18 09:03 Dose: 10 mg Methylprednisolone (Solu-Medrol) 40 mg IVP DAILY [facility] Last Admin: 02/10/18 10:42 Dose: 40 mg Morphine Sulfate (Morphine) 2 mg IVP Q8 PRN PRN Reason: Pain, severe (8-10) Last Admin: 02/11/18 04:14 Dose: 2 mg Ondansetron HCl (Zofran Inj) 4 mg IVP Q4 PRN PRN Reason: Nausea/Vomiting Last Admin: 02/02/18 10:52 Dose: 4 mg Sevelamer Carbonate (Renvela) 2.4 gm PO TIDWM [facility] Last Admin: 02/11/18 15:14 Dose: Not Given - Labs Labs: 02/11/18 05:20 02/11/18 05:20 PT 15.7 Seconds (9.8-13.1) H 02/02/18 17:03 INR 1.4 (0.9-1.2) H 02/02/18 17:03 APTT 28.6 Seconds (25.6-37.1) 02/02/18 17:03
--- NOTE | 2018-02-11 23:18 | CP.PCM.PN ---
Subjective - Date & Time of Evaluation Date of Evaluation: 02/11/18 Time of Evaluation: 23:17 - Subjective Subjective: recurrents fevers cx -ve Objective - Vital Signs/Intake and Output Vital Signs (last 24 hours): Temp Pulse Resp BP Pulse Ox 98.2 F 89 20 136/81 97 02/11/18 16:38 02/11/18 21:49 02/11/18 16:38 02/11/18 21:49 02/11/18 16:38 - Medications Medications: Current Medications Acetaminophen (Tylenol 325mg Tab) 650 mg PO Q6 PRN PRN Reason: Pain, moderate (4-7) Last Admin: 02/10/18 18:22 Dose: 650 mg Acetaminophen (Tylenol 325mg Tab) 650 mg PO Q4 PRN PRN Reason: Fever >100.4 F Last Admin: 02/04/18 13:49 Dose: 650 mg Amlodipine Besylate (Norvasc) 10 mg PO DAILY [facility] Last Admin: 02/11/18 09:04 Dose: 10 mg Aspirin (Ecotrin) 81 mg PO DAILY [facility] Last Admin: 02/11/18 09:04 Dose: 81 mg Carvedilol (Coreg) 12.5 mg PO Q12 [facility] Last Admin: 02/11/18 21:49 Dose: 12.5 mg Dextrose (Dextrose 50% Inj) 0 ml IV STAT PRN; Protocol PRN Reason: Hypoglycemia Protocol Dextrose (Glutose 15) 0 gm PO ONCE PRN; Protocol PRN Reason: Hypoglycemia Protocol Diphenhydramine HCl (Benadryl) 25 mg PO Q6 PRN PRN Reason: Itching / Pruritus Last Admin: 02/11/18 11:16 Dose: 25 mg Diphenhydramine HCl (Benadryl) 50 mg IVP Q6 PRN PRN Reason: Itching / Pruritus Last Admin: 02/10/18 17:23 Dose: 50 mg Epoetin Jose (Procrit) 10,000 unit IV TTS [facility] Last Admin: 02/10/18 15:31 Dose: 10,000 unit Glucagon (Glucagen Diagnostic Kit) 0 mg IM STAT PRN; Protocol PRN Reason: Hypoglycemia Protocol Hydralazine HCl (Apresoline) 10 mg PO Q12 [facility] Last Admin: 02/11/18 21:49 Dose: 10 mg Hydrocortisone (Cortizone 1% Cream) 1 applic TOP BID [facility] Last Admin: 02/11/18 17:12 Dose: 1 applic Hydrocortisone (Cortizone 1% Cream) 1 applic TOP Q6H PRN PRN Reason: Itching / Pruritus Last Admin: 02/06/18 23:10 Dose: 1 applic Vancomycin HCl 1 gm/ Sodium (Chloride) 250 mls @ 125 mls/hr IVPB TTS [facility] PRN Reason: Protocol Last Admin: 02/10/18 15:32 Dose: 125 mls/hr Insulin Human Lispro (Humalog) 0 units SC ACHS [facility] PRN Reason: Protocol Last Admin: 02/11/18 21:47 Dose: Not Given Insulin Lispro Protam/Lispro Human (Humalog Mix 75/25) 15 units SC BID [facility] Last Admin: 02/11/18 17:13 Dose: 15 units Lactic Acid (Lac-Hydrin 12% Lotion (225 G)) 1 applic TOP TID [facility] Last Admin: 02/11/18 17:22 Dose: 1 applic Lidocaine (Lidoderm) 1 ea TD DAILY [facility] Last Admin: 02/11/18 09:06 Dose: Not Given Lisinopril (Zestril) 10 mg PO DAILY [facility] Last Admin: 02/11/18 10:14 Dose: 10 mg Loratadine (Claritin) 10 mg PO DAILY [facility] Last Admin: 02/11/18 09:03 Dose: 10 mg Methylprednisolone (Solu-Medrol) 40 mg IVP DAILY [facility] Last Admin: 02/11/18 10:05 Dose: 40 mg Morphine Sulfate (Morphine) 2 mg IVP Q8 PRN PRN Reason: Pain, severe (8-10) Last Admin: 02/11/18 19:27 Dose: 2 mg Ondansetron HCl (Zofran Inj) 4 mg IVP Q4 PRN PRN Reason: Nausea/Vomiting Last Admin: 02/02/18 10:52 Dose: 4 mg Sevelamer Carbonate (Renvela) 2.4 gm PO TIDWM [facility] Last Admin: 02/11/18 17:25 Dose: Not Given - Labs Labs: 02/11/18 05:20 02/11/18 05:20 PT 15.7 Seconds (9.8-13.1) H 02/02/18 17:03 INR 1.4 (0.9-1.2) H 02/02/18 17:03 APTT 28.6 Seconds (25.6-37.1) 02/02/18 17:03 - Constitutional Appears: Well - Head Exam Head Exam: ATRAUMATIC, NORMAL INSPECTION, NORMOCEPHALIC - Eye Exam Eye Exam: EOMI, Normal appearance, PERRL Pupil Exam: NORMAL ACCOMODATION, PERRL - ENT Exam ENT Exam: Mucous Membranes Moist, Normal Exam - Neck Exam Neck Exam: Full ROM, Normal Inspection. absent: Lymphadenopathy - Respiratory Exam Respiratory Exam: Clear to Ausculation Bilateral, NORMAL BREATHING PATTERN - Cardiovascular Exam Cardiovascular Exam: REGULAR RHYTHM, +S1, +S2, Murmur - GI/Abdominal Exam GI & Abdominal Exam: Soft, Normal Bowel Sounds. absent: Tenderness - Extremities Exam Extremities Exam: Full ROM, Normal Capillary Refill, Normal Inspection. absent : Joint Swelling, Pedal Edema - Back Exam Back Exam: NORMAL INSPECTION - Neurological Exam Neurological Exam: Alert, Awake, CN II-XII Intact, Normal Gait, Oriented x3 - Psychiatric Exam Psychiatric exam: Normal Affect, Normal Mood - Skin Skin Exam: Dry, Intact, Normal Color, Warm Assessment and Plan (1) Endocarditis Status: Acute (2) CHF (congestive heart failure) Status: Acute (3) Anemia, chronic renal failure Status: Chronic (4) Chronic kidney disease requiring chronic dialysis Status: Chronic (5) ESRD (end stage renal disease) on dialysis Status: Chronic (6) HTN (hypertension) Status: Chronic
--- NOTE | 2018-02-12 08:12 | PN ---
DATE: 02/10/2018 SUBJECTIVE: The patient seen and examined. Interim events noted. Consults noted and appreciated. The patient remains in regular medical floor. The patient is sleeping, arousable, feels okay. Pain improved. No chest pain. No shortness of breath. PHYSICAL EXAMINATION: GENERAL: The patient is in no acute distress. VITAL SIGNS: Stable. HEART: S1 and S2, normal and regular. LUNGS: Still has a right basal crepitation, but much improved. No wheezing or rhonchi. ABDOMEN: Soft, nontender. EXTREMITIES: No edema. No calf swelling. No tenderness. No acute ischemia. BRONC BREAKER: Exam is essentially unchanged. DIAGNOSTIC DATA: Available diagnostic data reviewed. The patient's chest x-ray shows improvement ASSESSMENT AND PLAN: Overall, the patient is clinically improved. Plan as ordered. Romeo Sears MD
[2018-02-12] MEDS: Insulin Lispro (humaLOG) 100 Units/ml Inj SC SCH ×4 (09:51→23:49)
[2018-02-12] MEDS: Insulin Lispro Mix 75/25 100 units/ml (HumaLog) 10ml SC SCH ×2 (09:54→17:47)
[2018-02-12] MEDS: Sevelamer Carb 0.8 gm/Packet PO SCH ×3 (09:55→16:21)
[2018-02-12] MEDS: Lidocaine 5% Patch TD SCH (09:55)
--- NOTE | 2018-02-12 10:10 | CP.PCM.PN ---
Subjective - Date & Time of Evaluation Date of Evaluation: 02/12/18 Time of Evaluation: 10:00 - Subjective Subjective: refusing YUSRA and thoracentesis possible d/c on Vanco / ancef with HD Objective - Vital Signs/Intake and Output Vital Signs (last 24 hours): Temp Pulse Resp BP Pulse Ox 97.8 F 85 19 154/89 H 97 02/12/18 07:57 02/12/18 10:00 02/12/18 07:57 02/12/18 10:00 02/12/18 07:57 - Medications Medications: Current Medications Acetaminophen (Tylenol 325mg Tab) 650 mg PO Q6 PRN PRN Reason: Pain, moderate (4-7) Last Admin: 02/10/18 18:22 Dose: 650 mg Acetaminophen (Tylenol 325mg Tab) 650 mg PO Q4 PRN PRN Reason: Fever >100.4 F Last Admin: 02/04/18 13:49 Dose: 650 mg Amlodipine Besylate (Norvasc) 10 mg PO DAILY [facility] Last Admin: 02/12/18 09:55 Dose: 10 mg Aspirin (Ecotrin) 81 mg PO DAILY [facility] Last Admin: 02/12/18 09:54 Dose: 81 mg Carvedilol (Coreg) 12.5 mg PO Q12 [facility] Last Admin: 02/12/18 09:53 Dose: 12.5 mg Dextrose (Dextrose 50% Inj) 0 ml IV STAT PRN; Protocol PRN Reason: Hypoglycemia Protocol Dextrose (Glutose 15) 0 gm PO ONCE PRN; Protocol PRN Reason: Hypoglycemia Protocol Diphenhydramine HCl (Benadryl) 25 mg PO Q6 PRN PRN Reason: Itching / Pruritus Last Admin: 02/11/18 11:16 Dose: 25 mg Diphenhydramine HCl (Benadryl) 50 mg IVP Q6 PRN PRN Reason: Itching / Pruritus Last Admin: 02/10/18 17:23 Dose: 50 mg Epoetin Jose (Procrit) 10,000 unit IV TTS [facility] Last Admin: 02/10/18 15:31 Dose: 10,000 unit Glucagon (Glucagen Diagnostic Kit) 0 mg IM STAT PRN; Protocol PRN Reason: Hypoglycemia Protocol Hydralazine HCl (Apresoline) 10 mg PO Q12 [facility] Last Admin: 02/12/18 09:53 Dose: 10 mg Hydrocortisone (Cortizone 1% Cream) 1 applic TOP BID [facility] Last Admin: 02/12/18 09:54 Dose: 1 applic Hydrocortisone (Cortizone 1% Cream) 1 applic TOP Q6H PRN PRN Reason: Itching / Pruritus Last Admin: 02/06/18 23:10 Dose: 1 applic Vancomycin HCl 1 gm/ Sodium (Chloride) 250 mls @ 125 mls/hr IVPB TTS [facility] PRN Reason: Protocol Last Admin: 02/10/18 15:32 Dose: 125 mls/hr Insulin Human Lispro (Humalog) 0 units SC ACHS [facility] PRN Reason: Protocol Last Admin: 02/12/18 09:51 Dose: Not Given Insulin Lispro Protam/Lispro Human (Humalog Mix 75/25) 15 units SC BID [facility] Last Admin: 02/12/18 09:54 Dose: 15 units Lactic Acid (Lac-Hydrin 12% Lotion (225 G)) 1 applic TOP TID [facility] Last Admin: 02/12/18 09:55 Dose: 1 applic Lidocaine (Lidoderm) 1 ea TD DAILY [facility] Last Admin: 02/12/18 09:55 Dose: Not Given Lisinopril (Zestril) 10 mg PO DAILY [facility] Last Admin: 02/12/18 10:00 Dose: 10 mg Loratadine (Claritin) 10 mg PO DAILY [facility] Last Admin: 02/12/18 09:53 Dose: 10 mg Morphine Sulfate (Morphine) 2 mg IVP Q8 PRN PRN Reason: Pain, severe (8-10) Last Admin: 02/12/18 05:08 Dose: 2 mg Ondansetron HCl (Zofran Inj) 4 mg IVP Q4 PRN PRN Reason: Nausea/Vomiting Last Admin: 02/02/18 10:52 Dose: 4 mg Sevelamer Carbonate (Renvela) 2.4 gm PO TIDWM [facility] Last Admin: 02/12/18 09:55 Dose: Not Given - Labs Labs: 02/11/18 05:20 02/11/18 05:20 PT 15.7 Seconds (9.8-13.1) H 02/02/18 17:03 INR 1.4 (0.9-1.2) H 02/02/18 17:03 APTT 28.6 Seconds (25.6-37.1) 02/02/18 17:03 - Constitutional Appears: Non-toxic - Head Exam Head Exam: NORMOCEPHALIC - Eye Exam Eye Exam: PERRL - ENT Exam ENT Exam: Mucous Membranes Dry - Neck Exam Neck Exam: absent: Lymphadenopathy - Respiratory Exam Respiratory Exam: Decreased Breath Sounds - Cardiovascular Exam Cardiovascular Exam: REGULAR RHYTHM - GI/Abdominal Exam GI & Abdominal Exam: Distended - Rectal Exam Rectal Exam: Deferred - Exam Exam: NORMAL INSPECTION - Extremities Exam Extremities Exam: absent: Pedal Edema - Back Exam Back Exam: absent: CVA tenderness (L), CVA tenderness (R) Assessment and Plan (1) Abdominal pain Status: Acute (2) End stage renal disease Status: Acute (3) Fever Status: Acute
--- NOTE | 2018-02-12 11:09 | PQF GENQUE ---
This form is a permanent part of the medical record 02/12/18 Dr. Hernandez, Two (2) queries. 1) Please clarify the suspected cause of the fever. 2) Please specify if Sepsis was ruled in or ruled out. Admitted with R arm pain and missed hemodialysis. + Fistula R arm. + Fever. Blood CS No growth. Treated with IVAB. TEMP 103 X2, 101.3, 100.7, 102.6, 102.4 X3, 101.6, 99.3, 101, 99 HR: 100, 110, 98, 114, 114, 113, 105, 111 x3, 93, 97 BP:173/98, 155/86, 178/94, 160/96, 153/100, 132/89, 110/60, 133/70 R: 17-29 WBC 14.1-> 17.4 L shift . Lactic acid 1.0, CT: Loculated pleural effusion R. Patient refuses thoracentesis or YUSRA. Cardiology consulted 02/08/18. Clarification of your documentation is requested to better reflect the severity of illness and intensity of treatment of your patient. Indicators present PHYSICIAN'S RESPONSE Based on your medical judgment of the clinical indicators outlined above please clarify the following: [] Practitioner response [] If unable to determine, please check the box, sign and date. Present On Admission (POA) Indicator: [] Present at the time of admission [] Not present at the time of admission [] Clinically Undetermined In responding to this query, please exercise your independent professional judgment. The fact that a question is asked does not imply that any particular answer is desired or expected. Thank you for your clarification on this documentation. If you have any questions please call:ext [phone] * Thank you, Bonine Cameron RN CDMP MTDD
--- NOTE | 2018-02-12 13:28 | PN ---
DATE: 02/12/2018 SUBJECTIVE: The patient seen and examined. Interim events noted. Consults noted and appreciated. Infectious Disease and Cardiology followup and interventions noted and appreciated. The patient remains in regular medical floor. Feels a little better. Pain is controlled. No chest pain. No shortness of breath at this time. PHYSICAL EXAMINATION: GENERAL: The patient is in no acute distress. VITAL SIGNS: Stable. Blood pressure is 154/94. HEART: S1 and S2, normal and regular. LUNGS: Good bilateral air exchange. ABDOMEN: Soft, nontender. EXTREMITIES: No edema. No calf swelling or tenderness. No acute ischemia. 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 DIAGNOSTIC DATA: Available diagnostic data reviewed. ASSESSMENT AND PLAN: Overall, the patient's general medical condition is stable. Plan as ordered. Romeo Sears MD
--- NOTE | 2018-02-12 15:28 | CP.PCM.PN ---
Subjective - Date & Time of Evaluation Date of Evaluation: 02/12/18 Time of Evaluation: 15:28 - Subjective Subjective: Nephrology Consultation Note Assessment: Stable Fever ? source Diabetic chronic Kidney Disease (E11.22) Hypertensive Chronic Kidney Disease (I12.0) End stage renal disease (N18.6) dependence on hemodialysis (Z99.2) (TTS/MWF) via __ Anemia (D64.9), Hyperphosphatemia (E83.39), Secondary Hyperparathyroidism (E21.1 ), HTN (I12.0) Plan: Will plan for HD monday as ordered. Continue with Nephrovite 1 tab/day. PRBC as needed for anemia. on MAYELIN with dialysis as last Hb 7.7 now 10.1 s/p PRBC. Continue with phos binders, last phos level 6.4 Continue with calcitriol. BP control with meds as ordered. Patient on RAAS airam as lisinopril Glycemic control, Dialysis consistent diet Further work up/management as per primary team Dose meds/antibiotics for ESRD status. Avoid fleets enema/magnesium based laxatives. pt was encouraged to continue with treatment as recommended. Thanks for allowing me to participate in care of your patient. Will follow patient with you. Please call if any Qs Dr Dannie Chung Office: [phone] Subjective: Noted events overnight. Patients feels okay. Denies chest pain, palpitation, shortness of breath, leg swelling. All other negative. want to go home Physical Examination: General Appearance: Comfortable, in no acute respiratory distress, co-operative . Vitals reviewed and noted as below Head; Atraumatic, normocephalic ENT: no ulcers no thrush. Tongue is midline. Oropharynx: no rash or ulcers. EYES: Pupils are equal, round and reactive to light accommodation. Eye muscles and extraocular movement intact. Sclera is anicteric. Neck; supple no lymphadenopathy, no thyromegaly or bruit Lungs: Normal respiratory rate/effort. Breath sounds bilateral equal and clear Heart: Normal rate. s1s2 normal. No rub or gallop. Extremities: no edema. No varicose veins Neurological: Patient is alert, awake and oriented to person, place and time. No focal deficit. Strength bilateral appropriate and equal Skin: Warm and dry. Normal turgor. No rash. Palpitation: Normal elasticity for age Abdomen: Abdomen is soft. Bowel sounds +. There is no abdominal tenderness, no guarding/rigidity or organomegaly Psych: normal insight and normal affect/mood MSK: no joint tenderness or swelling. Digits and nails normal, no deformity : kidney or bladder not palpable Access: AVF Labs/imaging reviewed. Past medical history, past surgical history, family history, social history, allergy reviewed and noted as below Family Hx: no hx of CKD. Non contributory Objective - Vital Signs/Intake and Output Vital Signs (last 24 hours): Temp Pulse Resp BP Pulse Ox 97.8 F 85 19 154/89 H 97 02/12/18 10:00 02/12/18 10:00 02/12/18 10:00 02/12/18 10:00 02/12/18 10:00 - Medications Medications: Current Medications Acetaminophen (Tylenol 325mg Tab) 650 mg PO Q6 PRN PRN Reason: Pain, moderate (4-7) Last Admin: 02/10/18 18:22 Dose: 650 mg Acetaminophen (Tylenol 325mg Tab) 650 mg PO Q4 PRN PRN Reason: Fever >100.4 F Last Admin: 02/04/18 13:49 Dose: 650 mg Amlodipine Besylate (Norvasc) 10 mg PO DAILY [facility] Last Admin: 02/12/18 09:55 Dose: 10 mg Aspirin (Ecotrin) 81 mg PO DAILY [facility] Last Admin: 02/12/18 09:54 Dose: 81 mg Carvedilol (Coreg) 12.5 mg PO Q12 [facility] Last Admin: 02/12/18 09:53 Dose: 12.5 mg Dextrose (Dextrose 50% Inj) 0 ml IV STAT PRN; Protocol PRN Reason: Hypoglycemia Protocol Dextrose (Glutose 15) 0 gm PO ONCE PRN; Protocol PRN Reason: Hypoglycemia Protocol Diphenhydramine HCl (Benadryl) 25 mg PO Q6 PRN PRN Reason: Itching / Pruritus Last Admin: 02/11/18 11:16 Dose: 25 mg Diphenhydramine HCl (Benadryl) 50 mg IVP Q6 PRN PRN Reason: Itching / Pruritus Last Admin: 02/10/18 17:23 Dose: 50 mg Epoetin Jose (Procrit) 10,000 unit IV TTS [facility] Last Admin: 02/10/18 15:31 Dose: 10,000 unit Glucagon (Glucagen Diagnostic Kit) 0 mg IM STAT PRN; Protocol PRN Reason: Hypoglycemia Protocol Hydralazine HCl (Apresoline) 10 mg PO Q12 [facility] Last Admin: 02/12/18 09:53 Dose: 10 mg Hydrocortisone (Cortizone 1% Cream) 1 applic TOP BID [facility] Last Admin: 02/12/18 09:54 Dose: 1 applic Hydrocortisone (Cortizone 1% Cream) 1 applic TOP Q6H PRN PRN Reason: Itching / Pruritus Last Admin: 02/06/18 23:10 Dose: 1 applic Vancomycin HCl 1 gm/ Sodium (Chloride) 250 mls @ 125 mls/hr IVPB TTS [facility] PRN Reason: Protocol Last Admin: 02/10/18 15:32 Dose: 125 mls/hr Insulin Human Lispro (Humalog) 0 units SC ACHS [facility] PRN Reason: Protocol Last Admin: 02/12/18 11:43 Dose: Not Given Insulin Lispro Protam/Lispro Human (Humalog Mix 75/25) 15 units SC BID [facility] Last Admin: 02/12/18 09:54 Dose: 15 units Lactic Acid (Lac-Hydrin 12% Lotion (225 G)) 1 applic TOP TID [facility] Last Admin: 02/12/18 12:33 Dose: Not Given Lidocaine (Lidoderm) 1 ea TD DAILY [facility] Last Admin: 02/12/18 09:55 Dose: Not Given Lisinopril (Zestril) 10 mg PO DAILY [facility] Last Admin: 02/12/18 10:00 Dose: 10 mg Loratadine (Claritin) 10 mg PO DAILY [facility] Last Admin: 02/12/18 09:53 Dose: 10 mg Morphine Sulfate (Morphine) 2 mg IVP Q8 PRN PRN Reason: Pain, severe (8-10) Last Admin: 02/12/18 05:08 Dose: 2 mg Ondansetron HCl (Zofran Inj) 4 mg IVP Q4 PRN PRN Reason: Nausea/Vomiting Last Admin: 02/02/18 10:52 Dose: 4 mg Sevelamer Carbonate (Renvela) 2.4 gm PO TIDWM [facility] Last Admin: 02/12/18 11:43 Dose: Not Given - Labs Labs: 02/11/18 05:20 02/11/18 05:20 PT 15.7 Seconds (9.8-13.1) H 02/02/18 17:03 INR 1.4 (0.9-1.2) H 02/02/18 17:03 APTT 28.6 Seconds (25.6-37.1) 02/02/18 17:03
--- NOTE | 2018-02-12 16:39 | RAD ---
HISTORY: F/u pleural effusion COMPARISON: 02/09/2018. FINDINGS: LUNGS: Right lower lobe infiltrate similar to that seen previously. PLEURA: Stable right pleural effusion. CARDIOVASCULAR: Normal. OSSEOUS STRUCTURES: No significant abnormalities. VISUALIZED UPPER ABDOMEN: Normal. OTHER FINDINGS: None. IMPRESSION: Right lower lobe infiltrate/right pleural effusion unchanged compared to prior chest radiographs
[2018-02-13] MEDS: Insulin Lispro (humaLOG) 100 Units/ml Inj SC SCH ×4 (07:39→22:47)
[2018-02-13] MEDS: Sevelamer Carb 0.8 gm/Packet PO SCH ×3 (08:00→16:36)
[2018-02-13] MEDS: Insulin Lispro Mix 75/25 100 units/ml (HumaLog) 10ml SC SCH ×2 (08:42→17:30)
[2018-02-13] MEDS: EPOETIN ALFA 10,000 UNIT/ML ML IV SCH (09:10)
[2018-02-13 09:37] LABS: HEMOGLOBIN 10.1 g/dL (12.0-16.0); MEAN CELL VOLUME 89.9 fl (81.0-99.0); MEAN CORPUSCULAR HEMOGLOBIN 28.3 pg (27.0-31.0); MEAN CORPUSCULAR HGB CONC 31.5 g/dL (33.0-37.0); RBC 3.57 Mil/uL (3.80-5.20); RED CELL DISTRIBUTION WIDTH 19.8 % (11.5-14.5); WHITE BLOOD COUNT 22.1 K/uL (4.8-10.8)
[2018-02-13 10:13] LABS: ALB/GLOB RATIO 0.7 (1.0-2.1); CALCIUM 8.5 mg/dL (8.4-10.2)
--- NOTE | 2018-02-13 12:32 | CP.PCM.PN ---
Subjective - Date & Time of Evaluation Date of Evaluation: 02/13/18 Time of Evaluation: 12:29 - Subjective Subjective: dialysis note She was seen on hemodialysis Patient appears to be stable on dialysis. Vital signs stable No chest pain or shortness of breath I discussed the order with the dialysis nurse at the bedside. Objective - Vital Signs/Intake and Output Vital Signs (last 24 hours): Temp Pulse Resp BP Pulse Ox 98.3 F 92 H 18 149/84 97 02/13/18 10:00 02/13/18 10:00 02/13/18 10:00 02/13/18 10:00 02/13/18 10:00 - Medications Medications: Current Medications Acetaminophen (Tylenol 325mg Tab) 650 mg PO Q6 PRN PRN Reason: Pain, moderate (4-7) Last Admin: 02/10/18 18:22 Dose: 650 mg Acetaminophen (Tylenol 325mg Tab) 650 mg PO Q4 PRN PRN Reason: Fever >100.4 F Last Admin: 02/04/18 13:49 Dose: 650 mg Amlodipine Besylate (Norvasc) 10 mg PO DAILY [facility] Last Admin: 02/12/18 09:55 Dose: 10 mg Aspirin (Ecotrin) 81 mg PO DAILY [facility] Last Admin: 02/12/18 09:54 Dose: 81 mg Carvedilol (Coreg) 12.5 mg PO Q12 [facility] Last Admin: 02/12/18 20:42 Dose: 12.5 mg Dextrose (Dextrose 50% Inj) 0 ml IV STAT PRN; Protocol PRN Reason: Hypoglycemia Protocol Dextrose (Glutose 15) 0 gm PO ONCE PRN; Protocol PRN Reason: Hypoglycemia Protocol Diphenhydramine HCl (Benadryl) 25 mg PO Q6 PRN PRN Reason: Itching / Pruritus Last Admin: 02/11/18 11:16 Dose: 25 mg Diphenhydramine HCl (Benadryl) 50 mg IVP Q6 PRN PRN Reason: Itching / Pruritus Last Admin: 02/10/18 17:23 Dose: 50 mg Epoetin Jose (Procrit) 10,000 unit IV TTS [facility] Last Admin: 02/13/18 09:10 Dose: 10,000 unit Glucagon (Glucagen Diagnostic Kit) 0 mg IM STAT PRN; Protocol PRN Reason: Hypoglycemia Protocol Heparin Sodium (Porcine) (Heparin) 5,000 units SC Q12 [facility] PRN Reason: Protocol Last Admin: 02/12/18 20:47 Dose: 5,000 units Hydralazine HCl (Apresoline) 10 mg PO Q12 [facility] Last Admin: 02/12/18 20:42 Dose: 10 mg Hydrocortisone (Cortizone 1% Cream) 1 applic TOP BID [facility] Last Admin: 02/12/18 19:23 Dose: Not Given Hydrocortisone (Cortizone 1% Cream) 1 applic TOP Q6H PRN PRN Reason: Itching / Pruritus Last Admin: 02/06/18 23:10 Dose: 1 applic Vancomycin HCl 1 gm/ Sodium (Chloride) 250 mls @ 125 mls/hr IVPB TTS [facility] PRN Reason: Protocol Last Admin: 02/13/18 09:11 Dose: 125 mls/hr Insulin Human Lispro (Humalog) 0 units SC ACHS [facility] PRN Reason: Protocol Last Admin: 02/13/18 11:35 Dose: Not Given Insulin Lispro Protam/Lispro Human (Humalog Mix 75/25) 15 units SC BID [facility] Last Admin: 02/13/18 08:42 Dose: 15 units Lactic Acid (Lac-Hydrin 12% Lotion (225 G)) 1 applic TOP TID [facility] Last Admin: 02/13/18 11:36 Dose: Not Given Lidocaine (Lidoderm) 1 ea TD DAILY [facility] Last Admin: 02/12/18 09:55 Dose: Not Given Lisinopril (Zestril) 10 mg PO DAILY [facility] Last Admin: 02/12/18 10:00 Dose: 10 mg Loratadine (Claritin) 10 mg PO DAILY [facility] Last Admin: 02/12/18 09:53 Dose: 10 mg Morphine Sulfate (Morphine) 2 mg IVP Q8 PRN PRN Reason: Pain, severe (8-10) Last Admin: 02/12/18 20:40 Dose: 2 mg Ondansetron HCl (Zofran Inj) 4 mg IVP Q4 PRN PRN Reason: Nausea/Vomiting Last Admin: 02/02/18 10:52 Dose: 4 mg Sevelamer Carbonate (Renvela) 2.4 gm PO TIDWM [facility] Last Admin: 02/13/18 08:00 Dose: Not Given - Labs Labs: 02/13/18 09:30 02/13/18 09:30 PT 15.7 Seconds (9.8-13.1) H 02/02/18 17:03 INR 1.4 (0.9-1.2) H 02/02/18 17:03 APTT 28.6 Seconds (25.6-37.1) 02/02/18 17:03 - Constitutional Appears: No Acute Distress - ENT Exam ENT Exam: Mucous Membranes Moist - Respiratory Exam Respiratory Exam: NORMAL BREATHING PATTERN. absent: Chest Wall Tenderness - Cardiovascular Exam Cardiovascular Exam: REGULAR RHYTHM. absent: Gallop, JVD, Rubs - GI/Abdominal Exam GI & Abdominal Exam: Soft, Normal Bowel Sounds - Extremities Exam Extremities Exam: absent: Calf Tenderness - Back Exam Back Exam: absent: CVA tenderness (L), CVA tenderness (R) - Neurological Exam Neurological Exam: Alert - Psychiatric Exam Psychiatric exam: Normal Affect - Skin Skin Exam: absent: Cyanosis Assessment and Plan (1) End stage renal disease Assessment & Plan: ESRd receiving hemodialysis TTS patient seen on hemodialysis now and tolerating Sodium bath 137 Bicarbonate bath 34 Potassium bath 2 mEq Ultrafiltration about 1500 mL as tolerated volume overloaded,resolving with dialysis legs edema,resolving on dialysis and improving right pleural effusionconsolidation,refused thoracocentesis.patient is receiving antibiotics as noted. Anemia Hbg 7.8 previously has gone up to over 10 posttransfusion fever with leukocytosis ,worsening leukocytosis going up patient is being seen by ID and antibiotics as per ID patient keep refusing thoracocentesis and YUSRA as per infectious disease with antibiotics and the pulmonary recommendation. echocardiogram showed no pericardial effusion Hyperphosphatemia patient receiving binders Secondary hyperparathyroidism patient was taken Sensipar waiting to get PTH. Status: Acute (2) Fever Status: Acute
[2018-02-13] MEDS: Lidocaine 5% Patch TD SCH (12:42)
--- NOTE | 2018-02-13 14:06 | CP.PCM.PCO ---
Assessment/Plan - Assessment/Plan Assessment (Free Text): Pt stable, completed HD without any issues. Patient agreed to have pleural fluid drained. Spoke with Dr. Carter who requested IR thoracentesis. Per Dr. Ruano, pt does not have enough fluid to drain. Dr. Sears made aware, okay to discharge patient home with 1 week of antibiotics (Vanco and Ancef) with HD as per Dr. Hernandez. Pt's WBC trending down, pt was on steroids which were d/c'd yesterday by Dr. Sears. Pt to have blood work repeated during HD on and to follow up with PMD.
--- NOTE | 2018-02-13 18:45 | CP.PCM.PN ---
Subjective - Date & Time of Evaluation Date of Evaluation: 02/13/18 Time of Evaluation: 07:10 - Subjective Subjective: Patient seen and examined at bedside with Dr. Sears. Denies chest pain or shortness of breath. Discussed recommendations for thoracentesis as recommended by pulmonology, patient unsure if she would like to proceed with recommendations. Otherwise is tolerating PO diet, stable. Scheduled for HD today. Objective - Vital Signs/Intake and Output Vital Signs (last 24 hours): Temp Pulse Resp BP Pulse Ox 98.2 F 94 H 18 135/81 95 02/13/18 16:07 02/13/18 16:07 02/13/18 16:07 02/13/18 16:07 02/13/18 16:07 - Medications Medications: Current Medications Acetaminophen (Tylenol 325mg Tab) 650 mg PO Q6 PRN PRN Reason: Pain, moderate (4-7) Last Admin: 02/10/18 18:22 Dose: 650 mg Acetaminophen (Tylenol 325mg Tab) 650 mg PO Q4 PRN PRN Reason: Fever >100.4 F Last Admin: 02/04/18 13:49 Dose: 650 mg Amlodipine Besylate (Norvasc) 10 mg PO DAILY [facility] Last Admin: 02/13/18 12:46 Dose: 10 mg Aspirin (Ecotrin) 81 mg PO DAILY [facility] Last Admin: 02/13/18 12:42 Dose: 81 mg Carvedilol (Coreg) 12.5 mg PO Q12 [facility] Last Admin: 02/13/18 12:41 Dose: 12.5 mg Dextrose (Dextrose 50% Inj) 0 ml IV STAT PRN; Protocol PRN Reason: Hypoglycemia Protocol Dextrose (Glutose 15) 0 gm PO ONCE PRN; Protocol PRN Reason: Hypoglycemia Protocol Diphenhydramine HCl (Benadryl) 25 mg PO Q6 PRN PRN Reason: Itching / Pruritus Last Admin: 02/11/18 11:16 Dose: 25 mg Diphenhydramine HCl (Benadryl) 50 mg IVP Q6 PRN PRN Reason: Itching / Pruritus Last Admin: 02/10/18 17:23 Dose: 50 mg Epoetin Jose (Procrit) 10,000 unit IV TTS [facility] Last Admin: 02/13/18 09:10 Dose: 10,000 unit Glucagon (Glucagen Diagnostic Kit) 0 mg IM STAT PRN; Protocol PRN Reason: Hypoglycemia Protocol Heparin Sodium (Porcine) (Heparin) 5,000 units SC Q12 [facility] PRN Reason: Protocol Last Admin: 02/13/18 12:42 Dose: 5,000 units Hydralazine HCl (Apresoline) 10 mg PO Q12 [facility] Last Admin: 02/13/18 12:41 Dose: 10 mg Hydrocortisone (Cortizone 1% Cream) 1 applic TOP BID [facility] Last Admin: 02/13/18 12:41 Dose: 1 applic Hydrocortisone (Cortizone 1% Cream) 1 applic TOP Q6H PRN PRN Reason: Itching / Pruritus Last Admin: 02/06/18 23:10 Dose: 1 applic Vancomycin HCl 1 gm/ Sodium (Chloride) 250 mls @ 125 mls/hr IVPB TTS [facility] PRN Reason: Protocol Last Admin: 02/13/18 09:11 Dose: 125 mls/hr Insulin Human Lispro (Humalog) 0 units SC ACHS [facility] PRN Reason: Protocol Last Admin: 02/13/18 17:31 Dose: 2 units Insulin Lispro Protam/Lispro Human (Humalog Mix 75/25) 15 units SC BID [facility] Last Admin: 02/13/18 17:30 Dose: 15 units Lactic Acid (Lac-Hydrin 12% Lotion (225 G)) 1 applic TOP TID [facility] Last Admin: 02/13/18 17:31 Dose: Not Given Lidocaine (Lidoderm) 1 ea TD DAILY [facility] Last Admin: 02/13/18 12:42 Dose: Not Given Lisinopril (Zestril) 10 mg PO DAILY [facility] Last Admin: 02/13/18 12:46 Dose: 10 mg Loratadine (Claritin) 10 mg PO DAILY [facility] Last Admin: 02/13/18 12:41 Dose: 10 mg Morphine Sulfate (Morphine) 2 mg IVP Q8 PRN PRN Reason: Pain, severe (8-10) Last Admin: 02/12/18 20:40 Dose: 2 mg Ondansetron HCl (Zofran Inj) 4 mg IVP Q4 PRN PRN Reason: Nausea/Vomiting Last Admin: 02/02/18 10:52 Dose: 4 mg Sevelamer Carbonate (Renvela) 2.4 gm PO TIDWM [facility] Last Admin: 02/13/18 16:36 Dose: Not Given - Labs Labs: 02/13/18 09:30 02/13/18 09:30 PT 15.7 Seconds (9.8-13.1) H 02/02/18 17:03 INR 1.4 (0.9-1.2) H 02/02/18 17:03 APTT 28.6 Seconds (25.6-37.1) 02/02/18 17:03 - Constitutional Appears: No Acute Distress - Head Exam Head Exam: ATRAUMATIC, NORMOCEPHALIC - Eye Exam Eye Exam: EOMI, PERRL - ENT Exam ENT Exam: Mucous Membranes Moist - Neck Exam Neck Exam: Full ROM. absent: Lymphadenopathy - Respiratory Exam Respiratory Exam: Clear to Ausculation Bilateral, NORMAL BREATHING PATTERN - Cardiovascular Exam Cardiovascular Exam: REGULAR RHYTHM, +S1, +S2 - GI/Abdominal Exam GI & Abdominal Exam: Soft, Normal Bowel Sounds. absent: Tenderness - Back Exam Back Exam: NORMAL INSPECTION - Neurological Exam Neurological Exam: Alert, Awake, CN II-XII Intact, Oriented x3 - Psychiatric Exam Psychiatric exam: Normal Affect, Normal Mood - Skin Skin Exam: Dry, Normal Color, Warm Assessment and Plan - Assessment and Plan (Free Text) Assessment: -continue with current management -BP control -glycemic control -follow nephrology, cardiology and pulmonology recommendations -renal diet
[2018-02-14 01:02] VITALS: TEMP 98.1
[2018-02-14 06:16] LABS: HEMOGLOBIN 9.7 g/dL (12.0-16.0); MEAN CELL VOLUME 90.5 fl (81.0-99.0); MEAN CORPUSCULAR HEMOGLOBIN 28.6 pg (27.0-31.0); MEAN CORPUSCULAR HGB CONC 31.6 g/dL (33.0-37.0); RBC 3.4 Mil/uL (3.80-5.20); RED CELL DISTRIBUTION WIDTH 19.7 % (11.5-14.5); WHITE BLOOD COUNT 18.3 K/uL (4.8-10.8)
[2018-02-14 08:01] LABS: CALCIUM 8.2 mg/dL (8.4-10.2)
[2018-02-14 08:07] VITALS: BP 135/79; RESP 20; O2SAT 97
[2018-02-14] MEDS: Lidocaine 5% Patch TD SCH ×2 (09:43→10:05)
[2018-02-14] MEDS: Sevelamer Carb 0.8 gm/Packet PO SCH ×3 (09:46→13:25)
[2018-02-14] MEDS: Insulin Lispro (humaLOG) 100 Units/ml Inj SC SCH ×2 (09:48→11:23)
[2018-02-14 09:54] VITALS: PULSE 89
[2018-02-14] MEDS: Insulin Lispro Mix 75/25 100 units/ml (HumaLog) 10ml SC SCH (10:09)
--- NOTE | 2018-02-14 11:46 | CP.PCM.PN ---
Subjective - Date & Time of Evaluation Date of Evaluation: 02/14/18 Time of Evaluation: 11:45 - Subjective Subjective: Patient doing okay no chest pain no shortness of breath and no fever Objective - Vital Signs/Intake and Output Vital Signs (last 24 hours): Temp Pulse Resp BP Pulse Ox 98.1 F 89 20 135/79 97 02/14/18 08:06 02/14/18 09:47 02/14/18 08:06 02/14/18 09:47 02/14/18 08:06 - Medications Medications: Current Medications Acetaminophen (Tylenol 325mg Tab) 650 mg PO Q6 PRN PRN Reason: Pain, moderate (4-7) Last Admin: 02/10/18 18:22 Dose: 650 mg Acetaminophen (Tylenol 325mg Tab) 650 mg PO Q4 PRN PRN Reason: Fever >100.4 F Last Admin: 02/04/18 13:49 Dose: 650 mg Amlodipine Besylate (Norvasc) 10 mg PO DAILY [facility] Last Admin: 02/14/18 09:45 Dose: 10 mg Aspirin (Ecotrin) 81 mg PO DAILY [facility] Last Admin: 02/14/18 09:53 Dose: 81 mg Carvedilol (Coreg) 12.5 mg PO Q12 [facility] Last Admin: 02/14/18 09:42 Dose: 12.5 mg Dextrose (Dextrose 50% Inj) 0 ml IV STAT PRN; Protocol PRN Reason: Hypoglycemia Protocol Dextrose (Glutose 15) 0 gm PO ONCE PRN; Protocol PRN Reason: Hypoglycemia Protocol Diphenhydramine HCl (Benadryl) 25 mg PO Q6 PRN PRN Reason: Itching / Pruritus Last Admin: 02/11/18 11:16 Dose: 25 mg Diphenhydramine HCl (Benadryl) 50 mg IVP Q6 PRN PRN Reason: Itching / Pruritus Last Admin: 02/10/18 17:23 Dose: 50 mg Epoetin Jose (Procrit) 10,000 unit IV TTS [facility] Last Admin: 02/13/18 09:10 Dose: 10,000 unit Glucagon (Glucagen Diagnostic Kit) 0 mg IM STAT PRN; Protocol PRN Reason: Hypoglycemia Protocol Heparin Sodium (Porcine) (Heparin) 5,000 units SC Q12 [facility] PRN Reason: Protocol Last Admin: 02/14/18 09:50 Dose: 5,000 units Hydralazine HCl (Apresoline) 10 mg PO Q12 [facility] Last Admin: 02/14/18 09:40 Dose: 10 mg Hydrocortisone (Cortizone 1% Cream) 1 applic TOP BID [facility] Last Admin: 02/14/18 10:06 Dose: Not Given Hydrocortisone (Cortizone 1% Cream) 1 applic TOP Q6H PRN PRN Reason: Itching / Pruritus Last Admin: 02/06/18 23:10 Dose: 1 applic Vancomycin HCl 1 gm/ Sodium (Chloride) 250 mls @ 125 mls/hr IVPB TTS [facility] PRN Reason: Protocol Last Admin: 02/13/18 09:11 Dose: 125 mls/hr Insulin Human Lispro (Humalog) 0 units SC ACHS [facility] PRN Reason: Protocol Last Admin: 02/14/18 09:48 Dose: Not Given Insulin Lispro Protam/Lispro Human (Humalog Mix 75/25) 15 units SC BID [facility] Last Admin: 02/14/18 10:09 Dose: 15 units Lactic Acid (Lac-Hydrin 12% Lotion (225 G)) 1 applic TOP TID [facility] Last Admin: 02/14/18 09:52 Dose: 1 applic Lidocaine (Lidoderm) 1 ea TD DAILY [facility] Last Admin: 02/14/18 10:05 Dose: Not Given Lisinopril (Zestril) 10 mg PO DAILY [facility] Last Admin: 02/14/18 09:47 Dose: 10 mg Loratadine (Claritin) 10 mg PO DAILY [facility] Last Admin: 02/14/18 09:42 Dose: 10 mg Morphine Sulfate (Morphine) 2 mg IVP Q8 PRN PRN Reason: Pain, severe (8-10) Last Admin: 02/14/18 04:31 Dose: 2 mg Ondansetron HCl (Zofran Inj) 4 mg IVP Q4 PRN PRN Reason: Nausea/Vomiting Last Admin: 02/02/18 10:52 Dose: 4 mg Sevelamer Carbonate (Renvela) 2.4 gm PO TIDWM [facility] Last Admin: 02/14/18 10:04 Dose: Not Given - Labs Labs: 02/14/18 05:45 02/14/18 05:45 PT 15.7 Seconds (9.8-13.1) H 02/02/18 17:03 INR 1.4 (0.9-1.2) H 02/02/18 17:03 APTT 28.6 Seconds (25.6-37.1) 02/02/18 17:03 - Constitutional Appears: No Acute Distress - ENT Exam ENT Exam: Mucous Membranes Moist - Neck Exam Neck Exam: absent: Lymphadenopathy - Respiratory Exam Respiratory Exam: NORMAL BREATHING PATTERN. absent: Rales - Cardiovascular Exam Cardiovascular Exam: REGULAR RHYTHM - GI/Abdominal Exam GI & Abdominal Exam: Soft, Normal Bowel Sounds - Extremities Exam Extremities Exam: absent: Calf Tenderness - Back Exam Back Exam: absent: CVA tenderness (L), CVA tenderness (R) - Neurological Exam Neurological Exam: Alert Assessment and Plan (1) End stage renal disease Assessment & Plan: ESRd receiving hemodialysis TTS volume overloaded,resolving with dialysis legs edema,resolving on dialysis and improving right pleural effusionconsolidation,appeared to be improving with minimal fluid to do any thoracocentesis anymore Anemia Hbg 7.8 keep dropping again going down,GI workup anemia workup needed and to be transfused tomorrow on dialysis.increase EPO 12,000 unit TTS no vaginal bleeding fever with leukocytosis rule out sepsis. Although blood culture negative worsening leukocytosis antibiotics has been changed from Cipro to Zosyn yesterday as per infectious disease with antibiotics and the pulmonary recommendation. echocardiogram showed no pericardial effusion Hyperphosphatemia patient receiving binders Secondary hyperparathyroidism patient was taken Sensipar waiting to get PTH. patient apparently may be discharged as noted by the primary team and to give antibiotics as outpatient Status: Acute (2) Fever Status: Acute
--- NOTE | 2018-02-14 12:33 | CP.PCM.PN ---
Subjective - Date & Time of Evaluation Date of Evaluation: 02/14/18 Time of Evaluation: 07:00 - Subjective Subjective: afeb refusing thoracentesis Objective - Vital Signs/Intake and Output Vital Signs (last 24 hours): Temp Pulse Resp BP Pulse Ox 98.1 F 89 20 135/79 97 02/14/18 08:06 02/14/18 09:47 02/14/18 08:06 02/14/18 09:47 02/14/18 08:06 - Medications Medications: Current Medications Acetaminophen (Tylenol 325mg Tab) 650 mg PO Q6 PRN PRN Reason: Pain, moderate (4-7) Last Admin: 02/10/18 18:22 Dose: 650 mg Acetaminophen (Tylenol 325mg Tab) 650 mg PO Q4 PRN PRN Reason: Fever >100.4 F Last Admin: 02/04/18 13:49 Dose: 650 mg Amlodipine Besylate (Norvasc) 10 mg PO DAILY [facility] Last Admin: 02/14/18 09:45 Dose: 10 mg Aspirin (Ecotrin) 81 mg PO DAILY [facility] Last Admin: 02/14/18 09:53 Dose: 81 mg Carvedilol (Coreg) 12.5 mg PO Q12 [facility] Last Admin: 02/14/18 09:42 Dose: 12.5 mg Dextrose (Dextrose 50% Inj) 0 ml IV STAT PRN; Protocol PRN Reason: Hypoglycemia Protocol Dextrose (Glutose 15) 0 gm PO ONCE PRN; Protocol PRN Reason: Hypoglycemia Protocol Diphenhydramine HCl (Benadryl) 25 mg PO Q6 PRN PRN Reason: Itching / Pruritus Last Admin: 02/11/18 11:16 Dose: 25 mg Diphenhydramine HCl (Benadryl) 50 mg IVP Q6 PRN PRN Reason: Itching / Pruritus Last Admin: 02/10/18 17:23 Dose: 50 mg Epoetin Jose (Procrit) 10,000 unit IV TTS [facility] Last Admin: 02/13/18 09:10 Dose: 10,000 unit Glucagon (Glucagen Diagnostic Kit) 0 mg IM STAT PRN; Protocol PRN Reason: Hypoglycemia Protocol Heparin Sodium (Porcine) (Heparin) 5,000 units SC Q12 [facility] PRN Reason: Protocol Last Admin: 02/14/18 09:50 Dose: 5,000 units Hydralazine HCl (Apresoline) 10 mg PO Q12 [facility] Last Admin: 02/14/18 09:40 Dose: 10 mg Hydrocortisone (Cortizone 1% Cream) 1 applic TOP BID [facility] Last Admin: 02/14/18 10:06 Dose: Not Given Hydrocortisone (Cortizone 1% Cream) 1 applic TOP Q6H PRN PRN Reason: Itching / Pruritus Last Admin: 02/06/18 23:10 Dose: 1 applic Vancomycin HCl 1 gm/ Sodium (Chloride) 250 mls @ 125 mls/hr IVPB TTS [facility] PRN Reason: Protocol Last Admin: 02/13/18 09:11 Dose: 125 mls/hr Insulin Human Lispro (Humalog) 0 units SC ACHS [facility] PRN Reason: Protocol Last Admin: 02/14/18 09:48 Dose: Not Given Insulin Lispro Protam/Lispro Human (Humalog Mix 75/25) 15 units SC BID [facility] Last Admin: 02/14/18 10:09 Dose: 15 units Lactic Acid (Lac-Hydrin 12% Lotion (225 G)) 1 applic TOP TID [facility] Last Admin: 02/14/18 09:52 Dose: 1 applic Lidocaine (Lidoderm) 1 ea TD DAILY [facility] Last Admin: 02/14/18 10:05 Dose: Not Given Lisinopril (Zestril) 10 mg PO DAILY [facility] Last Admin: 02/14/18 09:47 Dose: 10 mg Loratadine (Claritin) 10 mg PO DAILY [facility] Last Admin: 02/14/18 09:42 Dose: 10 mg Morphine Sulfate (Morphine) 2 mg IVP Q8 PRN PRN Reason: Pain, severe (8-10) Last Admin: 02/14/18 04:31 Dose: 2 mg Ondansetron HCl (Zofran Inj) 4 mg IVP Q4 PRN PRN Reason: Nausea/Vomiting Last Admin: 02/02/18 10:52 Dose: 4 mg Sevelamer Carbonate (Renvela) 2.4 gm PO TIDWM [facility] Last Admin: 02/14/18 10:04 Dose: Not Given - Labs Labs: 02/14/18 05:45 02/14/18 05:45 PT 15.7 Seconds (9.8-13.1) H 02/02/18 17:03 INR 1.4 (0.9-1.2) H 02/02/18 17:03 APTT 28.6 Seconds (25.6-37.1) 02/02/18 17:03 - Constitutional Appears: Well - Head Exam Head Exam: ATRAUMATIC, NORMAL INSPECTION, NORMOCEPHALIC - Eye Exam Eye Exam: EOMI, Normal appearance, PERRL Pupil Exam: NORMAL ACCOMODATION, PERRL - ENT Exam ENT Exam: Mucous Membranes Moist, Normal Exam - Neck Exam Neck Exam: Full ROM, Normal Inspection. absent: Lymphadenopathy - Respiratory Exam Respiratory Exam: Clear to Ausculation Bilateral, NORMAL BREATHING PATTERN - Cardiovascular Exam Cardiovascular Exam: REGULAR RHYTHM, +S1, +S2. absent: Murmur - GI/Abdominal Exam GI & Abdominal Exam: Soft, Normal Bowel Sounds. absent: Tenderness - Rectal Exam Rectal Exam: NORMAL INSPECTION - Exam Exam: Circumcision, NORMAL INSPECTION - Extremities Exam Extremities Exam: Full ROM, Normal Capillary Refill, Normal Inspection. absent : Joint Swelling, Pedal Edema - Back Exam Back Exam: NORMAL INSPECTION - Neurological Exam Neurological Exam: Alert, Awake, CN II-XII Intact, Normal Gait, Oriented x3 - Psychiatric Exam Psychiatric exam: Normal Affect, Normal Mood - Skin Skin Exam: Dry, Intact, Normal Color, Warm Assessment and Plan (1) Abdominal pain Status: Acute (2) End stage renal disease Status: Acute (3) Fever Status: Acute
--- NOTE | 2018-02-14 13:50 | CP.PCM.DIS ---
Provider - Provider Date of Admission: 02/01/18 12:13 Attending physician: Romeo Sears MD Consults: Dr. Garnett, Dr. Avila, Dr. Hernandez, Dr. Macias, Dr. Carter, Dr. Kuhn Time Spent in preparation of Discharge (in minutes): 30 Diagnosis - Discharge Diagnosis (1) Fever of unknown origin (FUO) Status: Resolved Priority: Low (2) Arteriovenous graft stenosis Status: Acute Priority: Low (3) ESRD on hemodialysis Status: Chronic Priority: Medium (4) Loculated pleural effusion Status: Acute Priority: Low (5) SIRS without acute organ dysfunction due to non-infectious process Status: Resolved Priority: Low Hospital Course - Lab Results Lab Results: Micro Results 02/07/18 08:50 Naris MRSA Culture (Admit) - Final MRSA NOT DETECTED 02/03/18 17:35 Blood-Venous Blood Culture - Final NO GROWTH AFTER 5 DAYS 02/03/18 17:35 Blood-Venous Blood Culture - Final NO GROWTH AFTER 5 DAYS 02/03/18 17:35 Blood-Venous Gram Stain - Final TEST NOT PERFORMED 02/01/18 05:30 Blood-Venous Blood Culture - Final NO GROWTH AFTER 5 DAYS 02/01/18 05:30 Blood-Venous Gram Stain - Final TEST NOT PERFORMED 02/01/18 05:10 Blood-Venous Blood Culture - Final NO GROWTH AFTER 5 DAYS 02/01/18 05:10 Blood-Venous Gram Stain - Final TEST NOT PERFORMED 02/01/18 15:14 Naris MRSA Culture (Admit) - Final MRSA NOT DETECTED Most Recent Lab Values WBC 18.3 K/uL (4.8-10.8) H 02/14/18 05:45 RBC 3.40 Mil/uL (3.80-5.20) L 02/14/18 05:45 Hgb 9.7 g/dL (12.0-16.0) L 02/14/18 05:45 Hct 30.8 % (34.0-47.0) L 02/14/18 05:45 MCV 90.5 fl (81.0-99.0) 02/14/18 05:45 MCH 28.6 pg (27.0-31.0) 02/14/18 05:45 MCHC 31.6 g/dL (33.0-37.0) L 02/14/18 05:45 RDW 19.7 % (11.5-14.5) H 02/14/18 05:45 Plt Count 276 K/uL (130-400) 02/14/18 05:45 MPV 8.9 fl (7.2-11.7) 02/07/18 04:35 Neut % (Auto) 88.0 % (50.0-75.0) H 02/07/18 04:35 Lymph % (Auto) 7.6 % (20.0-40.0) L 02/07/18 04:35 [place] % (Auto) 3.6 % (0.0-10.0) 02/07/18 04:35 Eos % (Auto) 0.7 % (0.0-4.0) 02/07/18 04:35 Baso % (Auto) 0.1 % (0.0-2.0) 02/07/18 04:35 Neut # (Auto) 13.5 K/uL (1.8-7.0) H 02/07/18 04:35 Lymph # (Auto) 1.2 K/uL (1.0-4.3) 02/07/18 04:35 [place] # (Auto) 0.6 K/uL (0.0-0.8) 02/07/18 04:35 Eos # (Auto) 0.1 K/uL (0.0-0.7) 02/07/18 04:35 Baso # (Auto) 0.0 K/uL (0.0-0.2) 02/07/18 04:35 Neutrophils % (Manual) 82 % (42-75) H 02/07/18 04:35 Band Neutrophils % 2 % (0-2) 02/07/18 04:35 Lymphocytes % (Manual) 9 % (20-50) L 02/07/18 04:35 Monocytes % (Manual) 4 % (0-10) 02/07/18 04:35 Eosinophils % (Manual) 1 % (0-7) 02/07/18 04:35 Metamyelocytes % 1 % (0-0) H 02/07/18 04:35 Myelocytes % 1 % (0-0) H 02/07/18 04:35 Platelet Estimate Normal (NORMAL) 02/07/18 04:35 Large Platelets Present 02/07/18 04:35 Giant Platelets Present 02/07/18 04:35 Hypochromasia (manual) Moderate 02/07/18 04:35 Poikilocytosis (manual Slight 02/07/18 04:35 Anisocytosis (manual) Slight 02/07/18 04:35 Ovalocytes Slight 02/07/18 04:35 ESR 83 mm/hr (0-20) H 02/13/18 09:30 PT 15.7 Seconds (9.8-13.1) H 02/02/18 17:03 INR 1.4 (0.9-1.2) H 02/02/18 17:03 APTT 28.6 Seconds (25.6-37.1) 02/02/18 17:03 Sodium 134 mmol/l (132-148) 02/14/18 05:45 Potassium 5.0 MMOL/L (3.6-5.0) 02/14/18 05:45 Chloride 98 mmol/L (98-107) 02/14/18 05:45 Carbon Dioxide 29 mmol/L (22-30) 02/14/18 05:45 Anion Gap 12 (10-20) 02/14/18 05:45 BUN 38 mg/dl (7-17) H 02/14/18 05:45 Creatinine 5.9 mg/dl (0.7-1.2) H 02/14/18 05:45 Est GFR ( Amer) 10 02/14/18 05:45 Est GFR (Non-Af Amer) 8 02/14/18 05:45 POC Glucose (mg/dL) 249 mg/dL (65-110) H 02/14/18 10:55 Random Glucose 130 mg/dL (65-105) H 02/14/18 05:45 Hemoglobin A1c 8.4 % (4.2-6.5) H 02/02/18 04:30 Lactic Acid 1.0 MMOL/L (0.7-2.1) 02/01/18 05:35 Calcium 8.2 mg/dL (8.4-10.2) L 02/14/18 05:45 Phosphorus 6.2 mg/dl (2.5-4.5) H 02/03/18 11:20 Iron 48 ug/dL (37-170) 02/09/18 10:53 TIBC 153 ug/dL (250-450) L 02/09/18 10:53 % Saturation 31 % (20-55) 02/09/18 10:53 Ferritin 1820.0 ng/Ml (6.24-137.0) H 02/09/18 10:52 Total Bilirubin 0.7 mg/dl (0.2-1.3) 02/13/18 09:30 AST 37 U/L (14-36) H D 02/13/18 09:30 ALT 23 U/L (9-52) 02/13/18 09:30 Alkaline Phosphatase 63 U/L (38-126) 02/13/18 09:30 C-Reactive Protein 31.20 mg/L (0.0-9.9) H 02/13/18 09:30 Total Protein 7.2 G/DL (6.3-8.2) 02/13/18 09:30 Albumin 3.0 g/dL (3.5-5.0) L 02/13/18 09:30 Globulin 4.2 gm/dL (2.2-3.9) H 02/13/18 09:30 Albumin/Globulin Ratio 0.7 (1.0-2.1) L 02/13/18 09:30 Vitamin B12 563 pg/mL (239-931) 02/09/18 10:52 Folate 4.7 ng/mL 02/09/18 10:52 Procalcitonin 43.74 NG/ML (0.19-0.49) H 02/06/18 11:41 Serum HCG, Qual Negative (NEGATIVE) 02/01/18 05:10 PTH Intact Whole Molec 254 pg/mL (14-64) H 02/01/18 16:23 Urine Color Yellow (YELLOW) 02/01/18 04:31 Urine Clarity Cloudy (Clear) 02/01/18 04:31 Urine pH 7.0 (5.0-8.0) 02/01/18 04:31 Ur Specific [place] 1.013 (1.003-1.030) 02/01/18 04:31 Urine Protein >=500 mg/dL (NEGATIVE) 02/01/18 04:31 Urine Glucose (UA) >=500 mg/dL (Normal) 02/01/18 04:31 Urine Ketones Negative mg/dL (NEGATIVE) 02/01/18 04:31 Urine Blood Large (NEGATIVE) 02/01/18 04:31 Urine Nitrate Negative (NEGATIVE) 02/01/18 04:31 Urine Bilirubin Negative (NEGATIVE) 02/01/18 04:31 Urine Urobilinogen 0.2-1.0 mg/dL (0.2-1.0) 02/01/18 04:31 Ur Leukocyte Esterase Neg Erasmo/uL (Negative) 02/01/18 04:31 Urine RBC (Auto) 482 /hpf (0-3) H 02/01/18 04:31 Urine Microscopic WBC 34 /hpf (0-5) H 02/01/18 04:31 Ur Squamous Epith Cells 7 /hpf (0-5) H 02/01/18 04:31 Urine Bacteria Rare (<OCC) 02/01/18 04:31 Hyaline Casts 3-5 /hpf (0-2) H 02/01/18 04:31 Hep Bs Antigen Negative (NEGATIVE) 02/01/18 17:20 Hep Bs Antibody Positive (NEGATIVE) 02/01/18 17:20 Hep B Core IgM Ab Negative (NEGATIVE) 02/01/18 17:20 Influenza Typ A,B (EIA) Negative for flu a/b (NEGATIVE) 02/03/18 17:20 Blood Type A POSITIVE 02/10/18 09:40 Antibody Screen Negative 02/10/18 09:40 Crossmatch See Detail 02/10/18 09:40 BBK History Checked Patient has bt 02/10/18 09:40 - Hospital Course Hospital Course: 32 yr old F admitted for SIRS (fever of unknow origin), right arm pain/ abdominal pain and fever and found to have large right loculated pleural effusion with probable underlying pulmonary consolidation. Patient was evaluated by general surgery, pulmonology, cardiology, nephrology and IR. She refused thoracentesis. Improved after treatment with IV antibiotics and optimization of cardiac medications. Patient was discharged stable with instructions to follow up with nephrology as outpatient tomorrow for hemodialysis, follow up with PMD within 1 week, get IV antibiotics as prescribed after hemodialysis. - Date & Time of H&P Date of H&P: 02/01/18 Time of H&P: 14:49 Discharge Exam - Head Exam Head Exam: ATRAUMATIC, NORMAL INSPECTION, NORMOCEPHALIC - ENT Exam ENT Exam: Mucous Membranes Moist - Respiratory Exam Respiratory Exam: NORMAL BREATHING PATTERN - Cardiovascular Exam Cardiovascular Exam: REGULAR RHYTHM - GI/Abdominal Exam GI & Abdominal Exam: Normal Bowel Sounds, Soft - Neurological Exam Neurological exam: Alert, CN II-XII Intact, Oriented x3 - Psychiatric Exam Psychiatric exam: Normal Affect, Normal Mood - Skin Skin Exam: Dry, Normal Color, Warm Discharge Plan - Discharge Medications Prescriptions: ceFAZolin 1 gm FROZEN Premix [Ancef] 2 gm IVPB TTS #5 ml Vancomycin 1 GM [Vancomycin 1GM in Normal Saline Addvantage] 1 gm IVPB TTS #5 bag - Follow Up Plan Condition: STABLE Disposition: HOME/ ROUTINE Instructions: Fever of Unknown Origin (DC), End Stage Kidney Disease (DC), Dialysis and Diet Additional Instructions: follow up with primary MD and frontend engineer 1 week Resume hemodialysis tomorrow 02/15/18 Referrals: Gurvinder Garnett MD [Staff Provider] -
== END 2018-02-14 13:50 | disposition home or self-care (01) | DRG 981 ==
LOC: H.ER 04:12 → H.ERHOLD 12:13 → H.ICU/CCU 13:22 → H.MEDSURG1 02-07 18:55
PROVIDERS: ADMIT Internal Medicine; ATTEND Internal Medicine
PROC: 5A1D70Z Performance of Urinary Filtration, Intermittent, Less than 6 Hours Per Day (ICD-10-PCS; 2018-02-01)
PROC: B30 Imaging, Upper Arteries, Plain Radiography (ICD-10-PCS; 2018-02-05)
PROC: 05773ZZ Dilation of Right Axillary Vein, Percutaneous Approach (ICD-10-PCS; principal; 2018-02-05 13:30)
PROC: 30233N1 Transfusion of Nonautologous Red Blood Cells into Peripheral Vein, Percutaneous Approach (ICD-10-PCS; 2018-02-10)
DX: J90 Pleural effusion, not elsewhere classified (principal); N18.6 End stage renal disease; I50.23 Acute on chronic systolic (congestive) heart failure; T82.858A Stenosis of other vascular prosthetic devices, implants and grafts, initial encounter; R65.10 Systemic inflammatory response syndrome (SIRS) of non-infectious origin without acute organ dysfunction; I13.2 Hypertensive heart and chronic kidney disease with heart failure and with stage 5 chronic kidney disease, or end stage renal disease; I42.9 Cardiomyopathy, unspecified; N25.81 Secondary hyperparathyroidism of renal origin; D63.1 Anemia in chronic kidney disease; D72.828 Other elevated white blood cell count; E11.22 Type 2 diabetes mellitus with diabetic chronic kidney disease; E11.65 Type 2 diabetes mellitus with hyperglycemia; E78.00 Pure hypercholesterolemia, unspecified; E83.39 Other disorders of phosphorus metabolism; M25.511 Pain in right shoulder; L27.0 Generalized skin eruption due to drugs and medicaments taken internally; T36.0X5A Adverse effect of penicillins, initial encounter; F32.9 Major depressive disorder, single episode, unspecified; J44.9 Chronic obstructive pulmonary disease, unspecified; Y83.2 Surgical operation with anastomosis, bypass or graft as the cause of abnormal reaction of the patient, or of later complication, without mention of misadventure at the time of the procedure; Z91.15 Patient's noncompliance with renal dialysis; Z91.19 Patient's noncompliance with other medical treatment and regimen; F41.9 Anxiety disorder, unspecified; Z99.2 Dependence on renal dialysis; Z79.4 Long term (current) use of insulin; Z79.82 Long term (current) use of aspirin; Z87.891 Personal history of nicotine dependence; Z87.442 Personal history of urinary calculi; Z87.01 Personal history of pneumonia (recurrent); Z89.422 Acquired absence of other left toe(s); Z91.013 Allergy to seafood; Y92.239 Unspecified place in hospital as the place of occurrence of the external cause

== ENCOUNTER 2018-04-02 18:15 | Emergency (ER) | payer MEDICARE, MEDICAID ==
[2018-04-02 18:15] VITALS: BMI 29.2
[2018-04-02] MEDS ORDERED: guaiFENesin 200 mg/10 ml Syrup UD PO STA (19:07)
[2018-04-02] MEDS ORDERED: Albuterol 0.083% Inhal Sol (2.5 mg/3 mL) UD INH STA (19:07)
--- NOTE | 2018-04-02 19:34 | ED PDOC ---
HPI: SOB/CHF/COPD Time Seen by Provider: 04/02/18 18:56 Chief Complaint (Nursing): Shortness Of Breath Chief Complaint (Provider): Shortness Of Breath History Per: Patient History/Exam Limitations: no limitations Onset/Duration Of Symptoms: Days (x4) Current Symptoms Are (Timing): Still Present Additional Complaint(s): 32 year old female arrives to ED via [facility] for an evaluation of shortness of breath upon waking up this morning. She further reports cough with chills ongoing for 4 days. Patient has a history of pleural effusion with similar symptoms. No medications taken today for relief. Otherwise: (-) fever, ( -) nausea, (-) vomiting, (-) diarrhea, (-) rash, (-) joint pain, (-) chest pain , (-) orthopnea, or (-) recent sick contacts or travel. Patient attends dialysis treatments on Monday, and Monday. PMD: Currently in process of switching doctors Past Medical History Reviewed: Historical Data, Nursing Documentation, Vital Signs Vital Signs: Last Vital Signs Temp 100.2 F H 04/02/18 23:57 Pulse 106 H 04/02/18 23:57 Resp 16 04/02/18 23:57 BP 187/98 H 04/02/18 23:57 Pulse Ox 98 04/04/18 19:52 - Medical History PMH: Anemia, Anxiety, Asthma, Bronchitis, CHF, COPD, Depression, Diabetes (type I), HTN, Hypercholesterolemia, Kidney Stones, Pneumonia, End Stage Renal Disease , Chronic Kidney Disease (CRF HD T-,ESRD) - Surgical History Other surgeries: left 5th toe amputation - Family History Family History: States: Unknown Family Hx - Home Medications Home Medications: Ambulatory Orders Medication Instructions Recorded Aspirin [Aspirin EC] 81 mg PO DAILY #0 tablet. 01/16/16 amLODIPine [Norvasc] 10 mg PO DAILY #30 tab 08/29/17 Carvedilol [Coreg] 12.5 mg PO Q12 11/04/17 Sevelamer Carbonate [Renvela] 2,400 mg PO TID 11/04/17 Diazepam [Valium] 2 mg PO TID PRN #12 tablet 01/26/18 Insulin Human (NPH)/Regular 15 unit SC BID 01/26/18 [Novolin 70/30 (70/30 units/ml) 10 ml] Lisinopril [Zestril] 10 mg PO DAILY 01/26/18 hydrALAZINE [Apresoline] 10 mg PO Q12 01/26/18 Cyclobenzaprine [Flexeril] 10 mg PO TID PRN #20 tab 01/31/18 Lidocaine 5% [Lidoderm] 1 ea TD DAILY #30 patch 01/31/18 Vancomycin 1 GM [Vancomycin 1GM in 1 gm IVPB TTS #5 bag 02/14/18 Normal Saline Addvantage] ceFAZolin 1 gm FROZEN Premix 2 gm IVPB TTS #5 ml 02/14/18 [Ancef] Albuterol HFA [Ventolin HFA 90 1 puff IH Q4 PRN #1 inh 04/02/18 mcg/actuation (8 g)] Benzonatate [Tessalon Perle] 100 mg PO TID PRN #21 capsule 04/02/18 Levofloxacin [Levaquin] 750 mg PO DAILY #4 tablet 04/02/18 - Allergies Allergies/Adverse Reactions: Allergies Allergy/AdvReac Type Severity Reaction Status Date / Time FISH Allergy SWELLING Verified 01/31/18 15:57 Fish Containing Products Allergy SWELLING Verified 01/31/18 15:57 seafood Allergy Mild SWELLING Uncoded 01/31/18 15:57 Review of Systems ROS Statement: Except As Marked, All Systems Reviewed And Found Negative Constitutional: Positive for: Chills. Negative for: Fever Cardiovascular: Negative for: Chest Pain Respiratory: Positive for: Cough, Shortness of Breath. Negative for: Other ( orthopnea) Gastrointestinal: Negative for: Nausea, Vomiting, Diarrhea Musculoskeletal: Negative for: Other (joint pain) Skin: Negative for: Rash Physical Exam - Reviewed Nursing Documentation Reviewed: Yes Vital Signs Reviewed: Yes - Physical Exam Comments: GENERAL APPEARANCE: Patient is awake, alert, oriented x 3, in no acute distress. Resting comfortably. SKIN: Warm, dry; (-) cyanosis. ENMT: Mucous membranes are moist. Airway patent: (-) stridor. NECK: Supple, FROM (-) tenderness, (-) stiffness, (-) lymphadenopathy. CHEST AND RESPIRATORY: (-) wheezing; (-) rales, (-) rhonchi, (-) rub; breath sounds equal bilaterally. Respirations even and nonlabored, speaking in full sentences. HEART AND CARDIOVASCULAR: (-) irregularity; (-) murmur ABDOMEN AND GI: Soft; active bowel sounds x4(-) tenderness (-) guarding (-) distention (-) rebound (-)CVA tenderness. EXTREMITIES: (-) deformity, (-) edema. NEURO AND PSYCH: Mental status as above; (-) focal findings (-) facial asymmetry. Speech clear. Pupils equal and reactive. - ECG O2 Sat by Pulse Oximetry: 98 (RA) Pulse Ox Interpretation: Normal Medical Decision Making Medical Decision Making: Initial Impression: Shortness of breath; cough Initial Plan: * VBG * EKG * BNP * CMP * Urine * CBC * CXR * Albuterol 2.5mg INH * Robutssin 200mg PO Time: 1929 --EKG: NSR at [address] elevation. QTC: 477. Time: 1999 --Patient is endorsed to Rosalie Hancock PA-C, pending lab/CXR results, re-eval and further disposition. Scribe Attestation: Documented by Ally Singh, acting as a scribe for ENMA Chapman. Provider Scribe Attestation: All medical record entries made by the Scribe were at my direction and personally dictated by me. I have reviewed the chart and agree that the record accurately reflects my personal performance of the history, physical exam, medical decision making, and the department course for this patient. I have also personally directed, reviewed, and agree with the discharge instructions and disposition. Disposition - Clinical Impression Clinical Impression: SOB (shortness of breath), Cough in adult - Patient ED Disposition Is Patient to be Admitted: Transfer of Care (Darren Hancock at 1999 pending re- evaluation, lab/CXR results, and further disposition.) - Disposition Disposition: Transfer of Care (Darren Hancock at 1999 pending re-evaluation, lab/CXR results, and further disposition.) Disposition Time: 20:00 Condition: FAIR Prescriptions: Albuterol HFA [Ventolin HFA 90 mcg/actuation (8 g)] 1 puff IH Q4 PRN #1 inh PRN Reason: Wheezing Benzonatate [Tessalon Perle] 100 mg PO TID PRN #21 capsule PRN Reason: Cough Levofloxacin [Levaquin] 750 mg PO DAILY #4 tablet Instructions: Cough in Adults, Shortness of Breath (Dyspnea) Forms: [employer] (Togolese) - POA Present On Arrival: None
[2018-04-02] MEDS ORDERED: guaiFENesin 100 mg/5 ml Syrup UD ONE (20:06)
[2018-04-02] MEDS ORDERED: Albuterol 0.083% Inhal Sol (2.5 mg/3 mL) UD ONE (20:06)
[2018-04-02] MEDS ORDERED: Albuterol-Ipratrop 3 mg / 0.5 (3 ml) UD IH STA (21:47)
[2018-04-02] MEDS ORDERED: Albuterol-Ipratrop 3 mg / 0.5 (3 ml) UD ONE (22:32)
[2018-04-02] MEDS ORDERED: Promethazine/Cod 6.25mg-10mg/5ml Syr UD PO STA (22:32)
[2018-04-02] MEDS ORDERED: Promethazine/Cod 6.25mg-10mg/5ml Syr UD ONE (22:34)
[2018-04-02] MEDS ORDERED: levoFLOXacin 750 MG TAB PO STA (23:11)
[2018-04-02 23:59] VITALS: BP 187/98; PULSE 106; RESP 16; TEMP 100.2
--- NOTE | 2018-04-03 00:04 | ED PDOC ---
- ECG O2 Sat by Pulse Oximetry: 96 - Progress ED Course And Treament: Patient uncooperative while Dr. Lyon attempted EJ neck line Patient now refusing blood draw/IV EXAM: XR Chest, 2 Views CLINICAL HISTORY: The patient is a 32 years female; Signs and symptoms; Cough and shortness of breath; Additional info: SOB, HX pleural effusion 04/02/2018 7:07 PM TECHNIQUE: Frontal and lateral views of the chest. COMPARISON: SD - CHEST PORTABLE 2018-02-12 13:45 FINDINGS: Lungs: Mild perihilar and interstitial opacities are noted, indicative of pulmonary edema in the appropriate clinical setting. Superimposed infection is not excluded. Correlate clinically. Pleural space: Moderate right pleural effusion with adjacent compressive atelectasis and/or infiltrates. Correlate clinically. No pneumothorax. Heart: Unchanged Bones/joints: Spondylosis. IMPRESSION: 1. Mild perihilar and interstitial opacities are noted, indicative of pulmonary edema in the appropriate clinical setting. Superimposed infection is not excluded. Correlate clinically. 2. Moderate right pleural effusion with adjacent compressive atelectasis and/or infiltrates. Correlate clinically. Patient educated on xray findings; still refusing lab work or further ED work up. Patient advised she will need to sign out against medical advice. Patient AAOx3, demonstrates full competency and still wishes to sign out after risks/benefits explained. Made aware of elevated BP Advised follow up PMD tomorrow (patient states she has dialysis tomorrow) Rx levaquin (dose given in ED), albuterol HFA, tessalon perles provided Strict return precautions given Disposition - Clinical Impression Clinical Impression: SOB (shortness of breath), Cough in adult, Pleural effusion, Left against medical advice - POA Present On Arrival: None - Disposition Disposition: AGAINST MEDICAL ADVICE Disposition Time: 00:04 Condition: FAIR Prescriptions: Albuterol HFA [Ventolin HFA 90 mcg/actuation (8 g)] 1 puff IH Q4 PRN #1 inh PRN Reason: Wheezing Benzonatate [Tessalon Perle] 100 mg PO TID PRN #21 capsule PRN Reason: Cough Levofloxacin [Levaquin] 750 mg PO DAILY #4 tablet Instructions: Pleural Effusion, Cough in Adults, Shortness of Breath (Dyspnea) , Leaving Against Medical Advice Forms: [employer] (Fijian) Against Medical Advice - AMA Patient Left Against Medical Advice: The patient declines admission to the hospital and wishes to leave the Emergency Department. This action is against my medical advice. This decision was made with informed refusal. The patient was told that admission to the hospital is necessary. Explanation of the reasons why were discussed. The risks of leaving were explained to the patient and include, but are not limited to, worsening of known or currently unknown conditions, permanent disability and from undiagnosed or untreated conditions. The patient has the capacity to make this informed decision and understands my explanation of the current medical problem and risks of leaving. The patient voluntarily accepts these risks and signed an AMA form documenting our conversation. The patient was given the opportunity to ask questions and reconsider. The patient was encouraged to return to the Emergency Department at any time for further care.
--- NOTE | 2018-04-03 10:19 | RAD ---
HISTORY: COMPARISON: 02/12/2018. TECHNIQUE: Chest PA and lateral FINDINGS: LINES AND TUBES: None. LUNG AND PLEURA: There is airspace disease in the right mid lung. There is interval development of haziness in both lungs. There is persistent small right pleural effusion. No pneumothorax. HEART AND MEDIASTINUM: The heart is not enlarged. The hilar and mediastinal contours are within normal limits. SKELETAL STRUCTURES: The bony structures are within normal limits for the patient's age. VISUALIZED UPPER ABDOMEN: Normal. OTHER FINDINGS: None. IMPRESSION: Findings are most compatible with interval development of pulmonary edema. Airspace disease in the right mid lung may represent developing pneumonia. Persistent small right pleural effusion. A preliminary report was provided by [facility].
--- NOTE | 2018-04-03 17:11 | CARD ---
APPROVED REPORT Date of service: 04/02/2018 EKG Measurement Heart [id number] <Conclusion> sinus tachycardia prolonged QT Abormal ECG
[2018-04-04 19:50] VITALS: O2SAT 98
== END 2018-04-03 00:15 | disposition left against medical advice (07) ==
LOC: H.ER 18:15
DX: R06.02 Shortness of breath (principal); J91.8 Pleural effusion in other conditions classified elsewhere; R05 Cough; E78.00 Pure hypercholesterolemia, unspecified; F32.9 Major depressive disorder, single episode, unspecified; F41.9 Anxiety disorder, unspecified; I13.2 Hypertensive heart and chronic kidney disease with heart failure and with stage 5 chronic kidney disease, or end stage renal disease; I50.9 Heart failure, unspecified; N18.6 End stage renal disease; Z79.4 Long term (current) use of insulin; Z79.82 Long term (current) use of aspirin; Z89.422 Acquired absence of other left toe(s); Z99.2 Dependence on renal dialysis